=== PATIENT | female | born 1950 | race Caucasian/White ===

== ENCOUNTER 2022-09-25 10:19 | Inpatient (IN) ==
[2022-09-25] MEDS ORDERED: VANCOMYCIN CONSULT ACTIVE PRN (11:09)
[2022-09-25] MEDS ORDERED: MEROPENEM 500 MG in SYRINGE 0 ML IV STA (11:09)
[2022-09-25] MEDS ORDERED: VANCOMYCIN HCL 1,500 MG in SODIUM CHLORIDE 0.9% 500 ML IV ONE (11:09)
--- NOTE | 2022-09-25 11:12 | Emergency Department Note ---
Impression & Plan Cellulitis of right lower extremity, Failure of outpatient treatment ED Provider Note Name: CARLOS SPRINGER Age: 71 Sex: F Arrives Via: Walk-In Informant: Patient, son ED Provider: Steven Franklin MD Chief Complaint: Right leg redness Impression: As per impressions above Medical Decision Making: Dio 71-year-old female with worsening right leg cellulitis over the last several weeks having had been on both doxycycline and Bactrim. Over the last 48 hours significantly worsening redness which initially was just of the low foot and now is spread up to about 50% of her right lower leg from knee down. She was having fevers chills when this started on Saturday. Septic work-up initiated but fortunately her lactate, white count and procalcitonin are normal. She does have an elevated CRP. Patient already had outpatient vascular study showing decreased arterial flow. She does not have findings or symptoms of PE at this time or dissection or DVT. She is a bit tachycardic consistent with infection. She was given empiric IV antibiotics but due to her severe Rocephin allergy we went with meropenem and vancomycin after discussing with pharmacy. Given the failure outpatient treatment the rapid worsening the fact that is about 50% leg I do feel that she requires hospitalization. At this time though she is not septic I do not feel she is in severe sepsis or septic shock. Prior Medical Record and Triage/Nursing Notes reviewed by Me Outpatient records reviewed. Differentials:Cellulitis, sepsis, osteomyelitis, DVT, arterial insufficiency, multiple other pathologies considered Vital Signs: reviewed and remarkable for tachycardia Interventions: Normal saline bolus, meropenem IV, vancomycin IV Labs:Reviewed and remarkable for elevated CRP Consults:Discussed with pharmacist regarding optimal antibiotics and he advised IV meropenem and IV vancomycin. [facility]. Plan: Disposition:Hospitalization. Condition: Good History of Present Illness:Dio 71-year-old female arrives for evaluation of left leg pain. Patient notes she had a toe infection a month and a half ago for which she had been on doxycycline this did not really resolve the infection and the foot started to get a bit redder. She was switched to Bactrim several weeks ago but notes redness continued. About a week or so ago she had a wound developed of the right lower anterior leg. She did have an arterial ultrasound at that time which showed decreased blood flow but no need for emergent int ervention. She notes that over the last 24 hours to 48 hours she has had rapid worsening of redness of her leg now of the entire right lower foot and up to her knee. Notes it is warm mildly painful. Associated with fevers, chills, weakness. Currently on Bactrim without improvement. Walking makes worse. Denies any falls, trauma, injuries. Denies any puncture wounds to the area. Past Medical History:CAD, diabetes, hypertension amongst others Home Medications:See Below Allergies:See Below Vitals:Blood Pressure: 158/75, Pulse 110, RR 20, T 36.7C, O2 99% on RA Physical Exam: GENERAL: Patient is tired appearing and in mild distress. EYES: No scleral icterus, unremarkable pupils. RESPIRATORY: No dyspnea. Clear to auscultation and equal bilaterally. No wheeze, no rhonchi. CARDIOVASCULAR: Tachy.No murmurs, rubs, gallops appreciated. EXTREMITIES: Mild edema right lower leg with red erythema/cellulitis of the right lower leg from knee down to toes. Scab of the right lower anterior buitrago noted. NEUROLOGIC: Alert and oriented, no focal neurologic deficits appreciated SKIN: no jaundice, no diaphoresis. PSYCH: Appropriate GCS: 15 Steven Franklin MD Past Med/Surg History Medical History (Updated 09/25/22 @ 14:41 by Steven Franklin MD) Arthritis Back abscess Bone spur CAD (coronary artery disease) Dyslipidemia Frequent PVCs History of deviated nasal septum Hypertension Myocardial infarct DEEPIKA (obstructive sleep apnea) Type 2 diabetes mellitus Surgical History (Updated 09/05/22 @ 11:59 by Kenny Martinez DO) H/O arthroscopy of right knee H/O breast biopsy H/O cervical polypectomy H/O colonoscopy Last colonoscopy 01/24/2017 H/O dilation and curettage H/O sinus surgery Hx of carpal tunnel repair Hx of cataract extraction Hx of foot surgery left foot surgery and implant replacement Hx of parathyroidectomy Hx of tubal ligation Joint replaced left foot S/P coronary artery stent placement Family History Mother Heart disease Myocardial infarction Hypertension Brother Hypertension Uncle Diabetes Father Emphysema lung Denies family history of Ovarian cancer Prostate cancer Breast cancer Lung cancer Colorectal cancer Stroke Social History (Updated 09/05/22 @ 09:52 by Chris Price RN) Smoking Status: Never smoker Second Hand Exposure: No; Hx Alcohol Use: Yes Alcohol type: wine and hard liquor Alcohol Intake Frequency: Monthly or Less Hx Substance Use: No Preferred Language: Khmer Visual Impairment: Limited Hearing Ability: Normal marital status: / Current Living Situation: Alone current occupational status: retired How many Children do You have: 4 Feels Safe at Home: Yes Childhood Exposure to Second-Hand Smoke: No caffeine: Yes (1 cup a day) during the past year weight has: remained stable Dental Care, Regularly: Yes Physical Activity Frequency: 3-4 Times per Week Seatbelt Use: always Sunscreen Use: Yes Assistive Devices: Glasses Allergies Allergies Allergy/AdvReac Type Severity Reaction Status Date / Time amoxicillin Allergy Severe Rash Verified 09/05/22 09:34 ceftriaxone [From Rocephin] Allergy Severe Fever Verified 09/05/22 09:34 neomycin Allergy Intermediate Rash Verified 09/05/22 09:34 acetaminophen Allergy Mild Verified 09/05/22 09:34 [From Darvocet-N] propoxyphene Allergy Mild Verified 09/05/22 09:34 [From Darvocet-N] Home Meds Home Medications Medication Instructions Recorded Confirmed acetaminophen 500 mg tablet 500 mg PO BID 07/04/22 09/25/22 (Tylenol Extra Strength) aspirin 81 mg tablet,delayed 81 mg PO DAILY 07/04/22 09/25/22 release atorvastatin 80 mg tablet 80 mg PO DAILY 07/04/22 09/25/22 clopidogrel 75 mg tablet 75 mg PO DAILY 07/04/22 09/25/22 glimepiride 4 mg tablet 4 mg PO BID 07/04/22 09/25/22 insulin glargine 100 unit/mL (3 18 unit subcut QPM 07/04/22 09/25/22 mL) subcutaneous pen (Basaglar KwikPen U-100 Insulin) loratadine 10 mg tablet 10 mg PO DAILY 07/04/22 09/25/22 magnesium oxide 400 mg PO BID 07/04/22 09/25/22 metformin 1,000 mg tablet 1,000 mg PO BID 07/04/22 09/25/22 metoprolol tartrate 25 mg tablet 25 mg PO BID 07/04/22 09/25/22 cholecalciferol (vitamin D3) 25 25 mcg PO DAILY 07/06/22 09/25/22 mcg (1,000 unit) capsule biotin 10 mg tablet 10 mg PO DAILY 09/05/22 09/25/22 Previous Rx's Medication Instructions Recorded tramadol 50 mg tablet 50 mg PO DAILY PRN pain 30 days 08/01/22 #30 tabs ferrous gluconate 240 mg (27 mg 240 mg PO DAILY #30 tabs 09/05/22 iron) tablet (Ferate) lisinopril 2.5 mg tablet 2.5 mg PO DAILY #30 tabs 09/05/22 Results & Data (ED) Vital Signs Vital Signs - 24 hr 09/25/22 10:33 09/25/22 13:15 Temperature 36.7 C Temperature Source Temporal Artery Scan Pulse Rate 122 H 126 H Respiratory Rate 20 Respiratory Effort / Characteristics Non-Labored Respiratory Depth Normal Blood Pressure 158/75 H Blood Pressure Mean 102 Pulse Oximetry 99 Oxygen Delivery Method Room Air Sepsis Recent Fever Within 48 Hours No Sepsis New/Unexplained Change in Mental Status N/A Sepsis Action Taken by Nursing No Action Required Laboratory Data 09/25/22 12:21 09/25/22 12:21 Lab Results 09/25/22 09/25/22 09/25/22 Range/Units 11:37 12:21 12:21 WBC 9.80 (4.8-10.8) K/ul RBC 4.17 L (4.20-5.40) M/uL Hgb 11.6 L (12.0-16.0) g/dl Hct 36.2 L (37.0-47.0) % MCV 86.8 (80.0-100.0) fL MCH 27.8 (25.0-34.0) pg MCHC 32.0 (32.0-36.0) g/dL RDW Std Deviation 44.3 (36.4-46.3) fL RDW Coeff of Renetta 13.9 (11.5-14.5) % Plt Count 289 (130-400) K/uL MPV 9.8 (9.4-12.4) fL Immature Gran % (Auto) 0.5 % Neut % (Auto) 77.3 % Lymph % (Auto) 9.3 % Dade % (Auto) 11.4 % Eos % (Auto) 1.0 % Baso % (Auto) 0.5 % Neut # (Auto) 7.57 H (1.40-6.50) K/uL Lymph # (Auto) 0.91 L (1.2-3.4) K/uL Dade # (Auto) 1.12 H (0.11-0.59) K/uL Eos # (Auto) 0.10 (0-0.50) K/uL Baso # (Auto) 0.05 (0-0.2) K/uL Immature Gran # (Auto) 0.05 (0.01-0.20) K/uL Sodium 135 L (136-145) mmol/L Potassium 4.9 (3.5-5.1) mmol/L Chloride 100 (98-107) mmol/L Carbon Dioxide 27 (21-32) mmol/L Anion Gap 8 (3-11) BUN 35 H (6-23) mg/dl Creatinine 1.33 H (0.6-1.2) mg/dl Est Cr Clr Drug Dosing 33.4 ml/min Est GFR ( Amer) 45.8 ml/min Est GFR (Non-Af Amer) 39.6 ml/min BUN/Creatinine Ratio 26.3 H (10-20) Glucose 211 H (70-99(Fasting)) mg/dl Calcium 9.3 (8.5-10.1) mg/dl Magnesium 2.4 (1.7-2.4) mg/dl Troponin I High Sens 6.4 (0-14) pg/ml C-Reactive Protein 16.15 H (0-0.5) mg/dl Procalcitonin (0-0.5) ng/ml SARS-CoV-2 (PCR) NEGATIVE (Negative) Influenza Type A (PCR) Negative (Neg) Influenza Type B (PCR) Negative (Neg) RSV (RT-PCR) Negative (Neg) 09/25/22 Range/Units 12:21 WBC (4.8-10.8) K/ul RBC (4.20-5.40) M/uL Hgb (12.0-16.0) g/dl Hct (37.0-47.0) % MCV (80.0-100.0) fL MCH (25.0-34.0) pg MCHC (32.0-36.0) g/dL RDW Std Deviation (36.4-46.3) fL RDW Coeff of Renetta (11.5-14.5) % Plt Count (130-400) K/uL MPV (9.4-12.4) fL Immature Gran % (Auto) % Neut % (Auto) % Lymph % (Auto) % Dade % (Auto) % Eos % (Auto) % Baso % (Auto) % Neut # (Auto) (1.40-6.50) K/uL Lymph # (Auto) (1.2-3.4) K/uL Dade # (Auto) (0.11-0.59) K/uL Eos # (Auto) (0-0.50) K/uL Baso # (Auto) (0-0.2) K/uL Immature Gran # (Auto) (0.01-0.20) K/uL Sodium (136-145) mmol/L Potassium (3.5-5.1) mmol/L Chloride (98-107) mmol/L Carbon Dioxide (21-32) mmol/L Anion Gap (3-11) BUN (6-23) mg/dl Creatinine (0.6-1.2) mg/dl Est Cr Clr Drug Dosing ml/min Est GFR ( Amer) ml/min Est GFR (Non-Af Amer) ml/min BUN/Creatinine Ratio (10-20) Glucose (70-99(Fasting)) mg/dl Calcium (8.5-10.1) mg/dl Magnesium (1.7-2.4) mg/dl Troponin I High Sens (0-14) pg/ml C-Reactive Protein (0-0.5) mg/dl Procalcitonin 0.12 (0-0.5) ng/ml SARS-CoV-2 (PCR) (Negative) Influenza Type A (PCR) (Neg) Influenza Type B (PCR) (Neg) RSV (RT-PCR) (Neg) Administered Medications Discontinued Medications Vancomycin HCl 1,500 mg/ (Sodium Chloride) 530 mls @ 200 mls/hr IV NOW ONE Stop: 09/25/22 13:47 Last Admin: 09/25/22 12:53 Dose: 200 mls/hr Documented By: Meropenem 500 mg/ Syringe 10 mls @ 2 mls/min IV NOW STA; Protocol Stop: 09/25/22 11:13 Last Admin: 09/25/22 12:53 Dose: 2 mls/min Documented By: AB Discharge Plan Visit Data Chief Complaint: Leg Injury/Pain Stated Complaint: REDNESS ON LEG, WARM ED Provider: Steven Franklin Discharge Problem: Cellulitis of right lower extremity, Failure of outpatient treatment Forms Stand Alone Forms: [facility] Prescriptions Prescriptions: No Action ferrous gluconate [Ferate] 240 mg (27 mg iron) tablet 240 mg PO DAILY Qty: 30 0RF tramadol 50 mg tablet 50 mg PO DAILY PRN (Reason: pain) 30 Days Qty: 30 0RF biotin 10 mg tablet 10 mg PO DAILY lisinopril 2.5 mg tablet 2.5 mg PO DAILY Qty: 30 2RF aspirin 81 mg tablet,delayed release (DR/EC) 81 mg PO DAILY atorvastatin 80 mg tablet 80 mg PO DAILY insulin glargine [Basaglar KwikPen U-100 Insulin] 100 unit/mL (3 mL) insulin pen 18 unit subcut QPM clopidogrel 75 mg tablet 75 mg PO DAILY glimepiride 4 mg tablet 4 mg PO BID loratadine 10 mg tablet 10 mg PO DAILY magnesium oxide 400 mg magnesium tablet 400 mg PO BID metformin 1,000 mg tablet 1,000 mg PO BID metoprolol tartrate 25 mg tablet 25 mg PO BID acetaminophen [Tylenol Extra Strength] 500 mg tablet 500 mg PO BID cholecalciferol (vitamin D3) 25 mcg (1,000 unit) capsule 25 mcg PO DAILY Referrals Referrals: Kenny Martinez DO [Primary Care Provider] -
[2022-09-25 12:30] LABS: Influenza A virus by PCR Negative (Neg); Influenza B virus by PCR Negative (Neg); RSV by PCR Negative (Neg); SARS CoV2 RNA(COVID-19) Ceph NEGATIVE (Negative)
[2022-09-25 12:46] LABS: Basophils # (auto) 0.05 K/uL (0-0.2); Basophils % (auto) 0.5 %; Hematocrit (blood only) 36.2 % (37.0-47.0); Hemoglobin 11.6 g/dl (12.0-16.0); Immature Granulocytes # (auto) 0.05 K/uL (0.01-0.20); Immature Granulocytes % (auto) 0.5 %; Lymphocytes # (auto) 0.91 K/uL (1.2-3.4); Lymphocytes % (auto) 9.3 %; Mean Corpuscular Hemoglobin 27.8 pg (25.0-34.0); Mean Corpuscular Volume 86.8 fL (80.0-100.0); Mean Platelet Volume 9.8 fL (9.4-12.4); Monocytes # (auto) 1.12 K/uL (0.11-0.59); Monocytes % (auto) 11.4 %; Neutrophils # (auto) 7.57 K/uL (1.40-6.50); Neutrophils % (auto) 77.3 %; Platelet Count 289 K/uL (130-400); RDW Coefficient of Variation 13.9 % (11.5-14.5); RDW Standard Deviation 44.3 fL (36.4-46.3); Red Blood Count 4.17 M/uL (4.20-5.40)
[2022-09-25 13:02] LABS: BUN Creatinine Ratio 26.3 (10-20); C Reactive Protein 16.15 mg/dl (0-0.5); Calcium 9.3 mg/dl (8.5-10.1); Creatinine Clr Calc Pharmacy 33.4 ml/min; Est GFR (African American) 45.8 ml/min; Est GFR (Non-African American) 39.6 ml/min; Magnesium 2.4 mg/dl (1.7-2.4); Potassium 4.9 mmol/L (3.5-5.1)
[2022-09-25 13:03] LABS: Troponin I High Sensitivity 6.4 pg/ml (0-14)
[2022-09-25] MEDS ORDERED: SODIUM CHLORIDE 0.9% 500 ML IV ONE (13:30)
--- NOTE | 2022-09-25 14:19 | History & Physical Report ---
Date of Service September 25, 2022 Assessment & Plan (1) Cellulitis: Plan: Of R foot, previously on Doxycycline as outpatient with ongoing redness/pain and recently Bactrim by her PCP Arterial study previously showed moderate arterial insufficiency and her dealership manager recommended she have follow up with cardiology On admit, BP 158/75, tachycardic w/ rates 126bpm, temp 36.7C, 99% on RA. CRP 16. Procal 0.12 No leukocytosis but does have L shift and temp 101F reported at home Admit med/tele Check lactic Check CK, uric acid for alternative causes Venous doppler to r/o DVT given ongoing issues No hypotension/SOB/pleuritc CP to suggest PE, 99% on RA Given Meropenem/Vancomycin IV in ER, can continue Vancomycin and will see why ER chose Meropenem given no prior weird cultures Blood cultures pending IVF NS @ 80cc/hr for dehydration/poor PO intake and elevated BUN/Cr 35/1.33 Pain control/antiemetics prn -- states only has to use occasional tramadol use ?consultation w/ cardiology given her arterial insufficiency/poor wound healing, ?need for intervention Monitor labs in AM (2) CAD (coronary artery disease): Plan: following with Dr Layton Hx CAD s/p RCA STEMI, RCA and Cx PCI, HTN/HLD. NSTEMI in December 2020 w/ R sided chest discomfort/heaviness w/ radiation to jaws On Plavix, atorvastatin 80mg, metoprolol tartrate 25mg BID Recently added lisinopril 2.5mg by PCP Continue home meds -- give metoprolol, plavix, aspirin NOW, then continue usual schedule as she hadn't taken her medications yet this morning and tachycardic EKG w/ CP Monitor on telemetry (3) Diabetes mellitus: Plan: A1c 8.2 earlier this year [employer] On glimeperid 4mg BID, metformin 1gm BID, insulin glargine 18u HS Will hold home regimen and order BSG AC/HS, SSI while inpatient along with glargine BID Monitor BSGs (4) Dyslipidemia: Plan: continue statin checking CK to r/o degree of rhabdo contributing, can hold statin if needed but continued for now given her underlying CAD (5) Hypertension: Plan: BP stable, continue home medications with first dose metoprolol now given BP/tachycardia History of Present Illness Chief Complaint: cellulitis Primary Care Provider: Kenny Martinez DO 71yo female recently moved from [place] last year with PMHx significant for CAD (NSTEMI), DM, HTN, HLD, obesity, parathyroidectomy presented with ongoing cellulitis failing outpatient treatment. Had been seen by podiatry for ingrown toenail that eventually fell off, and recent abx w/ doxy in the summer and june Seen Dr Mitchell and he put he on Bactrim and told her to follow up with cardiology which she has been trying to get in sooner; she finished this 10 days after Aug 01 appointment. Her foot was red at that time and redness went out of the foot and now w/ redness to her leg. Recently, woke up Saturday, fever, chills, cough. COVID testing undertaken and was negative. Temp 101F on saturday, nothing yesterday. Went to walk and her leg was hurting so bad and she wasn't really able to walk on it. She hasn't really been taking anything for pain but has used occasional tramadol which she has had since prior back issues but asked for refill recently. By Saturday afternoon was increased redness. Called family doctor and they sent her in to ER for eval. Never had any blood clots, her son is a doctor and was concerned about a DVT. She is on ASA/Plavix for her CAD history and has been compliant w/ such. Had arterial study that showed moderate bilateral arterial insufficiency and her dealership manager recommended she follow up with cardiology (Dr Layton) to see about vascular intervention to help with blood flow/healing. Has been using topical honey salve. Of note, podiatry intake patient had inquired if she possibly had gout. She states that she has had gout in the past and that the redness initially did start in her R toe. On exam is comfortable at the moment, needing to urinate. No chest pain or shortness of breath. No abdominal pain/nausea or vomiting at present. Tachycardic with rates to 110-120s but denies palpitations/lightheadedness/dizz iness. Has been drinking but not much of PO appetite. She notes she had not taken any pills since her atorvastatin and metoprolol last night. 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 Allergies Allergy/AdvReac Type Severity Reaction Status Date / Time amoxicillin Allergy Severe Rash Verified 09/05/22 09:34 ceftriaxone [From Rocephin] Allergy Severe Fever Verified 09/05/22 09:34 neomycin Allergy Intermediate Rash Verified 09/05/22 09:34 acetaminophen Allergy Mild Verified 09/05/22 09:34 [From Darvocet-N] propoxyphene Allergy Mild Verified 09/05/22 09:34 [From Darvocet-N] Home Medications Medication Instructions Recorded Confirmed Type acetaminophen 500 mg tablet 500 mg PO BID 07/04/22 09/25/22 History (Tylenol Extra Strength) aspirin 81 mg tablet,delayed 81 mg PO DAILY 07/04/22 09/25/22 History release atorvastatin 80 mg tablet 80 mg PO DAILY 07/04/22 09/25/22 History clopidogrel 75 mg tablet 75 mg PO DAILY 07/04/22 09/25/22 History glimepiride 4 mg tablet 4 mg PO BID 07/04/22 09/25/22 History insulin glargine 100 unit/mL (3 18 unit subcut QPM 07/04/22 09/25/22 History mL) subcutaneous pen (Basaglar KwikPen U-100 Insulin) loratadine 10 mg tablet 10 mg PO DAILY 07/04/22 09/25/22 History magnesium oxide 400 mg PO BID 07/04/22 09/25/22 History metformin 1,000 mg tablet 1,000 mg PO BID 07/04/22 09/25/22 History metoprolol tartrate 25 mg tablet 25 mg PO BID 07/04/22 09/25/22 History cholecalciferol (vitamin D3) 25 25 mcg PO DAILY 07/06/22 09/25/22 History mcg (1,000 unit) capsule tramadol 50 mg tablet 50 mg PO DAILY PRN pain 30 days 08/01/22 09/25/22 Rx #30 tabs biotin 10 mg tablet 10 mg PO DAILY 09/05/22 09/25/22 History ferrous gluconate 240 mg (27 mg 240 mg PO DAILY #30 tabs 09/05/22 09/25/22 Rx iron) tablet (Ferate) lisinopril 2.5 mg tablet 2.5 mg PO DAILY #30 tabs 09/05/22 09/25/22 Rx Past Med/Surg History Medical History Arthritis Back abscess Bone spur CAD (coronary artery disease) Dyslipidemia Frequent PVCs History of deviated nasal septum Hypertension Myocardial infarct DEEPIKA (obstructive sleep apnea) Type 2 diabetes mellitus Surgical History H/O arthroscopy of right knee H/O breast biopsy H/O cervical polypectomy H/O colonoscopy Last colonoscopy 01/24/2017 H/O dilation and curettage H/O sinus surgery Hx of carpal tunnel repair Hx of cataract extraction Hx of foot surgery left foot surgery and implant replacement Hx of parathyroidectomy Hx of tubal ligation Joint replaced left foot S/P coronary artery stent placement Family History Mother Heart disease Myocardial infarction Hypertension Brother Hypertension Uncle Diabetes Father Emphysema lung black lung Denies family history of Ovarian cancer Prostate cancer Breast cancer Lung cancer Colorectal cancer Stroke Social History Smoking Status: Never smoker Second Hand Exposure: No; Hx Alcohol Use: Yes Alcohol type: wine Alcohol Intake Frequency: Monthly or Less Hx Substance Use: No Preferred Language: Welsh Communication Ability: Effective Visual Impairment: Limited Hearing Ability: Normal 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 Required: No Beliefs That Will Affect Care: None marital status: / Current Living Situation: Alone current occupational status: retired How many Children do You have: 4 Other Information That Helps Us Care for You: No Feels Safe at Home: Yes Safety Concerns: Feels Safe At This Time Childhood Exposure to Second-Hand Smoke: No caffeine: Yes (1 cup a day) during the past year weight has: remained stable Dental Care, Regularly: Yes Physical Activity Frequency: 3-4 Times per Week Seatbelt Use: always Sunscreen Use: Yes Assistive Devices: Glasses Review of Systems Review of Systems: All systems reviewed & are unremarkable except as noted in HPI & below Physical Exam Physical Exam: General: WD/WN female sitting in bed, NAD and requesting to use the bathroom HEENT: pupils equal in size, mm slightly dry, trachea midline without deviation Resp: CTA, no w/c, 99% on RA CV: slightly tachycardic to 120s, regular, no significant murmur, pulses decreased to LE, significant edema/erythema to RLE to level of the knee, tender to palpation, crusting to R great toenail GI: +BS, soft/NT : no yanez MSK/Neuro/skin: no focal deficit, follows commands, erythema/swelling to RLE c/w cellulitis no obvious open lesions/draining sores Psych: AOx3, pleasant and cooperative Results & Data Results [facility]) Vital Signs (Past 12 Hours) Vital Signs Temp Pulse Resp BP Pulse Ox O2 Del Method 09/25/22 13:15 126 H 09/25/22 10:33 36.7 C 122 H 20 158/75 H 99 Room Air Laboratory Results 09/25/22 09/25/22 09/25/22 Range/Units 12:21 12:21 12:21 WBC 9.80 (4.8-10.8) K/ul RBC 4.17 L (4.20-5.40) M/uL Hgb 11.6 L (12.0-16.0) g/dl Hct 36.2 L (37.0-47.0) % MCV 86.8 (80.0-100.0) fL MCH 27.8 (25.0-34.0) pg MCHC 32.0 (32.0-36.0) g/dL RDW Std Deviation 44.3 (36.4-46.3) fL RDW Coeff of Renetta 13.9 (11.5-14.5) % Plt Count 289 (130-400) K/uL MPV 9.8 (9.4-12.4) fL Immature Gran % (Auto) 0.5 % Neut % (Auto) 77.3 % Lymph % (Auto) 9.3 % Union % (Auto) 11.4 % Eos % (Auto) 1.0 % Baso % (Auto) 0.5 % Neut # (Auto) 7.57 H (1.40-6.50) K/uL Lymph # (Auto) 0.91 L (1.2-3.4) K/uL Union # (Auto) 1.12 H (0.11-0.59) K/uL Eos # (Auto) 0.10 (0-0.50) K/uL Baso # (Auto) 0.05 (0-0.2) K/uL Immature Gran # (Auto) 0.05 (0.01-0.20) K/uL Sodium 135 L (136-145) mmol/L Potassium 4.9 (3.5-5.1) mmol/L Chloride 100 (98-107) mmol/L Carbon Dioxide 27 (21-32) mmol/L Anion Gap 8 (3-11) BUN 35 H (6-23) mg/dl Creatinine 1.33 H (0.6-1.2) mg/dl Est Cr Clr Drug Dosing 33.4 ml/min Est GFR ( Amer) 45.8 ml/min Est GFR (Non-Af Amer) 39.6 ml/min BUN/Creatinine Ratio 26.3 H (10-20) Glucose 211 H (70-99(Fasting)) mg/dl Calcium 9.3 (8.5-10.1) mg/dl Magnesium 2.4 (1.7-2.4) mg/dl Troponin I High Sens 6.4 (0-14) pg/ml C-Reactive Protein 16.15 H (0-0.5) mg/dl Procalcitonin 0.12 (0-0.5) ng/ml SARS-CoV-2 (PCR) (Negative) Influenza Type A (PCR) (Neg) Influenza Type B (PCR) (Neg) RSV (RT-PCR) (Neg) 09/25/22 Range/Units 11:37 WBC (4.8-10.8) K/ul RBC (4.20-5.40) M/uL Hgb (12.0-16.0) g/dl Hct (37.0-47.0) % MCV (80.0-100.0) fL MCH (25.0-34.0) pg MCHC (32.0-36.0) g/dL RDW Std Deviation (36.4-46.3) fL RDW Coeff of Renetta (11.5-14.5) % Plt Count (130-400) K/uL MPV (9.4-12.4) fL Immature Gran % (Auto) % Neut % (Auto) % Lymph % (Auto) % Union % (Auto) % Eos % (Auto) % Baso % (Auto) % Neut # (Auto) (1.40-6.50) K/uL Lymph # (Auto) (1.2-3.4) K/uL Union # (Auto) (0.11-0.59) K/uL Eos # (Auto) (0-0.50) K/uL Baso # (Auto) (0-0.2) K/uL Immature Gran # (Auto) (0.01-0.20) K/uL Sodium (136-145) mmol/L Potassium (3.5-5.1) mmol/L Chloride (98-107) mmol/L Carbon Dioxide (21-32) mmol/L Anion Gap (3-11) BUN (6-23) mg/dl Creatinine (0.6-1.2) mg/dl Est Cr Clr Drug Dosing ml/min Est GFR ( Amer) ml/min Est GFR (Non-Af Amer) ml/min BUN/Creatinine Ratio (10-20) Glucose (70-99(Fasting)) mg/dl Calcium (8.5-10.1) mg/dl Magnesium (1.7-2.4) mg/dl Troponin I High Sens (0-14) pg/ml C-Reactive Protein (0-0.5) mg/dl Procalcitonin (0-0.5) ng/ml SARS-CoV-2 (PCR) NEGATIVE (Negative) Influenza Type A (PCR) Negative (Neg) Influenza Type B (PCR) Negative (Neg) RSV (RT-PCR) Negative (Neg) Supervising Physician Co-Signing Physician Notes I personally saw and examined the patient. I verified all orellana points and agree with Marta Marquez PA-C with the following exceptions and/or additions: 71 year old female presents to the ER with RLE cellulitis with failed outpatient treatment with doxycycline followed by Bactrim. O/E A&Ox3, HS RRR, no murmurs, Chest CTAB, Abdo SNT; erythema, swelling and warmth of right lower extremity from toes to knee circumferential around entire leg A/P Cellulitis - vancomycin + meropenem, elevate limb, follow up blood cultures, US venous doppler negative for DVT PG Care Time/CCT Total # of Minutes Spent Total Time Spent with Patient: Total time spent is greater than 50% in coordination of care (as documented) at patient's floor/unit and/or counseling patient: Coding Level of Care Code 87379 INT INP/OBS CARE MIN Diagnoses Cellulitis L03.90 CAD (coronary artery disease) I25.10 Diabetes mellitus E11.9 Dyslipidemia E78.5 Hypertension I10
[2022-09-25] MEDS ORDERED: METOPROLOL TARTRATE 25 MG TAB PO ONE (14:50)
[2022-09-25] MEDS ORDERED: CLOPIDOGREL BISULFATE 75 MG TAB PO ONE (14:50)
[2022-09-25] MEDS ORDERED: ASPIRIN 81 MG ECTAB PO STA (14:59)
--- NOTE | 2022-09-25 16:08 | Ultrasound Report ---
RIGHT LOWER EXTREMITY VENOUS DOPPLER CLINICAL HISTORY: Right lower extremity edema. Evaluate for deep venous thrombus. COMPARISON STUDY: No previous studies for comparison. TECHNIQUE: Sonography of the deep venous system of the right lower extremity was performed. Compress ion and augmentation were evaluated. FINDINGS: The right common femoral, superficial femoral and popliteal veins were compressible. Augme ntation was normal. Flow was shown within the deep calf vessels although calf vessels were suboptimal ly assessed due to edema. Several benign-appearing right inguinal lymph nodes are noted. There is a s mall right popliteal cyst which measures 2.5 x 0.7 x 2.2 cm. IMPRESSION: No evidence of deep venous thrombus within the right lower extremity although calf vessel s were suboptimally assessed due to edema. ACT 112: Negative or not required by law. Electronically signed by: Zeeshan Dozier M.D. 09/25/2022 4:06 PM
[2022-09-25 16:42] LABS: Uric Acid 5.5 mg/dl (2.6-7.2)
[2022-09-25] MEDS ORDERED: GLUCAGON FOR INJ 1 MG VIAL SQ PRN (16:50)
[2022-09-25] MEDS ORDERED: CARBOHYDRATES FOR HYPOGLYCEMIA PO PRN (16:50)
[2022-09-25] MEDS ORDERED: ONDANSETRON INJ 2 MG/ML 2 ML VIAL IV PRN (16:50)
[2022-09-25] MEDS ORDERED: GLUCOSE 40% GEL 15 GM TUBE PO PRN (16:50)
[2022-09-25] MEDS ORDERED: traMADol HCL 50 MG TABLET PO PRN (16:50)
[2022-09-25] MEDS ORDERED: DEXTROSE 50% 50 ML SYRINGE IV PRN (16:50)
[2022-09-25] MEDS ORDERED: GLUCOSE 10 TAB/TUBE PO PRN (16:50)
[2022-09-25] MEDS: INSULIN ASPART PER UNIT SC SCH ×2 (17:20→21:07)
[2022-09-25] MEDS: MEROPENEM 500 MG in SYRINGE 0 ML IV SCH ×2 (17:22→20:20)
[2022-09-25] MEDS: SODIUM CHLORIDE 0.9% 1000ML 1,000 ML IV SCH (17:27)
[2022-09-25] MEDS: ACETAMINOPHEN 500 MG TAB PO SCH (20:19)
[2022-09-25] MEDS: MAGNESIUM OXIDE 400 MG TAB PO SCH (20:20)
[2022-09-25] MEDS: METOPROLOL TARTRATE 25 MG TAB PO SCH (20:21)
[2022-09-25] MEDS ORDERED: NON-FORMULARY MEDICATION (Insulin Glargine [Basaglar Kwikpen U-100 Insulin] 100 unit/mL (3 SQ SCH (21:00)
[2022-09-25] MEDS: LANTUS PER UNIT CHARGE SQ SCH (21:08)
[2022-09-25] MEDS: ATORVASTATIN 40 MG TAB PO SCH (22:10)
[2022-09-26] MEDS: SODIUM CHLORIDE 0.9% 1000ML 1,000 ML IV SCH (05:52)
[2022-09-26] MEDS: MEROPENEM 500 MG in SYRINGE 0 ML IV SCH ×3 (05:52→21:19)
[2022-09-26 07:24] LABS: Basophils # (auto) 0.04 K/uL (0-0.2); Basophils % (auto) 0.5 %; Eosinophils # (auto) 0.33 K/uL (0-0.50); Eosinophils % (auto) 4.2 %; Hematocrit (blood only) 31.9 % (37.0-47.0); Hemoglobin 10.1 g/dl (12.0-16.0); Immature Granulocytes # (auto) 0.02 K/uL (0.01-0.20); Immature Granulocytes % (auto) 0.3 %; Lymphocytes # (auto) 1.24 K/uL (1.2-3.4); Lymphocytes % (auto) 15.9 %; Mean Corpuscular Hemoglobin 27.7 pg (25.0-34.0); Mean Corpuscular Hgb Conc 31.7 g/dL (32.0-36.0); Mean Corpuscular Volume 87.6 fL (80.0-100.0); Mean Platelet Volume 9.9 fL (9.4-12.4); Monocytes # (auto) 1.18 K/uL (0.11-0.59); Monocytes % (auto) 15.1 %; Neutrophils # (auto) 5.01 K/uL (1.40-6.50); Platelet Count 278 K/uL (130-400); RDW Coefficient of Variation 13.7 % (11.5-14.5); RDW Standard Deviation 44.3 fL (36.4-46.3); Red Blood Count 3.64 M/uL (4.20-5.40); White Blood Count 7.82 K/ul (4.8-10.8)
[2022-09-26 07:28] LABS: Albumin Globulin Ratio 1.1 (0.9-2); Albumin Level 3.7 gm/dl (3.4-5.0); BUN Creatinine Ratio 22.4 (10-20); Bilirubin,Total 0.5 mg/dl (0.2-1.0); C Reactive Protein 10.4 mg/dl (0-0.5); Calcium 8.7 mg/dl (8.5-10.1); Creatinine Clr Calc Pharmacy 35.8 ml/min; Est GFR (African American) 54.1 ml/min; Est GFR (Non-African American) 46.7 ml/min; Globulin 3.3 gm/dl (2.5-4.0); Magnesium 2.1 mg/dl (1.7-2.4); Potassium 4.1 mmol/L (3.5-5.1)
[2022-09-26] MEDS ORDERED: MEROPENEM 1,000 MG in SYRINGE 0 ML IV SCH ×2 (08:17→09:00)
[2022-09-26] MEDS: MAGNESIUM OXIDE 400 MG TAB PO SCH ×2 (08:18→21:14)
[2022-09-26] MEDS: LANTUS PER UNIT CHARGE SQ SCH ×2 (08:18→21:34)
[2022-09-26] MEDS: INSULIN ASPART PER UNIT SC SCH ×4 (08:18→21:34)
[2022-09-26] MEDS: ACETAMINOPHEN 500 MG TAB PO SCH ×2 (08:18→21:13)
[2022-09-26] MEDS: ASPIRIN 81 MG ECTAB PO SCH (08:19)
[2022-09-26] MEDS: CLOPIDOGREL BISULFATE 75 MG TAB PO SCH (08:19)
[2022-09-26] MEDS: METOPROLOL TARTRATE 25 MG TAB PO SCH ×2 (08:19→21:14)
[2022-09-26] MEDS: CHOLECALCIFEROL 1,000 UNITS 25 MCG TAB PO SCH (08:19)
[2022-09-26] MEDS: LORATADINE 10 MG TAB PO SCH (08:19)
[2022-09-26] MEDS ORDERED: FERROUS GLUCONATE PO SCH (09:00)
--- NOTE | 2022-09-26 10:59 | Pharmacy Report ---
Pharmacy PK ABX Note - Date of Service September 26, 2022 - Assessment and Plan Assessment 71 year old F admitted with worsening RLE cellulitis. She failed out patient treatment with doxycycline and TMP-SMX. No known h/o of MDRO found in review of [facility] records, however limited micro data available. She was started on treatment with vancomycin and meropenem. BC pending. Plan Vancomycin * Loading dose: 1500 mg IV x 1 in ED * Maintenance dose: 1250 mg IV every 24 hours * Regimen is predicted to achieve target AUC/CYNDI of 400-600 mg/L.hr * AUC24,ss: 546 mg/L.hr * Probability of AUC24 > 400: 82 % * Ctrough,ss: 16.7 mg/L * Drug level will be obtained if vanco continued beyond 48 hr Pharmacy will continue to follow and will adjust dose/frequency as necessary. Thank you.
[2022-09-26] MEDS: VANCOMYCIN HCL 1,250 MG in SODIUM CHLORIDE 0.9% 250 ML IV SCH (12:18)
[2022-09-26] MEDS ORDERED: VANCOMYCIN HCL 1,000 MG in SODIUM CHLORIDE 0.9% 250 ML IV SCH (13:00)
--- NOTE | 2022-09-26 16:36 | XRay Report ---
XR toe(s) RT min 2V CLINICAL HISTORY: right great toe ulcer, cellulitis COMPARISON: None FINDINGS: Alignment of the right first toe is anatomic. No acute fracture is present. There is no ev idence for acute osteomyelitis by radiography. Severe first MTP joint osteoarthritis is present. Vasc ular calcification is incidentally noted. There is right first toe soft tissue swelling. IMPRESSION: 1. No acute fracture. No evidence for acute osteomyelitis within the right first toe. 2. 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 ACT 112: Negative or not required by law. Electronically signed by: Zeeshan Dozier M.D. 09/26/2022 4:35 PM
--- NOTE | 2022-09-26 18:30 | Hospitalist Progress Note ---
Date of Service September 26, 2022 Assessment & Plan (1) Cellulitis: Plan: Right foot and leg, with associated fevers, warmth, erythema On admit, BP 158/75, tachycardic w/ rates 126bpm, temp 36.7C, 99% on RA. CRP 16. Procal 0.12, lactate normal No leukocytosis but does have L shift and temp 101F reported at home Venous doppler neg for DVT Warmth and edema improving, no fevers here. Erythema not much improved yet With a h/o PAD and DMII -continue Meropenem/Vancomycin for broad coverage including for Pseudomonas -follow Blood cultures -NGTD -continue elevation -check xray right toe -check arterial Doppler -abnormal outpt report of arterial US in 06/2022---> consult Vascular Medicine -APAP prn fever, pain -follow CBC,CMP, CRP (2) PAD (peripheral artery disease): Plan: abnormal outpt arterial Doppler 06/2022-report in Podiatry note scanned into chart -nonpalpable peripheral pulses on right, Dopplerable -with trophic changes and right 1st MTP arterial ulcer -repeat arterial Doppler here -consult Vascular Med as above -continue ASA, Plavix, atorvastatin (3) CAD (coronary artery disease): Plan: following with Dr Layton Hx CAD s/p RCA STEMI, RCA and Cx PCI, HTN/HLD. 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 No pain in ulceration of foot. Denies CP, SOB, nausea, abd pain, diarrhea Tele with NSR, rates 60-80s Review of Systems Review of Systems: All systems reviewed & are unremarkable except as noted in HPI & below Physical Exam Constitutional: WD/WN, vitals as above Respiratory: normal respiratory effort, lungs clear to auscultation Cardiovascular: Rate/Rhythm: regular rate and regular rhythm Heart Sounds: no murmur Vessels: + dorsalis pedis pulses abnormal (nonpalp on right,1+ left) Extremities: + edema (R leg 2+ edema,L leg trace edema) Gastrointestinal (Abdomen): normal bowel sounds, soft, nontender, no hepatosplenomegaly Skin: + ulcer (1 cm right plantar MTP ulcer) and + erythema (entire right leg and foot to prox tibia,slightly inside line of demarcation) Psychiatric: Orientation: alert and oriented x 3 Results & Data Results & Data ([facility]) Vital Signs (Past 12 Hours) Vital Signs Temp Pulse Pulse Resp BP BP Pulse Ox 09/26/22 16:37 36.9 C 97 H 16 151/85 H 97 09/26/22 12:00 36.9 C 68 16 128/80 95 09/26/22 08:24 36.6 C 87 18 131/77 97 09/26/22 07:00 91 H O2 Del Method 09/26/22 16:37 Room Air 09/26/22 12:00 Room Air 09/26/22 08:24 Room Air 09/26/22 07:00 Laboratory Results CBC, CMP, CRP reviewed PG Care Time/CCT Total # of Minutes Spent Total Time Spent with Patient: Total time spent is greater than 50% in coordination of care (as documented) at patient's floor/unit and/or counseling patient: Coding Level of Care Code 62560 SUB INP/OBS CARE 3/50MIN Diagnoses Cellulitis L03.90 PAD (peripheral artery disease) I73.9 CAD (coronary artery disease) I25.10 Foot ulcer L97.509 Diabetes mellitus E11.9 Dyslipidemia E78.5 Hypertension I10 Anemia D64.9
[2022-09-26] MEDS: ATORVASTATIN 40 MG TAB PO SCH (21:13)
--- NOTE | 2022-09-26 22:21 | Ultrasound Report ---
Exam(s): US ARTERIAL RIGHT LOWER EXTREMITY EXAM: US Duplex Right Lower Extremity Arteries CLINICAL HISTORY: Reason for exam: right toe ulcer,known PAD. TECHNIQUE: Real-time duplex ultrasound scan of the right lower extremity arteries integrating B-mode two-dimensional vascular structure, Doppler spectral analysis and color flow Doppler imaging. COMPARISON: None. FINDINGS: Triphasic flow from the right common femoral artery into the mid distal right superficial femoral artery. Monophasic flow from the right anterior tibial artery, peroneal artery with decreased blood flow window suggestive of multiple areas of high- grade stenosis. Dampened flow within the right posterior tibial artery distally suggestive of possible occlusion. Monophasic flow with decreased partial window within the right dorsalis pedis concerning for high-grade stenoses and occlusions. Other arteries: Monophasic flow , more severe distally with dampened flow consistent with high-grade stenosis or areas of occlusion. Multiple collaterals along the popliteal artery noted. Soft tissues: Unremarkable. IMPRESSION: Findings suggestive of occlusion of the right popliteal artery with several collaterals . Severe disease through the trifurcation vessels with likely occlusion of the distal and proximal right posterior tibial artery. Electronically signed by: Loan Isaacs MD 09/26/22 22:20 PM
[2022-09-27] MEDS: MEROPENEM 500 MG in SYRINGE 0 ML IV SCH ×3 (05:26→20:39)
[2022-09-27 06:20] LABS: Basophils # (auto) 0.04 K/uL (0-0.2); Basophils % (auto) 0.6 %; Eosinophils # (auto) 0.42 K/uL (0-0.50); Eosinophils % (auto) 6.2 %; Hematocrit (blood only) 33.8 % (37.0-47.0); Hemoglobin 11.1 g/dl (12.0-16.0); Immature Granulocytes # (auto) 0.03 K/uL (0.01-0.20); Immature Granulocytes % (auto) 0.4 %; Lymphocytes # (auto) 1.05 K/uL (1.2-3.4); Lymphocytes % (auto) 15.5 %; Mean Corpuscular Hemoglobin 27.8 pg (25.0-34.0); Mean Corpuscular Hgb Conc 32.8 g/dL (32.0-36.0); Mean Corpuscular Volume 84.7 fL (80.0-100.0); Mean Platelet Volume 9.8 fL (9.4-12.4); Monocytes % (auto) 13.3 %; Neutrophils # (auto) 4.33 K/uL (1.40-6.50); Platelet Count 333 K/uL (130-400); RDW Coefficient of Variation 13.5 % (11.5-14.5); RDW Standard Deviation 42.2 fL (36.4-46.3); Red Blood Count 3.99 M/uL (4.20-5.40); White Blood Count 6.77 K/ul (4.8-10.8)
[2022-09-27 06:33] LABS: Albumin Globulin Ratio 1.2 (0.9-2); Albumin Level 3.8 gm/dl (3.4-5.0); BUN Creatinine Ratio 20.8 (10-20); Bilirubin,Total 0.4 mg/dl (0.2-1.0); C Reactive Protein 5.65 mg/dl (0-0.5); Calcium 9.2 mg/dl (8.5-10.1); Creatinine Clr Calc Pharmacy 40.7 ml/min; Est GFR (Non-African American) 55.2 ml/min; Globulin 3.3 gm/dl (2.5-4.0); Magnesium 2.1 mg/dl (1.7-2.4); Potassium 4.4 mmol/L (3.5-5.1); Total Protein 7.1 gm/dl (6.0-8.3)
[2022-09-27 07:05] LABS: Ferritin 223.7 ng/ml (8-388)
--- NOTE | 2022-09-27 07:59 | Hospitalist Progress Note ---
Date of Service September 27, 2022 Assessment & Plan (1) Cellulitis: Plan: Right foot and leg, with associated fevers, warmth, erythema On admit, BP 158/75, tachycardic w/ rates 126bpm, temp 36.7C, 99% on RA. CRP 16. Procal 0.12, lactate normal No leukocytosis but does have L shift and temp 101F reported at home Venous doppler neg for DVT Right great toe x-ray negative for osteomyelitis, with severe OA of right first MTP joint Warmth and edema improving, no fevers here. Erythema still remains not much improved With a h/o severe PAD and DMII Arterial Doppler of the right lower extremity with findings suggestive of right popliteal artery occlusion with collaterals, severe disease through trifurcation vessels with likely occlusion of distal and proximal right posterior tibial artery. -continue Meropenem/Vancomycin for broad coverage including for Pseudomonas and MRSA -follow Blood cultures -remain NGTD -continue elevation - consult Vascular Medicine appreciated-plan for angioplasty of the right lower extremity with possible intervention on 09/28-keep n.p.o. after midnight -APAP prn fever, pain -follow CBC,BMP (2) PAD (peripheral artery disease): Plan: abnormal outpt arterial Doppler 06/2022-report in Podiatry note scanned into chart -With arterial Doppler here as above -nonpalpable peripheral pulses on right, Dopplerable -with trophic changes and right 1st MTP arterial ulcer -consult Vascular Med as above with plans for angioplasty tomorrow -continue ASA, Plavix, atorvastatin (3) CAD (coronary artery disease): Plan: following with Dr Layton Hx CAD s/p RCA STEMI, RCA and Cx PCI, HTN/HLD. 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, metformin 1gm BID, insulin glargine 18u HS Will hold home regimen -continue BSG AC/HS, SSI while inpatient along with glargine BID-with hyperglycemia here-increased doses of Lantus and NovoLog today Monitor BSGs (6) Dyslipidemia: Plan: continue statin (7) Hypertension: Plan: BPs remain mildly elevated -continue metoprolol, lisinopril -May increase metoprolol dose tomorrow (8) Anemia: Plan: hgb 10.1, normocytic-secondary to B12 deficiency in part but may also be some anemia of chronic disease due to ongoing inflammation and perhaps some mild iron deficiency B12 low at 165-replace with IM B12 Folate and TSH normal Transferrin saturation borderline low at 16%-she already takes iron tablets at home Outpatient follow-up and potentially needs EGD/colonoscopy once more stable- discussed with patient Plan DVT proph-plan to start Lovenox SQ after procedure tomorrow Dispo-continued stay PCU Admission and Anticipated Discharge Date Admission Date: September 25, 2022 Subjective Patient reports no having much pain in the leg. Swelling is down slightly. I discussed her care with vascular medicine/cardiology as well as podiatry. Telemetry with normal sinus rhythm and sinus tachycardia in the low 100s, PVCs Physical Exam Constitutional: WD/WN, vitals as above Respiratory: normal respiratory effort, lungs clear to auscultation Cardiovascular: Rate/Rhythm: regular rate and regular rhythm Heart Sounds: no murmur Vessels: + dorsalis pedis pulses abnormal (nonpalp on right,1+ left) Extremities: + edema (R leg 2+ edema,L leg trace edema) Gastrointestinal (Abdomen): normal bowel sounds, soft, nontender, no hepatosplenomegaly Skin: + ulcer (1 cm right plantar MTP ulcer) and + erythema (entire right leg and foot to prox tibia,slightly inside line of demarcation) Psychiatric: Orientation: alert and oriented x 3 Results & Data Results & Data ([facility]) Vital Signs (Past 12 Hours) Vital Signs Temp Pulse Pulse Resp BP Pulse Ox O2 Del Method 09/27/22 07:30 36.8 C 70 16 165/82 H 95 Room Air 09/27/22 07:00 86 09/27/22 03:13 36.6 C 77 18 151/78 H 98 Room Air 09/27/22 00:57 75 09/26/22 22:52 37.4 C 73 18 155/77 H 96 Room Air Laboratory Results CBC, CMP, iron studies, B12 and folate, TSH all reviewed, CRP reviewed Blood cultures remain no growth to date PG Care Time/CCT Total # of Minutes Spent Total Time Spent with Patient: Total time spent is greater than 50% in coordination of care (as documented) at patient's floor/unit and/or counseling patient: Coding Level of Care Code 11376 SUB INP/OBS CARE 3/50MIN Diagnoses Cellulitis L03.90 PAD (peripheral artery disease) I73.9 CAD (coronary artery disease) I25.10 Foot ulcer L97.509 Diabetes mellitus E11.9 Dyslipidemia E78.5 Hypertension I10 Anemia D64.9
[2022-09-27] MEDS: MAGNESIUM OXIDE 400 MG TAB PO SCH ×2 (08:30→20:03)
[2022-09-27] MEDS: ASPIRIN 81 MG ECTAB PO SCH (08:30)
[2022-09-27] MEDS: CLOPIDOGREL BISULFATE 75 MG TAB PO SCH (08:30)
[2022-09-27] MEDS: ACETAMINOPHEN 500 MG TAB PO SCH ×2 (08:30→20:05)
[2022-09-27] MEDS: METOPROLOL TARTRATE 25 MG TAB PO SCH ×2 (08:30→20:05)
[2022-09-27] MEDS: LORATADINE 10 MG TAB PO SCH (08:30)
[2022-09-27] MEDS: CHOLECALCIFEROL 1,000 UNITS 25 MCG TAB PO SCH (08:30)
[2022-09-27] MEDS: INSULIN ASPART PER UNIT SC SCH ×4 (08:51→20:38)
[2022-09-27] MEDS: LANTUS PER UNIT CHARGE SQ SCH ×2 (08:51→20:39)
[2022-09-27] MEDS: CYANOCOBALAMIN 1000 MCG/ML VIAL IM SCH (10:55)
[2022-09-27] MEDS: lisinopril 2.5 MG TAB PO SCH (10:55)
[2022-09-27] MEDS: VANCOMYCIN HCL 1,250 MG in SODIUM CHLORIDE 0.9% 250 ML IV SCH (10:56)
--- NOTE | 2022-09-27 12:48 | Podiatry Consultation ---
Date of Consultation September 27, 2022 Assessment & Plan (1) Foot ulcer: patient will be seen by vascular for discussion about intervention, recommend to continue local wound care at bedside and recommend post d/c follow up with me in office (2) PAD (peripheral artery disease): (3) Cellulitis of right lower extremity: (4) Diabetes mellitus: History of Present Illness Reason for Consultation: right foot cellulitis and plantar hallux ulcer Attending Physician: Patricia Lacey MD History of Present Illness Patient is a pleasant 71 year old female seen at bedside this afternoon. Seated comfortably with right leg elevated on pillow. Notes the history to me of worsening leg swelling/erythema, has been seen by outside atm manager and had KELLY performed in [place], had recent arterial Doppler here showing monophasic flow from the right anterior tibial artery, peroneal artery and multiple areas of high grade stenosis. Monophasic flow also of the DP right side, findings suggesting significant occlusions - discussed with patient that the most concerning issue is her arterial status, which will need to be improved. Ther erythema and swelling of the leg is likely secondary to the significant blockage ID on study, WBC normal, although concern for infection due to lack of arterial flow to the foot - arterial ulcer present under the hallux with wound bed with granular dense tissue, some surrounding callus, no significant drainage, overall leg very red and swollen - patient will need to have improved flow from vascular, I will continue to follow patient by likely most of what I can help with will be done outpatient, I will follow with patient post d/c. I explained to patient that her wound may heal with simple wound dressings and vascular intervention, will need to monitor this as patient improves - patient is understanding and had no further questions I spent greater than 25 min explaining diagnosis to patient and discussing treatments Allergies Allergy/AdvReac Type Severity Reaction Status Date / Time amoxicillin Allergy Severe Rash Verified 09/05/22 09:34 ceftriaxone [From Rocephin] Allergy Severe Fever Verified 09/05/22 09:34 neomycin Allergy Intermediate Rash Verified 09/05/22 09:34 acetaminophen Allergy Mild Verified 09/05/22 09:34 [From Darvocet-N] propoxyphene Allergy Mild Verified 09/05/22 09:34 [From Darvocet-N] Home Medications Medication Instructions Recorded Confirmed Type acetaminophen 500 mg tablet 500 mg PO BID 07/04/22 09/25/22 History (Tylenol Extra Strength) aspirin 81 mg tablet,delayed 81 mg PO DAILY 07/04/22 09/25/22 History release atorvastatin 80 mg tablet 80 mg PO DAILY 07/04/22 09/25/22 History clopidogrel 75 mg tablet 75 mg PO DAILY 07/04/22 09/25/22 History glimepiride 4 mg tablet 4 mg PO BID 07/04/22 09/25/22 History insulin glargine 100 unit/mL (3 18 unit subcut QPM 07/04/22 09/25/22 History mL) subcutaneous pen (Basaglar KwikPen U-100 Insulin) loratadine 10 mg tablet 10 mg PO DAILY 07/04/22 09/25/22 History magnesium oxide 400 mg PO BID 07/04/22 09/25/22 History metformin 1,000 mg tablet 1,000 mg PO BID 07/04/22 09/25/22 History metoprolol tartrate 25 mg tablet 25 mg PO BID 07/04/22 09/25/22 History cholecalciferol (vitamin D3) 25 25 mcg PO DAILY 07/06/22 09/25/22 History mcg (1,000 unit) capsule tramadol 50 mg tablet 50 mg PO DAILY PRN pain 30 days 08/01/22 09/25/22 Rx #30 tabs biotin 10 mg tablet 10 mg PO DAILY 09/05/22 09/25/22 History ferrous gluconate 240 mg (27 mg 240 mg PO DAILY #30 tabs 09/05/22 09/25/22 Rx iron) tablet (Ferate) lisinopril 2.5 mg tablet 2.5 mg PO DAILY #30 tabs 09/05/22 09/25/22 Rx Patient History Medical History Arthritis Back abscess Bone spur CAD (coronary artery disease) Dyslipidemia Frequent PVCs History of deviated nasal septum Hypertension Myocardial infarct DEEPIKA (obstructive sleep apnea) PAD (peripheral artery disease) Type 2 diabetes mellitus Surgical History H/O arthroscopy of right knee H/O breast biopsy H/O cervical polypectomy H/O colonoscopy Last colonoscopy 01/24/2017 H/O dilation and curettage H/O sinus surgery Hx of carpal tunnel repair Hx of cataract extraction Hx of foot surgery left foot surgery and implant replacement Hx of parathyroidectomy Hx of tubal ligation Joint replaced left foot S/P coronary artery stent placement Family History Mother Heart disease Myocardial infarction Hypertension Brother Hypertension Uncle Diabetes Father Emphysema lung black lung Denies family history of Ovarian cancer Prostate cancer Breast cancer Lung cancer Colorectal cancer Stroke Social History Smoking Status: Never smoker Second Hand Exposure: No; Hx Alcohol Use: Yes Alcohol type: wine Alcohol Intake Frequency: Monthly or Les s Hx Substance Use: No Preferred Language: Maldivian Communication Ability: Effective Visual Impairment: Limited Hearing Ability: Normal 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 Beliefs That Will Affect Care: None marital status: / Current Living Situation: Alone current occupational status: retired How many Children do You have: 4 Other Information That Helps Us Care for You: No Feels Safe at Home: Yes Safety Concerns: Feels Safe At This Time Childhood Exposure to Second-Hand Smoke: No caffeine: Yes (1 cup a day) during the past year weight has: remained stable Dental Care, Regularly: Yes Physical Activity Frequency: 3-4 Times per Week Seatbelt Use: always Sunscreen Use: Yes Assistive Devices: Glasses Physical Exam Skin: right hallux with swelling and erythema of the entire LE, ulcer is stable with xrays showing no signs of osteomyelitis, measures about 2 cm in diameter, with overall clean wound base, no debridement recommended due to patient worseing arterial status, toes were noted to have normal cap refill, no pedal present and known blockage present Results & Data ([facility]) Vital Signs (Past 12 Hours) Vital Signs Temp Pulse Pulse Resp BP Pulse Ox O2 Del Method 09/27/22 11:22 36.8 C 66 18 143/75 H 94 Room Air 09/27/22 07:30 36.8 C 70 16 165/82 H 95 Room Air 09/27/22 07:00 86 09/27/22 03:13 36.6 C 77 18 151/78 H 98 Room Air 09/27/22 00:57 75
[2022-09-27] MEDS: ATORVASTATIN 40 MG TAB PO SCH (20:05)
--- NOTE | 2022-09-27 22:49 | Vascular Medicine Consultation ---
Date of Consultation September 27, 2022 Assessment & Plan (1) PAD (peripheral artery disease): 2. Right great toe foot ulcer 3. Right leg cellulitis 4. Type 2 diabetes 5. Coronary artery disease post prior inferior DE, multiple PCI Plan Patient seen today in the setting of slow/non-healing LE ulceration with associated cellulitis. Exam and non-invasive vascular testing suggestive of severe arterial insufficiency. Feel at-risk, threatened limb would benefit from revascularization. Review of arterial imaging consistent with right distal popliteal occlusion and severe tibial vessel disease. Disease appears potentially amenable to endovascular intervention. Recommend proceeding with bilateral right lower extremity angiogram and possible intervention via left CHIEF ORTHOPTIST. Discussed risks, benefits, alternatives of procedure with patient and her son Stefano by phone. They are willing to proceed. Plan for procedure tomorrow morning. Please keep n.p.o. past midnight. History of Present Illness Attending Physician: Patricia Lacey MD History of Present Illness Ms. Wilkins is a very pleasant 71-year-old woman seen today due to lower extremity ulceration in the setting of type 2 diabetes and PAD. Prior medical history remarkable for coronary artery disease post inferior DE 12/2020 treated with 2 JESSICA to RCA, additional PCI with JESSICA to mid LCx 01/2022. Other medical issues include hypertension, dyslipidemia and prior history of parathyroidectomy. Lifelong non-smoker. No prior peripheral vascular history. Patient currently admitted with right lower extremity cellulitis for preceding 3 days. Has had issues with her right foot since June when initially had an ingrown toenail treated by podiatry. At that time was started on doxycycline for possible associated cellulitis. Erythema/drainage persisted and eventually switched to Bactrim by PCP. Later developed a ulcer on the plantar aspect of her great toe which she attributes to bandage removal. Wound is not improved with home care, [facility]. At baseline patient active. States can walk up to 2 miles and previously completed cardiac rehab. Denies claudication. Denies rest pain. Has had prior ingrown nails but no prior ulcerations. Recent vascular testing: Arterial duplex 09/2022: Right KELLY 0.43 (DP), left 0.65. Right popliteal occlud ed with collaterals. 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 06/2022: Right CLASSROOM TECHNOLOGY COACH 0.57, DP 0.56, left 0.62. Right TBI 0.48, left 0.51. PVR dampened at the ankle, flat in the foot Allergies Allergy/AdvReac Type Severity Reaction Status Date / Time amoxicillin Allergy Severe Rash Verified 09/05/22 09:34 ceftriaxone [From Rocephin] Allergy Severe Fever Verified 09/05/22 09:34 neomycin Allergy Intermediate Rash Verified 09/05/22 09:34 acetaminophen Allergy Mild Verified 09/05/22 09:34 [From Darvocet-N] propoxyphene Allergy Mild Verified 09/05/22 09:34 [From Darvocet-N] Home Medications Medication Instructions Recorded Confirmed Type acetaminophen 500 mg tablet 500 mg PO BID 07/04/22 09/25/22 History (Tylenol Extra Strength) aspirin 81 mg tablet,delayed 81 mg PO DAILY 07/04/22 09/25/22 History release atorvastatin 80 mg tablet 80 mg PO DAILY 07/04/22 09/25/22 History clopidogrel 75 mg tablet 75 mg PO DAILY 07/04/22 09/25/22 History glimepiride 4 mg tablet 4 mg PO BID 07/04/22 09/25/22 History insulin glargine 100 unit/mL (3 18 unit subcut QPM 07/04/22 09/25/22 History mL) subcutaneous pen (Basaglar KwikPen U-100 Insulin) loratadine 10 mg tablet 10 mg PO DAILY 07/04/22 09/25/22 History magnesium oxide 400 mg PO BID 07/04/22 09/25/22 History metformin 1,000 mg tablet 1,000 mg PO BID 07/04/22 09/25/22 History metoprolol tartrate 25 mg tablet 25 mg PO BID 07/04/22 09/25/22 History cholecalciferol (vitamin D3) 25 25 mcg PO DAILY 07/06/22 09/25/22 History mcg (1,000 unit) capsule tramadol 50 mg tablet 50 mg PO DAILY PRN pain 30 days 08/01/22 09/25/22 Rx #30 tabs biotin 10 mg tablet 10 mg PO DAILY 09/05/22 09/25/22 History ferrous gluconate 240 mg (27 mg 240 mg PO DAILY #30 tabs 09/05/22 09/25/22 Rx iron) tablet (Ferate) lisinopril 2.5 mg tablet 2.5 mg PO DAILY #30 tabs 09/05/22 09/25/22 Rx Patient History Medical History Arthritis Back abscess Bone spur CAD (coronary artery disease) Dyslipidemia Frequent PVCs History of deviated nasal septum Hypertension Myocardial infarct DEEPIKA (obstructive sleep apnea) PAD (peripheral artery disease) Type 2 diabetes mellitus Surgical History H/O arthroscopy of right knee H/O breast biopsy H/O cervical polypectomy H/O colonoscopy Last colonoscopy 01/24/2017 H/O dilation and curettage H/O sinus surgery Hx of carpal tunnel repair Hx of cataract extraction Hx of foot surgery left foot surgery and implant replacement Hx of parathyroidectomy Hx of tubal ligation Joint replaced left foot S/P coronary artery stent placement Family History Mother Heart disease Myocardial infarction Hypertension Brother Hypertension Uncle Diabetes Father Emphysema lung black lung Denies family history of Ovarian cancer Prostate cancer Breast cancer Lung cancer Colorectal cancer Stroke Social History Smoking Status: Never smoker Second Hand Exposure: No; Hx Alcohol Use: Yes Alcohol type: wine Alcohol Intake Frequency: Monthly or Less Hx Substance Use: No Preferred Language: French Communication Ability: Effective Visual Impairment: Limited Hearing Ability: Normal Games Dealer Required: No Beliefs That Will Affect Care: None marital status: / Current Living Situation: Alone current occupational status: retired How many Children do You have: 4 Other Information That Helps Us Care for You: No Feels Safe at Home: Yes Safety Concerns: Feels Safe At This Time Childhood Exposure to Second-Hand Smoke: No caffeine: Yes (1 cup a day) during the past year weight has: remained stable Dental Care, Regularly: Yes Physical Activity Frequency: 3-4 Times per Week Seatbelt Use: always Sunscreen Use: Yes Assistive Devices: Glasses Review of Systems Review of Systems: All systems reviewed & are unremarkable except as noted in HPI & below Physical Exam Physical Exam: General: Comfortable, no acute distress Eyes: Sclerae anicteric, extraocular movements intact Lungs: Clear to auscultation bilaterally Cardiac: Regular rate and rhythm,. Abdomen: Soft, nontender, Neuro: Nonfocal Psych: Alert orient x3, normal affect and mood Extremities/Vascular: -- Diminished right radial pulse. 2+ left radial -- 1+ popliteal on right, 2+ popliteal and left -- Diminished DP/PT pulses bilaterally. Sluggish capillary refill bilaterally. Right toes cool to touch -- Diffuse/dense erythema extending from foot to just below the knee on the right, warm to touch, edematous -- Ulcer: First great toe with 0.7 x 0.7 superficial ulcer over plantar aspect of right great toe with black eschar at base, no drainage, no odor. Small/pinpoint ulcer over lateral/plantar aspect of right forefoot Results & Data ([facility]) Vital Signs (Past 12 Hours) Vital Signs Temp Pulse Resp BP Pulse Ox Pulse Ox O2 Del Method 09/27/22 20:26 98.6 F 100 H 18 158/84 H 98 Room Air 09/27/22 16:00 98.1 F 09/27/22 16:00 95 09/27/22 14:58 98.6 F 72 18 123/69 97 Room Air 09/27/22 11:22 98.2 F 66 18 143/75 H 94 Room Air O2 Del Method 09/27/22 20:26 09/27/22 16:00 09/27/22 16:00 Room Air 09/27/22 14:58 09/27/22 11:22 PG Care Time/CCT Total # of Minutes Spent Total Time Spent with Patient: Total time spent is greater than 50% in coordination of care (as documented) at patient's floor/unit and/or counseling patient: Coding Level of Care Code 52340 INT INP/OBS CARE 3/75MIN Diagnoses PAD (peripheral artery disease) I73.9
[2022-09-28] MEDS: MEROPENEM 500 MG in SYRINGE 0 ML IV SCH ×3 (04:52→19:54)
[2022-09-28 08:30] LABS: Basophils # (auto) 0.05 K/uL (0-0.2); Basophils % (auto) 0.6 %; Eosinophils # (auto) 0.55 K/uL (0-0.50); Eosinophils % (auto) 6.8 %; Hemoglobin 11.4 g/dl (12.0-16.0); Immature Granulocytes # (auto) 0.04 K/uL (0.01-0.20); Immature Granulocytes % (auto) 0.5 %; Lymphocytes # (auto) 1.21 K/uL (1.2-3.4); Mean Corpuscular Hemoglobin 27.5 pg (25.0-34.0); Mean Corpuscular Hgb Conc 32.6 g/dL (32.0-36.0); Mean Corpuscular Volume 84.5 fL (80.0-100.0); Mean Platelet Volume 9.8 fL (9.4-12.4); Monocytes # (auto) 0.75 K/uL (0.11-0.59); Monocytes % (auto) 9.3 %; Neutrophils # (auto) 5.44 K/uL (1.40-6.50); Neutrophils % (auto) 67.8 %; Platelet Count 377 K/uL (130-400); RDW Coefficient of Variation 13.2 % (11.5-14.5); RDW Standard Deviation 41.1 fL (36.4-46.3); Red Blood Count 4.14 M/uL (4.20-5.40); White Blood Count 8.04 K/ul (4.8-10.8)
[2022-09-28] MEDS: INSULIN ASPART PER UNIT SC SCH ×4 (08:41→19:52)
[2022-09-28] MEDS: LANTUS PER UNIT CHARGE SQ SCH ×2 (08:42→19:53)
[2022-09-28 08:51] LABS: BUN Creatinine Ratio 23.9 (10-20); Calcium 9.6 mg/dl (8.5-10.1); Creatinine Clr Calc Pharmacy 37.7 ml/min; Est GFR (African American) 58.3 ml/min; Est GFR (Non-African American) 50.3 ml/min; Potassium 4.3 mmol/L (3.5-5.1)
[2022-09-28] MEDS: ASPIRIN 81 MG ECTAB PO SCH (09:01)
[2022-09-28] MEDS: METOPROLOL TARTRATE 25 MG TAB PO SCH ×2 (09:02→19:33)
[2022-09-28] MEDS: ACETAMINOPHEN 500 MG TAB PO SCH ×2 (09:02→19:31)
[2022-09-28] MEDS: LORATADINE 10 MG TAB PO SCH (09:02)
[2022-09-28] MEDS: CLOPIDOGREL BISULFATE 75 MG TAB PO SCH (09:03)
[2022-09-28] MEDS: MAGNESIUM OXIDE 400 MG TAB PO SCH ×2 (09:03→19:33)
[2022-09-28] MEDS: CHOLECALCIFEROL 1,000 UNITS 25 MCG TAB PO SCH (09:03)
[2022-09-28] MEDS: lisinopril 2.5 MG TAB PO SCH (09:03)
[2022-09-28] MEDS: CYANOCOBALAMIN 1000 MCG/ML VIAL IM SCH (09:04)
--- NOTE | 2022-09-28 09:16 | Pharmacy Report ---
Pharmacy PK ABX Note - Date of Service September 28, 2022 - Assessment and Plan Assessment 71 year old F admitted with worsening RLE cellulitis on vancomycin and meropenem. She failed out patient treatment with doxycycline and TMP-SMX. No known h/o of MDRO found in review of [facility] records, however limited micro data available. Blood cultures (-) at 48h. Renal function stable. Day # 4 antibiotic therapy Plan Vancomycin * Random level this AM (~21hr level)- 9.6mcg/mL which is predicted to achieve a steady state AUC of 425mg/L.hr (Probability of AUC24 > 400- 63%) * Will optimize regimen to 1500mg IV q24h to target steady state AUC of 505mg/L.hr * AUC24,ss: 505 mg/L.hr * Probability of AUC24 > 400: 91 % * Ctrough,ss: 13.8 mg/L Pharmacy will continue to follow and will adjust dose/frequency as necessary. Thank you.
--- NOTE | 2022-09-28 09:25 | Orthopedic Progress Note ---
Date of Service September 28, 2022 Assessment & Plan (1) Foot ulcer: Plan: Patient will f/u with Dr. Garcia in the office in the next few weeks. continue local wound care at bedside (2) Cellulitis of right lower extremity: Admission and Anticipated Discharge Date Admission Date: September 25, 2022 Subjective This 71 yo F is seen this AM for Dr. Ramos. Patient has an ulceration to the plantar surface of her Right great toe. She has had it for a few weeks. She also has edema and erythema to her Right lower leg that she states is much better than yesterday. She is scheduled to undergo a Right LE angioplasty with later this AM. Review of Systems Review of Systems: All systems reviewed & are unremarkable except as noted in Subjective Physical Exam Physical Exam: Right LE: pitting edema extending from toes proximally to just below knee joint. Nontender to palpation. Periph pulses are unable to be palpated. Cap refill >2 seconds. Calf slightly firm to touch. Able to perform SLRT and actively dorsi/plantar flex foot. 1.5 cm x 1.5 cm scabbed over ulceration plantar surface of 1st MTP joint. NV intact. Results & Data ([facility]) Vital Signs (Past 12 Hours) Vital Signs Temp Pulse Resp BP Pulse Ox O2 Del Method 09/28/22 07:32 36.8 C 95 H 18 144/78 H 96 Room Air 09/28/22 03:55 36.6 C 82 18 164/87 H 99 Room Air 09/27/22 23:28 36.6 C 84 18 123/69 96 Room Air Diagnostic Findings Laboratory Results WBC 8.04 K/ul (4.8-10.8) 09/28/22 07:43 RBC 4.14 M/uL (4.20-5.40) L 09/28/22 07:43 Hgb 11.4 g/dl (12.0-16.0) L 09/28/22 07:43 Hct 35.0 % (37.0-47.0) L 09/28/22 07:43 MCV 84.5 fL (80.0-100.0) 09/28/22 07:43 MCH 27.5 pg (25.0-34.0) 09/28/22 07:43 MCHC 32.6 g/dL (32.0-36.0) 09/28/22 07:43 RDW Std Deviation 41.1 fL (36.4-46.3) 09/28/22 07:43 RDW Coeff of Renetta 13.2 % (11.5-14.5) 09/28/22 07:43 Plt Count 377 K/uL (130-400) 09/28/22 07:43 MPV 9.8 fL (9.4-12.4) 09/28/22 07:43 Immature Gran % (Auto) 0.5 % 09/28/22 07:43 Neut % (Auto) 67.8 % 09/28/22 07:43 Lymph % (Auto) 15.0 % 09/28/22 07:43 [place] % (Auto) 9.3 % 09/28/22 07:43 Eos % (Auto) 6.8 % 09/28/22 07:43 Baso % (Auto) 0.6 % 09/28/22 07:43 Neut # (Auto) 5.44 K/uL (1.40-6.50) 09/28/22 07:43 Lymph # (Auto) 1.21 K/uL (1.2-3.4) 09/28/22 07:43 [place] # (Auto) 0.75 K/uL (0.11-0.59) H 09/28/22 07:43 Eos # (Auto) 0.55 K/uL (0-0.50) H 09/28/22 07:43 Baso # (Auto) 0.05 K/uL (0-0.2) 09/28/22 07:43 Immature Gran # (Auto) 0.04 K/uL (0.01-0.20) 09/28/22 07:43 Sodium 136 mmol/L (136-145) 09/28/22 07:43 Potassium 4.3 mmol/L (3.5-5.1) 09/28/22 07:43 Chloride 100 mmol/L (98-107) 09/28/22 07:43 Carbon Dioxide 28 mmol/L (21-32) 09/28/22 07:43 Anion Gap 8 (3-11) 09/28/22 07:43 BUN 26 mg/dl (6-23) H 09/28/22 07:43 Creatinine 1.09 mg/dl (0.6-1.2) 09/28/22 07:43 Est Cr Clr Drug Dosing 37.7 ml/min 09/28/22 07:43 Est GFR ( Amer) 58.3 ml/min 09/28/22 07:43 Est GFR (Non-Af Amer) 50.3 ml/min 09/28/22 07:43 BUN/Creatinine Ratio 23.9 (10-20) H 09/28/22 07:43 Glucose 230 mg/dl (70-99(Fasting)) H 09/28/22 07:43 POC Glucose 219 mg/dl (70-99) H 09/28/22 07:17 Lactate 1.0 mmol/L (0.4-2.0) 09/25/22 15:30 Uric Acid 5.5 mg/dl (2.6-7.2) 09/25/22 15:30 Calcium 9.6 mg/dl (8.5-10.1) 09/28/22 07:43 Magnesium 2.1 mg/dl (1.7-2.4) 09/27/22 05:41 Iron 46 mcg/dl (35-150) 09/27/22 05:41 TIBC 282 mcg/dl (250-450) 09/27/22 05:41 Unsaturated IBC 236 mcg/dl (155-355) 09/27/22 05:41 Transferrin % Sat 16 % (15-50) 09/27/22 05:41 Ferritin 223.7 ng/ml (8-388) 09/27/22 05:41 Total Bilirubin 0.4 mg/dl (0.2-1.0) 09/27/22 05:41 AST 11 U/L (13-39) L 09/27/22 05:41 ALT 12 U/L (7-52) 09/27/22 05:41 Alkaline Phosphatase 64 U/L (34-104) 09/27/22 05:41 Total Creatine Kinase 104 U/L (26-192) 09/25/22 15:30 Troponin I High Sens 6.4 pg/ml (0-14) 09/25/22 12:21 C-Reactive Protein 5.65 mg/dl (0-0.5) H 09/27/22 05:41 Total Protein 7.1 gm/dl (6.0-8.3) 09/27/22 05:41 Albumin 3.8 gm/dl (3.4-5.0) 09/27/22 05:41 Globulin 3.3 gm/dl (2.5-4.0) 09/27/22 05:41 Albumin/Globulin Ratio 1.2 (0.9-2) 09/27/22 05:41 Vitamin B12 165 pg/ml (180-914) L 09/27/22 05:41 Folate 19.77 ng/ml (>5.38) 09/27/22 05:41 Procalcitonin 0.12 ng/ml (0-0.5) 09/25/22 12:21 TSH 2.997 uIu/ml (0.300-4.500) 09/27/22 05:41 Random Vancomycin 9.6 mcg/ml (10-20) L 09/28/22 07:43 SARS-CoV-2 (PCR) NEGATIVE (Negative) 09/25/22 11:37 Influenza Type A (PCR) Negative (Neg) 09/25/22 11:37 Influenza Type B (PCR) Negative (Neg) 09/25/22 11:37 RSV (RT-PCR) Negative (Neg) 09/25/22 11:37 Impressions Venous Doppler Study 09/25/22 14:57 RIGHT LOWER EXTREMITY VENOUS DOPPLER CLINICAL HISTORY: Right lower extremity edema. Evaluate for deep venous thrombus. COMPARISON STUDY: No previous studies for comparison. TECHNIQUE: Sonography of the deep venous system of the right lower extremity was performed. Compression and augmentation were evaluated. FINDINGS: The right common femoral, superficial femoral and popliteal veins were compressible. Augmentation was normal. Flow was shown within the deep calf vessels although calf vessels were suboptimally assessed due to edema. Several benign-appearing right inguinal lymph nodes are noted. There is a small right popliteal cyst which measures 2.5 x 0.7 x 2.2 cm. IMPRESSION: No evidence of deep venous thrombus within the right lower extremity although calf vessels were suboptimally assessed due to edema. ACT 112: Negative or not required by law. Electronically signed by: Zeeshan Dozier M.D. 09/25/2022 4:06 PM Duplex Scan Lower Extremity Artery 09/26/22 15:37 Exam(s): US ARTERIAL RIGHT LOWER EXTREMITY EXAM: US Duplex Right Lower Extremity Arteries CLINICAL HISTORY: Reason for exam: right toe ulcer,known PAD. TECHNIQUE: Real-time duplex ultrasound scan of the right lower extremity arteries integrating B-mode two-dimensional vascular structure, Doppler spectral analysis and color flow Doppler imaging. COMPARISON: None. FINDINGS: Triphasic flow from the right common femoral artery into the mid distal right superficial femoral artery. Monophasic flow from the right anterior tibial artery, peroneal artery with decreased blood flow window suggestive of multiple areas of high- grade stenosis. Dampened flow within the right posterior tibial artery distally suggestive of possible occlusion. Monophasic flow with decreased partial window within the right dorsalis pedis concerning for high-grade stenoses and occlusions. Other arteries: Monophasic flow , more severe distally with dampened flow consistent with high-grade stenosis or areas of occlusion. Multiple collaterals along the popliteal artery noted. Soft tissues: Unremarkable. IMPRESSION: Findings suggestive of occlusion of the right popliteal artery with several collaterals . Severe disease through the trifurcation vessels with likely occlusion of the distal and proximal right posterior tibial artery. Electronically signed by: Loan Isaacs MD 09/26/22 22:20 PM Toe X-Ray 09/26/22 15:39 XR toe(s) RT min 2V CLINICAL HISTORY: right great toe ulcer, cellulitis COMPARISON: None FINDINGS: Alignment of the right first toe is anatomic. No acute fracture is present. There is no evidence for acute osteomyelitis by radiography. Severe first MTP joint osteoarthritis is present. Vascular calcification is incidentally noted. There is right first toe soft tissue swelling. IMPRESSION: 1. No acute fracture. No evidence for acute osteomyelitis within the right first toe. 2. 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 ACT 112: Negative or not required by law. Electronically signed by: Zeeshan Dozier M.D. 09/26/2022 4:35 PM
[2022-09-28] MEDS: VANCOMYCIN HCL 1,500 MG in SODIUM CHLORIDE 0.9% 500 ML IV SCH (10:54)
[2022-09-28] MEDS ORDERED: LIDOCAINE 1% LOCAL 20 ML VIAL ONE (11:42)
--- NOTE | 2022-09-28 12:55 | Pre Anesthesia Assessment ---
Date of Service September 28, 2022 Pre Sedation Assessment Vital Signs Temp Pulse Pulse Resp BP Pulse Ox Pulse Ox 09/28/22 12:02 87 09/28/22 11:19 61 18 122/70 100 09/28/22 07:32 98.2 F 95 H 18 144/78 H 96 09/28/22 03:55 97.9 F 82 18 164/87 H 99 09/27/22 23:28 97.9 F 84 18 123/69 96 09/27/22 20:26 98.6 F 100 H 18 158/84 H 98 09/27/22 16:00 98.1 F 09/27/22 16:00 95 09/27/22 14:58 98.6 F 72 18 123/69 97 O2 Del Method O2 Del Method 09/28/22 12:02 09/28/22 11:19 Room Air 09/28/22 07:32 Room Air 09/28/22 03:55 Room Air 09/27/22 23:28 Room Air 09/27/22 20:26 Room Air 09/27/22 16:00 09/27/22 16:00 Room Air 09/27/22 14:58 Room Air Cardiovascular RRR, no murmur, no edema Respiratory normal respiratory effort, lungs clear to auscultation Pre-Sedation Airway Assessment Smoking Status: Never smoker Hx Sleep Apnea: No Hx Difficult Intubation: No Short, Thick Neck: No Thyromental Distance: > or= 3.5 Finger Breadths Oral Cavity: + WNL ASA: ASA3 Procedure Planning Contraindications for Sedation: none Current Medications Reviewed: Yes Notes The planned sedation has been discussed with the patient. Informed Consent was obtained. I have identified the patient, determined the appropriateness of sedation and have assessed the patient immediately prior to the procedure. All medicine(s) and interventions are by my order.
[2022-09-28] MEDS ORDERED: MIDAZOLAM HCL 1 MG/ML 2ML VIAL ONE (13:13)
[2022-09-28] MEDS ORDERED: fentaNYL citrate 100 MCG/2 ML VIAL ONE (13:13)
[2022-09-28] MEDS ORDERED: HEPARIN (PORCINE) 1000 UNIT/ML 10 ML (CATH LAB USE ONLY) ONE (13:13)
[2022-09-28] MEDS ORDERED: niCARdipine HCL INJ 2.5 MG/ML 10 ML AMP ONE (13:13)
[2022-09-28] MEDS ORDERED: NITROGLYCERIN/D5W 100MCG/ML 20ML SYR ONE (13:16)
--- NOTE | 2022-09-28 16:35 | Post Anesthesia Assessment ---
Date of Service September 28, 2022 Post Sedation Assessment Vital Signs Temp Pulse Pulse Resp BP BP Pulse Ox 09/28/22 16:00 09/28/22 15:52 98.2 F 65 20 125/62 100 09/28/22 13:01 85 16 137/87 98 09/28/22 12:02 87 09/28/22 11:19 61 18 122/70 100 09/28/22 07:32 98.2 F 95 H 18 144/78 H 96 09/28/22 03:55 97.9 F 82 18 164/87 H 99 09/27/22 23:28 97.9 F 84 18 123/69 96 09/27/22 20:26 98.6 F 100 H 18 158/84 H 98 Pulse Ox O2 Del Method O2 Del Method 09/28/22 16:00 100 Room Air 09/28/22 15:52 Room Air 09/28/22 13:01 Room Air 09/28/22 12:02 09/28/22 11:19 Room Air 09/28/22 07:32 Room Air 09/28/22 03:55 Room Air 09/27/22 23:28 Room Air 09/27/22 20:26 Room Air Recovery Score Activity: Moves 4 extremities Respiration: Deep Breath/Cough Circulation: +/-20% PreAnes Value Consciousness: Fully Awake Oxygen Saturation: O2 needed for >90% Discharge Sedation Level of Care: Fast Track Phase II Post Sedation Plan On clinical assessment, the patient appears to have tolerated the sedation without complications. Patient is recovering as anticipated. Patient will continue to be monitored by nursing and may be discharged when sedation discharge criteria are met per below protocol. Upon Completions of procedure up to 15 minutes continue every 5 minute vital signs and the P.A.R. score; then discharge to a Phase I or Fast Track to Phase II per the following guidelines: * Discharge Patient to appropriate Phase II area if PAR is 8 or greater or return to pre- procedure baseline. The post - procedure orders will be as directed. * If PAR score is less than 8 or not return to pre-procedure baseline then patient will follow Phase I monitoring till PAR is reached for Phase II. The Phase I may be done in procedure room or may call to secure a Phase I area. * If naloxone or flumazenil are used for reversal, hold in Phase I for continued monitoring from when last reversal dose was given for a minimum of 60 minutes or longer pending the nurse and/or physician discretion of patient condition before discharge to Phase II. Please call the Sedation Physician to re-evaluate and complete post-note for discharge to Phase II area. Do NOT discharge from procedure sedation or Phase 1 until post- sedation evaluation note is complete by procedure /sedation MD Sedation Discharge Instructions to be given to the patient at discharge to home.
--- NOTE | 2022-09-28 16:45 | Endovascular Procedure Note ---
PG Endovascular Procedure Rpt Pre & Post Diagnosis Peripheral arterial disease I identified the patient and participated in the time-out.: Yes Procedure Operation Date: 09/28/22 13:00 Actual Procedures p Angio Extremity Unilateral - Seymour Jones MD s Ultrasound Vascular Access - Seymour Jones MD p Tibial Peroneal Balloon - MD dilma Long Placement Art Occlusive Device - Seymour Jones MD Surgeon Bartolome Jones MD Tower Air Traffic Control Specialist Deibler Estimated Blood Loss 15 Findings Consistent with Post-Op Diagnosis Abdominal aorta--no significant aneurysmal or stenotic disease Right lower extremity-- -Common iliacwidely patent External iliacwidely patent. Internal iliac30% ostial stenosis -BLACKSMITH HELPER, profunda widely patent -SFA calcified, distal luminal irregularities -Popliteal mild diffuse proximal to mid disease. 100% short distal occlusion with reconstitution just before takeoff of anterior tibial artery. -DAHLIA widely patent, 100% distally at the level of the ankle. Gives off collaterals to DPA. TPT90% ostial -COW637% occluded without reconstitution Lrnixrxx26% proximal stenosis. Widely patent to the ankle, gives off collaterals to plantar arteries -DPA fills via collaterals from DAHLIA. Small vessel with diffuse disease Lateral plantar artery fills via collaterals. Medial plantar artery fills in the midfoot via collaterals. Partially patent deep plantar artery. Left lower extremity-- -Common iliac, external iliac, internal iliac widely patent -BLACKSMITH HELPER, profunda widely patent -SFA calcified, mild diffuse disease -Popliteal 50% proximal stenosis, 40% mid/distal disease -DAHLIA 100% occluded proximally -TELEVISION OPERATOR 100% occluded proximally Peroneal patent to the ankle with mild to moderate diffuse disease Anesthesia Type RN Sedation Radiation Exposure (mGv) Radiation (mGy): 345 Contrast Contrast: 115 Complications none Disposition Disposition: PCU Description of Procedure Left BLACKSMITH HELPER obtained under ultrasound guidance, short 5Fr sheath placed Abdominal aortogram and proximal right lower extremity angiogram performed with RIM catheter. Selective angiography with quick cross catheter placed in mid SFA 6 Fr 65 cm destination sheath placed from left BLACKSMITH HELPER to right SFA Multiple attempts made to cross short popliteal occlusion with 0.14, 0.18 and 0.35 glide advantage wire. Eventually able to cross occlusion with 0.14 command wire and quick cross support catheter into peroneal Distal intraluminal position confirmed via injection through catheter TPT and proximal peroneal dilated with 2.5 balloon Popliteal artery dilated with 4.0 x 60 mm Lutonix drug-eluting balloon Popliteal artery expanded well with no evidence of residual dissection. Residual TPT stenosis persisted. Post procedure good angiographic result with brisk two-vessel runoff to the foot Contrast used: 115 Moderate sedation: [id number] Access closure: Angio-Seal Summary: 1. Right lower extremity --100% short distal popliteal occlusion. Two-vessel runoff to the ankle via DAHLIA, peroneal. 90% TPT, 98% proximal peroneal disease. Diffuse severe pedal vessel disease. 2. Left lower extremity --50% popliteal. Single-vessel runoff to the ankle via peroneal. 3. Successful angioplasty of RT popliteal artery occlusion with drug-eluting balloon (4.0 x 60 mm Lutonix). 4. Angioplasty of RT TPT, peroneal artery disease with 2.5 balloon. Final result: Widely patent RT popliteal artery with brisk two-vessel runoff to the ankle. Recommendations: Continue prior DAPT with aspirin, clopidogrel. Follow-up non-invasive vascular testing in 2 weeks. I attest to the content of the Intraoperative Record and any orders documented therein. Any exceptions are noted below. Vascular Charges Angiography/Venography Procedure 1: Angiography/Venography charges: [id number] Initial 3rd order or selective abd, pelvic, or LE branch Procedure 2: Angiography/Venography charges: [id number] Aortography, abd + b/l iliofem LE, catheter, radiological S&I Lower Extremity Interventions Procedure 1: Lower Extremity Intervention charges: [id number] Angioplasty, femoral, popliteal artery(s), unilateral Procedure 2: Lower Extremity Intervention charges: [id number] Angioplasty, tibial, peroneal artery, unilateral, initial vessel Additional Services Procedure 1: Additional Services Charges: 85460 Ultrasound guidance - vascular access Procedure 2: Additional Services Charges: 67289 Moderate sedation initial 15 min Procedure 3: Additional Services Charges: 69988 Moderate sedation, each additional 15 min
[2022-09-28] MEDS: SODIUM CHLORIDE 0.9% 500 ML IV SCH (17:29)
--- NOTE | 2022-09-28 17:35 | Hospitalist Progress Note ---
Date of Service September 28, 2022 Assessment & Plan (1) Cellulitis: Plan: Right foot and leg, with associated fevers, warmth, erythema On admit, BP 158/75, tachycardic w/ rates 126bpm, temp 36.7C, 99% on RA. CRP 16. 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 Now s/p angioplasty with successful intervention: Summary: 1. Right lower extremity --100% short distal popliteal occlusion. Two-vessel runoff to the ankle via DAHLIA, peroneal. 90% TPT, 98% proximal peroneal disease. Diffuse severe pedal vessel disease. 2. Left lower extremity --50% popliteal. Single-vessel runoff to the ankle via peroneal. 3. Successful angioplasty of RT popliteal artery occlusion with drug-eluting balloon (4.0 x 60 mm Lutonix). 4. Angioplasty of RT TPT, peroneal artery disease with 2.5 balloon. Final result: Widely patent RT popliteal artery with brisk two-vessel runoff to the ankle. Recommendations: Continue prior DAPT with aspirin, clopidogrel. Follow-up non-invasive vascular testing in 2 weeks. Erythema, edema improving. No fevers. Vanco underdosed--> increased dose -continue Meropenem/Vancomycin for broad coverage including for Pseudomonas and MRSA -follow Blood cultures -remain NGTD -continue elevation - consult Vascular Medicine appreciated -APAP prn fever, pain -follow CBC,BMP,CRP in AM (2) PAD (peripheral artery disease): Plan: abnormal outpt arterial Doppler 06/2022-report in Podiatry note scanned into chart -With arterial Doppler here as above -nonpalpable peripheral pulses on right,now palpable s/p angioplasty -with trophic changes and right 1st MTP arterial ulcer -consult Vascular Med as above -continue ASA, Plavix, atorvastatin (3) CAD (coronary artery disease): Plan: following with Dr Layton Hx CAD s/p RCA STEMI, RCA and Cx PCI, HTN/HLD. NSTEMI in December 2020 On Plavix, atorvastatin 80mg, metoprolol tartrate 25mg BID Recently added lisinopril 2.5mg by PCP -Consider increasing metoprolol dose if remains persistently mildly tachycardic after infection resolves (4) Foot ulcer: Plan: as above consult Podiatry appreciated-plan for continued wound care and outpatient follow-up after vascular intervention consider orthotics for shoe to offload pressure (5) Diabetes mellitus: Plan: A1c 8.2 earlier this year [employer]ER On glimepiride 4mg BID, metformin 1gm BID, insulin glargine 18u HS Will hold home regimen -continue BSG AC/HS, SSI while inpatient along with glargine BID-with hyperglycemia here-now improved (6) Dyslipidemia: Plan: continue statin (7) Hypertension: Plan: BPs controlled -continue metoprolol, lisinopril -May increase metoprolol dose as above (8) Anemia: Plan: hgb 10.1, normocytic-secondary to B12 deficiency in part but may also be some anemia of chronic disease due to ongoing inflammation and perhaps some mild iron deficiency B12 low at 165-replace with IM B12 Folate and TSH normal Transferrin saturation borderline low at 16%-she already takes iron tablets at home Outpatient follow-up and potentially needs EGD/colonoscopy once more stable- discussed with patient Plan DVT proph-plan to start Lovenox SQ tomorrow Dispo-continued stay PCU Admission and Anticipated Discharge Date Admission Date: September 25, 2022 Subjective Had angioplasty today which was successful. Less pain and redness in leg, notices less swelling. Denies CP, SOB, nausea, diarrhea. Tele with NSR rates 90s Physical Exam Constitutional: WD/WN, vitals as above Respiratory: normal respiratory effort, lungs clear to auscultation Cardiovascular: Rate/Rhythm: regular rate and regular rhythm Heart Sounds: no murmur Vessels: + dorsalis pedis pulses abnormal (now improved to 2+ on ight, 1+ left) Extremities: + edema (R leg 2+ edema,L leg trace edema) Gastrointestinal (Abdomen): normal bowel sounds, soft, nontender, no hepatosplenomegaly Skin: + ulcer (1 cm right plantar MTP ulcer) and + erythema (right leg and foot to prox tibia,receding from marker line) Psychiatric: Orientation: alert and oriented x 3 Results & Data Results & Data ([facility]) Vital Signs (Past 12 Hours) Vital Signs Temp Pulse Pulse Resp BP BP Pulse Ox 09/28/22 16:00 09/28/22 15:52 36.8 C 65 20 125/62 100 09/28/22 13:01 85 16 137/87 98 09/28/22 12:02 87 09/28/22 11:19 61 18 122/70 100 09/28/22 07:32 36.8 C 95 H 18 144/78 H 96 Pulse Ox O2 Del Method O2 Del Method 09/28/22 16:00 100 Room Air 09/28/22 15:52 Room Air 09/28/22 13:01 Room Air 09/28/22 12:02 09/28/22 11:19 Room Air 09/28/22 07:32 Room Air Laboratory Results CBC,BMP, Vanc level reviewed BCxs NGTD PG Care Time/CCT Total # of Minutes Spent Total Time Spent with Patient: Total time spent is greater than 50% in coordination of care (as documented) at patient's floor/unit and/or counseling patient: Coding Level of Care Code 52022 SUB INP/OBS CARE 3/50MIN Diagnoses Cellulitis L03.90 PAD (peripheral artery disease) I73.9 CAD (coronary artery disease) I25.10 Foot ulcer L97.509 Diabetes mellitus E11.9 Dyslipidemia E78.5 Hypertension I10 Anemia D64.9
[2022-09-28] MEDS: ATORVASTATIN 40 MG TAB PO SCH (19:32)
--- NOTE | 2022-09-28 22:28 | Vascular Medicine ProgressNote ---
Date of Service September 28, 2022 Assessment & Plan (1) PAD (peripheral artery disease): Plan: 2. Right great toe foot ulcer 3. Right leg cellulitis 4. Type 2 diabetes 5. Coronary artery disease post prior inferior [place], multiple PCI Plan Doing well post successful angioplasty of right popliteal, right TPT/peroneal arteries. Already on clopidogrel, aspirin post prior coronary stents. We will arrange for vascular follow-up in 2 weeks with repeat noninvasive testing. Admission and Anticipated Discharge Date Admission Date: September 25, 2022 Subjective Denies significant pain post endovascular intervention earlier today. Denies significant pain at left LADLE OPERATOR access site. No other new concerns Review of Systems Review of Systems: All systems reviewed & are unremarkable except as noted in HPI & below Physical Exam Physical Exam: General: Comfortable, no acute distress Eyes: Sclerae anicteric, extraocular movements intact Lungs: Clear to auscultation bilaterally Cardiac: Regular rate and rhythm Abdomen: Soft, nontender, Neuro: Nonfocal Psych: Alert orient x3, normal affect and mood Extremities/Vascular: -- Diminished right radial pulse. 2+ left radial -- Left LADLE OPERATOR access site without hematoma -- Diffuse/dense erythema extending from foot to just below the knee on the right, warm to touch, edematous Results & Data ([facility]) Vital Signs (Past 12 Hours) Vital Signs Temp Pulse Pulse Resp BP BP Pulse Ox 09/28/22 20:50 99.1 F 96 H 18 142/72 H 97 09/28/22 19:01 98.2 F 20 112/69 95 09/28/22 17:13 98.6 F 102 H 20 124/60 93 09/28/22 16:00 09/28/22 15:52 98.2 F 65 20 125/62 100 09/28/22 13:01 85 16 137/87 98 09/28/22 12:02 87 09/28/22 11:19 61 18 122/70 100 Pulse Ox O2 Del Method O2 Del Method 09/28/22 20:50 Room Air 09/28/22 19:01 Room Air 09/28/22 17:13 Room Air 09/28/22 16:00 100 Room Air 09/28/22 15:52 Room Air 09/28/22 13:01 Room Air 09/28/22 12:02 09/28/22 11:19 Room Air PG Care Time/CCT Total # of Minutes Spent Total Time Spent with Patient: Total time spent is greater than 50% in coordination of care (as documented) at patient's floor/unit and/or counseling patient: Coding Level of Care Code 96173 SUB INP/OBS CARE 235MIN Diagnoses PAD (peripheral artery disease) I73.9
[2022-09-29] MEDS: SODIUM CHLORIDE 0.9% 500 ML IV SCH ×5 (03:50→13:17)
[2022-09-29] MEDS: MEROPENEM 500 MG in SYRINGE 0 ML IV SCH ×3 (04:49→21:33)
[2022-09-29 06:54] LABS: Basophils # (auto) 0.05 K/uL (0-0.2); Basophils % (auto) 0.5 %; Eosinophils # (auto) 0.72 K/uL (0-0.50); Eosinophils % (auto) 6.6 %; Hematocrit (blood only) 33.6 % (37.0-47.0); Hemoglobin 10.9 g/dl (12.0-16.0); Immature Granulocytes # (auto) 0.09 K/uL (0.01-0.20); Immature Granulocytes % (auto) 0.8 %; Lymphocytes # (auto) 0.65 K/uL (1.2-3.4); Mean Corpuscular Hemoglobin 27.8 pg (25.0-34.0); Mean Corpuscular Hgb Conc 32.4 g/dL (32.0-36.0); Mean Corpuscular Volume 85.7 fL (80.0-100.0); Mean Platelet Volume 9.8 fL (9.4-12.4); Monocytes # (auto) 0.84 K/uL (0.11-0.59); Monocytes % (auto) 7.7 %; Neutrophils # (auto) 8.52 K/uL (1.40-6.50); Neutrophils % (auto) 78.4 %; Platelet Count 382 K/uL (130-400); RDW Coefficient of Variation 13.5 % (11.5-14.5); RDW Standard Deviation 42.4 fL (36.4-46.3); Red Blood Count 3.92 M/uL (4.20-5.40); White Blood Count 10.87 K/ul (4.8-10.8)
[2022-09-29] MEDS: MAGNESIUM OXIDE 400 MG TAB PO SCH ×2 (07:51→21:30)
[2022-09-29] MEDS: lisinopril 2.5 MG TAB PO SCH (07:51)
[2022-09-29] MEDS: METOPROLOL TARTRATE 25 MG TAB PO SCH ×2 (07:51→21:30)
[2022-09-29] MEDS: CLOPIDOGREL BISULFATE 75 MG TAB PO SCH (07:52)
[2022-09-29] MEDS: LORATADINE 10 MG TAB PO SCH (07:52)
[2022-09-29] MEDS: ASPIRIN 81 MG ECTAB PO SCH (07:52)
[2022-09-29] MEDS: CHOLECALCIFEROL 1,000 UNITS 25 MCG TAB PO SCH (07:52)
[2022-09-29] MEDS: ACETAMINOPHEN 500 MG TAB PO SCH ×2 (07:52→21:28)
[2022-09-29] MEDS: CYANOCOBALAMIN 1000 MCG/ML VIAL IM SCH (07:53)
[2022-09-29] MEDS: LANTUS PER UNIT CHARGE SQ SCH ×2 (08:00→21:40)
[2022-09-29] MEDS: INSULIN ASPART PER UNIT SC SCH ×4 (08:00→21:39)
[2022-09-29 08:17] LABS: Albumin Level 3.4 gm/dl (3.4-5.0); Bilirubin,Total 0.4 mg/dl (0.2-1.0); Calcium 8.6 mg/dl (8.5-10.1); Potassium 4.6 mmol/L (3.5-5.1)
[2022-09-29 08:23] LABS: Albumin Globulin Ratio 1.1 (0.9-2); BUN Creatinine Ratio 24.8 (10-20); C Reactive Protein 2.66 mg/dl (0-0.5); Creatinine Clr Calc Pharmacy 33.6 ml/min; Est GFR (African American) 51.4 ml/min; Est GFR (Non-African American) 44.4 ml/min; Globulin 3.1 gm/dl (2.5-4.0); Total Protein 6.5 gm/dl (6.0-8.3)
--- NOTE | 2022-09-29 10:36 | Vascular Medicine ProgressNote ---
Date of Service September 29, 2022 Assessment & Plan (1) PAD (peripheral artery disease): Plan: 2. Right great toe foot ulcer 3. Right leg cellulitis 4. Type 2 diabetes 5. Coronary artery disease post prior inferior ID, multiple PCI Plan Doing well post successful angioplasty of right popliteal, right TPT/peroneal arteries. Agree with additional IV fluids post contrast. Already on clopidogrel, aspirin post prior coronary stents. We will arrange for vascular follow-up in 2 weeks with repeat noninvasive testing. Admission and Anticipated Discharge Date Admission Date: September 25, 2022 Subjective No issues overnight. Feeling well this morning. Low grade fever this AM. Sinus tachycardia to 110s this AM. Denies significant pain at left LEGEND MAKER access site. No other new concerns Review of Systems Review of Systems: All systems reviewed & are unremarkable except as noted in HPI & below Physical Exam Physical Exam: General: Comfortable, no acute distress Eyes: Sclerae anicteric, extraocular movements intact Lungs: Clear to auscultation bilaterally Cardiac: Regular rate and rhythm Abdomen: Soft, nontender, Neuro: Nonfocal Psych: Alert orient x3, normal affect and mood Extremities/Vascular: -- Diminished right radial pulse. 2+ left radial -- Left LEGEND MAKER access site without hematoma -- RLE erythema improved from prior -- RLE cap refill improved -- 1+ DP pulse. PT non-palpable. -- 2+ RT popliteal pulse Results & Data ([facility]) Vital Signs (Past 12 Hours) Vital Signs Temp Pulse Pulse Resp BP Pulse Ox O2 Del Method 09/29/22 09:37 97.9 F 88 09/29/22 07:27 100.0 F H 115 H 20 118/87 98 Room Air 09/29/22 04:33 98.4 F 79 16 148/74 H 95 Room Air 09/28/22 23:28 84 09/28/22 23:14 99.3 F 74 18 134/59 L 95 Room Air PG Care Time/CCT Total # of Minutes Spent Total Time Spent with Patient: Total time spent is greater than 50% in coordination of care (as documented) at patient's floor/unit and/or counseling patient: Coding Level of Care Code 44345 SUB INP/OBS CARE 2/35MIN Diagnoses PAD (peripheral artery disease) I73.9
[2022-09-29] MEDS: VANCOMYCIN HCL 1,500 MG in SODIUM CHLORIDE 0.9% 500 ML IV SCH (11:52)
--- NOTE | 2022-09-29 13:03 | Hospitalist Progress Note ---
Date of Service September 29, 2022 Assessment & Plan (1) Cellulitis: Plan: Right foot and leg, with associated fevers, warmth, erythema On admit, BP 158/75, tachycardic w/ rates 126bpm, temp 36.7C, 99% on RA. CRP 16. 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 Now s/p angioplasty with successful intervention: Summary: 1. Right lower extremity --100% short distal popliteal occlusion. Two-vessel runoff to the ankle via DAHLIA, peroneal. 90% TPT, 98% proximal peroneal disease. Diffuse severe pedal vessel disease. 2. Left lower extremity --50% popliteal. Single-vessel runoff to the ankle via peroneal. 3. Successful angioplasty of RT popliteal artery occlusion with drug-eluting balloon (4.0 x 60 mm Lutonix). 4. Angioplasty of RT TPT, peroneal artery disease with 2.5 balloon. Final result: Widely patent RT popliteal artery with brisk two-vessel runoff to the ankle. Recommendations: Continue prior DAPT with aspirin, clopidogrel. Follow-up non-invasive vascular testing in 2 weeks. Erythema, edema improving. Now with low grade fever on 3/4 AM and WBC count up to 10k---> may be due to recent procedure but also with some URI symptoms--> check COVID/Flu/RSV CRP trending downward Vanco underdosed--> increased dose and follow vanc troughs -continue Meropenem/Vancomycin for broad coverage including for Pseudomonas and MRSA -follow Blood cultures -remain NGTD -continue elevation - consult Vascular Medicine appreciated -APAP prn fever, pain -follow CBC,BMP,CRP in AM -hopefully convert to po abx on discharge (2) PAD (peripheral artery disease): Plan: abnormal outpt arterial Doppler 06/2022-report in Podiatry note scanned into chart -With arterial Doppler here as above -nonpalpable peripheral pulses on right,now palpable s/p angioplasty -with trophic changes and right 1st MTP arterial ulcer -consult Vascular Med as above -continue ASA, Plavix, atorvastatin (3) CAD (coronary artery disease): Plan: following with Dr Layton Hx CAD s/p RCA STEMI, RCA and Cx PCI, HTN/HLD. 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, metformin 1gm BID, insulin glargine 18u HS Will hold home regimen -continue BSG AC/HS, SSI while inpatient along with glargine BID-with hyperglycemia here-now improved (6) Dyslipidemia: Plan: continue statin (7) Hypertension: Plan: BPs controlled -continue metoprolol, lisinopril -May increase metoprolol dose as above (8) Anemia: Plan: hgb 10.1, normocytic-secondary to B12 deficiency in part but may also be some anemia of chronic disease due to ongoing inflammation and perhaps some mild iron deficiency B12 low at 165-replace with IM B12 Folate and TSH normal Transferrin saturation borderline low at 16%-she already takes iron tablets at home Outpatient follow-up and potentially needs EGD/colonoscopy once more stable- discussed with patient Plan DVT proph- start Lovenox SQ today Dispo-continued stay PCU, possible discharge to [facility] 1-2 days of cellulitis continues to improve and fevers resolve Admission and Anticipated Discharge Date Admission Date: September 25, 2022 Subjective Leg feeling better. No pain. Had a low grade fever this AM but didn't know it. Does c/o new development of sinus drainage, mild cough. Denies headache. Had sinus tach with low grade temp. Physical Exam Constitutional: WD/WN, vitals as above Eyes: + anicteric sclerae ENMT: external ear and nose normal, oropharynx normal Neck: normal visual inspection; no anterior neck swelling, no submandibular swelling and neck nontender Respiratory: normal respiratory effort, lungs clear to auscultation Cardiovascular: Rate/Rhythm: regular rate and regular rhythm Heart Sounds: no murmur Vessels: + dorsalis pedis pulses abnormal (now improved to 2+ on right, 1+ left) Extremities: + edema (R leg 2+ edema,L leg trace edema) Gastrointestinal (Abdomen): normal bowel sounds, soft, nontender, no hepatosplenomegaly Skin: + ulcer (1 cm right plantar MTP ulcer) and + erythema (right leg and foot to prox tibia,receding from marker line) Psychiatric: Orientation: alert and oriented x 3 Lymphatic: no cervical lymphadenopathy Results & Data Results & Data ([facility]) Vital Signs (Past 12 Hours) Vital Signs Temp Pulse Resp BP Pulse Ox O2 Del Method 09/29/22 11:40 37.2 C 79 17 152/80 H 99 Room Air 09/29/22 09:37 36.6 C 88 09/29/22 07:27 37.8 C H 115 H 20 118/87 98 Room Air 09/29/22 04:33 36.9 C 79 16 148/74 H 95 Room Air Laboratory Results CBC, BMP, CRP reviewed BCxs NGTD PG Care Time/CCT Total # of Minutes Spent Total Time Spent with Patient: Total time spent is greater than 50% in coordination of care (as documented) at patient's floor/unit and/or counseling patient: Coding Level of Care Code 04379 SUB INP/OBS CARE 3/50MIN Diagnoses Cellulitis L03.90 PAD (peripheral artery disease) I73.9 CAD (coronary artery disease) I25.10 Foot ulcer L97.509 Diabetes mellitus E11.9 Dyslipidemia E78.5 Hypertension I10 Anemia D64.9
[2022-09-29] MEDS: ENOXAPARIN INJ 40 MG/0.4 ML SYR SQ SCH (13:34)
[2022-09-29 13:59] LABS: Influenza A virus by PCR Negative (Neg); Influenza B virus by PCR Negative (Neg); RSV by PCR Negative (Neg); SARS CoV2 RNA(COVID-19) Ceph NEGATIVE (Negative)
[2022-09-29] MEDS: ATORVASTATIN 40 MG TAB PO SCH (21:30)
[2022-09-30] MEDS: MEROPENEM 500 MG in SYRINGE 0 ML IV SCH ×2 (04:56→13:46)
[2022-09-30 06:34] LABS: Basophils # (auto) 0.04 K/uL (0-0.2); Basophils % (auto) 0.5 %; Eosinophils # (auto) 0.78 K/uL (0-0.50); Hematocrit (blood only) 31.6 % (37.0-47.0); Hemoglobin 10.3 g/dl (12.0-16.0); Immature Granulocytes # (auto) 0.08 K/uL (0.01-0.20); Lymphocytes # (auto) 1.06 K/uL (1.2-3.4); Lymphocytes % (auto) 13.6 %; Mean Corpuscular Hemoglobin 27.8 pg (25.0-34.0); Mean Corpuscular Hgb Conc 32.6 g/dL (32.0-36.0); Mean Corpuscular Volume 85.2 fL (80.0-100.0); Mean Platelet Volume 9.7 fL (9.4-12.4); Monocytes # (auto) 0.81 K/uL (0.11-0.59); Monocytes % (auto) 10.4 %; Neutrophils % (auto) 64.5 %; Platelet Count 390 K/uL (130-400); RDW Coefficient of Variation 13.7 % (11.5-14.5); RDW Standard Deviation 42.6 fL (36.4-46.3); Red Blood Count 3.71 M/uL (4.20-5.40); White Blood Count 7.77 K/ul (4.8-10.8)
[2022-09-30 06:59] LABS: BUN Creatinine Ratio 23.6 (10-20); C Reactive Protein 2.44 mg/dl (0-0.5); Calcium 8.9 mg/dl (8.5-10.1); Creatinine Clr Calc Pharmacy 37.2 ml/min; Est GFR (African American) 57.7 ml/min; Est GFR (Non-African American) 49.8 ml/min; Potassium 4.4 mmol/L (3.5-5.1)
[2022-09-30] MEDS: INSULIN ASPART PER UNIT SC SCH ×3 (08:23→17:04)
[2022-09-30] MEDS: LANTUS PER UNIT CHARGE SQ SCH (08:24)
[2022-09-30] MEDS: ACETAMINOPHEN 500 MG TAB PO SCH (08:44)
[2022-09-30] MEDS: METOPROLOL TARTRATE 25 MG TAB PO SCH (08:44)
[2022-09-30] MEDS: MAGNESIUM OXIDE 400 MG TAB PO SCH (08:45)
[2022-09-30] MEDS: ASPIRIN 81 MG ECTAB PO SCH (08:45)
[2022-09-30] MEDS: CHOLECALCIFEROL 1,000 UNITS 25 MCG TAB PO SCH (08:45)
[2022-09-30] MEDS: ENOXAPARIN INJ 40 MG/0.4 ML SYR SQ SCH (08:46)
[2022-09-30] MEDS: LORATADINE 10 MG TAB PO SCH (08:46)
[2022-09-30] MEDS: CLOPIDOGREL BISULFATE 75 MG TAB PO SCH (08:46)
[2022-09-30] MEDS: lisinopril 2.5 MG TAB PO SCH (08:46)
--- NOTE | 2022-09-30 09:09 | Pharmacy Report ---
Pharmacy PK ABX Note - Date of Service September 30, 2022 - Assessment and Plan Assessment 71 year old F admitted with worsening RLE cellulitis on vancomycin and meropenem. She failed out patient treatment with doxycycline and TMP-SMX. No known h/o of MDRO found in review of [facility] records, however limited micro data available. Blood cultures (-) at 48h. Renal function stable. Day # 5 antibiotic therapy Plan Vancomycin * Random level this AM (~17.5hr level)- 12.8mcg/mL which is predicted to achieve a steady state AUC of 465mg/L.hr -- therapeutic * Continue vancomycin 1500mg IV q24h * Will repeat a level in ~ 48h or sooner if clinically indicated Pharmacy will continue to follow and will adjust dose/frequency as necessary. Thank you.
[2022-09-30] MEDS: VANCOMYCIN HCL 1,500 MG in SODIUM CHLORIDE 0.9% 500 ML IV SCH (10:40)
[2022-09-30] MEDS ORDERED: levoFLOXacin 750 MG TAB PO ONE (16:35)
--- NOTE | 2022-09-30 17:37 | Discharge Summary ---
Date of Service September 30, 2022 Admission HPI Per Admitting Provider 71yo female recently moved from [place] last year with PMHx significant for CAD (NSTEMI), DM, HTN, HLD, obesity, parathyroidectomy presented with ongoing cellulitis failing outpatient treatment. Had been seen by podiatry for ingrown toenail that eventually fell off, and recent abx w/ doxy in the summer and june Seen Dr Mitchell and he put he on Bactrim and told her to follow up with cardiology which she has been trying to get in sooner; she finished this 10 days after Aug 01 appointment. Her foot was red at that time and redness went out of the foot and now w/ redness to her leg. Recently, woke up Saturday, fever, chills, cough. COVID testing undertaken and was negative. Temp 101F on saturday, nothing yesterday. Went to walk and her leg was hurting so bad and she wasn't really able to walk on it. She hasn't really been taking anything for pain but has used occasional tramadol which she has had since prior back issues but asked for refill recently. By Saturday afternoon was increased redness. Called family doctor and they sent her in to ER for eval. Never had any blood clots, her son is a doctor and was concerned about a DVT. She is on ASA/Plavix for her CAD history and has been compliant w/ such. Had arterial study that showed moderate bilateral arterial insufficiency and her woods superintendent recommended she follow up with cardiology (Dr Layton) to see about vascular intervention to help with blood flow/healing. Has been using topical honey salve. Of note, podiatry intake patient had inquired if she possibly had gout. She states that she has had gout in the past and that the redness initially did start in her R toe. On exam is comfortable at the moment, needing to urinate. No chest pain or shortness of breath. No abdominal pain/nausea or vomiting at present. Tachycardic with rates to 110-120s but denies palpitations/lightheadedness/dizziness. Has been drinking but not much of PO appetite. She notes she had not taken any pills since her atorvastatin and metoprolol last night. Discussed will check uric acid/CK as well as venous doppler but continue IV abx for RLE cellulitis and if needed can reach out to her primary technologist development for intervention if other testing is negative. Principal Diagnosis RLE Cellulitis Severe PAD Discharge Exam Constitutional WD/WN, vitals as above Eyes + anicteric sclerae Neck normal visual inspection Respiratory normal respiratory effort, lungs clear to auscultation Cardiovascular Rate/Rhythm: regular rate and regular rhythm Heart Sounds: no murmur Vessels: + dorsalis pedis pulses abnormal (now improved to 2+ on right, 1+ left) Extremities: + edema (R leg 1+ edema,L leg trace edema) Gastrointestinal (Abdomen) normal bowel sounds, soft, nontender, no hepatosplenomegaly Skin + ulcer (1 cm right plantar MTP ulcer) and + erythema (right leg much improved, receding further from marked line) Psychiatric Orientation: alert and oriented x 3 Discharge Data Allergies Allergy/AdvReac Type Severity Reaction Status Date / Time amoxicillin Allergy Severe Rash Verified 09/05/22 09:34 ceftriaxone [From Rocephin] Allergy Severe Fever Verified 09/05/22 09:34 neomycin Allergy Intermediate Rash Verified 09/05/22 09:34 acetaminophen Allergy Mild Verified 09/05/22 09:34 [From Darvocet-N] propoxyphene Allergy Mild Verified 09/05/22 09:34 [From Darvocet-N] Consultations 09/25/22 14:04 ED Decision to Admit Stat 09/26/22 15:36 Consult Cardiology Routine 09/26/22 18:16 Consult Podiatry Routine Procedures Performed Operation Date: 09/28/22 13:00 Actual Procedures p Angio Extremity Unilateral - Seymour Jones MD s Ultrasound Vascular Access - Seymour Jones MD p Tibial Peroneal Balloon - Seymour Jones MD s Placement Art Occlusive Device - Seymour Jones MD Ordered Studies 09/25/22 14:57 US venous doppler LE RT Stat 09/26/22 15:37 US arterial duplex LE RT Urgent 09/28/22 06:35 CL Cath Imgs for PACS use only Routine Hospital Course (1) Cellulitis: Right foot and leg, with associated fevers, warmth, erythema On admit, BP 158/75, tachycardic w/ rates 126bpm, temp 36.7C, 99% on RA. CRP 16. 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 Now s/p angioplasty with successful intervention: Summary: 1. Right lower extremity --100% short distal popliteal occlusion. Two-vessel runoff to the ankle via DAHLIA, peroneal. 90% TPT, 98% proximal peroneal disease. Diffuse severe pedal vessel disease. 2. Left lower extremity --50% popliteal. Single-vessel runoff to the ankle via peroneal. 3. Successful angioplasty of RT popliteal artery occlusion with drug-eluting balloon (4.0 x 60 mm Lutonix). 4. Angioplasty of RT TPT, peroneal artery disease with 2.5 balloon. Final result: Widely patent RT popliteal artery with brisk two-vessel runoff to the ankle. Recommendations: Continue prior DAPT with aspirin, clopidogrel. Follow-up non-invasive vascular testing in 2 weeks. Erythema, edema continue to improve daily, no further fevers. No pain, feels very well CRP trending downward Had a low grade temp the day after her procedure but resolved and no further fevers occurred. Repeated COVID/Flu/RSV nasal swab and was negative -received Meropenem/Vancomycin for broad coverage including for Pseudomonas and MRSA -follow Blood cultures -remained NGTD---> plan to convert to po Levaquin (coverage for Strep and PsA) and doxycycline (Staph coverage) on discharge for 7 more days -continue elevation - consult Vascular Medicine appreciated-f/u in 2 weeks (2) PAD (peripheral artery disease): abnormal outpt arterial Doppler 06/2022-report in Podiatry note scanned into chart -With arterial Doppler here as above -nonpalpable peripheral pulses on right,now palpable s/p angioplasty -with trophic changes and right 1st MTP arterial ulcer -consult Vascular Med as above now s/p intervention/angioplasty--> much improved -continue ASA, Plavix, atorvastatin (3) CAD (coronary artery disease): following with Dr Layton Hx CAD s/p RCA STEMI, RCA and Cx PCI, HTN/HLD. 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 4mg BID, metformin 1gm BID, insulin glargine 18u HS restart home meds on discharge (6) Dyslipidemia: continue statin (7) Hypertension: BPs controlled -continue metoprolol, lisinopril (8) Anemia: hgb 10.1, normocytic-secondary to B12 deficiency in part but may also be some anemia of chronic disease due to ongoing inflammation and perhaps some mild iron deficiency B12 low at 165-replaced with IM B12 and should take B12 1000 mcg po daily on discharge Folate and TSH normal Transferrin saturation borderline low at 16%-she already takes iron tablets at home-continue these Outpatient follow-up and potentially needs EGD/colonoscopy once more stable- discussed with patient Plan DVT proph- Lovenox SQ Dispo-dc to home, much improved Total Time Total Time Spent Total Time Spent (In Minutes): 40 min Discharge Plan Discharge Items Patient Disposition: Home - Self-Care Reason For Visit: RLE SWELLING, CELLULITIS, R/O DVT Discharge Diagnosis: Right leg cellulitis, Severe PAD B12 deficiency anemia Condition on Discharge: Good Activity: As commented below Bathing Comment: No soaking in a tub Driving/Machine Use: Resume in 1 week Non-emergency contact: Primary Care Provider and Business Specialist Call non-emergency contact if: you have any medication questions Follow-up/Referrals: Seymour Jones MD [Physician] - (Please call to schedule an appointment in 2 weeks.) Rosa Ramos DPM [Physician] - (Please call to schedule an appointment within 1-2 weeks.) Kenny Martinez DO [Primary Care Provider] - (Follow up within 1-2 weeks.) Diet: Heart Healthy Addtl Attending Provider Instructions: You were admitted for an infection of your right leg. This is due in part to the poor blood flow to your leg which was corrected with angioplasty by . Please continue to take both doxycycline and levofloxacin for 7 more days. Keep the leg elevated when you can. If you have worsening of the redness, swelling, pain, or if you develop a fever, please return right away to the hospital. Please follow up with in 2 weeks, and with your PCP within 2 weeks. Follow up with the Stockroom Supervisor as well for the foot ulcer. You are anemic and were found to be B12 deficient. You were given IM B12 and should take an oral B12 supplement after discharge. Pending Studies at Discharge: Yes Studies:: final blood cultures-no growth to date Stand-Alone Forms: [facility], Smoking Cessation Medications and DC Order Prescriptions: New levofloxacin 750 mg tablet 750 mg PO DAILY 7 Days Qty: 7 0RF doxycycline hyclate 100 mg tablet 100 mg PO BID 7 Days Qty: 14 0RF cyanocobalamin (vitamin B-12) 1,000 mcg capsule 1,000 mcg PO DAILY Qty: 30 0RF Rx Instructions: OTC Continued ferrous gluconate [Ferate] 240 mg (27 mg iron) tablet 240 mg PO DAILY Qty: 30 0RF tramadol 50 mg tablet 50 mg PO DAILY PRN (Reason: pain) 30 Days Qty: 30 0RF biotin 10 mg tablet 10 mg PO DAILY lisinopril 2.5 mg tablet 2.5 mg PO DAILY Qty: 30 2RF aspirin 81 mg tablet,delayed release (DR/EC) 81 mg PO DAILY atorvastatin 80 mg tablet 80 mg PO DAILY insulin glargine [Basaglar KwikPen U-100 Insulin] 100 unit/mL (3 mL) insulin pen 18 unit subcut QPM clopidogrel 75 mg tablet 75 mg PO DAILY glimepiride 4 mg tablet 4 mg PO BID loratadine 10 mg tablet 10 mg PO DAILY magnesium oxide 400 mg magnesium tablet 400 mg PO BID metformin 1,000 mg tablet 1,000 mg PO BID metoprolol tartrate 25 mg tablet 25 mg PO BID acetaminophen [Tylenol Extra Strength] 500 mg tablet 500 mg PO BID cholecalciferol (vitamin D3) 25 mcg (1,000 unit) capsule 25 mcg PO DAILY Discharge Orders: Discharge Order (Routine); Ordered 09/30/22 Ordered By: Patricia Lacey Admission Data Admit Date/Time: 09/25/22 15:11 Attending Provider: Patricia Lacey Admit Provider: Alexis Murray Primary Care Provider: Kenny Martinez Other Providers: Alexis Murray ; Seymour Jones ; Rosa Ramos Other Interventions: Discharge Summary Assessment (RN) Last Done: 09/30/22 17:34 Coding Level of Care Code 41745 INP/OBS DISCH >30 MIN Diagnoses Cellulitis L03.90 PAD (peripheral artery disease) I73.9 CAD (coronary artery disease) I25.10 Foot ulcer L97.509 Diabetes mellitus E11.9 Dyslipidemia E78.5 Hypertension I10 Anemia D64.9
== END 2022-09-30 18:05 | disposition home or self-care (01) | DRG 253 ==
LOC: ED 10:19 → SUATTDRO 15:11 → 2E 15:11
PROC: CLB.AEU (2022-09-28 13:00)

== ENCOUNTER 2023-07-14 21:25 | Inpatient (IN) ==
[2023-07-14 22:14] LABS: Basophils # (auto) 0.05 K/uL (0.00-0.20); Basophils % (auto) 0.3 %; Eosinophils # (auto) 0.04 K/uL (0.00-0.50); Eosinophils % (auto) 0.3 %; Hematocrit (blood only) 31.3 % (37.0-47.0); Hemoglobin 9.8 g/dl (12.0-16.0); Immature Granulocytes % (auto) 0.7 %; Lymphocytes # (auto) 1.06 K/uL (1.20-3.40); Mean Corpuscular Hemoglobin 27.3 pg (25.0-34.0); Mean Corpuscular Hgb Conc 31.3 g/dL (32.0-36.0); Mean Corpuscular Volume 87.2 fL (80.0-100.0); Mean Platelet Volume 9.3 fL (9.4-12.4); Monocytes # (auto) 1.26 K/uL (0.11-0.59); Monocytes % (auto) 8.3 %; Neutrophils # (auto) 12.65 K/uL (1.40-6.50); Neutrophils % (auto) 83.4 %; Platelet Count 452 K/uL (130-400); RDW Coefficient of Variation 12.8 % (11.5-14.5); RDW Standard Deviation 40.8 fL (36.4-46.3); Red Blood Count 3.59 M/uL (4.20-5.40); White Blood Count 15.16 K/ul (4.8-10.8)
[2023-07-14 22:33] LABS: Albumin Level 3.7 gm/dl (3.4-5.0); BUN Creatinine Ratio 22.5 (10-20); Bilirubin Direct 0.1 mg/dl (0-0.2); Bilirubin,Total 0.4 mg/dl (0.2-1.0); Calcium 8.9 mg/dl (8.6-10.3); Creatinine Clr Calc Pharmacy 35.3 ml/min; Est GFR (African American) 51.6 ml/min; Est GFR (Non-African American) 44.5 ml/min; Potassium 4.7 mmol/L (3.5-5.1); Total Protein 7.3 gm/dl (6.0-8.3)
[2023-07-14 22:34] LABS: Base Excess VBG 5.4 mEq/L; HCO3 VBG 30 mmol/L; Oxygen Saturation VBG < 60.0 %; PCO2 VBG 42 mmHg (38-50); PO2 VBG 35 mmHg; pH VBG 7.46 (7.36-7.41)
[2023-07-14] MEDS ORDERED: VANCOMYCIN CONSULT ACTIVE PRN (22:34)
[2023-07-14] MEDS ORDERED: VANCOMYCIN HCL 1,250 MG in SODIUM CHLORIDE 0.9% 500 ML IV ONE (22:34)
[2023-07-14 22:39] LABS: Troponin I High Sensitivity 6.4 pg/ml (0-14)
[2023-07-14 22:42] LABS: Partial Thromboplastin Ratio 1.1; Partial Thromboplastin Time 31 Seconds (21-31); Prothrombin Time 10.7 Seconds (9.0-12.0)
[2023-07-14 22:55] LABS: Influenza A virus by PCR Negative (Neg); Influenza B virus by PCR Negative (Neg); RSV by PCR Negative (Neg); SARS CoV2 RNA(COVID-19) Ceph NEGATIVE (Negative)
[2023-07-14 23:01] LABS: Appearance Urine Clear (Clear); Bacteria Urine Automated Negative (Negative); Bilirubin Urine Negative (Negative); Blood Urine Negative (Negative); Cast Urine Automated 0 /lpf (0-5); Color Urine Yellow; Epithelial Cell Urine Auto 0-5 /lpf (0-5); Glucose Urine UA Trace (Negative); Ketones Urine 1+ (Negative); Leukocyte Esterase Urine Negative (Negative); Nitrite Urine Negative (Negative); RBC Urine Automated 0-4 /hpf (0-4); Specific Gravity Urine 1.018 (1.000-1.030); Urobilinogen Urine Negative (Negative)
[2023-07-14 23:13] LABS: Protein Urine 2+ (Negative)
--- NOTE | 2023-07-14 23:27 | XRay Report ---
SINGLE VIEW CHEST CLINICAL HISTORY: Sepsis FINDINGS: An AP, portable, upright chest radiograph is compared to study dated 12/10/2022. The heart i s mildly enlarged. The pulmonary vasculature is noncongested. Chronic interstitial thickening is jaimie lar to previous. There is mild bibasilar scarring/atelectasis. The lungs and pleural spaces are other harrison clear. No pneumothorax is seen. The skeletal structures are osteopenic. The bony thorax is gross ly intact. IMPRESSION: No active disease in the chest. ACT 112: Negative or not required by law. Electronically signed by: Jw Wright M.D. 07/14/2023 11:26 PM
--- NOTE | 2023-07-14 23:31 | Ultrasound Report ---
ULTRASOUND RIGHT LOWER EXTREMITY VENOUS CLINICAL HISTORY: Right leg pain and swelling. COMPARISON STUDY: Right lower extremity venous ultrasound dated 09/25/2022. TECHNIQUE: Real-time, grayscale, and color Doppler sonography of the deep veins of the right lower ex tremity was performed from the inguinal crease to the calf. Compression and augmentation were utilize d. FINDINGS: There is no sonographic evidence of deep venous thrombosis identified in the right lower ex tremity. The common femoral, superficial femoral, and popliteal veins are patent and normally adriana sible. The greater saphenous vein and the profunda femoris vein at the junction with the common femor al vein are clear. The visualized calf veins are patent. A complex cyst in the popliteal fossa measur es 4.7 x 2.2 x 0.7 cm. Soft tissue edema is noted in the calf. IMPRESSION: 1. There is no sonographic evidence of deep venous thrombosis identified in the right lower extremity . 2. Popliteal cyst. ACT 112: Negative or not required by law. Electronically signed by: Jw Wright M.D. 07/14/2023 11:30 PM
[2023-07-15] MEDS ORDERED: ACETAMINOPHEN 500 MG TAB PO STA (00:29)
--- NOTE | 2023-07-15 00:40 | Emergency Department Note ---
History of Present Illness General Chief complaint: Fever Stated complaint: FEVER OF 102, LETHARGIC, LESS APPETITE Time Seen by Provider: 07/14/23 21:42 History of Present Illness Provider complaint: Postoperative fever Onset (ago): day(s) 1 Maximum Pain Intensity: 2 72-year-old female presents emergency department for postoperative fever. Patient states she had a surgery done by her multi operation machine operator on her right toes. She reports she woke up today and had a fever. Tmax 102. She states she called her multi operation machine operator who referred her to the emergency department. Patient Nuys any chest pain cough difficulty breathing nausea vomiting diarrhea dysuria hematuria. Patient reports no diarrhea. Patient reports that she has been on doxycycline and had cellulitis of her foot and that is usually swollen. Home Medications Medication Instructions Recorded Confirmed Type acetaminophen 500 mg tablet 1,000 mg PO BID 07/04/22 07/15/23 History (Tylenol Extra Strength) insulin glargine 100 unit/mL (3 18 unit subcut QPM 07/04/22 07/15/23 History mL) subcutaneous pen (Basaglar KwikPen U-100 Insulin) loratadine 10 mg tablet 10 mg PO HS PRN seasonal allergies 07/04/22 07/15/23 History magnesium oxide 400 mg PO BID 07/04/22 07/15/23 History cholecalciferol (vitamin D3) 25 25 mcg PO QAM 07/06/22 07/15/23 History mcg (1,000 unit) capsule biotin 10 mg tablet 10 mg PO QAM 09/05/22 07/15/23 History Lactobacillus acidophilus 250 1,000 mmu cells PO QAM 12/11/22 07/15/23 History million cell capsule (Probiotic Acidophilus) ferrous sulfate 325 mg (65 mg 325 mg PO HS 12/11/22 07/15/23 History iron) tablet glimepiride 4 mg tablet 4 mg PO BID #180 tabs 12/18/22 07/15/23 Rx metformin 1,000 mg tablet 1,000 mg PO BID #180 tabs 12/18/22 07/15/23 Rx clopidogrel 75 mg tablet 75 mg PO QAM #90 tabs 01/11/23 07/15/23 Rx rivaroxaban 15 mg tablet (Xarelto) 15 mg PO QPM #30 tabs 03/25/23 07/15/23 Rx benzonatate 100 mg capsule 100 mg PO TID PRN cough 10 days 06/25/23 07/15/23 Rx #30 caps cyanocobalamin (vitamin B-12) 1,000 mcg PO 3XWK 06/25/23 07/15/23 History 1,000 mcg capsule tramadol 50 mg tablet 50 mg PO DAILY PRN pain 30 days 06/25/23 07/15/23 Rx #30 tabs atorvastatin 80 mg tablet See Rx Instructions .Route 06/27/23 07/15/23 Rx .COMPLEX #90 tabs lisinopril 2.5 mg tablet 2.5 mg PO QAM 07/08/23 07/15/23 History metoprolol tartrate 25 mg tablet 25 mg PO BID 07/15/23 07/15/23 History Allergies Allergy/AdvReac Type Severity Reaction Status Date / Time amoxicillin Allergy Severe Rash Verified 07/15/23 00:37 ceftriaxone [From Rocephin] Allergy Severe Fever Verified 07/15/23 00:37 neomycin Allergy Intermediate Rash Verified 07/15/23 00:37 propoxyphene Allergy Mild Rash Verified 07/15/23 00:37 [From Darvocet-N] Bactrim AdvReac Intermediate Diarrhea Uncoded 07/15/23 00:37 Past Med/Surg History Medical History Toe infection at present to surgical toe, on treatment History of COVID-19 Mar 2023 > not hospitalized Amputation toe rt hallux Hx of chest pain 2021, and pain in her jaw, had stress test then catheterization with x1 stent On anticoagulant therapy History of anesthesia reaction s/p knee arthroscopy took a "long time to wake up". PAD (peripheral artery disease) Cellulitis of right lower extremity August 2022, treated at [facility] [place] [facility] (obstructive sleep apnea) no device History of deviated nasal septum Back abscess hx- November 2019. no surgery - treated with antibiotics. Arthritis Myocardial infarct 01/17/21 Dyslipidemia Type 2 diabetes mellitus IDDM Hypertension Frequent PVCs pt denies/aware - pt does not have any symptoms CAD (coronary artery disease) Surgical History Hx of foot surgery Right Foot Ulcer Debridement, Bone Biopsy, Incision and Drainage History of cardiac cath 12/2020 at [facility] in [place] 2021, [facility] in [place]; f/[place] dr. morgan and [place] [facility] [place] post [place] of extremity Right leg at [facility] [place] with Dr Loyd. no stents placed>procedure done twice-3 vessels first time, 1 vessel second time. H/O colonoscopy Last colonoscopy 01/24/2017 Joint replaced left foot plus a revision of a toe joint H/O sinus surgery H/O arthroscopy of right knee H/O dilation and curettage H/O cervical polypectomy H/O breast biopsy Hx of cataract extraction Bilateral Hx of parathyroidectomy Hx of tubal ligation Hx of foot surgery left foot surgery and implant replacement Hx of carpal tunnel repair bilateral S/P coronary artery stent placement x2 (01/19/21) + 01/31/22 x1 stent in circumflex artery (per patient) done at [facility] in [place]. Follows with Dr Morgan Family History Mother Heart disease Myocardial infarction Hypertension Brother Hypertension Uncle Diabetes Father Emphysema lung black lung Denies family history of Ovarian cancer Prostate cancer Breast cancer Lung cancer Colorectal cancer Stroke Social History Smoking Status: Never smoker Second Hand Exposure: No; Do You Dip or Chew Tobacco: No; Hx Alcohol Use: Yes Alcohol type: wine and hard liquor Alcohol Intake Frequency: Monthly or Less Hx Substance Use: No Preferred Language: Estonian Communication Ability: Effective Visual Impairment: Limited Hearing Ability: Normal 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 Beliefs That Will Affect Care: None marital status: / Current Living Situation: Alone current occupational status: retired How many Children do You have: 4 Feels Safe at Home: Yes Childhood Exposure to Second-Hand Smoke: No Diet: diabetic and low salt caffeine: Yes (1 cup a day) during the past year weight has: remained stable Dental Care, Regularly: Yes Physical Activity Frequency: 3-4 Times per Week Seatbelt Use: always Sunscreen Use: Yes Assistive Devices: Cane and Glasses Physical Exam Vital Signs Vital Signs - 24 hr 07/14/23 21:33 07/14/23 21:44 07/14/23 21:59 Temperature 37.4 C Temperature Source Temporal Artery Scan Pulse Rate 118 H 110 H 104 H Pulse Rate from SpO2 Sensor Pulse Rhythm Regular Pulse Strength Normal Respiratory Rate 19 24 Respiratory Effort / Characteristics Non-Labored Spontaneous Respiratory Depth Normal Respiratory Pattern Regular Blood Pressure 117/72 148/81 H Blood Pressure Mean 87 103 Blood Pressure Position Sitting Pulse Oximetry 97 94 Oxygen Delivery Method Room Air Room Air Sepsis Recent Fever Within 48 Hours Yes Sepsis New/Unexplained Change in Mental Status N/A Sepsis Action Taken by Nursing No Action Required 07/14/23 22:00 07/14/23 22:08 07/14/23 22:30 Temperature 38.2 C H Temperature Source Oral Pulse Rate 102 H 103 H Pulse Rate from SpO2 Sensor Pulse Rhythm Pulse Strength Respiratory Rate 23 18 Respiratory Effort / Characteristics Respiratory Depth Respiratory Pattern Blood Pressure 141/72 H 149/73 H Blood Pressure Mean 95 98 Blood Pressure Position Pulse Oximetry 95 93 Oxygen Delivery Method Room Air Room Air Sepsis Recent Fever Within 48 Hours Sepsis New/Unexplained Change in Mental Status Sepsis Action Taken by Nursing 07/14/23 23:32 07/15/23 00:00 07/15/23 00:17 Temperature 37.8 C H Temperature Source Oral Pulse Rate 106 H 110 H Pulse Rate from SpO2 Sensor 106 H 110 H Pulse Rhythm Pulse Strength Respiratory Rate 21 19 Respiratory Effort / Characteristics Respiratory Depth Respiratory Pattern Blood Pressure 152/69 H 167/69 H Blood Pressure Mean 96 101 Blood Pressure Position Pulse Oximetry 91 91 Oxygen Delivery Method Room Air Room Air Sepsis Recent Fever Within 48 Hours Sepsis New/Unexplained Change in Mental Status Sepsis Action Taken by Nursing Physical Exam GENERAL: She is oriented to person, place, and time. She appears well-developed and well-nourished. HENT: Exam performed. -Head: Normocephalic and atraumatic. -Right Ear: External ear normal. No mastoid erythema -Left Ear: External ear normal. No mastoid erythema -Mouth/Throat: The oropharynx is clear and moist. No trismus in the jaw. No dental abscesses or uvula swelling. No oropharyngeal exudate or tonsillar abscesses. EYES: Conjunctivae and EOM are normal. Pupils are equal, round, and reactive to light. Right eye exhibits no discharge. Left eye exhibits no discharge. No scleral icterus. NECK: Normal range of motion. Neck supple. No JVD present. No spinous process tenderness present. No carotid bruit present. No rigidity. CV: Normal rate, regular rhythm, normal heart sounds and intact distal pulses. There is no peripheral edema. Palpable radial pulses bue. PULM/CHEST: Effort normal and breath sounds normal. No respiratory distress. No stridor. She has no wheezes. She has no rales. ABD: The abdomen is soft. There is no tenderness. There is no rebound, no guarding MUSC/SKEL: Right lower extremity: Dressing from the right foot was removed. Palpable DP and PT pulse. There is some scant discharge from the surgical incisions over the patient's remaining left toe stub. There is swelling of the right lower extremity with surrounding erythema of the foot ankle and calf. Left lower extremity: Mild swelling. NEURO: She is alert and oriented to person, place, and time. She has normal strength. No cranial nerve deficit or sensory deficit. Coordination and gait normal. GCS eye subscore is 4. GCS verbal subscore is 5. GCS motor subscore is 6. Course Course 2141: The patient was evaluated in room B12. A complete history and physical exam was performed Cardiac monitoring: An order was placed for continuous cardiac monitoring. The monitor shows a rate of 100 with sinus rhythm interpreted by ct 2240: White blood cell count 15.16.Spoke with Dr. Armida Chen who is on-call for the patient's multi operation machine operator Dr. Ramos. He states to admit the patient to medicine and give IV antibiotics and he will have the patient's multi operation machine operator see him in the morning. 2340: VBG within normal limits coagulation studies within normal limits. Urinalysis negative. COVID-negative. Chest x-ray negative. Ultrasound negative for DVT. Vancomycin ordered for the patient's postoperative infection patient will be admitted to the [facility] any hospitalist team Dr. Asher will be notified. Administered Medications Vancomycin HCl 1,250 mg/ (Sodium Chloride) 525 mls @ 200 mls/hr IV NOW ONE Stop: 07/15/23 01:11 Last Admin: 07/14/23 23:27 Dose: 200 mls/hr Documented By: CHASIDY Medical Decision Making Laboratory Data Attestation: I reviewed the patient's lab results. 07/14/23 21:50 07/14/23 21:50 Lab Results 07/14/23 07/14/23 07/14/23 Range/Units 21:50 22:06 22:12 WBC 15.16 H (4.8-10.8) K/ul RBC 3.59 L (4.20-5.40) M/uL Hgb 9.8 L (12.0-16.0) g/dl Hct 31.3 L (37.0-47.0) % MCV 87.2 (80.0-100.0) fL MCH 27.3 (25.0-34.0) pg MCHC 31.3 L (32.0-36.0) g/dL RDW Std Deviation 40.8 (36.4-46.3) fL RDW Coeff of Renetta 12.8 (11.5-14.5) % Plt Count 452 H (130-400) K/uL MPV 9.3 L (9.4-12.4) fL Immature Gran % (Auto) 0.7 % Neut % (Auto) 83.4 % Lymph % (Auto) 7.0 % [place] % (Auto) 8.3 % Eos % (Auto) 0.3 % Baso % (Auto) 0.3 % Neut # (Auto) 12.65 H (1.40-6.50) K/uL Lymph # (Auto) 1.06 L (1.20-3.40) K/uL [place] # (Auto) 1.26 H (0.11-0.59) K/uL Eos # (Auto) 0.04 (0.00-0.50) K/uL Baso # (Auto) 0.05 (0.00-0.20) K/uL Immature Gran # (Auto) 0.10 (0.01-0.20) K/uL PT 10.7 (9.0-12.0) Seconds INR 1.0 (0.9-1.1) APTT 31 (21-31) Seconds PTT Ratio 1.1 VBG pH (7.36-7.41) VBG pCO2 (38-50) mmHg VBG pO2 mmHg VBG HCO3 mmol/L VBG O2 Saturation % VBG Base Excess mEq/L Sodium 134 L (136-145) mmol/L Potassium 4.7 (3.5-5.1) mmol/L Chloride 97 L (98-107) mmol/L Carbon Dioxide 27 (21-32) mmol/L Anion Gap 10 (3-11) BUN 27 H (6-23) mg/dl Creatinine 1.20 (0.6-1.2) mg/dl Est Cr Clr Drug Dosing 35.3 ml/min Est GFR ( Amer) 51.6 ml/min Est GFR (Non-Af Amer) 44.5 ml/min BUN/Creatinine Ratio 22.5 H (10-20) Glucose 209 H (70-99(Fasting)) mg/dl Lactate 1.4 (0.4-2.0) mmol/L Calcium 8.9 (8.6-10.3) mg/dl Magnesium 2.0 (1.7-2.4) mg/dl Total Bilirubin 0.4 (0.2-1.0) mg/dl Direct Bilirubin 0.1 (0-0.2) mg/dl AST 9 L (13-39) U/L ALT 7 (7-52) U/L Alkaline Phosphatase 75 (34-104) U/L Troponin I High Sens 6.4 (0-14) pg/ml Total Protein 7.3 (6.0-8.3) gm/dl Albumin 3.7 (3.4-5.0) gm/dl Procalcitonin 0.11 (0-0.5) ng/ml Urine Color Urine Appearance (Clear) Urine pH (4.5-7.5) Ur Specific Sanford (1.000-1.030) Urine Protein (Negative) Urine Glucose (UA) (Negative) Urine Ketones (Negative) Urine Blood (Negative) Urine Nitrite (Negative) Urine Bilirubin (Negative) Urine Urobilinogen (Negative) Ur Leukocyte Esterase (Negative) Urine WBC (Auto) (0-5) /hpf Urine RBC (Auto) (0-4) /hpf U Hyaline Cast (Auto) (0-5) /lpf U Epithel Cells (Auto) (0-5) /lpf Urine Bacteria (Auto) (Negative) SARS-CoV-2 (PCR) NEGATIVE (Negative) Influenza Type A (PCR) Negative (Neg) Influenza Type B (PCR) Negative (Neg) RSV (RT-PCR) Negative (Neg) 07/14/23 07/14/23 Range/Units 22:27 22:47 WBC (4.8-10.8) K/ul RBC (4.20-5.40) M/uL Hgb (12.0-16.0) g/dl Hct (37.0-47.0) % MCV (80.0-100.0) fL MCH (25.0-34.0) pg MCHC (32.0-36.0) g/dL RDW Std Deviation (36.4-46.3) fL RDW Coeff of Renetta (11.5-14.5) % Plt Count (130-400) K/uL MPV (9.4-12.4) fL Immature Gran % (Auto) % Neut % (Auto) % Lymph % (Auto) % [place] % (Auto) % Eos % (Auto) % Baso % (Auto) % Neut # (Auto) (1.40-6.50) K/uL Lymph # (Auto) (1.20-3.40) K/uL [place] # (Auto) (0.11-0.59) K/uL Eos # (Auto) (0.00-0.50) K/uL Baso # (Auto) (0.00-0.20) K/uL Immature Gran # (Auto) (0.01-0.20) K/uL PT (9.0-12.0) Seconds INR (0.9-1.1) APTT (21-31) Seconds PTT Ratio VBG pH 7.46 H (7.36-7.41) VBG pCO2 42 (38-50) mmHg VBG pO2 35 mmHg VBG HCO3 30 mmol/L VBG O2 Saturation < 60.0 % VBG Base Excess 5.4 mEq/L Sodium (136-145) mmol/L Potassium (3.5-5.1) mmol/L Chloride (98-107) mmol/L Carbon Dioxide (21-32) mmol/L Anion Gap (3-11) BUN (6-23) mg/dl Creatinine (0.6-1.2) mg/dl Est Cr Clr Drug Dosing ml/min Est GFR ( Amer) ml/min Est GFR (Non-Af Amer) ml/min BUN/Creatinine Ratio (10-20) Glucose (70-99(Fasting)) mg/dl Lactate (0.4-2.0) mmol/L Calcium (8.6-10.3) mg/dl Magnesium (1.7-2.4) mg/dl Total Bilirubin (0.2-1.0) mg/dl Direct Bilirubin (0-0.2) mg/dl AST (13-39) U/L ALT (7-52) U/L Alkaline Phosphatase (34-104) U/L Troponin I High Sens (0-14) pg/ml Total Protein (6.0-8.3) gm/dl Albumin (3.4-5.0) gm/dl Procalcitonin (0-0.5) ng/ml Urine Color Yellow Urine Appearance Clear (Clear) Urine pH 8.0 H (4.5-7.5) Ur Specific [place]ford 1.018 (1.000-1.030) Urine Protein 2+ H (Negative) Urine Glucose (UA) Trace H (Negative) Urine Ketones 1+ H (Negative) Urine Blood Negative (Negative) Urine Nitrite Negative (Negative) Urine Bilirubin Negative (Negative) Urine Urobilinogen Negative (Negative) Ur Leukocyte Esterase Negative (Negative) Urine WBC (Auto) 1-5 (0-5) /hpf Urine RBC (Auto) 0-4 (0-4) /hpf U Hyaline Cast (Auto) 0 (0-5) /lpf U Epithel Cells (Auto) 0-5 (0-5) /lpf Urine Bacteria (Auto) Negative (Negative) SARS-CoV-2 (PCR) (Negative) Influenza Type A (PCR) (Neg) Influenza Type B (PCR) (Neg) RSV (RT-PCR) (Neg) Imaging Data Radiologist's Impression: Chest X-Ray 07/14/23 21:57 SINGLE VIEW CHEST CLINICAL HISTORY: Sepsis FINDINGS: An AP, portable, upright chest radiograph is compared to study dated 12/10/2022. The heart is mildly enlarged. The pulmonary vasculature is noncongested. Chronic interstitial thickening is similar to previous. There is mild bibasilar scarring/atelectasis. The lungs and pleural spaces are otherwise clear. No pneumothorax is seen. The skeletal structures are osteopenic. The bony thorax is grossly intact. IMPRESSION: No active disease in the chest. ACT 112: Negative or not required by law. Electronically signed by: Jw Wright M.D. 07/14/2023 11:26 PM Venous Doppler Study 07/14/23 21:58 ULTRASOUND RIGHT LOWER EXTREMITY VENOUS CLINICAL HISTORY: Right leg pain and swelling. COMPARISON STUDY: Right lower extremity venous ultrasound dated 09/25/2022. TECHNIQUE: Real-time, grayscale, and color Doppler sonography of the deep veins of the right lower extremity was performed from the inguinal crease to the calf. Compression and augmentation were utilized. FINDINGS: There is no sonographic evidence of deep venous thrombosis identified in the right lower extremity. The common femoral, superficial femoral, and popliteal veins are patent and normally compressible. The greater saphenous vein and the profunda femoris vein at the junction with the common femoral vein are clear. The visualized calf veins are patent. A complex cyst in the popliteal fossa measures 4.7 x 2.2 x 0.7 cm. Soft tissue edema is noted in the calf. IMPRESSION: 1. There is no sonographic evidence of deep venous thrombosis identified in the right lower extremity. 2. Popliteal cyst. ACT 112: Negative or not required by law. Electronically signed by: Jw Wright M.D. 07/14/2023 11:30 PM ECG Data Attestation: I personally reviewed and interpreted this ECG as follows: Rate (beats per minute): 106 Rhythm: + sinus tachycardia ECG Intervals/blocks: + Normal QRS, + Normal MT and + Normal QT-c ECG ST segments: + Normal ST segments [facility] Narrative 2142: The patient was evaluated in room B12. A complete history and physical exam was performed Cardiac monitoring: An order was placed for continuous cardiac monitoring. The monitor shows a rate of 100 with sinus rhythm interpreted by ct 2240: White blood cell count 15.16.Spoke with Dr. Armida Chen who is on-call for the patient's multi operation machine operator Dr. Ramos. He states to admit the patient to medicine and give IV antibiotics and he will have the patient's multi operation machine operator see him in the morning. 2340: VBG within normal limits coagulation studies within normal limits. Urinalysis negative. COVID-negative. Chest x-ray negative. Ultrasound negative for DVT. Vancomycin ordered for the patient's postoperative infection patient will be admitted to the [facility] any hospitalist team Dr. Asher will be notified. Impression & Plan Post op infection Discharge Plan Visit Data Chief Complaint: Fever Stated Complaint: FEVER OF 102, LETHARGIC, LESS APPETITE ED Provider: Ata Crocker Discharge Problem: Post op infection Patient Disposition: Admitted As Inpatient Forms Stand Alone Forms: [facility] Prescriptions Prescriptions: No Action glimepiride 4 mg tablet 4 mg PO BID Qty: 180 3RF metformin 1,000 mg tablet 1,000 mg PO BID Qty: 180 2RF clopidogrel 75 mg tablet 75 mg PO QAM Qty: 90 1RF Xarelto 15 mg tablet 15 mg PO QPM Qty: 30 3RF Rx Instructions: must administer with evening meal atorvastatin 80 mg tablet See Rx Instructions .ROUTE .COMPLEX Qty: 90 1RF Dose Instruction: TAKE 1 TABLET BY MOUTH EVERYDAY AT BEDTIME Rx Instructions: TAKE 1 TABLET BY MOUTH EVERYDAY AT BEDTIME biotin 10 mg tablet 10 mg PO QAM cyanocobalamin (vitamin B-12) 1,000 mcg capsule 1,000 mcg PO 3XWK Rx Instructions: Takes Saturday, Saturday, Saturday only benzonatate 100 mg capsule 100 mg PO TID PRN (Reason: cough) 10 Days Qty: 30 1RF tramadol 50 mg tablet 50 mg PO DAILY PRN (Reason: pain) 30 Days Qty: 30 0RF insulin glargine [Basaglar KwikPen U-100 Insulin] 100 unit/mL (3 mL) insulin pen 18 unit subcut QPM loratadine 10 mg tablet 10 mg PO HS PRN (Reason: seasonal allergies) magnesium oxide 400 mg magnesium tablet 400 mg PO BID acetaminophen [Tylenol Extra Strength] 500 mg tablet 1,000 mg PO BID cholecalciferol (vitamin D3) 25 mcg (1,000 unit) capsule 25 mcg PO QAM ferrous sulfate 325 mg (65 mg iron) Tablet 325 mg PO HS Probiotic Acidophilus 1.5 mg (250 million cell) Capsule 1,000 mmu cells PO QAM Patient Comments: not currently taking 07/08/23 lisinopril 2.5 mg tablet 2.5 mg PO QAM Rx Instructions: TAKE 1 TABLET BY MOUTH DAILY metoprolol tartrate 25 mg tablet 25 mg PO BID Rx Instructions: TAKE 1 TABLET BY MOUTH TWICE A DAY Referrals Referrals: Kenny Martinez DO [Primary Care Provider] - Discharge Problem: Post op infection Qualifiers: Encounter type: initial encounter Postoperative infection type: superficial incisional surgical site Qualified Code(s): T81.41XA - Infection following a procedure, superficial incisional surgical site, initial encounter
[2023-07-15] MEDS ORDERED: LACTATED RINGER'S 2,000 ML IV STA (01:14)
[2023-07-15] MEDS ORDERED: PIPERACILLIN/TAZOBACTAM 4.5 GM in DEXTROSE 5% MINI-B 100 ML IV SCH (01:45)
[2023-07-15] MEDS ORDERED: PIPERACILLIN/TAZOBACTAM 4.5 GM/100 ML BAG IV STA (01:46)
[2023-07-15] MEDS ORDERED: GLUCAGON FOR INJ 1 MG VIAL SQ PRN (01:47)
[2023-07-15] MEDS ORDERED: GLUCOSE 10 TAB/TUBE PO PRN (01:47)
[2023-07-15] MEDS ORDERED: CARBOHYDRATES FOR HYPOGLYCEMIA PO PRN (01:47)
[2023-07-15] MEDS ORDERED: DEXTROSE 50% 50 ML SYRINGE IV PRN (01:47)
[2023-07-15] MEDS ORDERED: GLUCOSE 40% GEL 15 GM TUBE PO PRN (01:47)
--- NOTE | 2023-07-15 02:12 | History & Physical Report ---
Date of Service July 15, 2023 Assessment & Plan (1) Sepsis: Plan: Patient is a 72-year-old female with past medical history of type 2 diabetes, previous right great toe amputation, arterial insufficiency of the lower extremity, obesity, PAD, hypertension, CAD, previous MN with 3 stents with the latest being in 2021, and hyperlipidemia who presents to the hospital for evaluation of fever. Patient likely having postoperative infection secondary to recent right second toe amputation. Patient to be admitted for antibiotic therapy and podiatric consultation. -Admit to telemetry, telemetry indication being sepsis -Source of infection is likely recent surgery with SIRS criteria being tachycardia and white blood cell count greater than 11 -Lactate within normal limits, no evidence of endorgan damage -Ordered 2 L of lactated Ringer's to which he is 30 cc/kg fluid resuscitation -Continue vancomycin -Add Zosyn for Pseudomonas coverage, patient has known rash reaction to amoxicillin but no history of anaphylaxis. Benefits of Zosyn outweigh risk of possible reaction -Antipyretics as needed for fever (2) Post op infection: Plan: -As above -Consult podiatry, appreciate recommendations -N.p.o. after midnight in case additional intervention is needed (3) Right great toe amputee: Plan: -as above (4) Arterial insufficiency of lower extremity: Plan: -Patient follows with Dr. Loyd for angioplasty of right lower extremity. -Will hold off consultation for now -Consider if patient is having poor wound healing but follow-up outpatient should be adequate (5) Diabetes mellitus: Plan: - Controlled, convert oral meds to basal bolus insulin with sliding scale -N.p.o. for possible procedure, half insulin dosage for now (6) Hypertension: Plan: -continue beta-blockade -Hold lisinopril for possible procedure (7) CAD (coronary artery disease): Plan: -continue atorvastatin -Hold Plavix given possible procedure, restart when able -Hold Xarelto (8) S/P coronary artery stent placement: Plan: -See above (9) Dyslipidemia: Plan: -Cont statin Plan Disposition: Admit to telemetry for antibiotic therapy for sepsis with podiatry consultation DVT prophylaxis: SCDs, chemoprophylaxis on hold for possible procedure Diet: N.p.o. with LR at 125 cc/h CODE STATUS: Full code as discussed with patient Admission and Anticipated Discharge Date Admission Date: July 15, 2023 History of Present Illness Chief Complaint: Fever Primary Care Provider: Kenny Martinez DO Patient is a 72-year-old female with past medical history of type 2 diabetes, previous right great toe amputation, arterial insufficiency of the lower extremity, obesity, PAD, hypertension, CAD, previous MN with 3 stents with the latest being in 2021, and hyperlipidemia who presents to the hospital for evaluation of fever. Patient recently had second digit amputation of the right foot performed on 07/10/2023. This was an outpatient, same-day procedure. She was discharged home without any complication during surgery. It seems she was initially doing fine but over the past 24 to 48 hours she had developed fever with a temperature of 102 F, chills, and decreased appetite. She had called her inclusion specialist, Dr. Ramos, who instructed her to go to the emergency room for evaluation. Denies any shortness of breath, chest pain, headache, nausea, or vomiting. No other complaints at this time. ED course: Patient evaluated by provider. Labs are significant for an elevated white blood cell count of 15.2, hemoglobin of 9.8, VBG pH of 7.46, lactate of 1.4, procalcitonin of 0.11, urinalysis not suggestive of UTI. Patient had a venous Doppler of the right lower extremity with no evidence of DVT. Foot x-ray was also taken. Blood cultures were taken prior to initiation of antibiotics. Patient was given vancomycin. The hospitalist service was consulted for further management and treatment. Allergies Allergy/AdvReac Type Severity Reaction Status Date / Time amoxicillin Allergy Severe Rash Verified 07/15/23 00:37 neomycin Allergy Intermediate Rash Verified 07/15/23 00:37 propoxyphene Allergy Mild Rash Verified 07/15/23 00:37 [From Darvocet-N] ceftriaxone [From Rocephin] AdvReac Severe Fever Verified 07/15/23 01:13 sulfamethoxazole AdvReac Intermediate Diarrhea Verified 07/15/23 01:13 [From Bactrim] trimethoprim [From Bactrim] AdvReac Intermediate Diarrhea Verified 07/15/23 01:13 Home Medications Medication Instructions Recorded Confirmed Type acetaminophen 500 mg tablet 1,000 mg PO BID 07/04/22 07/15/23 History (Tylenol Extra Strength) insulin glargine 100 unit/mL (3 18 unit subcut QPM 07/04/22 07/15/23 History mL) subcutaneous pen (Basaglar KwikPen U-100 Insulin) loratadine 10 mg tablet 10 mg PO HS PRN seasonal allergies 07/04/22 07/15/23 History magnesium oxide 400 mg PO BID 07/04/22 07/15/23 History cholecalciferol (vitamin D3) 25 25 mcg PO QAM 07/06/22 07/15/23 History mcg (1,000 unit) capsule biotin 10 mg tablet 10 mg PO QAM 09/05/22 07/15/23 History Lactobacillus acidophilus 250 1,000 mmu cells PO QAM 12/11/22 07/15/23 History million cell capsule (Probiotic Acidophilus) ferrous sulfate 325 mg (65 mg 325 mg PO HS 12/11/22 07/15/23 History iron) tablet glimepiride 4 mg tablet 4 mg PO BID #180 tabs 12/18/22 07/15/23 Rx metformin 1,000 mg tablet 1,000 mg PO BID #180 tabs 12/18/22 07/15/23 Rx clopidogrel 75 mg tablet 75 mg PO QAM #90 tabs 01/11/23 07/15/23 Rx rivaroxaban 15 mg tablet (Xarelto) 15 mg PO QPM #30 tabs 03/25/23 07/15/23 Rx benzonatate 100 mg capsule 100 mg PO TID PRN cough 10 days 06/25/23 07/15/23 Rx #30 caps cyanocobalamin (vitamin B-12) 1,000 mcg PO 3XWK 06/25/23 07/15/23 History 1,000 mcg capsule tramadol 50 mg tablet 50 mg PO DAILY PRN pain 30 days 06/25/23 07/15/23 Rx #30 tabs atorvastatin 80 mg tablet See Rx Instructions .Route 06/27/23 07/15/23 Rx .COMPLEX #90 tabs lisinopril 2.5 mg tablet 2.5 mg PO QAM 07/08/23 07/15/23 History metoprolol tartrate 25 mg tablet 25 mg PO BID 07/15/23 07/15/23 History Past Med/Surg History Medical History Toe infection at present to surgical toe, on treatment History of COVID-19 Mar 2023 > not hospitalized Amputation toe rt hallux Hx of chest pain 2021, and pain in her jaw, had stress test then catheterization with x1 stent On anticoagulant therapy History of anesthesia reaction s/p knee arthroscopy took a "long time to wake up". PAD (peripheral artery disease) Cellulitis of right lower extremity August 2022, treated at [facility] (obstructive sleep apnea) no device History of deviated nasal septum Back abscess hx- November 2019. no surgery - treated with antibiotics. Arthritis Myocardial infarct 01/17/21 Dyslipidemia Type 2 diabetes mellitus IDDM Hypertension Frequent PVCs pt denies/aware - pt does not have any symptoms CAD (coronary artery disease) Surgical History Hx of foot surgery Right Foot Ulcer Debridement, Bone Biopsy, Incision and Drainage History of cardiac cath 12/2020 at [facility] in [place] 2021, [facility] in [place]; f/u dr. morgan and dr. loyd[place] [facility] [place] post angiography of extremity Right leg at [facility] with Dr Loyd. no stents placed>procedure done twice-3 vessels first time, 1 vessel second time. H/O colonoscopy Last colonoscopy 01/24/2017 Joint replaced left foot plus a revision of a toe joint H/O sinus surgery H/O arthroscopy of right knee H/O dilation and curettage H/O cervical polypectomy H/O breast biopsy Hx of cataract extraction Bilateral Hx of parathyroidectomy Hx of tubal ligation Hx of foot surgery left foot surgery and implant replacement Hx of carpal tunnel repair bilateral S/P coronary artery stent placement x2 (01/19/21) + 01/31/22 x1 stent in circumflex artery (per patient) done at [facility] in [place]. Follows with Dr Morgan Family History Mother Heart disease Myocardial infarction Hypertension Brother Hypertension Uncle Diabetes Father Emphysema lung black lung Denies family history of Ovarian cancer Prostate cancer Breast cancer Lung cancer Colorectal cancer Stroke Social History Smoking Status: Never smoker Second Hand Exposure: No; Do You Dip or Chew Tobacco: No; Hx Alcohol Use: Yes Alcohol type: wine and hard liquor Alcohol Intake Frequency: Monthly or Less Hx Substance Use: No Preferred Language: Bruneian Communication Ability: Effective Visual Impairment: Limited Hearing Ability: Normal Second Shift Supervisor Required: No Beliefs That Will Affect Care: None marital status: / Current Living Situation: Alone current occupational status: retired How many Children do You have: 4 Feels Safe at Home: Yes Childhood Exposure to Second-Hand Smoke: No Diet: diabetic and low salt caffeine: Yes (1 cup a day) during the past year weight has: remained stable Dental Care, Regularly: Yes Physical Activity Frequency: 3-4 Times per Week Seatbelt Use: always Sunscreen Use: Yes Assistive Devices: Cane and Glasses Review of Systems Review of Systems: All systems reviewed & are unremarkable except as noted in HPI & below Physical Exam Constitutional: well developed, well nourished and cooperative Eyes: + anicteric sclerae Respiratory: normal respiratory effort, lungs clear to auscultation Cardiovascular: Rate/Rhythm: regular rate and regular rhythm Extremities: + edema (trace edema b/l) Gastrointestinal (Abdomen): normal bowel sounds, soft, nontender, no hepatosplenomegaly Musculoskeletal: Head/Neck/Chest: normocephalic and head atraumatic Skin: normal turgor Patient's right lower extremity is bandaged but outside of bandage there is erythema that is well-demarcated and hot to the touch. No purulence. R second digit not visualized. Neurologic: moves all extremities Psychiatric: A+Ox3, euthymic affect Results & Data Results & Data Vital Signs (Past 12 Hours) Vital Signs Temp Pulse Resp BP Pulse Ox O2 Del Method 07/15/23 01:50 105 H 07/15/23 00:17 37.8 C H 07/15/23 00:00 110 H 19 167/69 H 91 Room Air 07/14/23 23:32 106 H 21 152/69 H 91 Room Air 07/14/23 22:30 103 H 18 149/73 H 93 Room Air 07/14/23 22:08 38.2 C H 07/14/23 22:00 102 H 23 141/72 H 95 Room Air 07/14/23 21:59 104 H 24 148/81 H 94 Room Air 07/14/23 21:44 110 H 07/14/23 21:33 37.4 C 118 H 19 117/72 97 Room Air Code Status & VTE Plan VTE Prophylaxis Plan VTE Prophylaxis will be ordered: Yes Supervising Physician Co-Signing Physician Notes I have personally seen, evaluated and examined the patient. I have also personally discussed the management of the patient with the resident physician and I agree with the exam findings documented in the history and physical examination and the documented assessment and plan unless otherwise stated below. In general: This is a pleasant 72-year-old female who is alert and oriented x 3 at time of my exam she interacts appropriately and pleasantly HEENT: Normocephalic atraumatic pupils are equal round and reactive to light bilaterally. No scleral icterus no conjunctival injection external auditory canals are patent septum is in the midline nose is without discharge oral mucosa is pink and moist without lesion. NECK: Supple no rigidity no lymphadenopathy no thyromegaly no carotid bruits no JVD no masses. HEART: Regular rate and rhythm I do not appreciate any ectopy or rub. No murmur. LUNGS: Clear to auscultation bilaterally and anteriorly with no evidence of adventitious sounds/wheezes rales or rhonchi. ABDOMEN: Soft nontender, no rebound, no peritoneal signs, positive bowel sounds, no appreciable organomegaly. EXTREMITIES: Extremities are neurovascularly intact. Her right lower extremity is currently dressed including the foot and the distal ankle/distal leg region. Above this there is changes of chronic venous stasis as well as on the left lower extremity chronic venous stasis with some mild chronic bronze erythema bilaterally. Her foot wound was not directly inspected by myself however I did speak with the ER doctor who did undress the the wound it does appear to be erythematous. Blood cultures were obtained. ER physician did speak with orthopedics is recommended podiatry consult in the morning.. NEUROLOGICAL: Cranial nerves II through XII are grossly intact with no focal deficit elicited upon examination. No tremor. Assessment/plan: As described above. Please refer to orders for further planning. Broad-spectrum IV antibiotic therapy n.p.o. after midnight anticipate possible need for debridement versus just antibiotic therapy (2) Post op infection Encounter type: initial encounter Postoperative infection type: superficial incisional surgical site Qualified Code(s): T81.41XA - Infection following a procedure, superficial incisional surgical site, initial encounter
--- NOTE | 2023-07-15 02:45 | Billing Data ---
Date of Service July 15, 2023 Coding Level of Care Code 48547 INT INP/OBS CARE
[2023-07-15 04:47] LABS: Hematocrit (blood only) 28.3 % (37.0-47.0); Hemoglobin 8.8 g/dl (12.0-16.0); Mean Corpuscular Hgb Conc 31.1 g/dL (32.0-36.0); Mean Corpuscular Volume 86.8 fL (80.0-100.0); Mean Platelet Volume 9.8 fL (9.4-12.4); Platelet Count 378 K/uL (130-400); RDW Coefficient of Variation 12.9 % (11.5-14.5); RDW Standard Deviation 40.7 fL (36.4-46.3); Red Blood Count 3.26 M/uL (4.20-5.40); White Blood Count 12.25 K/ul (4.8-10.8)
[2023-07-15] MEDS: LACTATED RINGER'S 1,000 ML IV SCH ×3 (04:56→16:39)
[2023-07-15 04:58] LABS: Albumin Level 3.1 gm/dl (3.4-5.0); BUN Creatinine Ratio 20.8 (10-20); Bilirubin,Total 0.4 mg/dl (0.2-1.0); C Reactive Protein 24.05 mg/dl (0-0.5); Calcium 8.2 mg/dl (8.6-10.3); Est GFR (African American) 59.9 ml/min; Est GFR (Non-African American) 51.7 ml/min; Total Protein 6.1 gm/dl (6.0-8.3)
[2023-07-15] MEDS ORDERED: VANCOMYCIN HCL 500 MG in NSS 100mL IV SCH (06:00)
--- NOTE | 2023-07-15 07:05 | XRay Report ---
XR foot RT min 3V routine CLINICAL HISTORY: post op fever COMPARISON: Right foot radiographs February 25, 2022. MRI of the right foot July 02, 2023. FINDINGS: Interval amputation of the distal phalanx of the right second toe is noted. Small amount o f gas within the operative bed is present. Erosion of the head of the right first metatarsal is noted . This was shown on prior radiographs. No acute fractures within the right foot are present. Tarsomet atarsal joints are intact. Dorsal foot soft tissue swelling is noted on lateral projection. There is extensive vascular calcification. IMPRESSION: 1. Interval amputation of the distal phalanx of the right second toe. Small amount of gas within the operative bed may be postsurgical or related to open wound. An infection cannot be excluded. 2. Erosion of the right first metatarsal head, similar to prior radiographs. This may reflect chronic osteomyelitis. ACT 112: Negative or not required by law. Electronically signed by: Zeeshan Dozier M.D. 07/15/2023 7:03 AM
[2023-07-15] MEDS: CHOLECALCIFEROL 1,000 UNITS 25 MCG TAB PO SCH (08:41)
[2023-07-15] MEDS: PIPERACILLIN/TAZOBACTAM 4.5 GM in DEXTROSE 5% MINI-B 100 ML IV SCH ×2 (08:41→17:50)
[2023-07-15] MEDS: METOPROLOL TARTRATE 25 MG TAB PO SCH ×2 (08:41→20:58)
[2023-07-15] MEDS: INSULIN ASPART PER UNIT CHARGE SC SCH ×4 (09:01→20:57)
[2023-07-15] MEDS: LANTUS PER UNIT CHARGE SQ SCH ×2 (09:02→20:56)
--- NOTE | 2023-07-15 11:58 | Podiatry Consultation ---
Date of Consultation July 15, 2023 Assessment & Plan (1) Cellulitis of right foot: At this point patient will need to continue antibiotics per medicine recommendations will likely require discharge with IV antibiotics based on culture taken intraoperatively this past Saturday. She will also need evaluati on by vascular medicine to identify if any further procedures can be done to help improve the flow to her foot. At this point she is understanding the necessity of having evaluation by vascular medicine and likely having another procedure. I do appreciate her white blood cell count is trending down and as stated previously she was feeling better I do feel that some aspects of the foot do look improved however there is obvious ischemic changes to the remaining narrowing portion of the right second toe. (2) Arterial insufficiency of lower extremity: History of Present Illness Reason for Consultation: Patient seen at bedside today in the ED while she is still awaiting a bed. Patient is status post right foot distal Symes amputation of second digit. Performed July 10. Patient did have evaluation by vascular medicine, Dr. Loyd, prior to the procedure the new studies showed decreased circulation to the toe but overall were relatively unchanged from prior procedure patient did refuse any further vascular intervention at that time. And the decision was made to proceed with distal Symes amputation. However since the time of the surgery and she is having pain likely consistent with rest pain or ischemic pain. I remove the dressings from her surgery and inspected the second toe which I do feel has ischemic changes secondary to her history of arterial disease. I spoke with the medicine doctor will be taking care of patient via [facility] text and also asked if a consult can be placed for Dr. Loyd as this is a vascular issue and will require proper vascular intervention for patient. Discussed this with patient today. She indicated to me she was actually feeling better I do think she is on the correct antibiotics at this time her cultures from surgery were reviewed and she is having group B strep growth which is being treated with pip-tazo per medicine recommendations. Attending Physician: Aishwarya Mullen MD Allergies Allergy/AdvReac Type Severity Reaction Status Date / Time amoxicillin Allergy Severe Rash Verified 07/15/23 00:37 neomycin Allergy Intermediate Rash Verified 07/15/23 00:37 propoxyphene Allergy Mild Rash Verified 07/15/23 00:37 [From Darvocet-N] ceftriaxone [From Rocephin] AdvReac Severe Fever Verified 07/15/23 01:13 sulfamethoxazole AdvReac Intermediate Diarrhea Verified 07/15/23 01:13 [From Bactrim] trimethoprim [From Bactrim] AdvReac Intermediate Diarrhea Verified 07/15/23 01:13 Home Medications Medication Instructions Recorded Confirmed Type acetaminophen 500 mg tablet 1,000 mg PO BID 07/04/22 07/15/23 History (Tylenol Extra Strength) insulin glargine 100 unit/mL (3 18 unit subcut QPM 07/04/22 07/15/23 History mL) subcutaneous pen (Basaglar KwikPen U-100 Insulin) loratadine 10 mg tablet 10 mg PO HS PRN seasonal allergies 07/04/22 07/15/23 History magnesium oxide 400 mg PO BID 07/04/22 07/15/23 History cholecalciferol (vitamin D3) 25 25 mcg PO QAM 07/06/22 07/15/23 History mcg (1,000 unit) capsule biotin 10 mg tablet 10 mg PO QAM 09/05/22 07/15/23 History Lactobacillus acidophilus 250 1,000 mmu cells PO QAM 12/11/22 07/15/23 History million cell capsule (Probiotic Acidophilus) ferrous sulfate 325 mg (65 mg 325 mg PO HS 12/11/22 07/15/23 History iron) tablet glimepiride 4 mg tablet 4 mg PO BID #180 tabs 12/18/22 07/15/23 Rx metformin 1,000 mg tablet 1,000 mg PO BID #180 tabs 12/18/22 07/15/23 Rx clopidogrel 75 mg tablet 75 mg PO QAM #90 tabs 01/11/23 07/15/23 Rx rivaroxaban 15 mg tablet (Xarelto) 15 mg PO QPM #30 tabs 03/25/23 07/15/23 Rx benzonatate 100 mg capsule 100 mg PO TID PRN cough 10 days 06/25/23 07/15/23 Rx #30 caps cyanocobalamin (vitamin B-12) 1,000 mcg PO 3XWK 06/25/23 07/15/23 History 1,000 mcg capsule tramadol 50 mg tablet 50 mg PO DAILY PRN pain 30 days 06/25/23 07/15/23 Rx #30 tabs atorvastatin 80 mg tablet See Rx Instructions .Route 06/27/23 07/15/23 Rx .COMPLEX #90 tabs lisinopril 2.5 mg tablet 2.5 mg PO QAM 07/08/23 07/15/23 History metoprolol tartrate 25 mg tablet 25 mg PO BID 07/15/23 07/15/23 History Patient History Medical History Toe infection at present to surgical toe, on treatment History of COVID-19 Mar 2023 > not hospitalized Amputation toe rt hallux Hx of chest pain 2021, and pain in her jaw, had stress test then catheterization with x1 stent On anticoagulant therapy History of anesthesia reaction s/p knee arthroscopy took a "long time to wake up". PAD (peripheral artery disease) Cellulitis of right lower extremity August 2022, treated at [facility] (obstructive sleep apnea) no device History of deviated nasal septum Back abscess hx- November 2019. no surgery - treated with antibiotics. Arthritis Myocardial infarct 01/17/21 Dyslipidemia Type 2 diabetes mellitus IDDM Hypertension Frequent PVCs pt denies/aware - pt does not have any symptoms CAD (coronary artery disease) Surgical History Hx of foot surgery Right Foot Ulcer Debridement, Bone Biopsy, Incision and Drainage History of cardiac cath 12/2020 at [facility] in [place] 2021, [facility] in [place]; f/u dr. morgan and dr. loyd, [facility] [place] Status post angiography of extremity Right leg at [facility] with Dr Loyd. no stents placed>procedure done twice-3 vessels first time, 1 vessel second time. H/O colonoscopy Last colonoscopy 01/24/2017 Joint replaced left foot plus a revision of a toe joint H/O sinus surgery H/O arthroscopy of right knee H/O dilation and curettage H/O cervical polypectomy H/O breast biopsy Hx of cataract extraction Bilateral Hx of parathyroidectomy Hx of tubal ligation Hx of foot surgery left foot surgery and implant replacement Hx of carpal tunnel repair bilateral S/P coronary artery stent placement x2 (01/19/21) + 01/31/22 x1 stent in circumflex artery (per patient) done at [facility] in [place]. Follows with Dr Morgan Family History Mother Heart disease Myocardial infarction Hypertension Brother Hypertension Uncle Diabetes Father Emphysema lung black lung Denies family history of Ovarian cancer Prostate cancer Breast cancer Lung cancer Colorectal cancer Stroke Social History Smoking Status: Never smoker Second Hand Exposure: No; Do You Dip or Chew Tobacco: No; Hx Alcohol Use: No Hx Substance Use: No Preferred Language: Vietnamese Communication Ability: Effective Visual Impairment: Limited Hearing Ability: Normal Electrotype Servicer Required: No Beliefs That Will Affect Care: None marital status: / Current Living Situation: Alone current occupational status: retired How many Children do You have: 4 Other Information That Helps Us Care for You: No Feels Safe at Home: Yes Safety Concerns: Feels Safe At This Time Childhood Exposure to Second-Hand Smoke: No Diet: diabetic and low salt caffeine: Yes (1 cup a day) during the past year weight has: remained stable Dental Care, Regularly: Yes Physical Activity Frequency: 3-4 Times per Week Seatbelt Use: always Sunscreen Use: Yes Assistive Devices: Cane Physical Exam Skin: Dressings removed from right foot these were the postsurgical dressings until inspected. I think there were some positive findings the erythema and swelling present on the dorsal aspect of the right foot was significantly better following surgery however I still appreciate ischemic changes to the second toe likely correlating to her history of arterial disease. Will require evaluation by vascular medicine. The pathology from surgery was also consistent with acute osteomyelitis. New dressings applied consisting of Adaptic gauze and roll gauze. They were replaced at bedside after evaluation. Results & Data Vital Signs (Past 12 Hours) Vital Signs Temp Pulse Pulse Resp BP BP Pulse Ox 07/15/23 08:00 07/15/23 08:00 36.8 C 80 16 140/75 99 07/15/23 08:00 07/15/23 06:58 106 H 07/15/23 04:58 37.1 C 92 H 18 144/74 H 97 07/15/23 04:58 07/15/23 02:44 37.5 C 07/15/23 02:00 106 H 19 138/59 L 95 07/15/23 01:50 105 H 07/15/23 00:17 37.8 C H 07/15/23 00:00 110 H 19 167/69 H 91 Pulse Ox O2 Del Method O2 Del Method 07/15/23 08:00 Room Air 07/15/23 08:00 Room Air 07/15/23 08:00 99 Room Air 07/15/23 06:58 07/15/23 04:58 Room Air 07/15/23 04:58 97 Room Air 07/15/23 02:44 07/15/23 02:00 Room Air 07/15/23 01:50 07/15/23 00:17 07/15/23 00:00 Room Air
--- NOTE | 2023-07-15 13:21 | Pharmacy Report ---
Pharmacy PK ABX Note - Date of Service July 15, 2023 - Assessment and Plan Assessment 72 year old F receiving Vancomycin and Zosyn for treatment of postoperative wound infection. * Day #1 of antimicrobial therapy. * PMHx significant for T2DM. * HPI: Patient underwent amputation of the second toe on her right foot on 07/10/23. Cultures from the toe at that time grew Group B Beta Strep that was resistant only to macrolides and clindamycin. Was given a prescription for Doxycycline postoperatively. * Labs/Vitals: Leukocytosis of 15k on admit which improved to 12.3k today. Febrile at 38.2oC upon admit but fever curve trending down. SCr improved to 1.06 today. Lactate was normal. Procal was 0.11. ESR/CRP both elevated. * Micro: Blood cultures pending. See above for R toe cx from 07/10/23. * Imaging: Per radiology, R foot XR shows "small amount of gas within the operative bed may be postsurgical or related to open wound. An infection cannot be excluded. Erosion of the right first metatarsal head, similar to prior radiographs. This may reflect chronic osteomyelitis." * Recommendations: Believe Group B Beta Strep is most likely the cause of infection which doxycycline doesn't have great coverage of. Recommended discontinuation of vancomycin and continuing Zosyn for now. Likely can de- escalate to Cefazolin. Plan Vancomycin * Loading dose: 1250 mg IV x 1 * Maintenance dose: 500 mg IV every 12 hours * Regimen is predicted to achieve target AUC/CYNDI of 400-600 mg/L.hr * Will order a vanc level in 48 hours should vanc continue for that long Zosyn * 4.5 g IV every 8 hours - appropriate Pharmacy will continue to follow and will adjust dose/frequency as necessary. Thank you. Pharmacy has transitioned to AUC monitoring for vancomycin. AUC/CYNDI is the preferred PK/PD target and is associated with decreased risk of nephrotoxicity compared to traditional trough targets.
--- NOTE | 2023-07-15 13:55 | Vascular Medicine Consultation ---
Date of Consultation July 15, 2023 Assessment & Plan (1) Arterial insufficiency of lower extremity: 2. Right leg cellulitis 3. Type 2 diabetes 4. Coronary artery disease post prior inferior MA, multiple PCI 5. Chronic venous sufficiencyright GSV mild reflux, left GSV moderate reflux. 6. Anemia Patient returns with apparent infection of RLE 2nd toe amputation site with associated cellulitis complicated by critical limb ischemia. Most recent ultrasound showed significant restenosis of popliteal/TPT arteries with flat toe pressure. Plan on repeat RLE angiogram later this afternoon. Pending findings decision on best option for revascularization, repeat angioplasty/stenting versus bypass. History of Present Illness Attending Physician: Aishwarya Mullen MD History of Present Illness Ms. Wilkins is a very pleasant 72-year-old woman with CAD post prior PCI, type 2 diabetes, prior DVT, PAD post prior RT popliteal angioplasty x2 seen in the ED for recurrent cellulitis and nonhealing ulcer involving second toe on right foot. She follows with Dr. Morgan for her cardiac issues. Patient has had endovascular intervention twice to her right popliteal into TPT, initially 09/2022, later to reocclusion 11/2022 in the setting of CLI/DFU with osteomyelitis. With extended wound and podiatry care eventually healed right great toe amputation site. Unfortunately recently developed new ulcer over second toe. Underwent partial amputation last week for osteomyelitis with Dr. Samir Crump. Over the weekend developed new fevers/chills. Right second toe amputation site appears necrotic with surrounding cellulitis. Now admitted on IV antibiotics. Surgical culture grew out group B strep. Most recent vascular testing 06/19/2023: RT KELLY 0.77; LT KELLY 0.83. RT TBI 0.1. 50-74% distal popliteal; 75- 99% RT distal TPT/peroneal. 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 Prior medical history remarkable for coronary artery disease post inferior MA 12/2020 treated with 2 JESSICA to RCA, additional PCI with JESSICA to mid LCx 01/2022. Other medical issues include hypertension, dyslipidemia and prior history of parathyroidectomy. Lifelong non-smoker. Admitted to [facility] 09/25 to 09/30/2022 due to extensive right lower extremity cellulitis. Preceded by right great toe infection for months slow healing despite multiple course of antibiotics. Wound cultures negative, x-ray unremarkable. Responded to IV antibiotics. Underwent successful endovascular intervention with angioplasty to popliteal and TPT/peroneal arteries. DAHLIA occluded at the ankle. Pedal vessel is filled by collaterals and with diffuse disease 11/2022 had recurrent rest pain, ulceration involving great toe. Repeat vascular testing suggested reocclusion of distal popliteal/TPT. Underwent repeat angiogram confirming short distal popliteal occlusion treated with angioplasty of right popliteal with 4.0 balloon and angioplasty of TPT/peroneal and proximal DAHLIA. Completion of procedure popliteal widely patent with brisk two-vessel runoff to the ankle. Postprocedural ultrasound 12/10/2022 showed improved KELLY, 0.59 up to 0.8 with residual stenosis in right TPT and DAHLIA. Right great toe n ecrotic and underwent amputation with Dr. Samir Crump 12/12/2022. Wound slow to heal requiring wound VAC, additional debridement and TheraSkin application. Allergies Allergy/AdvReac Type Severity Reaction Status Date / Time amoxicillin Allergy Severe Rash Verified 07/15/23 00:37 neomycin Allergy Intermediate Rash Verified 07/15/23 00:37 propoxyphene Allergy Mild Rash Verified 07/15/23 00:37 [From Darvocet-N] ceftriaxone [From Rocephin] AdvReac Severe Fever Verified 07/15/23 01:13 sulfamethoxazole AdvReac Intermediate Diarrhea Verified 07/15/23 01:13 [From Bactrim] trimethoprim [From Bactrim] AdvReac Intermediate Diarrhea Verified 07/15/23 01:13 Home Medications Medication Instructions Recorded Confirmed Type acetaminophen 500 mg tablet 1,000 mg PO BID 07/04/22 07/15/23 History (Tylenol Extra Strength) insulin glargine 100 unit/mL (3 18 unit subcut QPM 07/04/22 07/15/23 History mL) subcutaneous pen (Basaglar KwikPen U-100 Insulin) loratadine 10 mg tablet 10 mg PO HS PRN seasonal allergies 07/04/22 07/15/23 History magnesium oxide 400 mg PO BID 07/04/22 07/15/23 History cholecalciferol (vitamin D3) 25 25 mcg PO QAM 07/06/22 07/15/23 History mcg (1,000 unit) capsule biotin 10 mg tablet 10 mg PO QAM 09/05/22 07/15/23 History Lactobacillus acidophilus 250 1,000 mmu cells PO QAM 12/11/22 07/15/23 History million cell capsule (Probiotic Acidophilus) ferrous sulfate 325 mg (65 mg 325 mg PO HS 12/11/22 07/15/23 History iron) tablet glimepiride 4 mg tablet 4 mg PO BID #180 tabs 12/18/22 07/15/23 Rx metformin 1,000 mg tablet 1,000 mg PO BID #180 tabs 12/18/22 07/15/23 Rx clopidogrel 75 mg tablet 75 mg PO QAM #90 tabs 01/11/23 07/15/23 Rx rivaroxaban 15 mg tablet (Xarelto) 15 mg PO QPM #30 tabs 03/25/23 07/15/23 Rx benzonatate 100 mg capsule 100 mg PO TID PRN cough 10 days 06/25/23 07/15/23 Rx #30 caps cyanocobalamin (vitamin B-12) 1,000 mcg PO 3XWK 06/25/23 07/15/23 History 1,000 mcg capsule tramadol 50 mg tablet 50 mg PO DAILY PRN pain 30 days 06/25/23 07/15/23 Rx #30 tabs atorvastatin 80 mg tablet See Rx Instructions .Route 06/27/23 07/15/23 Rx .COMPLEX #90 tabs lisinopril 2.5 mg tablet 2.5 mg PO QAM 07/08/23 07/15/23 History metoprolol tartrate 25 mg tablet 25 mg PO BID 07/15/23 07/15/23 History Patient History Medical History Toe infection at present to surgical toe, on treatment History of COVID-19 Mar 2023 > not hospitalized Amputation toe rt hallux Hx of chest pain 2021, and pain in her jaw, had stress test then catheterization with x1 stent On anticoagulant therapy History of anesthesia reaction s/p knee arthroscopy took a "long time to wake up". PAD (peripheral artery disease) Cellulitis of right lower extremity August 2022, treated at [facility] [place] (obstructive sleep apnea) no device History of deviated nasal septum Back abscess hx- November 2019. no surgery - treated with antibiotics. Arthritis Myocardial infarct 01/17/21 Dyslipidemia Type 2 diabetes mellitus IDDM Hypertension Frequent PVCs pt denies/aware - pt does not have any symptoms CAD (coronary artery disease) Surgical History Hx of foot surgery Right Foot Ulcer Debridement, Bone Biopsy, Incision and Drainage History of cardiac cath 12/2020 at [facility] in [place] 2021, [facility] in [place]; f/[place] dr. morgan and dr[place] [facility] [place] post angiography of extremity Right leg at [facility] with Dr Loyd. no stents placed>procedure done twice-3 vessels first time, 1 vessel second time. H/O colonoscopy Last colonoscopy 01/24/2017 Joint replaced left foot plus a revision of a toe joint H/O sinus surgery H/O arthroscopy of right knee H/O dilation and curettage H/O cervical polypectomy H/O breast biopsy Hx of cataract extraction Bilateral Hx of parathyroidectomy Hx of tubal ligation Hx of foot surgery left foot surgery and implant replacement Hx of carpal tunnel repair bilateral S/P coronary artery stent placement x2 (01/19/21) + 01/31/22 x1 stent in circumflex artery (per patient) done at [facility] in [place]. 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 Beliefs That Will Affect Care: None marital status: / Current Living Situation: Alone current occupational status: retired How many Children do You have: 4 Feels Safe at Home: Yes Childhood Exposure to Second-Hand Smoke: No Diet: diabetic and low salt caffeine: Yes (1 cup a day) during the past year weight has: remained stable Dental Care, Regularly: Yes Physical Activity Frequency: 3-4 Times per Week Seatbelt Use: always Sunscreen Use: Yes Assistive Devices: Cane Review of Systems Review of Systems: All systems reviewed & are unremarkable except as noted in HPI & below Physical Exam Physical Exam: General: Comfortable, no acute distress Eyes: Sclerae anicteric, extraocular movements intact Lungs: Clear to auscultation bilaterally Cardiac: Regular rate and rhythm Abdomen: Soft, nontender, Neuro: Nonfocal Psych: Alert orient x3, normal affect and mood Extremities/Vascular: -- Diminished right radial pulse. 2+ left radial -- Nonpalpable DP/PT pulse -- Diminished RT popliteal pulse -- Diffuse erythema warmth extending fro m 2nd toe back to mid foot. Surgical incision black. No drainage. Results & Data Vital Signs (Past 12 Hours) Vital Signs Temp Pulse Pulse Resp BP Pulse Ox Pulse Ox 07/15/23 08:00 07/15/23 08:00 98.2 F 80 16 140/75 99 07/15/23 08:00 99 07/15/23 06:58 106 H 07/15/23 04:58 98.8 F 92 H 18 144/74 H 97 07/15/23 04:58 97 07/15/23 02:44 99.5 F 07/15/23 02:00 106 H 19 138/59 L 95 07/15/23 01:50 105 H O2 Del Method O2 Del Method 07/15/23 08:00 Room Air 07/15/23 08:00 Room Air 07/15/23 08:00 Room Air 07/15/23 06:58 07/15/23 04:58 Room Air 07/15/23 04:58 Room Air 07/15/23 02:44 07/15/23 02:00 Room Air 07/15/23 01:50 PG Care Time/CCT Total # of Minutes Spent Total Time Spent with Patient: Total time spent is greater than 50% in coordination of care (as documented) at patient's floor/unit and/or counseling patient: Coding Level of Care Code 89717 INT INP/OBS CARE 2/55MIN Diagnoses Arterial insufficiency of lower extremity I73.9
--- NOTE | 2023-07-15 15:04 | Post Anesthesia Assessment ---
Date of Service July 15, 2023 Post Sedation Assessment Vital Signs Temp Pulse Pulse Resp BP BP Pulse Ox 07/15/23 14:40 65 18 140/70 95 07/15/23 08:00 07/15/23 08:00 98.2 F 80 16 140/75 99 07/15/23 08:00 07/15/23 06:58 106 H 07/15/23 04:58 98.8 F 92 H 18 144/74 H 97 07/15/23 04:58 07/15/23 02:44 99.5 F 07/15/23 02:00 106 H 19 138/59 L 95 07/15/23 01:50 105 H 07/15/23 00:17 100.0 F H 07/15/23 00:00 110 H 19 167/69 H 91 07/14/23 23:32 106 H 21 152/69 H 91 07/14/23 22:30 103 H 18 149/73 H 93 07/14/23 22:08 100.8 F H 07/14/23 22:00 102 H 23 141/72 H 95 07/14/23 21:59 104 H 24 148/81 H 94 07/14/23 21:44 110 H 07/14/23 21:33 99.3 F 118 H 19 117/72 97 Pulse Ox O2 Del Method O2 Del Method 07/15/23 14:40 Room Air 07/15/23 08:00 Room Air 07/15/23 08:00 Room Air 07/15/23 08:00 99 Room Air 07/15/23 06:58 07/15/23 04:58 Room Air 07/15/23 04:58 97 Room Air 07/15/23 02:44 07/15/23 02:00 Room Air 07/15/23 01:50 07/15/23 00:17 07/15/23 00:00 Room Air 07/14/23 23:32 Room Air 07/14/23 22:30 Room Air 07/14/23 22:08 07/14/23 22:00 Room Air 07/14/23 21:59 Room Air 07/14/23 21:44 07/14/23 21:33 Room Air Recovery Score Activity: Moves 4 extremities Respiration: Deep Breath/Cough Circulation: +/-20% PreAnes Value Consciousness: Fully Awake Oxygen Saturation: O2 needed for >90% Discharge Sedation Level of Care: Fast Track Phase II Post Sedation Plan On clinical assessment, the patient appears to have tolerated the sedation without complications. Patient is recovering as anticipated. Patient will continue to be monitored by nursing and may be discharged when sedation discharge criteria are met per below protocol. Upon Completions of procedure up to 15 minutes continue every 5 minute vital signs and the P.A.R. score; then discharge to a Phase I or Fast Track to Phase II per the following guidelines: * Discharge Patient to appropriate Phase II area if PAR is 8 or greater or return to pre- procedure baseline. The post - procedure orders will be as directed. * If PAR score is less than 8 or not return to pre-procedure baseline then patient will follow Phase I monitoring till PAR is reached for Phase II. The Phase I may be done in procedure room or may call to secure a Phase I area. * If naloxone or flumazenil are used for reversal, hold in Phase I for continued monitoring from when last reversal dose was given for a minimum of 60 minutes or longer pending the nurse and/or physician discretion of patient condition before discharge to Phase II. Please call the Sedation Physician to re-evaluate and complete post-note for discharge to Phase II area. Do NOT discharge from procedure sedation or Phase 1 until post- sedation evaluation note is complete by procedure /sedation MD Sedation Discharge Instructions to be given to the patient at discharge to home.
[2023-07-15] MEDS ORDERED: HEPARIN (PORCINE) 1000 UNIT/ML 10 ML (CATH LAB USE ONLY) ONE (15:24)
[2023-07-15] MEDS ORDERED: MIDAZOLAM HCL 1 MG/ML 2ML VIAL ONE (15:24)
[2023-07-15] MEDS ORDERED: fentaNYL citrate PF 100 MCG/2 ML VIAL ONE (15:25)
--- NOTE | 2023-07-15 17:24 | Communication Note ---
Date of Service: July 15, 2023 Please refer to the H&P dictated earlier this morning for details of presentation on admission. In brief, this is a patient with significant vascular disease who had her second digit amputation of the right foot on 07/10. Postsurgically she was doing well but she developed a fever yesterday. When she called her legal nurse consultant, she instructed her to come to the emergency room. She was found to be septic and the source of her sepsis seems to be the right foot cellulitis. She was started on IV antibiotics. Surgical culture from 07/10 grew group B strep. According to the sensitivities, I have discontinued vancomycin as she is on Zosyn that we will cover it. Vascular surgery was consulted and the patient had a vascular procedure done, official report pending. Podiatry is involved.
--- NOTE | 2023-07-15 17:44 | Pre Anesthesia Assessment ---
Date of Service July 15, 2023 Pre Sedation Assessment Vital Signs Temp Pulse Pulse Resp BP BP Pulse Ox 07/15/23 14:40 65 18 140/70 95 07/15/23 08:00 07/15/23 08:00 98.2 F 80 16 140/75 99 07/15/23 08:00 07/15/23 06:58 106 H 07/15/23 04:58 98.8 F 92 H 18 144/74 H 97 07/15/23 04:58 07/15/23 02:44 99.5 F 07/15/23 02:00 106 H 19 138/59 L 95 07/15/23 01:50 105 H 07/15/23 00:17 100.0 F H 07/15/23 00:00 110 H 19 167/69 H 91 07/14/23 23:32 106 H 21 152/69 H 91 07/14/23 22:30 103 H 18 149/73 H 93 07/14/23 22:08 100.8 F H 07/14/23 22:00 102 H 23 141/72 H 95 07/14/23 21:59 104 H 24 148/81 H 94 07/14/23 21:44 110 H 07/14/23 21:33 99.3 F 118 H 19 117/72 97 Pulse Ox O2 Del Method O2 Del Method 07/15/23 14:40 Room Air 07/15/23 08:00 Room Air 07/15/23 08:00 Room Air 07/15/23 08:00 99 Room Air 07/15/23 06:58 07/15/23 04:58 Room Air 07/15/23 04:58 97 Room Air 07/15/23 02:44 07/15/23 02:00 Room Air 07/15/23 01:50 07/15/23 00:17 07/15/23 00:00 Room Air 07/14/23 23:32 Room Air 07/14/23 22:30 Room Air 07/14/23 22:08 07/14/23 22:00 Room Air 07/14/23 21:59 Room Air 07/14/23 21:44 07/14/23 21:33 Room Air Cardiovascular + regular rate Respiratory + respiratory effort normal Pre-Sedation Airway Assessment Smoking Status: Never smoker Hx Sleep Apnea: No Hx Difficult Intubation: No Short, Thick Neck: No Thyromental Distance: > or= 3.5 Finger Breadths Oral Cavity: + WNL Mallampati Class: III ASA: ASA3 NPO Status Date of Last Intake of Fluids: 07/15/23 Time of Last Intake of Fluids: 08:00 Date of Last Intake of Solid Food: 07/14/23 Time of Last Intake of Solid Foods: 20:00 Procedure Planning Contraindications for Sedation: none Current Medications Reviewed: Yes Notes The planned sedation has been discussed with the patient. Informed Consent was obtained. I have identified the patient, determined the appropriateness of sedation and have assessed the patient immediately prior to the procedure. All medicine(s) and interventions are by my order.
--- NOTE | 2023-07-15 18:06 | Endovascular Procedure Note ---
[facility] Endovascular Procedure Rpt Pre & Post Diagnosis Critical limb ischemia I identified the patient and participated in the time-out.: No Procedure Operation Date: 07/15/23 15:00 Actual Procedures p Angio Extremity Unilateral - MD dilma Jones Ultrasound Vascular Access - MD dilma Jones Placement Art Occlusive Device - MD dilma Jones ID Select Cath ALEP 3rd Order - Bartolome Jones MD Surgeon Bartolome Jones MD Telephone Answerer [place] Estimated Blood Loss 10 Findings See Below Right lower extremity-- -Common iliacwidely patent External iliacwidely patent. Internal iliac30% ostial stenosis -DEBONE SUPERVISOR, profunda widely patent -SFA calcified, distal luminal irregularities -Popliteal mild diffuse proximal, 50% diffuse mid to distal disease -DAHLIA - 95% focal ostial stenosis. Widely patent to ankle. 100% distal at ankle. Gives off collaterals to DPA. TPT95% ostial -VME117% occluded without reconstitution Peroneal Widely patent to the ankle, gives off collaterals to plantar arteries -DPA fills via collaterals from DAHLIA. Small vessel with diffuse disease DIRECTOR TELECOMMUNICATIONS in the foot fills via collateral and gives off lateral/medial plantar arteries with extend to forefoot. Partially patent deep plantar artery. 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 Quick cross catheter placed to RT mid SFA for angiography of distal lower extremity Left DEBONE SUPERVISOR closure with Mynx Contrast used: 40 ml Moderate sedation: [id number] Access closure: Mynx Summary: 1. Right lower extremity -- diffuse moderate popliteal disease, focal 95% ostial DAHLIA and 95% ostial TPT. Two-vessel runoff to the ankle via DAHLIA, peroneal. Pedal vessels fill via collaterals and extend to forefoot 2. Left lower extremity -- Patent iliacs, DEBONE SUPERVISOR. Recommendations: Further discussion regarding revascularization options. Bifurcation DAHLIA/TPT disease appears amenable to stenting but some concern regarding detention patency. Will ask vascular surgery to weigh in on below the knee bypass options. I attest to the content of the Intraoperative Record and any orders documented therein. Any exceptions are noted below. Vascular Charges Angiography/Venography Procedure 1: Angiography/Venography charges: [id number] Add'l 2nd order, 3rd and beyond, abd, pelvic, or LE branch Additional Services Procedure 1: Additional Services Charges: [id number] Ultrasound guidance - vascular access Procedure 2: Additional Services Charges: 17546 Moderate sedation initial 15 min Procedure 3: Additional Services Charges: 46210 Moderate sedation, each additional 15 min
[2023-07-15] MEDS ORDERED: SODIUM CHLORIDE 0.9% 1,000 ML IV SCH (18:15)
[2023-07-15] MEDS: ATORVASTATIN 40 MG TAB PO SCH (20:56)
[2023-07-15] MEDS: ACETAMINOPHEN 325 MG TAB PO PRN (21:01)
[2023-07-15] MEDS ORDERED: traMADol HCL 50 MG TABLET PO STA (23:08)
[2023-07-16] MEDS: PIPERACILLIN/TAZOBACTAM 4.5 GM in DEXTROSE 5% MINI-B 100 ML IV SCH ×2 (00:05→08:45)
[2023-07-16 06:09] LABS: Creatinine Clr Calc Pharmacy 41.4 ml/min; Est GFR (African American) 59.2 ml/min; Est GFR (Non-African American) 51.1 ml/min
[2023-07-16] MEDS: CHOLECALCIFEROL 1,000 UNITS 25 MCG TAB PO SCH (08:46)
[2023-07-16] MEDS: METOPROLOL TARTRATE 25 MG TAB PO SCH ×2 (08:46→20:46)
[2023-07-16] MEDS: INSULIN ASPART PER UNIT CHARGE SC SCH ×4 (09:00→21:22)
[2023-07-16] MEDS: LANTUS PER UNIT CHARGE SQ SCH (09:01)
--- NOTE | 2023-07-16 11:15 | Consultation ---
Date of Consultation July 16, 2023 Assessment & Plan (1) PAD (peripheral artery disease): Pt with known PAD, has undergone multiple endovascular attempts to maintain patentcy of her focal distal pop/tp trunk lesion. She is currently on plavix and xarelto for her PAD. Pt's imaging reviewed by Dr Hawthorne. Pt also seen by Dr Hawthorne. Recommends pt consider RLE distal pop/tp trunk endarterectomy with bovine patch angioplasty vs fem-distal bypass, after her current infection clears. Discussed with pt and her son, Stefano, by telephone. Planning to see pt in office just after the new year to discuss again and schedule procedure, provided her cellulitis resolves by then. Pt and her son are agreeable to this plan. Abx per medicine. Patient was seen, examined, and chart reviewed. Agree with exam and treatment plan of the Vascular PA. History of Present Illness Reason for Consultation: PAD, R foot infection Attending Physician: Aishwarya Mullen MD History of Present Illness 72 yo f with hx of CAD, CO, HTN, DMII, hypercholesterolemia, anemia, PAD, admitted with RLE foot infection, seen in consultation today for PAD. Pt has been seen by Dr Loyd in past and undergone RLE angio with TREATING ENGINEER of her distal pop/TP trunk/prox tibial vessels x 2 in the past year, d/t nonhealing wounds/ulcers of R foot. Pt states she had great toe amputated by Dr Monisha Crump. This eventually healed after angioplasty procedure. She has now developed a newer ulceration to her R 2nd toe and underwent amputation of this toe as well, which became cellulitic a few days ago. She did have a fever at home, this has resolved. She underwent RLE angio yesterday by Dr Loyd, who noted reocclusion of the previously intervened areas. He has now referred pt to Dr Hawthorne to discuss open surgical options for revascularization. Pt states she is feeling ok today, just anxious. Admits occasional shooting pain in R 2nd toe surgical area. Denies PRAKASH, fever, chest pain, SOB, abd pain, N/V, rest pain, claudication, other complaints. Arterial US demonstrates focal lesion of distal pop/TP trunk, and proximal tibial vessels. Review of her recent angio demonstrates patent peroneal and ant tib with collateralization to foot. Allergies Allergy/AdvReac Type Severity Reaction Status Date / Time amoxicillin Allergy Severe Rash Verified 12/18/23 00:37 neomycin Allergy Intermediate Rash Verified 07/15/23 00:37 propoxyphene Allergy Mild Rash Verified 07/15/23 00:37 [From Darvocet-N] ceftriaxone [From Rocephin] AdvReac Severe Fever Verified 07/15/23 01:13 sulfamethoxazole AdvReac Intermediate Diarrhea Verified 07/15/23 01:13 [From Bactrim] trimethoprim [From Bactrim] AdvReac Intermediate Diarrhea Verified 07/15/23 01:13 Home Medications Medication Instructions Recorded Confirmed Type acetaminophen 500 mg tablet 1,000 mg PO BID 07/04/22 07/15/23 History (Tylenol Extra Strength) insulin glargine 100 unit/mL (3 18 unit subcut QPM 07/04/22 07/15/23 History mL) subcutaneous pen (Basaglar KwikPen U-100 Insulin) loratadine 10 mg tablet 10 mg PO HS PRN seasonal allergies 07/04/22 07/15/23 History magnesium oxide 400 mg PO BID 07/04/22 07/15/23 History cholecalciferol (vitamin D3) 25 25 mcg PO QAM 07/06/22 07/15/23 History mcg (1,000 unit) capsule biotin 10 mg tablet 10 mg PO QAM 09/05/22 07/15/23 History Lactobacillus acidophilus 250 1,000 mmu cells PO QAM 12/11/22 07/15/23 History million cell capsule (Probiotic Acidophilus) ferrous sulfate 325 mg (65 mg 325 mg PO HS 12/11/22 07/15/23 History iron) tablet glimepiride 4 mg tablet 4 mg PO BID #180 tabs 12/18/22 07/15/23 Rx metformin 1,000 mg tablet 1,000 mg PO BID #180 tabs 12/18/22 07/15/23 Rx clopidogrel 75 mg tablet 75 mg PO QAM #90 tabs 01/11/23 07/15/23 Rx rivaroxaban 15 mg tablet (Xarelto) 15 mg PO QPM #30 tabs 03/25/23 07/15/23 Rx benzonatate 100 mg capsule 100 mg PO TID PRN cough 10 days 06/25/23 07/15/23 Rx #30 caps cyanocobalamin (vitamin B-12) 1,000 mcg PO 3XWK 06/25/23 07/15/23 History 1,000 mcg capsule tramadol 50 mg tablet 50 mg PO DAILY PRN pain 30 days 06/25/23 07/15/23 Rx #30 tabs atorvastatin 80 mg tablet See Rx Instructions .Route 06/27/23 07/15/23 Rx .COMPLEX #90 tabs lisinopril 2.5 mg tablet 2.5 mg PO QAM 07/08/23 07/15/23 History metoprolol tartrate 25 mg tablet 25 mg PO BID 07/15/23 07/15/23 History Patient History Medical History Toe infection at present to surgical toe, on treatment History of COVID-16 Apr 2023 > not hospitalized Amputation toe rt hallux Hx of chest pain 2021, and pain in her jaw, had stress test then catheterization with x1 stent On anticoagulant therapy History of anesthesia reaction s/p knee arthroscopy took a "long time to wake up". PAD (peripheral artery disease) Cellulitis of right lower extremity August 2022, treated at [facility] [place] (obstructive sleep apnea) no device History of deviated nasal septum Back abscess hx- November 2019. no surgery - treated with antibiotics. Arthritis Myocardial infarct 01/17/21 Dyslipidemia Type 2 diabetes mellitus IDDM Hypertension Frequent PVCs pt denies/aware - pt does not have any symptoms CAD (coronary artery disease) Surgical History Hx of foot surgery Right Foot Ulcer Debridement, Bone Biopsy, Incision and Drainage History of cardiac cath 12/2020 at [facility] in [place] 2021, [facility] in [place]; f/u dr. morgan and dr. loyd, [facility] [place] Status post angiography of extremity Right leg at [facility] with Dr Loyd. no stents placed>procedure done twice-3 vessels first time, 1 vessel second time. H/O colonoscopy Last colonoscopy 01/24/2017 Joint replaced left foot plus a revision of a toe joint H/O sinus surgery H/O arthroscopy of right knee H/O dilation and curettage H/O cervical polypectomy H/O breast biopsy Hx of cataract extraction Bilateral Hx of parathyroidectomy Hx of tubal ligation Hx of foot surgery left foot surgery and implant replacement Hx of carpal tunnel repair bilateral S/P coronary artery stent placement x2 (01/19/21) + 01/31/22 x1 stent in circumflex artery (per patient) done at [facility] in . 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 Beliefs That Will Affect Care: None marital status: / Current Living Situation: Alone current occupational status: retired How many Children do You have: 4 Feels Safe at Home: Yes Childhood Exposure to Second-Hand Smoke: No Diet: diabetic and low salt caffeine: Yes (1 cup a day) during the past year weight has: remained stable Dental Care, Regularly: Yes Physical Activity Frequency: 3-4 Times per Week Seatbelt Use: always Sunscreen Use: Yes Assistive Devices: Cane Review of Systems Review of Systems: All systems reviewed & are unremarkable except as noted in HPI & below Physical Exam Constitutional: WD/WN, vitals as above + obese and cooperative; not in distress ENMT: Ears: no hearing impairment Neck: trachea midline Respiratory: normal respiratory effort, lungs clear to auscultation Auscultation: + diminished lung sounds Cardiovascular: Rate/Rhythm: regular rate and regular rhythm Vessels: femoral pulses present, posterior tibial pulses present (dopplerable LLE), dorsalis pedis pulses present (dopplerable LLE, RLE dressing in place) and radial pulses present; + abnormal peripheral pulses Extremities: normal capillary refill (to LLE, RLE dressing in place) Gastrointestinal (Abdomen): Inspection/Auscultation: abdomen normal to inspection and normal bowel sounds Percussion/Palpation: abdomen soft; abdomen nontender Musculoskeletal: no cyanosis or clubbing, extremities motor strength 5/5 Skin: + wound (R foot dressing in place) Pt with skin changes to BLE consistent with venous insufficiency vs lymphedema. Neurologic: moves all extremities and awake; no focal motor deficits and not confused Psychiatric: A+Ox3, euthymic affect Results & Data Vital Signs (Past 12 Hours) Vital Signs Temp Pulse Resp BP Pulse Ox O2 Del Method 07/16/23 08:01 36.9 C 97 H 19 149/72 H Room Air 07/16/23 02:01 36.6 C 83 20 150/73 H 94 Room Air 07/15/23 23:16 36.5 C 80 20 130/65 94 Room Air
[2023-07-16] MEDS: ACETAMINOPHEN 325 MG TAB PO PRN ×3 (12:05→23:33)
[2023-07-16] MEDS ORDERED: INSULIN, Rapid-Acting PUMP SC SCH (13:00)
--- NOTE | 2023-07-16 13:03 | Podiatry Consultation ---
Date of Consultation July 16, 2023 Assessment & Plan (1) Cellulitis of right foot: Patient is agreeable with vascular plan, she notes that the office will be in touch to set her up for appointment. Here in our office if she does remain in [place] we will see her for dressing change if she does spend the holidays with her family we will see her when she returns for dressing change. In the interim time if she does go away with her family she may perform her dressing changes twice per week. Additionally she should continue all antibiotics per recommendation of medicine. She will need to follow-up with vascular medicine as well for her procedure. She had no further questions or concerns. Will continue to monitor patient. (2) Diabetes mellitus: (3) PAD (peripheral artery disease): History of Present Illness Reason for Consultation: Right foot infection in the setting of peripheral arterial disease Attending Physician: Aishwarya Mullen MD History of Present Illness Patient is a very pleasant 72-year-old female who underwent angiography angiogram yesterday. Discussed with patient at bedside today that she is likely considering the vascular procedure after . This is an attempt to avoid a bypass. Patient noted to me that her hospitalist took her off IV antibiotics and will place her on oral antibiotics in anticipation of seeing how her infection responds to see if she can be discharged tomorrow. She indicated to me that she would not have any vascular procedure until after her infection is improved and this will likely be done after the she is agreeable to this. I feel as long as her infection improves from the oral antibiotics there is no recurrence of the red redness or swelling or fevers or chills I do agree from a medicine standpoint that as long as her infection is well-controlled oral antibiotics that will be appropriate. -Patient feels well today her toe again has the ischemic changes distally which are to be anticipated but there is no significant drainage the erythema present on the dorsal foot and the swelling again significantly improved. Patient ovmason davisl feeling well at today's follow-up visit. All dressings were removed postoperative site was evaluated and dressings replaced. Allergies Allergy/AdvReac Type Severity Reaction Status Date / Time amoxicillin Allergy Severe Rash Verified 07/15/23 00:37 neomycin Allergy Intermediate Rash Verified 07/15/23 00:37 propoxyphene Allergy Mild Rash Verified 07/15/23 00:37 [From Darvocet-N] ceftriaxone [From Rocephin] AdvReac Severe Fever Verified 07/15/23 01:13 sulfamethoxazole AdvReac Intermediate Diarrhea Verified 07/15/23 01:13 [From Bactrim] trimethoprim [From Bactrim] AdvReac Intermediate Diarrhea Verified 07/15/23 01:13 Home Medications Medication Instructions Recorded Confirmed Type acetaminophen 500 mg tablet 1,000 mg PO BID 07/04/22 07/15/23 History (Tylenol Extra Strength) insulin glargine 100 unit/mL (3 18 unit subcut QPM 07/04/22 07/15/23 History mL) subcutaneous pen (Basaglar KwikPen U-100 Insulin) loratadine 10 mg tablet 10 mg PO HS PRN seasonal allergies 07/04/22 07/15/23 History magnesium oxide 400 mg PO BID 07/04/22 07/15/23 History cholecalciferol (vitamin D3) 25 25 mcg PO QAM 07/06/22 07/15/23 History mcg (1,000 unit) capsule biotin 10 mg tablet 10 mg PO QAM 09/05/22 07/15/23 History Lactobacillus acidophilus 250 1,000 mmu cells PO QAM 12/11/22 07/15/23 History million cell capsule (Probiotic Acidophilus) ferrous sulfate 325 mg (65 mg 325 mg PO HS 12/11/22 07/15/23 History iron) tablet glimepiride 4 mg tablet 4 mg PO BID #180 tabs 12/18/22 07/15/23 Rx metformin 1,000 mg tablet 1,000 mg PO BID #180 tabs 12/18/22 07/15/23 Rx clopidogrel 75 mg tablet 75 mg PO QAM #90 tabs 01/11/23 07/15/23 Rx rivaroxaban 15 mg tablet (Xarelto) 15 mg PO QPM #30 tabs 03/25/23 07/15/23 Rx benzonatate 100 mg capsule 100 mg PO TID PRN cough 10 days 06/25/23 07/15/23 Rx #30 caps cyanocobalamin (vitamin B-12) 1,000 mcg PO 3XWK 06/25/23 07/15/23 History 1,000 mcg capsule tramadol 50 mg tablet 50 mg PO DAILY PRN pain 30 days 11/28/23 12/18/23 Rx #30 tabs atorvastatin 80 mg tablet See Rx Instructions .Route 06/27/23 07/15/23 Rx .COMPLEX #90 tabs lisinopril 2.5 mg tablet 2.5 mg PO QAM 07/08/23 07/15/23 History metoprolol tartrate 25 mg tablet 25 mg PO BID 07/15/23 07/15/23 History Patient History Medical History Toe infection at present to surgical toe, on treatment History of COVID-16 Apr 2023 > not hospitalized Amputation toe rt hallux Hx of chest pain 2021, and pain in her jaw, had stress test then catheterization with x1 stent On anticoagulant therapy History of anesthesia reaction s/p knee arthroscopy took a "long time to wake up". PAD (peripheral artery disease) Cellulitis of right lower extremity August 2022, treated at [facility] [place] (obstructive sleep apnea) no device History of deviated nasal septum Back abscess hx- November 2019. no surgery - treated with antibiotics. Arthritis Myocardial infarct 01/17/21 Dyslipidemia Type 2 diabetes mellitus IDDM Hypertension Frequent PVCs pt denies/aware - pt does not have any symptoms CAD (coronary artery disease) Surgical History Hx of foot surgery Right Foot Ulcer Debridement, Bone Biopsy, Incision and Drainage History of cardiac cath 12/2020 at [facility] in [place] 2021, [facility] in [place]; f/u dr. morgan and dr. loyd, [facility] [place] Status post angiography of extremity Right leg at [facility] with Dr Loyd. no stents placed>procedure done twice-3 vessels first time, 1 vessel second time. H/O colonoscopy Last colonoscopy 01/24/2017 Joint replaced left foot plus a revision of a toe joint H/O sinus surgery H/O arthroscopy of right knee H/O dilation and curettage H/O cervical polypectomy H/O breast biopsy Hx of cataract extraction Bilateral Hx of parathyroidectomy Hx of tubal ligation Hx of foot surgery left foot surgery and implant replacement Hx of carpal tunnel repair bilateral S/P coronary artery stent placement x2 (01/19/21) + 01/31/22 x1 stent in circumflex artery (per patient) done at [facility] in . 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 Beliefs That Will Affect Care: None marital status: / Current Living Situation: Alone current occupational status: retired How many Children do You have: 4 Feels Safe at Home: Yes Childhood Exposure to Second-Hand Smoke: No Diet: diabetic and low salt caffeine: Yes (1 cup a day) during the past year weight has: remained stable Dental Care, Regularly: Yes Physical Activity Frequency: 3-4 Times per Week Seatbelt Use: always Sunscreen Use: Yes Assistive Devices: Cane Physical Exam Skin: All dressings removed incision site evaluated of the toe at the site of the distal Symes amputation of the right second digit. Sutures are intact I do appreciate some ischemic changes of the second toe which are stable. Erythema and swelling on the dorsal foot improving, overall stable appearance of the right foot. Dressings reapplied consisting of Adaptic gauze roll gauze and an Bucky bandage with care to allow the dorsal aspect of the foot visible for ultrasound. Results & Data Vital Signs (Past 12 Hours) Vital Signs Temp Pulse Resp BP Pulse Ox O2 Del Method 07/16/23 11:27 37.0 C 83 17 146/74 H 94 Room Air 07/16/23 08:01 36.9 C 97 H 19 149/72 H Room Air 07/16/23 02:01 36.6 C 83 20 150/73 H 94 Room Air
[2023-07-16] MEDS ORDERED: INSULIN ASPART PER UNIT CHARGE SC STA (13:06)
[2023-07-16] MEDS: AMOXICILLIN/CLAVULANATE 875 MG TAB PO SCH (17:36)
--- NOTE | 2023-07-16 17:56 | Hospitalist Progress Note ---
Date of Service July 16, 2023 Assessment & Plan (1) Sepsis: Plan: Patient is a 72-year-old female with past medical history of type 2 diabetes, previous right great toe amputation, arterial insufficiency of the lower extremity, obesity, PAD, hypertension, CAD, previous [place] with 3 stents with the latest being in 2021, and hyperlipidemia who presents to the hospital for evaluation of fever. Patient likely having postoperative infection secondary to recent right second toe amputation. Patient to be admitted for antibiotic therapy and podiatric consultation. -Source of infection is likely recent surgery with SIRS criteria being tachycardia and white blood cell count greater than 11 -Lactate within normal limits, no evidence of endorgan damage Improved She was being treated with Zosyn. Wound culture from 07/10 reviewed. Decided to switch her to Augmentin p.o. (2) Post op infection: Plan: Switch to p.o. Augmentin today If continues to improve from a cellulitis standpoint, will discharge on p.o. Augmentin tomorrow (3) Right great toe amputee: Plan: -as above (4) Arterial insufficiency of lower extremity: Plan: Patient was evaluated by vascular surgery who will follow her up outpatient after the holidays and after her infection resolves to decide on further vascular procedures versus bypass. (5) Diabetes mellitus: Plan: Continue sliding scale (6) Hypertension: Plan: -continue beta-blockade Resume lisinopril as no plans for procedure (7) CAD (coronary artery disease): Plan: -continue atorvastatin Resume Plavix and Xarelto since no procedure being planned immediate (8) S/P coronary artery stent placement: Plan: -See above (9) Dyslipidemia: Plan: -Cont statin Plan Disposition: Likely discharge tomorrow DVT prophylaxis: SCDs, resume Xarelto CODE STATUS: Full code Admission and Anticipated Discharge Date Admission Date: July 15, 2023 Subjective Patient feels well. She spoke to vascular surgery and was given the option of reevaluation after the infection has resolved for considering bypass versus further vascular procedures. In the meantime, her cellulitis is improving. She is feeling better overall. Review of Systems Review of Systems: All systems reviewed & are unremarkable except as noted in Subjective Physical Exam Physical Exam: General: Awake, conversant Heart: S1, S2/regular rate and rhythm, no murmur rubs or gallops Lungs: Clear to auscultation bilaterally. Normal effort Abdomen: Soft/nontender/nondistended. No hepatosplenomegaly Extremities: No clubbing/cyanosis. Right foot dressing on. Cellulitis noted. Behavior: Appropriate, cooperative Results & Data Results & Data Vital Signs (Past 12 Hours) Vital Signs Temp Pulse Resp BP Pulse Ox O2 Del Method 07/16/23 14:56 37.0 C 85 17 153/69 H 96 Room Air 07/16/23 11:27 37.0 C 83 17 146/74 H 94 Room Air 07/16/23 08:01 36.9 C 97 H 19 149/72 H Room Air Laboratory Results Abnormal lab results 07/15/23 07/16/23 07/16/23 Range/Units 20:07 07:50 11:59 POC Glucose 250 H 167 H 341 H* (70-99) mg/dl 07/16/23 Range/Units 12:01 POC Glucose 341 H* (70-99) mg/dl PG Care Time/CCT Total # of Minutes Spent Total Time Spent with Patient: Total time spent is greater than 50% in coordination of care (as documented) at patient's floor/unit and/or counseling patient: Coding Level of Care Code 97187 SUB INP/OBS CARE 2/35MIN Diagnoses Sepsis A41.9 Post op infection T81.41XA Encounter type: initial encounter Postoperative infection type: superficial incisional surgical site Right great toe amputee Z89.411 Arterial insufficiency of lower extremity I73.9 Diabetes mellitus E11.9 Hypertension I10 CAD (coronary artery disease) I25.10 S/P coronary artery stent placement Z95.5 Dyslipidemia E78.5 (2) Post op infection Encounter type: initial encounter Postoperative infection type: superficial incisional surgical site Qualified Code(s): T81.41XA - Infection following a procedure, superficial incisional surgical site, initial encounter
[2023-07-16] MEDS ORDERED: traMADol HCL 50 MG TABLET PO STA ×2 (18:40→22:59)
[2023-07-16] MEDS: ATORVASTATIN 40 MG TAB PO SCH (20:46)
[2023-07-16] MEDS: lisinopril 2.5 MG TAB PO SCH (20:46)
[2023-07-16] MEDS ORDERED: RIVAROXABAN 15 MG TAB PO SCH (21:00)
[2023-07-16] MEDS: LANTUS PER UNIT CHARGE SC SCH (21:22)
[2023-07-16] MEDS ORDERED: MoRPHine SULFATE 2 MG/ML CARP IV STA (22:12)
--- NOTE | 2023-07-16 22:56 | Electrocardiogram Report ---
Test Reason : Blood Pressure : / mmHG Vent. Rate : 106 BPM Atrial Rate : 106 BPM P-R Int : 158 ms QRS Dur : 092 ms QT Int : 336 ms P-R-T Axes : 059 050 065 degrees QTc Int : 446 ms Sinus tachycardia Low voltage QRS Borderline ECG No previous ECGs available Confirmed by Jacoby Layton ([id number]) on 07/16/2023 10:55:35 PM Referred By: REFERRED SELF Confirmed By:Jacoby Layton
[2023-07-17] MEDS: ACETAMINOPHEN 325 MG TAB PO PRN ×2 (04:05→19:10)
[2023-07-17] MEDS: traMADol HCL 50 MG TABLET PO PRN ×2 (05:42→20:32)
[2023-07-17 06:29] LABS: Basophils # (auto) 0.03 K/uL (0.00-0.20); Basophils % (auto) 0.3 %; Eosinophils # (auto) 0.32 K/uL (0.00-0.50); Eosinophils % (auto) 2.7 %; Hematocrit (blood only) 28.5 % (37.0-47.0); Hemoglobin 9.3 g/dl (12.0-16.0); Immature Granulocytes # (auto) 0.08 K/uL (0.01-0.20); Immature Granulocytes % (auto) 0.7 %; Lymphocytes # (auto) 0.44 K/uL (1.20-3.40); Lymphocytes % (auto) 3.7 %; Mean Corpuscular Hemoglobin 27.8 pg (25.0-34.0); Mean Corpuscular Hgb Conc 32.6 g/dL (32.0-36.0); Mean Corpuscular Volume 85.1 fL (80.0-100.0); Mean Platelet Volume 9.3 fL (9.4-12.4); Monocytes % (auto) 6.8 %; Neutrophils # (auto) 10.14 K/uL (1.40-6.50); Neutrophils % (auto) 85.8 %; Platelet Count 421 K/uL (130-400); RDW Coefficient of Variation 12.7 % (11.5-14.5); RDW Standard Deviation 38.8 fL (36.4-46.3); Red Blood Count 3.35 M/uL (4.20-5.40); White Blood Count 11.81 K/ul (4.8-10.8)
[2023-07-17] MEDS: CHOLECALCIFEROL 1,000 UNITS 25 MCG TAB PO SCH (09:33)
[2023-07-17] MEDS: AMOXICILLIN/CLAVULANATE 875 MG TAB PO SCH (09:33)
[2023-07-17] MEDS: lisinopril 2.5 MG TAB PO SCH (09:33)
[2023-07-17] MEDS: METOPROLOL TARTRATE 25 MG TAB PO SCH ×2 (09:34→20:33)
[2023-07-17] MEDS: CLOPIDOGREL BISULFATE 75 MG TAB PO SCH (09:34)
[2023-07-17] MEDS: INSULIN ASPART PER UNIT CHARGE SC SCH ×4 (09:41→20:38)
[2023-07-17] MEDS: LANTUS PER UNIT CHARGE SC SCH ×2 (09:42→20:39)
--- NOTE | 2023-07-17 11:42 | Vascular Medicine ProgressNote ---
Date of Service July 17, 2023 Assessment & Plan (1) Arterial insufficiency of lower extremity: Plan: 2. Right leg cellulitis 3. Type 2 diabetes 4. Coronary artery disease post prior inferior NM, multiple PCI 5. Chronic venous sufficiencyright GSV mild reflux, left GSV moderate reflux. 6. Anemia Patient seen by Dr. Hawthorne yesterday regarding vascular surgery options. As of now plan for popliteal/TPT endarterectomy as an outpatient. Recommend continuing on clopidogrel alone. Can discontinue Xarelto. Continue current statin, antihypertensives. From a cardiac standpoint okay to proceed with planned surgery without additional cardiac testing. Outpatient follow-up with Dr. Hawthorne has been arranged. Admission and Anticipated Discharge Date Admission Date: July 15, 2023 Subjective Of IV antibiotics. On Augmentin. This morning with nausea, no vomiting. Also with low-grade fever. Denies significant right foot pain. Review of Systems Review of Systems: All systems reviewed & are unremarkable except as noted in HPI & below Physical Exam Physical Exam: General: Comfortable, no acute distress Eyes: Sclerae anicteric, extraocular movements intact Lungs: Clear to auscultation bilaterally Cardiac: Regular rate and rhythm Abdomen: Soft, nontender, Neuro: Nonfocal Psych: Alert orient x3, normal affect and mood Extremities/Vascular: -- Diminished right radial pulse. 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
[2023-07-17] MEDS ORDERED: PIPER/TAZO 4.5g in D5W MINI-B 100 ML IV ONE (16:00)
--- NOTE | 2023-07-17 16:09 | Hospitalist Progress Note ---
Date of Service July 17, 2023 Assessment & Plan (1) Sepsis: Plan: Patient is a 72-year-old female with past medical history of type 2 diabetes, previous right great toe amputation, arterial insufficiency of the lower extremity, obesity, PAD, hypertension, CAD, previous [place] with 3 stents with the latest being in 2021, and hyperlipidemia who presents to the hospital for evaluation of fever. Patient likely having postoperative infection secondary to recent right second toe amputation. Patient to be admitted for antibiotic therapy and podiatric consultation. -Source of infection is likely recent surgery with SIRS criteria being tachycardia and white blood cell count greater than 11 -Lactate within normal limits, no evidence of endorgan damage Improving, however she spiked a fever yesterday and today after she was switched over from IV Zosyn to p.o. Augmentin. Switched her back to IV Zosyn. Will observe further Blood culture from 07/14 has been negative for 48 hours. (2) Post op infection: Plan: From a cellulitis standpoint, she is improving locally with reduced redness and swelling. Leukocytosis improving However she spiked a fever yesterday and today Will keep her on IV Zosyn (3) Right great toe amputee: Plan: -as above (4) Arterial insufficiency of lower extremity: Plan: Patient was evaluated by vascular surgery who will follow her up outpatient after the holidays and after her infection resolves to decide on further vascular procedures versus bypass. (5) Diabetes mellitus: Plan: Continue sliding scale (6) Hypertension: Plan: -continue beta-blockade Resume lisinopril as no plans for procedure (7) CAD (coronary artery disease): Plan: -continue atorvastatin Resume Plavix since no procedure being planned immediate Discontinue Xarelto per vascular recommendation until reevaluated by vascular surgery outpatient (8) S/P coronary artery stent placement: Plan: -See above (9) Dyslipidemia: Plan: -Cont statin Plan Disposition: Discharge plans canceled due to fever spikes DVT prophylaxis: SCDs, resume Xarelto CODE STATUS: Full code Met with son at the bedside. Updated him. Admission and Anticipated Discharge Date Admission Date: July 15, 2023 Subjective Patient was nauseous with breakfast this morning. She did not want to go home today. This afternoon, she spiked a fever of 39.4. Discharge plan canceled. Switched her from p.o. Augmentin to IV Zosyn Review of Systems Review of Systems: All systems reviewed & are unremarkable except as noted in Subjective Physical Exam Physical Exam: General: Awake, conversant Heart: S1, S2/regular rate and rhythm, no murmur rubs or gallops Lungs: Clear to auscultation bilaterally. Normal effort Abdomen: Soft/nontender/nondistended. No hepatosplenomegaly Extremities: No clubbing/cyanosis. Right foot dressing on. Cellulitis improving Behavior: Appropriate, cooperative Results & Data Results & Data Vital Signs (Past 12 Hours) Vital Signs Temp Pulse Resp BP Pulse Ox O2 Del Method 07/17/23 15:14 39.4 C H 106 H 18 135/74 96 Room Air 07/17/23 10:34 37.9 C H 90 18 157/75 H 96 Room Air 07/17/23 07:32 36.7 C 58 L 19 129/68 97 Room Air Laboratory Results Abnormal lab results 07/16/23 07/17/23 07/17/23 Range/Units 20:15 05:59 07:40 WBC 11.81 H (4.8-10.8) K/ul RBC 3.35 L (4.20-5.40) M/uL Hgb 9.3 L (12.0-16.0) g/dl Hct 28.5 L (37.0-47.0) % Plt Count 421 H (130-400) K/uL MPV 9.3 L (9.4-12.4) fL Neut # (Auto) 10.14 H (1.40-6.50) K/uL Lymph # (Auto) 0.44 L (1.20-3.40) K/uL [place] # (Auto) 0.80 H (0.11-0.59) K/uL POC Glucose 169 H 163 H (70-99) mg/dl 07/17/23 07/17/23 Range/Units 11:14 15:17 WBC (4.8-10.8) K/ul RBC (4.20-5.40) M/uL Hgb (12.0-16.0) g/dl Hct (37.0-47.0) % Plt Count (130-400) K/uL MPV (9.4-12.4) fL Neut # (Auto) (1.40-6.50) K/uL Lymph # (Auto) (1.20-3.40) K/uL [place] # (Auto) (0.11-0.59) K/uL POC Glucose 182 H 217 H (70-99) mg/dl PG Care Time/CCT Total # of Minutes Spent Total Time Spent with Patient: Total time spent is greater than 50% in coordination of care (as documented) at patient's floor/unit and/or counseling patient: Coding Level of Care Code 87674 SUB INP/OBS CARE 2/35MIN Diagnoses Sepsis A41.9 Post op infection T81.41XA Encounter type: initial encounter Postoperative infection type: superficial incisional surgical site Right great toe amputee Z89.411 Arterial insufficiency of lower extremity I73.9 Diabetes mellitus E11.9 Hypertension I10 CAD (coronary artery disease) I25.10 S/P coronary artery stent placement Z95.5 Dyslipidemia E78.5 (2) Post op infection Encounter type: initial encounter Postoperative infection type: superficial incisional surgical site Qualified Code(s): T81.41XA - Infection following a procedure, superficial incisional surgical site, initial encounter
[2023-07-17] MEDS: ATORVASTATIN 40 MG TAB PO SCH (20:32)
[2023-07-17] MEDS: PIPERACILLIN/TAZOBACTAM 4.5 GM in DEXTROSE 5% MINI-B 100 ML IV SCH (20:33)
[2023-07-18] MEDS: ACETAMINOPHEN 325 MG TAB PO PRN ×3 (03:59→20:36)
[2023-07-18] MEDS: traMADol HCL 50 MG TABLET PO PRN ×2 (03:59→21:36)
[2023-07-18] MEDS: PIPERACILLIN/TAZOBACTAM 4.5 GM in DEXTROSE 5% MINI-B 100 ML IV SCH ×3 (06:59→20:03)
--- NOTE | 2023-07-18 09:03 | Hospitalist Progress Note ---
Date of Service July 18, 2023 Assessment & Plan (1) Sepsis: Plan: Patient is a 72-year-old female with past medical history of type 2 diabetes, previous right great toe amputation, arterial insufficiency of the lower extremity, obesity, PAD, hypertension, CAD, previous [place] with 3 stents with the latest being in 2021, and hyperlipidemia who presents to the hospital for evaluation of fever. Patient likely having postoperative infection secondary to recent right second toe amputation. Patient to be admitted for antibiotic therapy and podiatric consultation. Sepsis suspect R DFI/cellulitis with ?osteo -Source of infection is likely recent surgery . Met SIRS criteria on admit.Lactate within normal limits, no evidence of endorgan damage - Pt was clinically progressing, was switched to Augmentin but had uptrending fever curve with 36 hours and Zosyn was resumed 07/17. Continued to have multiple fevers with chills/sweats overnight 07/17-07/18. BC ordered. CRP added. Repeat cx ordered -CRP slightly up trended from prior. Confirm patient did receive 2 days of Augmentin but subsequently worsened and was transition back to Zosyn Discussed with podiatry. MRI repeat not recommended at this time as likely to redemonstrate no findings; regardless patient will need to be continued on IV antibiotics and is not appropriate for conversion to p.o. If she truly fails p.o. and has ongoing infection then would require surgical revision however recommend performing this as a last result only if antibiotics fail. CRP is trended. Zosyn continued. Patient will require a PICC for ongoing antibiotics; given recent fever/chills will make sure blood cultures remain negative prior to placement and continue infusion through peripheral IV at this time (2) Post op infection: Plan: From a cellulitis standpoint, she is improving locally with reduced redness and swelling. Continued on Zosyn as noted (3) Right great toe amputee: Plan: -as above (4) Arterial insufficiency of lower extremity: Plan: Patient was evaluated by vascular surgery who will follow her up outpatient after the holidays and after her infection resolves to decide on further vascular procedures versus bypass. (5) Diabetes mellitus: Plan: Continue sliding scale (6) Hypertension: Plan: -continue beta-blockade Resume lisinopril as no plans for procedure (7) CAD (coronary artery disease): Plan: -continue atorvastatin Resume Plavix since no procedure being planned immediate Discontinue Xarelto per vascular recommendation until reevaluated by vascular surgery outpatient (8) S/P coronary artery stent placement: Plan: -See above (9) Dyslipidemia: Plan: -Cont statin Plan Disposition: Discharge plans canceled due to fever spikes. Pending defervescence and PICC placement / negative blood culture DVT prophylaxis: SCDs, resume Xarelto CODE STATUS: Full code Admission and Anticipated Discharge Date Admission Date: July 15, 2023 Dave Lozano seen at the bedside. She reports she did have fever and chills 3 times overnight. She does not have pain in her foot and feels the erythema is actually improving, but is frustrated by her recurrent fevers and unwellness overnight. She was hopeful to go home for the holidays and is aware that recurrent fevers will delay her discharge.She denies nausea/vomiting. Endorses good p.o. intake. She is not lightheaded or dizzy Physical Exam Physical Exam: General: A&Ox3. NAD. Cooperative. HEENT: Atraumatic, normocephalic. Vision/hearing grossly intact Pulm: CTAB A&P. -wheezes, -rales, -rhonchi. Symmetrical chest rise. No increased work of breathing. No respiratory distress. Cardiac: RRR, -mrg. Radial pulses intact and symmetrical. Abdominal: Nontender, nondistended, soft. BS present. Extremities:Right foot with dressing in place, unwrapped and with distal erythema, ischemic third digit, and no purulent discharge. Per patient erythema receding compared to prior. Wound redressed. Results & Data Results & Data Vital Signs (Past 12 Hours) Vital Signs Temp Pulse Pulse Resp BP Pulse Ox O2 Del Method 07/18/23 03:35 37.8 C H 90 20 112/64 92 Room Air 07/17/23 23:53 37.4 C 92 H 18 110/59 L 93 Room Air 07/17/23 22:50 Room Air 07/17/23 22:05 81 PG Care Time/CCT Total # of Minutes Spent Total Time Spent with Patient: Total time spent is greater than 50% in coordination of care (as documented) at patient's floor/unit and/or counseling patient: Coding Level of Care Code 29890 SUB INP/OBS CARE 3/50MIN Diagnoses Sepsis A41.9 Post op infection T81.41XA Encounter type: initial encounter Postoperative infection type: superficial incisional surgical site Right great toe amputee Z89.411 Arterial insufficiency of lower extremity I73.9 Diabetes mellitus E11.9 Hypertension I10 CAD (coronary artery disease) I25.10 S/P coronary artery stent placement Z95.5 Dyslipidemia E78.5 (2) Post op infection Encounter type: initial encounter Postoperative infection type: superficial incisional surgical site Qualified Code(s): T81.41XA - Infection following a procedure, superficial incisional surgical site, initial encounter
[2023-07-18 09:53] LABS: Basophils # (auto) 0.03 K/uL (0.00-0.20); Basophils % (auto) 0.2 %; Hematocrit (blood only) 30.4 % (37.0-47.0); Hemoglobin 9.6 g/dl (12.0-16.0); Immature Granulocytes # (auto) 0.09 K/uL (0.01-0.20); Immature Granulocytes % (auto) 0.7 %; Lymphocytes # (auto) 0.41 K/uL (1.20-3.40); Lymphocytes % (auto) 3.4 %; Mean Corpuscular Hemoglobin 27.2 pg (25.0-34.0); Mean Corpuscular Hgb Conc 31.6 g/dL (32.0-36.0); Mean Corpuscular Volume 86.1 fL (80.0-100.0); Mean Platelet Volume 9.4 fL (9.4-12.4); Monocytes # (auto) 0.75 K/uL (0.11-0.59); Monocytes % (auto) 6.2 %; Neutrophils # (auto) 10.15 K/uL (1.40-6.50); Neutrophils % (auto) 84.5 %; Platelet Count 440 K/uL (130-400); RDW Coefficient of Variation 13.2 % (11.5-14.5); RDW Standard Deviation 41.1 fL (36.4-46.3); Red Blood Count 3.53 M/uL (4.20-5.40); White Blood Count 12.03 K/ul (4.8-10.8)
[2023-07-18] MEDS: METOPROLOL TARTRATE 25 MG TAB PO SCH ×2 (09:54→20:33)
[2023-07-18] MEDS: lisinopril 2.5 MG TAB PO SCH (09:54)
[2023-07-18] MEDS: CLOPIDOGREL BISULFATE 75 MG TAB PO SCH (09:55)
[2023-07-18] MEDS: CHOLECALCIFEROL 1,000 UNITS 25 MCG TAB PO SCH (09:56)
[2023-07-18] MEDS: LANTUS PER UNIT CHARGE SC SCH ×2 (10:00→20:42)
[2023-07-18] MEDS: INSULIN ASPART PER UNIT CHARGE SC SCH ×4 (10:00→20:42)
[2023-07-18 10:12] LABS: BUN Creatinine Ratio 12.2 (10-20); C Reactive Protein 24.22 mg/dl (0-0.5); Calcium 8.5 mg/dl (8.6-10.3); Creatinine Clr Calc Pharmacy 19.7 ml/min; Est GFR (African American) 24.6 ml/min; Est GFR (Non-African American) 21.3 ml/min; Potassium 3.8 mmol/L (3.5-5.1)
[2023-07-18] MEDS: PLASMA-LYTE A 500 ML IV SCH ×3 (12:59→19:24)
[2023-07-18 14:05] LABS: Influenza A virus by PCR Negative (Neg); Influenza B virus by PCR Negative (Neg); RSV by PCR Negative (Neg); SARS CoV2 RNA(COVID-19) Ceph NEGATIVE (Negative)
--- NOTE | 2023-07-18 14:25 | Podiatry Consultation ---
Date of Consultation July 18, 2023 Assessment & Plan (1) Cellulitis of right foot: Will continue to monitor patient I do believe that IV antibiotics will be more appropriate especially after her spiking a fever once the IV antibiotics are discontinued and she was placed on oral medicine. I did discuss this case with her medicine doctor who is taking over. Will continue dressing changes. Just for planning purposes I will be in to round on patient tomorrow, however after tomorrow will be going out of town and I will be out of the office and also out of town returning on July 30. I would asked that if anything occurs to please consult [facility] orthopedics. I will be in again tomorrow to round with patient. My hope is is that she stabilizes and she can be discharged home with a PICC line and IV antibiotics as she will also be getting in touch with Dr. Hawthorne's office to schedule her endarterectomy. (2) Arterial insufficiency of lower extremity: History of Present Illness Reason for Consultation: Hospital follow-up Attending Physician: Ward Abraham MD History of Present Illness Patient is a very pleasant 72-year-old female seen today at bedside. All dressings removed and area evaluated I do appreciate that the foot overall is stable she had some swelling which I think is secondary to the fact that she has been sitting with her feet in the dependent position due to her rest pain. But otherwise I think for the most part stable appearance of the foot. I still appreciate some dark eschar at the distal aspect of the right second toe which was present on previous evaluations although on noticed notably on physical exam today I appreciate more pink and tissue of the digit and less of the white discoloration that was seen previously. I discussed with patient that I do feel that IV antibiotics as I said previously are probably what she needs to properly cover her infection I think this is for myriad of reasons 1 being her group B strep that she grew from cultures from surgery but additionally because of her vascular insufficiency and the fact that I think it is very difficult for blood to get to the distal part of the toe where the infection is located secondary to her arterial disease. Otherwise she was stable and felt well she was restarted on her Zosyn she is still receiving her Tylenol as well but overall was stable at visit today. Allergies Allergy/AdvReac Type Severity Reaction Status Date / Time amoxicillin Allergy Severe Rash Verified 07/15/23 00:37 neomycin Allergy Intermediate Rash Verified 07/15/23 00:37 propoxyphene Allergy Mild Rash Verified 07/15/23 00:37 [From Darvocet-N] ceftriaxone [From Rocephin] AdvReac Severe Fever Verified 07/15/23 01:13 sulfamethoxazole AdvReac Intermediate Diarrhea Verified 07/15/23 01:13 [From Bactrim] trimethoprim [From Bactrim] AdvReac Intermediate Diarrhea Verified 07/15/23 01:13 Home Medications Medication Instructions Recorded Confirmed Type acetaminophen 500 mg tablet 1,000 mg PO BID 07/04/22 07/15/23 History (Tylenol Extra Strength) insulin glargine 100 unit/mL (3 18 unit subcut QPM 07/04/22 07/15/23 History mL) subcutaneous pen (Basaglar KwikPen U-100 Insulin) loratadine 10 mg tablet 10 mg PO HS PRN seasonal allergies 07/04/22 07/15/23 History magnesium oxide 400 mg PO BID 07/04/22 07/15/23 History cholecalciferol (vitamin D3) 25 25 mcg PO QAM 07/06/22 07/15/23 History mcg (1,000 unit) capsule biotin 10 mg tablet 10 mg PO QAM 09/05/22 07/15/23 History Lactobacillus acidophilus 250 1,000 mmu cells PO QAM 12/11/22 07/15/23 History million cell capsule (Probiotic Acidophilus) ferrous sulfate 325 mg (65 mg 325 mg PO HS 12/11/22 07/15/23 History iron) tablet glimepiride 4 mg tablet 4 mg PO BID #180 tabs 12/18/22 07/15/23 Rx metformin 1,000 mg tablet 1,000 mg PO BID #180 tabs 12/18/22 07/15/23 Rx clopidogrel 75 mg tablet 75 mg PO QAM #90 tabs 01/11/23 07/15/23 Rx rivaroxaban 15 mg tablet (Xarelto) 15 mg PO QPM #30 tabs 03/25/23 07/15/23 Rx benzonatate 100 mg capsule 100 mg PO TID PRN cough 10 days 06/25/23 07/15/23 Rx #30 caps cyanocobalamin (vitamin B-12) 1,000 mcg PO 3XWK 06/25/23 07/15/23 History 1,000 mcg capsule tramadol 50 mg tablet 50 mg PO DAILY PRN pain 30 days 06/25/23 07/15/23 Rx #30 tabs atorvastatin 80 mg tablet See Rx Instructions .Route 06/27/23 07/15/23 Rx .COMPLEX #90 tabs lisinopril 2.5 mg tablet 2.5 mg PO QAM 07/08/23 07/15/23 History metoprolol tartrate 25 mg tablet 25 mg PO BID 07/15/23 07/15/23 History Patient History Medical History Toe infection at present to surgical toe, on treatment History of COVID-16 Apr 2023 > not hospitalized Amputation toe rt hallux Hx of chest pain 2021, and pain in her jaw, had stress test then catheterization with x1 stent On anticoagulant therapy History of anesthesia reaction s/p knee arthroscopy took a "long time to wake up". PAD (peripheral artery disease) Cellulitis of right lower extremity August 2022, treated at [facility] (obstructive sleep apnea) no device History of deviated nasal septum Back abscess hx- November 2019. no surgery - treated with antibiotics. Arthritis Myocardial infarct 01/17/21 Dyslipidemia Type 2 diabetes mellitus IDDM Hypertension Frequent PVCs pt denies/aware - pt does not have any symptoms CAD (coronary artery disease) Surgical History Hx of foot surgery Right Foot Ulcer Debridement, Bone Biopsy, Incision and Drainage History of cardiac cath 12/2020 at [facility] in [place] 2021, [facility] in [place]; f/u dr. morgan and dr. loyd, [facility] Status post angiography of extremity Right leg at [facility] with Dr Loyd. no stents placed>procedure done twice-3 vessels first time, 1 vessel second time. H/O colonoscopy Last colonoscopy 01/24/2017 Joint replaced left foot plus a revision of a toe joint H/O sinus surgery H/O arthroscopy of right knee H/O dilation and curettage H/O cervical polypectomy H/O breast biopsy Hx of cataract extraction Bilateral Hx of parathyroidectomy Hx of tubal ligation Hx of foot surgery left foot surgery and implant replacement Hx of carpal tunnel repair bilateral S/P coronary artery stent placement x2 (01/19/21) + 01/31/22 x1 stent in circumflex artery (per patient) done at [facility] in . Follows with Dr Morgan Family History Mother Heart disease Myocardial infarction Hypertension Brother Hypertension Uncle Diabetes Father Emphysema lung black lung Denies family history of Ovarian cancer Prostate cancer Breast cancer Lung cancer Colorectal cancer Stroke Social History Smoking Status: Never smoker Second Hand Exposure: No; Do You Dip or Chew Tobacco: No; Hx Alcohol Use: No Hx Substance Use: No Preferred Language: Polish Communication Ability: Effective Visual Impairment: Limited Hearing Ability: Normal Inseam Trimmer Required: No Beliefs That Will Affect Care: None marital status: / Current Living Situation: Alone current occupational status: retired How many Children do You have: 4 Feels Safe at Home: Yes Childhood Exposure to Second-Hand Smoke: No Diet: diabetic and low salt caffeine: Yes (1 cup a day) during the past year weight has: remained stable Dental Care, Regularly: Yes Physical Activity Frequency: 3-4 Times per Week Seatbelt Use: always Sunscreen Use: Yes Assistive Devices: Cane Physical Exam Skin: Dressings removed and area examined I appreciate some swelling today again there was the eschar at the distal end of the toe from the incisional area from surgery I did put a clinical note with the clinical photo in her chart this is available in the [facility]. Otherwise stable appearance of the foot dressings reapplied consisting of Adaptic gauze roll gauze and an Bucky bandage. Results & Data Vital Signs (Past 12 Hours) Vital Signs Temp Pulse Resp BP Pulse Ox O2 Del Method 07/18/23 11:04 36.6 C 61 18 89/54 L 96 Room Air 07/18/23 07:53 36.7 C 85 18 101/63 96 Room Air 07/18/23 03:35 37.8 C H 90 20 112/64 92 Room Air
[2023-07-18] MEDS: ATORVASTATIN 40 MG TAB PO SCH (20:06)
[2023-07-19] MEDS: PIPERACILLIN/TAZOBACTAM 4.5 GM in DEXTROSE 5% MINI-B 100 ML IV SCH (05:47)
[2023-07-19 06:17] LABS: Basophils # (auto) 0.02 K/uL (0.00-0.20); Basophils % (auto) 0.2 %; Eosinophils % (auto) 7.8 %; Hematocrit (blood only) 27.6 % (37.0-47.0); Hemoglobin 8.8 g/dl (12.0-16.0); Immature Granulocytes # (auto) 0.05 K/uL (0.01-0.20); Immature Granulocytes % (auto) 0.6 %; Lymphocytes # (auto) 0.59 K/uL (1.20-3.40); Lymphocytes % (auto) 6.6 %; Mean Corpuscular Hemoglobin 26.7 pg (25.0-34.0); Mean Corpuscular Hgb Conc 31.9 g/dL (32.0-36.0); Mean Corpuscular Volume 83.9 fL (80.0-100.0); Mean Platelet Volume 9.3 fL (9.4-12.4); Monocytes # (auto) 0.97 K/uL (0.11-0.59); Monocytes % (auto) 10.8 %; Neutrophils # (auto) 6.66 K/uL (1.40-6.50); Platelet Count 432 K/uL (130-400); RDW Coefficient of Variation 13.1 % (11.5-14.5); RDW Standard Deviation 40.3 fL (36.4-46.3); Red Blood Count 3.29 M/uL (4.20-5.40); White Blood Count 8.99 K/ul (4.8-10.8)
[2023-07-19 06:35] LABS: BUN Creatinine Ratio 15.8 (10-20); C Reactive Protein 14.89 mg/dl (0-0.5); Creatinine Clr Calc Pharmacy 22.2 ml/min; Est GFR (African American) 28.5 ml/min; Est GFR (Non-African American) 24.6 ml/min; Potassium 3.8 mmol/L (3.5-5.1)
[2023-07-19] MEDS ORDERED: SODIUM CHLORIDE 0.9% 1,000 ML IV ONE (08:02)
[2023-07-19] MEDS ORDERED: PHARMACY GLYCEMIC MGMT CONSULT PRN (08:03)
[2023-07-19] MEDS: METOPROLOL TARTRATE 25 MG TAB PO SCH ×2 (08:48→20:23)
[2023-07-19] MEDS: CHOLECALCIFEROL 1,000 UNITS 25 MCG TAB PO SCH (08:49)
[2023-07-19] MEDS: CLOPIDOGREL BISULFATE 75 MG TAB PO SCH (08:49)
[2023-07-19] MEDS: INSULIN ASPART PER UNIT CHARGE SC SCH ×4 (08:54→21:03)
[2023-07-19] MEDS: LANTUS PER UNIT CHARGE SC SCH ×2 (08:55→21:03)
--- NOTE | 2023-07-19 12:29 | Hospitalist Progress Note ---
Date of Service July 19, 2023 Assessment & Plan (1) Sepsis: Plan: Patient is a 72-year-old female with past medical history of type 2 diabetes, previous right great toe amputation, arterial insufficiency of the lower extremity, obesity, PAD, hypertension, CAD, previous [place] with 3 stents with the latest being in 2021, and hyperlipidemia who presents to the hospital for evaluation of fever. Patient likely having postoperative infection secondary to recent right second toe amputation. Patient to be admitted for antibiotic therapy and podiatric consultation. Sepsis suspect R DFI/cellulitis with ?osteo -Source of infection is likely recent surgery . Met SIRS criteria on admit.Lactate within normal limits, no evidence of endorgan damage Patient is no longer septic, treatment of osteomyelitis/cellulitis as noted below (2) Post op infection: Plan: Right foot, second toe cellulitis with suspected osteomyelitis S/p distal toe revision 07/10. Subsequently with worsening cellulitis and presumed osteo-. Podiatry following 07/15 was admitted on Vanco/Zosyn, Vanco subsequently discontinued and continued on Zosyn. Patient was improving clinically progressing, she was switched to Augmentin on 07/16 and developed 3 fevers of 3839.4*C within approximately 12 hours. Zosyn was resumed for concern of failure, given her history of drug fever reaction and amoxicillin allergy suspect that this was likely a drug reaction rather than progression of infection. Given fever with chills at the time cultures were repeated these remain negative at 24 hours For long-term management patient will need group B strep coverage which was cultured from her operative site. She was on doxycycline for several weeks leading up to this which may have suppressed other results; she is at risk for polymicrobial infection and gram-negative's as she is a diabetic and has severe limited vascular flow. She has monophasic flow to the right foot which is pending vascular intervention with popliteal bypass required; however this cannot be performed until her infection is managed. Due to this feels she is not likely to be a good candidate for daptomycin/targeted group B strep therapy and should be expanded. Reviewed with ID, Ertapenem 500 mg IV every 24 hours, renally adjusted Weekly CBC with differential, CMP, ESR, CRP. If creatinine clearance increases greater than 30 patient would need to be transition to ertapenem 1 g IV daily Outpatient allergy referral to formally test beta-lactam allergy/tolerance Follow-up with podiatry, follow-up with local ID as able Appreciate recommendations (3) Right great toe amputee: Plan: -as above (4) Arterial insufficiency of lower extremity: Plan: Patient was evaluated by vascular surgery who will follow her up outpatient after the holidays and after her infection resolves to decide on further va scular procedures versus bypass. (5) Diabetes mellitus: Plan: Continue sliding scale (6) Hypertension: Plan: -continue beta-blockade Resume lisinopril as no plans for procedure (7) CAD (coronary artery disease): Plan: -continue atorvastatin Resume Plavix since no procedure being planned immediate Discontinue Xarelto per vascular recommendation until reevaluated by vascular surgery outpatient (8) S/P coronary artery stent placement: Plan: -See above (9) Dyslipidemia: Plan: -Cont statin Plan Disposition: PICC palcement today, abx tolerance monitoring overnight, hopefully d/c 07/20 with daily infusions at [facility] DVT prophylaxis: SCDs, resume Xarelto CODE STATUS: Full code Admission and Anticipated Discharge Date Admission Date: July 15, 2023 Subjective Fluorescein at the bedside. Doing well, no recurrent fevers or chills overnight. No nausea/vomiting/diarrhea. No pain in her foot, no worsening symptoms. Is hopeful for set up of daily infusions and discharged home this weekend no other questions or concerns at bedside. Physical Exam Physical Exam: General: A&Ox3. NAD. Cooperative. HEENT: Atraumatic, normocephalic. Vision/hearing grossly intact Pulm: CTAB A&P. -wheezes, -rales, -rhonchi. Symmetrical chest rise. No increased work of breathing. No respiratory distress. Cardiac: RRR, -mrg. Radial pulses intact and symmetrical. Abdominal: Nontender, nondistended, soft. BS present. Extremities:Right foot with dressing in place, ischemic third digit, and no purulent discharge. Similar to prior, minimal tenderness on exam. Erythema improving not yet resolved. Results & Data Results & Data Vital Signs (Past 12 Hours) Vital Signs Temp Pulse Pulse Resp BP Pulse Ox O2 Del Method 07/19/23 07:43 36.9 C 92 H 18 120/68 93 Room Air 07/19/23 04:20 36.8 C 86 17 130/77 96 Room Air 07/19/23 02:45 91 H 07/18/23 23:15 36.7 C 80 18 115/67 95 Room Air PG Care Time/CCT Total # of Minutes Spent Total Time Spent with Patient: Total time spent is greater than 50% in coordination of care (as documented) at patient's floor/unit and/or counseling patient: Coding Level of Care Code 22201 SUB INP/OBS CARE 3/50MIN Diagnoses Sepsis A41.9 Post op infection T81.41XA Encounter type: initial encounter Postoperative infection type: superficial incisional surgical site Right great toe amputee Z89.411 Arterial insufficiency of lower extremity I73.9 Diabetes mellitus E11.9 Hypertension I10 CAD (coronary artery disease) I25.10 S/P coronary artery stent placement Z95.5 Dyslipidemia E78.5 (2) Post op infection Encounter type: initial encounter Postoperative infection type: superficial incisional surgical site Qualified Code(s): T81.41XA - Infection following a procedure, superficial incisional surgical site, initial encounter
--- NOTE | 2023-07-19 12:57 | Podiatry Consultation ---
Date of Consultation July 19, 2023 Assessment & Plan (1) Cellulitis of right foot: Discussed with patient and medicine team about her daily dressing changes I also discussed with her nurse to change her dressing tomorrow prior to discharge. She is understanding and has changed her dressings in the past. We will set up follow-up with her tentatively Saturday as long as she is discharged on Saturday. She will be receiving antibiotics per medicine team recommendations with I agree with and overall was feeling better at today's follow-up visit. Will continue to follow with patient on the outpatient setting. (2) Diabetes mellitus: (3) PAD (peripheral artery disease): History of Present Illness Attending Physician: Ward Abraham MD History of Present Illness Patient is a very pleasant 72-year-old female seen at bedside today for evaluation. Feeling very well she notes to me after discussion with her hospitalist I do concur and agree he noted in her past she had a lot of difficulty with Rocephin which has caused her fevers in the past the thinking is as the fever she spiked with previous antibiotic may have been secondary to a drug reaction as she cannot tolerate that medication. Her medicine team/hospitalist will be covering her with recommendations for antibiotics and I concur with their decision. From a perspective of the foot it is stable all of her dressings were removed and foot was inspected I still appreciate some dark discoloration distally at the second toe at the site of the previous amputation otherwise there were no new areas of concern. The goal is to get her discharged tomorrow she has a son who is a physician who will perform daily dressing changes at home and she will see my nurse in the office postdischarge for dressing change as I will be out of town which was discussed with the patient and her medicine team. As long as she is stable per medicine recommendations I am agreeable for her discharge I will continue to follow her outpatient. Allergies Allergy/AdvReac Type Severity Reaction Status Date / Time amoxicillin Allergy Severe Rash Verified 07/15/23 00:37 neomycin Allergy Intermediate Rash Verified 07/15/23 00:37 propoxyphene Allergy Mild Rash Verified 07/15/23 00:37 [From Darvocet-N] ceftriaxone [From Rocephin] AdvReac Severe Fever Verified 07/15/23 01:13 sulfamethoxazole AdvReac Intermediate Diarrhea Verified 07/15/23 01:13 [From Bactrim] trimethoprim [From Bactrim] AdvReac Intermediate Diarrhea Verified 07/15/23 01: 13 Home Medications Medication Instructions Recorded Confirmed Type acetaminophen 500 mg tablet 1,000 mg PO BID 07/04/22 07/15/23 History (Tylenol Extra Strength) insulin glargine 100 unit/mL (3 18 unit subcut QPM 07/04/22 07/15/23 History mL) subcutaneous pen (Basaglar KwikPen U-100 Insulin) loratadine 10 mg tablet 10 mg PO HS PRN seasonal allergies 07/04/22 07/15/23 History magnesium oxide 400 mg PO BID 07/04/22 07/15/23 History cholecalciferol (vitamin D3) 25 25 mcg PO QAM 07/06/22 07/15/23 History mcg (1,000 unit) capsule biotin 10 mg tablet 10 mg PO QAM 09/05/22 07/15/23 History Lactobacillus acidophilus 250 1,000 mmu cells PO QAM 12/11/22 07/15/23 History million cell capsule (Probiotic Acidophilus) ferrous sulfate 325 mg (65 mg 325 mg PO HS 12/11/22 07/15/23 History iron) tablet glimepiride 4 mg tablet 4 mg PO BID #180 tabs 12/18/22 07/15/23 Rx metformin 1,000 mg tablet 1,000 mg PO BID #180 tabs 12/18/22 07/15/23 Rx clopidogrel 75 mg tablet 75 mg PO QAM #90 tabs 01/11/23 07/15/23 Rx rivaroxaban 15 mg tablet (Xarelto) 15 mg PO QPM #30 tabs 03/25/23 07/15/23 Rx benzonatate 100 mg capsule 100 mg PO TID PRN cough 10 days 06/25/23 07/15/23 Rx #30 caps cyanocobalamin (vitamin B-12) 1,000 mcg PO 3XWK 06/25/23 07/15/23 History 1,000 mcg capsule tramadol 50 mg tablet 50 mg PO DAILY PRN pain 30 days 06/25/23 07/15/23 Rx #30 tabs atorvastatin 80 mg tablet See Rx Instructions .Route 06/27/23 07/15/23 Rx .COMPLEX #90 tabs lisinopril 2.5 mg tablet 2.5 mg PO QAM 07/08/23 07/15/23 History metoprolol tartrate 25 mg tablet 25 mg PO BID 07/15/23 07/15/23 History Patient History Medical History Toe infection at present to surgical toe, on treatment History of COVID-16 Apr 2023 > not hospitalized Amputation toe rt hallux Hx of chest pain 2021, and pain in her jaw, had stress test then catheterization with x1 stent On anticoagulant therapy History of anesthesia reaction s/p knee arthroscopy took a "long time to wake up". PAD (peripheral artery disease) Cellulitis of right lower extremity August 2022, treated at [facility] [place] (obstructive sleep apnea) no device History of deviated nasal septum Back abscess hx- November 2019. no surgery - treated with antibiotics. Arthritis Myocardial infarct 01/17/21 Dyslipidemia Type 2 diabetes mellitus IDDM Hypertension Frequent PVCs pt denies/aware - pt does not have any symptoms CAD (coronary artery disease) Surgical History Hx of foot surgery Right Foot Ulcer Debridement, Bone Biopsy, Incision and Drainage History of cardiac cath 12/2020 at [facility] in [place] 2021, [facility] in [place]; f/u dr. morgan and dr. loyd, [facility] Status post angiography of extremity Right leg at [facility] with Dr Loyd. no stents placed>procedure done twice-3 vessels first time, 1 vessel second time. H/O colonoscopy Last colonoscopy 01/24/2017 Joint replaced left foot plus a revision of a toe joint H/O sinus surgery H/O arthroscopy of right knee H/O dilation and curettage H/O cervical polypectomy H/O breast biopsy Hx of cataract extraction Bilateral Hx of parathyroidectomy Hx of tubal ligation Hx of foot surgery left foot surgery and implant replacement Hx of carpal tunnel repair bilateral S/P coronary artery stent placement x2 (01/19/21) + 01/31/22 x1 stent in circumflex artery (per patient) done at [facility] in [place]. Follows with Dr Morgan Family History Mother Heart disease Myocardial infarction Hypertension Brother Hypertension Uncle Diabetes Father Emphysema lung black lung Denies family history of Ovarian cancer Prostate cancer Breast cancer Lung cancer Colorectal cancer Stroke Social History Smoking Status: Never smoker Second Hand Exposure: No; Do You Dip or Chew Tobacco: No; Hx Alcohol Use: No Hx Substance Use: No Preferred Language: Micronesian Communication Ability: Effective Visual Impairment: Limited Hearing Ability: Normal Rag Baler Required: No Beliefs That Will Affect Care: None marital status: / Current Living Situation: Alone current occupational status: retired How many Children do You have: 4 Feels Safe at Home: Yes Childhood Exposure to Second-Hand Smoke: No Diet: diabetic and low salt caffeine: Yes (1 cup a day) during the past year weight has: remained stable Dental Care, Regularly: Yes Physical Activity Frequency: 3-4 Times per Week Seatbelt Use: always Sunscreen Use: Yes Assistive Devices: Cane Physical Exam Skin: Dressings removed right foot incision site inspected sutures in place. Postop day number 9. Status post distal Symes amputation right second toe. Foot otherwise warm dry without any other areas of concern there is still some dark discolorations distally at the second toe secondary to her known history of arterial disease. New dressings reapplied foot was cleaned with Betadine Adaptic gauze roll gauze and Bucky bandage placed over foot. Results & Data Vital Signs (Past 12 Hours) Vital Signs Temp Pulse Pulse Resp BP Pulse Ox O2 Del Method 07/19/23 07:43 36.9 C 92 H 18 120/68 93 Room Air 07/19/23 04:20 36.8 C 86 17 130/77 96 Room Air 07/19/23 02:45 91 H
[2023-07-19] MEDS: lisinopril 2.5 MG TAB PO SCH (15:22)
--- NOTE | 2023-07-19 15:27 | Pharmacy Report ---
Pharmacy Glycemic Short Note 2 - Date of Service July 19, 2023 - Glycemic Short BSG Results (Last 24 hours): 07/18/23 07/18/23 07/18/23 17:01 20:17 20:19 Glucose POC Glucose 237 H 340 H* 294 H 07/18/23 07/19/23 07/19/23 20:20 05:54 08:00 Glucose 181 H POC Glucose 302 H* 188 H 07/19/23 12:00 Glucose POC Glucose 336 H* OUTPATIENT ANTIDIABETIC REGIMEN: * Lantus 18 units SQ QPM * metformin 1000mg BID * glimeperide 4mg PO BID ASSESSMENT: * Wendi is a 72 YOF admitted with sepsis/cellulitis and a history of T2DM. Pharmacy has been consulted for glycemic management. * Fasting BSG this AM elevated, basal insulin increased by 30% per provider. Agree will continue for now and monitor. * She is on ertapenem for her foot infection/sepsis. * Elevated prandial BSGs likely a combination of inadequate carbohydrate coverage/infection/reaction to antibiotics. Carbohydrate ratio tightened. PLAN FOR INPATIENT GLYCEMIC CONTROL: * Hold outpatient oral diabetes medications * Basal insulin * Lantus 10 units SQ BID * Bolus insulin * NovoLog per scale ACHS or Q6hrs while NPO * Goal Range: Low 110 mg/dL - High 140 mg/dL * Correction Factor: 25 mg/dL/unit * Nutritional / Prandial insulin per carb ratio of 1 unit per 4 grams CHO consumed
--- NOTE | 2023-07-19 15:31 | Infectious Disease Consult ---
Date of Consultation July 19, 2023 Assessment & Plan (1) Osteomyelitis of second toe of right foot: (2) PAD (peripheral artery disease): (3) Fever: (4) Allergy to amoxicillin: (5) Allergy to cephalosporin: (6) Infection due to Streptococcus group B: (7) Right great toe amputee: (8) Post op infection: (9) Diabetes mellitus: Plan Wendi Wilkins 72-year-old woman with history of T2DM, history of R great toe osteomyelitis s/p amputation 12/12/22 (with subsequent bone bx on 02/13/23 that was negative for osteomyelitis), PVD, obesity, PAD, hypertension, CAD, previous SC s/p 3 stents with the latest being in 2021, history of drug reactions to amoxicillin (rash ~20 years ago) and ceftriaxone (2019 drug fever), most recently with R 2nd toe osteomyelitis s/p distal phalanx partial amputation on 07/10/23 (OR cx + GBS and Peptoniphilus asaccharolyticus), who presents to [facility] on 07/14 with fever (had been on PO doxycycline, 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 Her fevers initially improved on vancomycin and pip-tazo, recurred on 07/16 and 07/17 (after receiving PO Augmentin both days), and resolved after changing back to just pip-tazo. Suspect that she presented with fevers on 07/14 due to R 2nd toe osteomyelitis; recurrence of fevers on 07/16 and 07/17 either d ue to transition to PO/narrow spectrum vs. drug reaction to Augmentin. 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 Her 07/10 cultures grew GBS and Peptoniphilus. She was on PO doxycycline leading up to her 07/10 procedure, which was the only antibiotic that she had received. She has had no growth of Pseudomonas isolated previously. She has no history of MRSA; although doxycycline does have MRSA activity she has had no growth of this on numerous prior wound cx from her nearby R great toe wound in the last several months. Her fevers resolved on vancomycin and pip-tazo, and then recurred on 07/16. She subsequently developed fevers after the transition to PO Augmentin which she received on 07/16 and 07/17, which then resolved again after re-broadening to pip-tazo on 07/17. It is uncertain whether this clinical worsening was due to a change to PO antibiotics/narrowing of abx spectrum, or if the transition may have actually been drug fever given a history of reactions to amoxicillin and ceftriaxone. Furthermore given her osteomyelitis on R 2nd toe path, would favor IV antibiotics regardless. Her X-ray showed changes c/f chronic osteomyelitis of the R first metatarsal head which also had minimal bony edema on 07/02 MRI; it is possible there is minimal ongoing osteomyelitis at this site as well. 07/14 BCx and 07/18 BCx NGTD. Her antibiotic allergies include a rash to amoxicillin that was ~20 years ago if not longer. She believes she has actually tolerated PO Augmentin within the last 5 years. However, she had drug fevers to ceftriaxone in 2019, which she reports were high fevers to 105F while undergoing IV ceftriaxone for a spine infection. Although she has been tolerating pip-tazo, her history of drug reaction to amoxicillin and ceftriaxone are concerning for the possibility that she may develop other penicillin/piperacillin reactions. Furthermore, it is uncertain whether her fevers on 07/16 and 07/17 were due to narrowing/changing to PO or could be a component of drug reaction as well. Would consider outpatient allergy referral to clarify her beta-lactam allergy/reactions. Will recommend changing to ertapenem (renally dosed) to reduce the potential cross-reactivity with penicillins and cephalosporinsthough it is still a beta- lactam. (Patient has not had a history of anaphylaxis to antibiotics). Would do a tentative 6-week course of IV antibiotics for R 2nd toe osteomyelitis and possible R first metatarsal osteo. If doing well on follow-up, could consider a transition PO for the tail end of therapy (options which may depend on allergy evaluation) though do note that most PO beta-lactams have reduced bioavailability compared with IV. ID Problem List: 1.Right 2nd toe osteomyelitis, 07/10 cx + Group B Strep and Peptoniphilus asaccharolyticus 2.Possible R first metatarsal osteomyelitis 3.History of allergy to amoxicillin and ceftriaxone 4.Fevers 5.Type 2 diabetes 6.Peripheral arterial disease Recommendations: - Change pip-tazo to ertapenem 500 mg IV Q24H (renally dosed) for a tentative 6- week course (07/15/23 08/25/23) - Weekly lab monitoring while on IV antibiotics: CBC w/ diff, CMP, ESR, CRP. Please ensure renal function is followed as patient would receive a higher dose of ertapenem if CrCl remains >30) - Consider outpatient allergy referral to clarify beta-lactam allergy - Recommend referral to local outpatient ID follow-up if able - Close follow-up with podiatry and vascular Plan discussed with hospitalist. Thank you for letting ID participate in the care of this patient. ID will sign off at this time. If questions, please contact the [facility] call center at [phone]. Savannah Meadows MD, S Infectious Diseases [facility] direct line: [phone] Consultation Information Consultation was provided via telemedicine using two-way real-time interactive telecommunication between the patient and the telemedicine provider. For the duration of the visit, the provider was performing the assessment from a different facility than the patient. This includesuse of bluetooth stethoscope forauscultationperformed by the telepresenter that the telemedicine provider can hear if described in the physical exam. Coffee Roaster Helper contact information: Please call [facility] Call Center . (Phone Number For Physician Use Only) After establishing a telemedicine visit, patient was: Patient was verified with two unique identifiers, Patient/authorized rep acknowledged consent and understanding and Gave permission to continue telehealth session Time Spent with Patient: Initial => 75 min History of Present Illness Reason for Consultation: R 2nd toe osteomyelitis, fevers, amoxicillin allergy Attending Physician: Ward Abraham MD History of Present Illness Wendi Wilkins 72-year-old woman with history of T2DM, history of R great toe osteomyelitis s/p amputation 12/12/22 (with subsequent bone bx on 02/13/23 that was negative for osteomyelitis), PVD, obesity, PAD, hypertension, CAD, previous SC s/p 3 stents with the latest being in 2021, history of drug reactions to amoxicillin (rash ~20 years ago) and ceftriaxone (2020 drug fever), most recently with R 2nd toe osteomyelitis s/p distal phalanx partial amputation on 07/10/23 (OR cx + GBS and Peptoniphilus asaccharolyticus), who presents to [facility] on 07/14 with fever (had been on PO doxycycline, 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 ID is consulted for R 2nd toe osteomyelitis and fevers in the context of possible amoxicillin/Augmentin allergy. She has a history diabetic foot infection s/p R great toe amputation 12/12/22. OR specimen g/s with GNRs but cx with only skin tavia. This was initially treated with Bactrim, however she could not tolerate this and was changed to clindamycin. She had a continued wound with possible small SSTI/abscess for which she underwent R great toe bone biopsy 02/13/23 (negative for osteomyelitis). Podiatry notes report that she completed a course of doxycycline for wound (completed sometime between 03/04/23 and 03/11/23) and that the wound healed fully. The patient reports that when she was having her diabetic shoes re-fitted (after healing of her R great toe wound), that she had shoes that were too loose and caused an ulcer of her 2nd toe. This was noted in her outpatient notes on 06/11/23 with concern for possible surrounding cellulitis. The wound was treated with doxycycline, which was started on 06/11/23. The ulcer persisted and MRI on 07/02/23 showed R 2nd digit distal phalanx osteomyelitis with surrounding cellulitis. She therefore underwent partial amputation on 07/10/23. 07/10 OR cx + GBS and Peptoniphilus asaccharolyticus. OR pathology confirmed osteomyelitis. She said that she was at home and initially doing well after her 07/10 surgery. She did not note any significant redness or swelling of the R foot. 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 She was sitting at home and began to develop fevers to T102F accompanied by chills. No other symptoms including no shortness of breath, chest pain, headache, nausea, or vomiting. She presented to [facility] ED. In the ED, Tmax 38.2. WBC 11. Foot X-ray showed small amount of gas in the postoperative bed as well as changes of previously seen chronic osteomyelitis in the R first metatarsal head. She was started on vancomycin and pip-tazo with improvement in fever. She was then transitioned to PO Augmentin on 07/16. She had received pip-tazo on 07/16 @ 0845 before it was changed. She received Augmentin 07/16 @ 1736 and 07/17 @ 0933. She subsequently developed fevers (T38.7 on 07/16 on 1846; T37.9 on 07/17 @1034, T39.4 @ 1513) after the transition to PO Augmentin, with uncertainty whether this clinical worsening was due to a change to PO antibiotics, or if it could have represented drug fever given a history of reactions to amoxicillin and ceftriaxone in the past. She was re-broadened to pip-tazo with resolution in her fevers. BCx from 07/14 and 07/18 NGTD. The patient has a history of antibiotic allergies: amoxicillin (rash, reports this was ~20 years ago if not longer) ceftriaxone (reports this was while undergoing IV abx for spine infection in 2019, had high fevers to 105F and was hospitalized, diagnosed with drug fevers attributed to ceftriaxone) she is documented as having diarrhea to Bactrim but the patient does not recall this reaction patient reports that she has never had anaphylaxis (never had a drug reaction that involved her airway or swelling) At the time of evaluation, the patient feels well and wishes to go home. Allergies Allergy/AdvReac Type Severity Reaction Status Date / Time amoxicillin Allergy Severe Rash Verified 07/15/23 00:37 neomycin Allergy Intermediate Rash Verified 07/15/23 00:37 propoxyphene Allergy Mild Rash Verified 07/15/23 00:37 [From Darvocet-N] ceftriaxone [From Rocephin] AdvReac Severe Fever Verified 07/15/23 01:13 sulfamethoxazole AdvReac Intermediate Diarrhea Verified 07/15/23 01:13 [From Bactrim] trimethoprim [From Bactrim] AdvReac Intermediate Diarrhea Verified 07/15/23 01:13 Home Medications Medication Instructions Recorded Confirmed Type acetaminophen 500 mg tablet 1,000 mg PO BID 07/04/22 07/15/23 History (Tylenol Extra Strength) insulin glargine 100 unit/mL (3 18 unit subcut QPM 07/04/22 07/15/23 History mL) subcutaneous pen (Basaglar KwikPen U-100 Insulin) loratadine 10 mg tablet 10 mg PO HS PRN seasonal allergies 07/04/22 07/15/23 History magnesium oxide 400 mg PO BID 07/04/22 07/15/23 History cholecalciferol (vitamin D3) 25 25 mcg PO QAM 07/06/22 07/15/23 History mcg (1,000 unit) capsule biotin 10 mg tablet 10 mg PO QAM 09/05/22 07/15/23 History Lactobacillus acidophilus 250 1,000 mmu cells PO QAM 12/11/22 07/15/23 History million cell capsule (Probiotic Acidophilus) ferrous sulfate 325 mg (65 mg 325 mg PO HS 12/11/22 07/15/23 History iron) tablet glimepiride 4 mg tablet 4 mg PO BID #180 tabs 12/18/22 07/15/23 Rx metformin 1,000 mg tablet 1,000 mg PO BID #180 tabs 12/18/22 07/15/23 Rx clopidogrel 75 mg tablet 75 mg PO QAM #90 tabs 01/11/23 07/15/23 Rx rivaroxaban 15 mg tablet (Xarelto) 15 mg PO QPM #30 tabs 03/25/23 07/15/23 Rx benzonatate 100 mg capsule 100 mg PO TID PRN cough 10 days 06/25/23 07/15/23 Rx #30 caps cyanocobalamin (vitamin B-12) 1,000 mcg PO 3XWK 06/25/23 07/15/23 History 1,000 mcg capsule tramadol 50 mg tablet 50 mg PO DAILY PRN pain 30 days 06/25/23 07/15/23 Rx #30 tabs atorvastatin 80 mg tablet See Rx Instructions .Route 06/27/23 07/15/23 Rx .COMPLEX #90 tabs lisinopril 2.5 mg tablet 2.5 mg PO QAM 07/08/23 07/15/23 History metoprolol tartrate 25 mg tablet 25 mg PO BID 07/15/23 07/15/23 History Patient History Medical History Toe infection at present to surgical toe, on treatment History of COVID-19 Mar 2023 > not hospitalized Amputation toe rt hallux Hx of chest pain 2021, and pain in her jaw, had stress test then catheterization with x1 stent On anticoagulant therapy History of anesthesia reaction s/p knee arthroscopy took a "long time to wake up". PAD (peripheral artery disease) Cellulitis of right lower extremity August 2022, treated at [facility] (obstructive sleep apnea) no device History of deviated nasal septum Back abscess hx- November 2019. no surgery - treated with antibiotics. Arthritis Myocardial infarct 01/17/21 Dyslipidemia Type 2 diabetes mellitus IDDM Hypertension Frequent PVCs pt denies/aware - pt does not have any symptoms CAD (coronary artery disease) Surgical History Hx of foot surgery Right Foot Ulcer Debridement, Bone Biopsy, Incision and Drainage History of cardiac cath 12/2020 at [facility] in [place] 2021, [facility] in [place]; f/u dr. morgan and dr. loyd, [facility] Status post angiography of extremity Right leg at [facility] with Dr Loyd. no stents placed>procedure done twice-3 v essels first time, 1 vessel second time. H/O colonoscopy Last colonoscopy 01/24/2017 Joint replaced left foot plus a revision of a toe joint H/O sinus surgery H/O arthroscopy of right knee H/O dilation and curettage H/O cervical polypectomy H/O breast biopsy Hx of cataract extraction Bilateral Hx of parathyroidectomy Hx of tubal ligation Hx of foot surgery left foot surgery and implant replacement Hx of carpal tunnel repair bilateral S/P coronary artery stent placement x2 (01/19/21) + 01/31/22 x1 stent in circumflex artery (per patient) done at [facility] in [place]. Follows with Dr Morgan Family History Mother Heart disease Myocardial infarction Hypertension Brother Hypertension Uncle Diabetes Father Emphysema lung black lung Denies family history of Ovarian cancer Prostate cancer Breast cancer Lung cancer Colorectal cancer Stroke Social History Smoking Status: Never smoker Second Hand Exposure: No; Do You Dip or Chew Tobacco: No; Hx Alcohol Use: No Hx Substance Use: No Preferred Language: Czech Communication Ability: Effective Visual Impairment: Limited Hearing Ability: Normal Sonogram Technician Required: No Beliefs That Will Affect Care: None marital status: / Current Living Situation: Alone current occupational status: retired How many Children do You have: 4 Feels Safe at Home: Yes Childhood Exposure to Second-Hand Smoke: No Diet: diabetic and low salt caffeine: Yes (1 cup a day) during the past year weight has: remained stable Dental Care, Regularly: Yes Physical Activity Frequency: 3-4 Times per Week Seatbelt Use: always Sunscreen Use: Yes Assistive Devices: Cane Results & Data Vital Signs (Past 12 Hours) Vital Signs Temp Pulse Resp BP Pulse Ox O2 Del Method 07/19/23 11:17 36.8 C 71 20 117/68 96 Room Air 07/19/23 07:43 36.9 C 92 H 18 120/68 93 Room Air 07/19/23 04:20 36.8 C 86 17 130/77 96 Room Air Diagnostic Findings Diagnostics: 07/14 Foot X-ray 1. Interval amputation of the distal phalanx of the right second toe. Small amount of gas within the operative bed may be postsurgical or related to open wound. An infection cannot be excluded. 2. Erosion of the right first metatarsal head, similar to prior radiographs. This may reflect chronic osteomyelitis. OR path (labeled as collected 07/09 and received 07/11): FINAL DIAGNOSIS Toe, right second, amputation: - Acute osteomyelitis with tissue mummification - Negative for malignancy at 1252. Clinical History Right second toe osteomyelitis and ulcer. Procedure performed: Right second toe distal Symes amputation. Gross Description BONE RIGHT FOOT SECOND TOE The specimen is received in a container labeled bone right foot second toe with the patient name. The specimen consists of a portion of toe and additional fragments of bone and soft tissue. The portion of toe measures 2.1 x 1.5 x 0.8 cm. A 1.3 x 1.3 cm ulcer occupies much of the skin surface. The base of the ulcer is dull lainez and markedly softened. Much of the surrounding skin is lainez to black and mummified. Sectioning reveals the underlying tissues, including a portion of bone, to have a dull lainez to black discoloration. The soft tissue is largely mummified while the bone is softened. The separate fragments, in the aggregate, measure 2 x 1.7 x 0.3 cm. The fragments have a dull ruiz to pale lainez coloration. Land Acquisition Manager sections are submitted in two cassettes with A1 representing sections of the portion of toe and A2, all of the separate fragments, both for decalcification. SH Micro Summary: 07/18 BCx x2 NGTD 07/14 BCx x2 NGTD 07/10/23 R 2nd toe g/s: rare GPCs; cx GBS, Peptoniphilus asaccharolyticus Prior 02/13/23 R foot wound: no orgs on g/s; cx mixed skin microbiota 01/30/23 R foot wound: mod GPCs, rare GPRs; cx mixed tavia 01/28/23 R foot wound: few GNRs, mod GPCs; cx mixed tavia 01/25/23 R foot wound: few GPCs; cx Haemophilus parainfluenzae 01/16/23 R leg wound: no orgs on g/s; cx mixed skin microbiota 01/08/23 R foot surface wound g/s: many GPCs, rare GPRs, rare GNRs; cx mixed tavia 12/12/22 R great toe OR g/s: rare GPCs; cx mixed tavia Antibiotic Summary: ertapenem (07/19-present) Prior pip-tazo (07/15-07/16, 07/17-07/19) vancomycin Augmentin (07/16, 07/17) Previous PO doxycycline 06/11/23-07/13/23 For her R great toe: Bactrim and clindamycin 11/2022. Doxycycline 01/2023-02/2023 Abx Allergies: amoxicillin (rash, reports this was ~20 years ago if not longer) ceftriaxone (reports this was while undergoing IV abx for spine infection in 2019, had high fevers to 105F and was hospitalized, diagnosed with drug fevers attributed to ceftriaxone) she is documented as having diarrhea to Bactrim but the patient does not recall this reaction patient reports that she has never had anaphylaxis (never had a drug reaction that involved her airway or swelling) (8) Post op infection Encounter type: initial encounter Postoperative infection type: superficial incisional surgical site Qualified Code(s): T81.41XA - Infection following a procedure, superficial incisional surgical site, initial encounter
[2023-07-19] MEDS ORDERED: ERTAPENEM SODIUM 500 MG in SYRINGE 0 ML IV SCH ×2 (16:00→18:00)
[2023-07-19] MEDS: ATORVASTATIN 40 MG TAB PO SCH (20:22)
[2023-07-19] MEDS: traMADol HCL 50 MG TABLET PO PRN (23:47)
[2023-07-20 06:25] LABS: Basophils # (auto) 0.03 K/uL (0.00-0.20); Basophils % (auto) 0.4 %; Eosinophils # (auto) 0.54 K/uL (0.00-0.50); Eosinophils % (auto) 6.7 %; Hematocrit (blood only) 27.5 % (37.0-47.0); Hemoglobin 8.9 g/dl (12.0-16.0); Immature Granulocytes # (auto) 0.08 K/uL (0.01-0.20); Lymphocytes % (auto) 16.2 %; Mean Corpuscular Hemoglobin 27.2 pg (25.0-34.0); Mean Corpuscular Hgb Conc 32.4 g/dL (32.0-36.0); Mean Corpuscular Volume 84.1 fL (80.0-100.0); Mean Platelet Volume 9.5 fL (9.4-12.4); Monocytes # (auto) 0.76 K/uL (0.11-0.59); Monocytes % (auto) 9.5 %; Neutrophils % (auto) 66.2 %; Platelet Count 458 K/uL (130-400); RDW Coefficient of Variation 12.7 % (11.5-14.5); RDW Standard Deviation 38.7 fL (36.4-46.3); Red Blood Count 3.27 M/uL (4.20-5.40); White Blood Count 8.01 K/ul (4.8-10.8)
[2023-07-20 06:37] LABS: BUN Creatinine Ratio 19.5 (10-20); C Reactive Protein 8.64 mg/dl (0-0.5); Calcium 8.1 mg/dl (8.6-10.3); Creatinine Clr Calc Pharmacy 36.9 ml/min; Est GFR (African American) 52.6 ml/min; Est GFR (Non-African American) 45.4 ml/min; Potassium 3.8 mmol/L (3.5-5.1)
[2023-07-20] MEDS: CHOLECALCIFEROL 1,000 UNITS 25 MCG TAB PO SCH (08:36)
[2023-07-20] MEDS: lisinopril 2.5 MG TAB PO SCH (08:36)
[2023-07-20] MEDS: CLOPIDOGREL BISULFATE 75 MG TAB PO SCH (08:36)
[2023-07-20] MEDS: METOPROLOL TARTRATE 25 MG TAB PO SCH (08:36)
[2023-07-20] MEDS: INSULIN ASPART PER UNIT CHARGE SC SCH ×2 (08:44→13:01)
[2023-07-20] MEDS: LANTUS PER UNIT CHARGE SC SCH (08:44)
[2023-07-20] MEDS ORDERED: ERTAPENEM SODIUM 500 MG in SYRINGE 0 ML IV ONE (12:00)
--- NOTE | 2023-07-20 13:48 | Discharge Summary ---
Date of Service July 20, 2023 Admission HPI Per Admitting Provider Patient is a 72-year-old female with past medical history of type 2 diabetes, previous right great toe amputation, arterial insufficiency of the lower extremity, obesity, PAD, hypertension, CAD, previous AR with 3 stents with the latest being in 2021, and hyperlipidemia who presents to the hospital for evaluation of fever. Patient recently had second digit amputation of the right foot performed on 07/10/2023. This was an outpatient, same-day procedure. She was discharged home without any complication during surgery. It seems she was initially doing fine but over the past 24 to 48 hours she had developed fever with a temperature of 102 F, chills, and decreased appetite. She had called her field test engineer, Dr. Ramos, who instructed her to go to the emergency room for evaluation. Denies any shortness of breath, chest pain, headache, nausea, or vomiting. No other complaints at this time. ED course: Patient evaluated by provider. Labs are significant for an elevated white blood cell count of 15.2, hemoglobin of 9.8, VBG pH of 7.46, lactate of 1.4, procalcitonin of 0.11, urinalysis not suggestive of UTI. Patient had a venous Doppler of the right lower extremity with no evidence of DVT. Foot x-ray was also taken. Blood cultures were taken prior to initiation of antibiotics. Patient was given vancomycin. The hospitalist service was consulted for further management and treatment. Admission Exam Per Admitting Provider Physical Exam Constitutional: well developed, well nourished and cooperative Eyes: + anicteric sclerae Respiratory: normal respiratory effort, lungs clear to auscultation Cardiovascular: Rate/Rhythm: regular rate and regular rhythm Extremities: + edema (trace edema b/l) Gastrointestinal (Abdomen): normal bowel sounds, soft, nontender, no hepatosplenomegaly Musculoskeletal: Head/Neck/Chest: normocephalic and head atraumatic Skin: normal turgor Patient's right lower extremity is bandaged but outside of bandage there is erythema that is well-demarcated and hot to the touch. No purulence. R second digit not visualized. Neurologic: moves all extremities Psychiatric: A+Ox3, euthymic affect Principal Diagnosis Cellulitis of the right foot in the setting of peripheral vascular disease Discharge Exam GENERAL : No acute distress EYES: No icterus, gaze conjugate NOSE: No evidence of epistaxis MOUTH: No lesions or candidiasis NECK: Supple LUNGS: CTA B/L, no wheezes, rales or rhonchi HEART: Regular, rate controlled ABDOMEN: Soft, NT, ND, BS Present EXTREMITIES: No LE edema, pedal pulses intact and equal bilaterally. Right foot bandaged with dressing in place and secure with orthopedic boot in place NEURO: A&OX3 Discharge Data Allergies Allergy/AdvReac Type Severity Reaction Status Date / Time amoxicillin Allergy Severe Rash Verified 07/22/23 08:24 neomycin Allergy Intermediate Rash Verified 07/22/23 08:24 propoxyphene Allergy Mild Rash Verified 07/22/23 08:24 [From Darvocet-N] ceftriaxone [From Rocephin] AdvReac Severe Fever Verified 07/22/23 08:24 sulfamethoxazole AdvReac Intermediate Diarrhea Verified 07/22/23 08:24 [From Bactrim] trimethoprim [From Bactrim] AdvReac Intermediate Diarrhea Verified 07/22/23 08:24 Consultations 07/14/23 23:40 ED Decision to Admit Stat 07/15/23 00:17 Consult Orthopedic Surgery Stat 07/15/23 01:18 Consult Podiatry Routine 07/15/23 08:19 Consult Vascular Surgery Routine 07/15/23 18:08 Consult Vascular Surgery Routine 07/19/23 09:29 Consult Infectious Diseases Routine Procedures Performed Operation Date: 07/15/23 15:00 Actual Procedures p Angio Extremity Unilateral - Bartolome Jones MD s Ultrasound Vascular Access - Bartolome Jones MD s Placement Art Occlusive Device - Bartolome Jones MD s SC Select Cath ALEP 3rd Order - Bartolome Jones MD Ordered Studies 07/14/23 21:58 US venous doppler LE RT Stat 07/15/23 14:20 CL Cath Imgs for PACS use only Routine Hospital Course (1) Sepsis: Patient is a 72-year-old female with past medical history of type 2 diabetes, previous right great toe amputation, arterial insufficiency of the lower extremity, obesity, PAD, hypertension, CAD, previous AR with 3 stents with the latest being in 2021, and hyperlipidemia who presents to the hospital for evaluation of fever. Patient likely having postoperative infection secondary to recent right second toe amputation. Patient admitted for antibiotic therapy and podiatry consultation. Sepsis suspect R DFI/cellulitis with ?osteo -Source of infection is likely recent surgery . Met SIRS criteria on admit.Lactate within normal limits, no evidence of endorgan damage Patient is no longer septic, treatment of osteomyelitis/cellulitis as noted below (2) Post op infection: Right foot, second toe cellulitis with suspected osteomyelitis S/p distal toe revision 07/10. Subsequently with worsening cellulitis and presumed osteo-. Podiatry following 07/15 was admitted on Vanco/Zosyn, Vanco subsequently discontinued and continued on Zosyn. Patient was improving clinically progressing, she was switched to Augmentin on 07/16 and developed 3 fevers of 3839.4*C within approximately 12 hours. Zosyn was resumed for concern of failure, given her history of drug fever reaction and amoxicillin allergy suspect that this was likely a drug reaction rather than progression of infection. Given fever with chills at the time cultures were repeated these remain negative at 24 hours For long-term management patient will need group B strep coverage which was cultured from her operative site. She was on doxycycline for several weeks leading up to this which may have suppressed other results; she is at risk for polymicrobial infection and gram-negative's as she is a diabetic and has severe limited vascular flow. She has monophasic flow to the right foot which is pending vascular intervention with popliteal bypass required; however this cannot be performed until her infection is managed. Due to this feels she is not likely to be a good candidate for daptomycin/targeted group B strep therapy and should be expanded. Reviewed with ID, Ertapenem 500 mg IV every 24 hours, renally adjusted Weekly CBC with differential, CMP, ESR, CRP. If creatinine clearance increases greater than 30 patient would need to be transition to ertapenem 1 g IV daily Outpatient allergy referral to formally test beta-lactam allergy/tolerance Patient to be discharged home today. IV antibiotics to be administered with her medical treatment unit on 07/21/2023 and 07/22/2023. Home health nursing will then present to the patient's house on 07/23/2023 for daily IV antibiotics for at least [address] Ramos. -Dressing change every other day with Aquacel and at further direction from podiatry -Follow-up with podiatry as an outpatient scheduled - Continue outpatient regimen of tramadol for pain (3) Right great toe amputee: -as above (4) Arterial insufficiency of lower extremity: Patient was evaluated by vascular surgery who will follow her up outpatient after the holidays (5) Diabetes mellitus: Continue sliding scale (6) Hypertension: -continue beta-blockade Resume lisinopril (7) CAD (coronary artery disease): -continue atorvastatin Resume Plavix Continue Xarelto (8) S/P coronary artery stent placement: -See above (9) Dyslipidemia: -Cont statin Plan Disposition: Discharge home with PICC with daily abx infusions as above DVT prophylaxis: SCDs, resume Xarelto CODE STATUS: Full code Total Time Total Time Spent Total Time Spent (In Minutes): 45 Discharge Plan Discharge Items Patient Disposition: Home - Self-Care Reason For Visit: FEVER Discharge Diagnosis: Sepsis secondary to postoperative infection and cellulitis Peripheral vascular disease with focal 95% right lower extremity occlusion. Vascular surgery follow-up Activity: Resume your previous activity Lifting: Gradually increase as tolerated Bathing: Keep incision dry Exercise/Sports: Gradually increase as tolerated Driving/Machine Use: After seen by surgeon Weightbearing: Full weightbearing Non-emergency contact: Primary Care Provider Call non-emergency contact if: you have any medication questions and your symptoms worsen Follow-up/Referrals: Medical Treatment Unit ([facility]) [Outside] - 07/21/23 9:00 am (They will administer your antibiotic at this appointment. ) Kenny Martinez, [Primary Care Provider] - Diet: Carb Consistent or DM2 and Heart Healthy Addtl Attending Provider Instructions: Advised to follow-up with PCP in 1 week Advised to follow-up with vascular surgery, Dr. Quintanilla, early July - Change dressing as directed by your surgeon. Suggest having MTU nurse change dressing tomorrow and Saturday. - Elevate lower extremities as tolerated - Compression sock on left leg only - Ambulate as tolerated by Dr. Ramos Pending Studies at Discharge: No Stand-Alone Forms: My [employer], Pain - Opioid Pain Management Medications and DC Order Prescriptions: New ertapenem 1 gram recon soln 500 mg IV DAILY Qty: 10 0RF tramadol 50 mg tablet 50 mg PO Q6H PRN (Reason: pain) Qty: 30 0RF Continued glimepiride 4 mg tablet 4 mg PO BID Qty: 180 3RF metformin 1,000 mg tablet 1,000 mg PO BID Qty: 180 2RF clopidogrel 75 mg tablet 75 mg PO QAM Qty: 90 1RF Xarelto 15 mg tablet 15 mg PO QPM Qty: 30 3RF Rx Instructions: must administer with evening meal atorvastatin 80 mg tablet See Rx Instructions .ROUTE .COMPLEX Qty: 90 1RF Dose Instruction: TAKE 1 TABLET BY MOUTH EVERYDAY AT BEDTIME Rx Instructions: TAKE 1 TABLET BY MOUTH EVERYDAY AT BEDTIME biotin 10 mg tablet 10 mg PO QAM cyanocobalamin (vitamin B-12) 1,000 mcg capsule 1,000 mcg PO 3XWK Rx Instructions: Takes Saturday, Saturday, Saturday only benzonatate 100 mg capsule 100 mg PO TID PRN (Reason: cough) 10 Days Qty: 30 1RF insulin glargine [Basaglar KwikPen U-100 Insulin] 100 unit/mL (3 mL) insulin pen 18 unit subcut QPM loratadine 10 mg tablet 10 mg PO HS PRN (Reason: seasonal allergies) magnesium oxide 400 mg magnesium tablet 400 mg PO BID acetaminophen [Tylenol Extra Strength] 500 mg tablet 1,000 mg PO BID cholecalciferol (vitamin D3) 25 mcg (1,000 unit) capsule 25 mcg PO QAM ferrous sulfate 325 mg (65 mg iron) Tablet 325 mg PO HS Probiotic Acidophilus 1.5 mg (250 million cell) Capsule 1,000 mmu cells PO QAM Patient Comments: not currently taking 07/08/23 lisinopril 2.5 mg tablet 2.5 mg PO QAM Rx Instructions: TAKE 1 TABLET BY MOUTH DAILY metoprolol tartrate 25 mg tablet 25 mg PO BID Rx Instructions: TAKE 1 TABLET BY MOUTH TWICE A DAY tramadol 50 mg tablet 50 mg PO DAILY PRN (Reason: pain) 30 Days Qty: 30 0RF No Action furosemide 20 mg tablet 20 mg PO DAILY PRN (Reason: edema) Qty: 30 1RF Discharge Orders: Discharge Order (Routine); Ordered 07/20/23 Ordered By: Jw Garay Admission Data Admit Date/Time: 07/15/23 01:17 Attending Provider: Kenny Mccartney Admit Provider: Micheal Soares Primary Care Provider: Kenny Martinez Other Providers: Rosa Ramos; Brian Asher; Ward Harmon; Bartolome Jones; Tristan Hawthorne; Mayi Callahan; China Mtz; Gayle Fernandes; Trish Zamora; Milka Matos; Jean Claude Pearce; Evita Bolden; Savannah Meadows Other Interventions: Discharge Summary Assessment (RN) Last Done: 07/20/23 13:15 Coding Level of Care Code 58276 INP/OBS DISCH >30 MIN Diagnoses Sepsis A41.9 Post op infection T81.41XA Encounter type: initial encounter Postoperative infection type: superficial incisional surgical site Right great toe amputee Z89.411 Arterial insufficiency of lower extremity I73.9 Diabetes mellitus E11.9 Hypertension I10 CAD (coronary artery disease) I25.10 S/P coronary artery stent placement Z95.5 Dyslipidemia E78.5
== END 2023-07-20 14:47 | disposition home health service (06) | DRG 862 ==
LOC: ED 21:25 → EDINP 07-15 01:17 → SUATTDRO 07-15 01:17 → EDINP 07-15 15:04 → 4W 07-15 16:35
PROC: CLB.AEU (2023-07-15 15:00)

== ENCOUNTER 2023-08-05 06:38 | Inpatient (IN) ==
--- NOTE | 2023-08-02 09:03 | Anesthesiology Consultation ---
Date of Service August 02, 2023 Assessment & Plan (1) Encounter for pre-operative examination: - check BSG am DOS. - discharge summary 07/20/23 [facility]: "... type 2 diabetes, previous right great toe amputation, arterial insufficiency of the lower extremity, obesity, PAD, hypertension, CAD, previous RI with 3 stents with the latest being in 2021, and hyperlipidemia who presents to the hospital for evaluation of fever....second digit amputation of the right foot performed on 07/10/2023. This was an outpatient, same-day procedure...discharged home without any complication during surgery...over the past 24 to 48 hours she had developed fever with a temperature of 102 F, chills, and decreased appetite...Sepsis...Lactate within normal limits, no evidence of endorgan damage...admitted on Vanco/Zosyn, Vanco subsequently discontinued and continued on Zosyn...was improving clinically progressing...switched to Augmentin on 07/16 and developed 3 fevers of 3839.4*C within approximately 12 hours. Zosyn was resumed for concern of failure, given her history of drug fever reaction and amoxicillin allergy suspect that this was likely a drug reaction rather than progression of infection. Given fever with chills at the time cultures were repeated these remain negative at 24 hours. ..will need group B strep coverage which was cultured from her operative site...on doxycycline for several weeks leading up to this which may have suppressed other results; she is at risk for polymicrobial infection and gram- negative's as she is a diabetic and has severe limited vascular flow...monophasic flow to the right foot which is pending vascular intervention with popliteal bypass required; however this cannot be performed until her infection is managed...she is not likely to be a good candidate for daptomycin/targeted group B strep therapy and should be expanded...Ertapenem 500 mg IV every 24 hours, renally adjusted...daily IV antibiotics for at least [address] Ramos..." - cardiology office visit 05/31/23: "...CAD s/p RCA STEMI s/p RCA and Cx PCI: No angina. She appears euvolemic on examination. Recommend antiplatelet therapy indefinitely. Aspirin has been discontinued by vascular while on anticoagulation therapy. If anticoagulation therapy is discontinued, would recommend dual antiplatelet therapy given multiple stents, including overlapping stents. Continue beta-jerman. Continue high-intensity statin therapy. 911 for angina that does not resolve within 5 minutes of nitroglycerin. Monitor CBC periodically while on anti-platelet therapy...Frequent PVCs: Does not appear to be significantly symptomatic. No specific therapy necessary but on beta-jerman given CAD...Follow up 6 months..." - Per city alderman on 08/01/2023: No known infectious disease contacts, current infectious disease symptoms in past 10 days or COVID positive test result in the past 30 days. Chart Review Chart Review: Acceptable Risk for Surgery and Patient NOT seen in Pre Admission Testing History Surgery Operation Date: 08/05/23 08:15 Proposed Procedures p Right Tibioperoneal Endarterectomy with Patch - Tristan Hawthorne MD Height/Weight Height: 5 ft Weight: 69.853 kg Allergies Allergy/AdvReac Type Severity Reaction Status Date / Time amoxicillin Allergy Severe Rash Verified 08/01/23 14:25 neomycin Allergy Intermediate Rash Verified 08/01/23 14:25 propoxyphene Allergy Mild Rash Verified 08/01/23 14:25 [From Darvocet-N] ceftriaxone [From Rocephin] AdvReac Severe Fever Verified 08/01/23 14:25 sulfamethoxazole AdvReac Intermediate Diarrhea Verified 08/01/23 14:25 [From Bactrim] trimethoprim [From Bactrim] AdvReac Intermediate Diarrhea Verified 08/01/23 14:25 Medications Home Medications Medication Instructions Recorded Confirmed Last Taken acetaminophen 500 mg tablet 1,000 mg PO BID 07/04/22 08/01/23 07/09/23 (Tylenol Extra Strength) insulin glargine 100 unit/mL (3 18 unit subcut QPM 07/04/22 08/01/23 07/13/23 mL) subcutaneous pen (Basaglar KwikPen U-100 Insulin) loratadine 10 mg tablet 10 mg PO HS PRN seasonal allergies 07/04/22 08/01/23 09/24/22 magnesium oxide 400 mg PO BID 07/04/22 08/01/23 07/09/23 cholecalciferol (vitamin D3) 25 25 mcg PO QAM 07/06/22 08/01/23 07/09/23 mcg (1,000 unit) capsule biotin 10 mg tablet 10 mg PO QAM 09/05/22 08/01/23 07/09/23 Lactobacillus acidophilus 250 1,000 mmu cells PO QAM 12/11/22 08/01/23 07/09/23 million cell capsule (Probiotic Acidophilus) ferrous sulfate 325 mg (65 mg 325 mg PO HS 12/11/22 08/01/23 07/09/23 iron) tablet glimepiride 4 mg tablet 4 mg PO BID #180 tabs 12/18/22 08/01/23 07/09/23 metformin 1,000 mg tablet 1,000 mg PO BID #180 tabs 12/18/22 08/01/23 07/09/23 clopidogrel 75 mg tablet 75 mg PO QAM #90 tabs 01/11/23 08/01/23 Unknown benzonatate 100 mg capsule 100 mg PO TID PRN cough 10 days 06/25/23 08/01/23 07/09/23 #30 caps cyanocobalamin (vitamin B-12) 1,000 mcg PO 3XWK 06/25/23 08/01/23 07/09/23 1,000 mcg capsule lisinopril 2.5 mg tablet 2.5 mg PO QAM 07/08/23 08/01/23 07/09/23 metoprolol tartrate 25 mg tablet 25 mg PO BID 07/15/23 08/01/23 Unknown ertapenem 1 gram solution for 500 mg IV DAILY #10 ea 07/20/23 08/01/23 Unknown injection tramadol 50 mg tablet 50 mg PO Q6H PRN pain #30 tabs 07/21/23 08/01/23 Unknown furosemide 20 mg tablet 20 mg PO DAILY PRN edema #30 tabs 07/26/23 08/01/23 Unknown aspirin 81 mg capsule 81 mg PO QAM 08/01/23 08/01/23 Unknown atorvastatin 80 mg tablet 80 mg PO HS 08/01/23 08/01/23 Unknown Past Medical History Medical History (Updated 08/02/23 @ 08:50 by Tamie Crump PA-C) Sepsis 06/2023, hospitalized @[facility], post-op infection; sent home on daily IV ertapenem Post op infection 06/2023, hospitalized @[facility], sent home on IV ertapenem daily History of COVID-19 Mar 2023 > not hospitalized Amputation toe rt hallux Hx of chest pain 2021, and pain in her jaw, had stress test then catheter[facility] with [facility] On anticoagulant therapy History of anesthesia reaction s/p knee arthroscopy took a "long time to wake up". PAD (peripheral artery disease) Cellulitis of right lower extremity August 2022, treated at [facility] [place] (obstructive sleep apnea) no device History of deviated nasal septum Back abscess hx- November 2019. no surgery - treated with antibiotics. Arthritis Myocardial infarct 01/17/21 Dyslipidemia Type 2 diabetes mellitus IDDM Hypertension Frequent PVCs pt denies/aware - pt does not have any symptoms CAD (coronary artery disease) 1 stent 2021 and 2 in 2020 Past Family History Family History Mother Heart disease Myocardial infarction Hypertension Brother Hypertension Uncle Diabetes Father Emphysema lung black lung Denies family history of Ovarian cancer Prostate cancer Breast cancer Lung cancer Colorectal cancer Stroke Past Surgical History Surgical History Hx of toe surgery partial distal symes amputation 06/2023 Hx of foot surgery Right Foot Ulcer Debridement, Bone Biopsy, Incision and Drainage History of cardiac cath 12/2020 at [facility] in [place] 2021, [facility] in [place]; f/u dr. morgan and dr. loyd, [facility] Status post angiography of extremity Right leg at [facility] with Dr Loyd. no stents placed>procedure done twice-3 vessels first time, 1 vessel second time. H/O colonoscopy Last colonoscopy 01/24/2017 Joint replaced left foot plus a revision of a toe joint H/O sinus surgery H/O arthroscopy of right knee H/O dilation and curettage H/O cervical polypectomy H/O breast biopsy Hx of cataract extraction Bilateral Hx of parathyroidectomy Hx of tubal ligation Hx of carpal tunnel repair bilateral S/P coronary artery stent placement x2 (01/19/21) + 01/31/22 x1 stent in circumflex artery (per patient) done at [facility] in . Follows with Dr Morgan Social History Smoking Status: Never smoker Do You Dip or Chew Tobacco: No Hx Alcohol Use: Yes Alcohol type: wine and hard liquor alcohol intake frequency: holidays/special occasions only Hx Substance Use: No substance use type: does not use Lab Results Anesthesia Preop Results Results Anesthesia Widget: WBC 9.56 K/ul (4.8-10.8) 08/01/23 Hgb 10.7 g/dl (12.0-16.0) L 08/01/23 Hct 34.3 % (37.0-47.0) L 08/01/23 Plt 435 K/uL (130-400) H 08/01/23 Na 141 mmol/L (136-145) 08/01/23 K 5.0 mmol/L (3.5-5.1) 08/01/23 Cl 106 mmol/L (98-107) 08/01/23 CO2 27 mmol/L (21-32) 08/01/23 BUN 26 mg/dl (6-23) H 08/01/23 Creat 1.21 mg/dl (0.6-1.2) H 08/01/23 Glucose Level 77 mg/dl (70-99(Fasting)) 08/01/23 POC Glucose 197 mg/dl (70-99) H 07/20/23 PT 11.5 Seconds (9.0-12.0) 08/01/23 PTT 33 Seconds (21-31) H 08/01/23 INR 1.1 (0.9-1.1) 08/01/23 HA1c 7.6 % (4.5-5.6) H 06/17/23 Urine Color Yellow 07/14/23 Urine Appearance Clear (Clear) 07/14/23 Urine pH 8.0 (4.5-7.5) H 07/14/23 Urine Specific [place] 1.018 (1.000-1.030) 07/14/23 Urine Protein 2+ (Negative) H 07/14/23 Urine Glucose (UA) Trace (Negative) H 07/14/23 Urine Ketones 1+ (Negative) H 07/14/23 Urine Blood Negative (Negative) 07/14/23 Urine Nitrite Negative (Negative) 07/14/23 Urine Bilirubin Negative (Negative) 07/14/23 Urine Urobilinogen Negative (Negative) 07/14/23 Urine Leukocyte Esterase Negative (Negative) 07/14/23 Urine WBC (Auto) 1-5 /hpf (0-5) 07/14/23 Urine RBC (Auto) 0-4 /hpf (0-4) 07/14/23 Urine Hyaline Casts (Auto) 0 /lpf (0-5) 07/14/23 Urine Epithelial Cells (Auto) 0-5 /lpf (0-5) 07/14/23 Urine Bacteria (Auto) Negative (Negative) 07/14/23 COVID-19 PCR NEGATIVE (Negative) 07/18/23 Blood Type O Negative 08/01/23 Antibody Screen NEGATIVE 08/01/23 Testing Electrocardiogram Date: 07/14/23 sinus tachycardia, rate 106 bpm Low voltage QRS Chest X-Ray Date: 07/14/23 *1view* The heart is mildly enlarged. The pulmonary vasculature is noncongested. Chronic interstitial thickening is similar to previous. There is mild bibasilar scarring/atelectasis. The lungs and pleural spaces are otherwise clear. No pneumothorax is seen. The skeletal structures are osteopenic. The bony thorax is grossly intact. IMPRESSION: No active disease in the chest. Echocardiogram Date: 08/09/22 EF 55-60% No LV regional wall motion abnormalities Mild cLVH No significant valvular abnormalities Stress Test Date: 01/19/22 Abnormal study-inferior defect consistent with prior inferior infarct and lateral/anterolateral defect consistent with ischemia Cardiac Catheterization Date: 01/31/22 Single vessel obstructive CAD s/p successful PCI to mid LCx with JESSICA Left main: angiographically normal LAD: 30% irregularities LCx: 90% stenosis RCA: patent distal RCA Estefani with in-stent irregularities
[~2023-08-05 06:38] MED LIST: CLINDAMYCIN/D5W 900 MG/50 ML BAG IV SCH; LACTATED RINGER'S 1,000 ML IV SCH
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
--- OUTSIDE RECORDS SUMMARY | 2023-08-05 06:44 | External Medical Summary | Continuity of Care Document ---
Author Name Unknown Organization [place] [address] [address] Address [address] [place], [place] [id number] Care Team Providers Care Hat Measurer Name Role Phone Kenny Martinez Primary Care Physician [phone] [id number] Date(s): 08/01/23 - 08/01/23 [place] [address] [place] [phone] Encounter Diagnosis Peripheral vascular disease(Discharge Diagnosis) - 08/01/23 Discharge Disposition: Home or Self Care Attending Physician: MD Marine, Tristan Garcia Referring Physician: DO Martinez Thomas Allergies, Adverse Reactions, Alerts Substance Reaction Severity Status amoxicillin rash Active neomycin rash Active cefTRIAXone Fever Severe Active Bactrim DS Upset stomach Active acetaminophen-oxycodone Eruption Mild Acti ve Medications albuterol CFC free 90 mcg/inh MDI [...] mg/day, PRN: as needed for pain, Pharmacy: [facility]/pharmacy #[id number] Start Date: 02/11/23 Stop Date: 02/18/23 Status: Ordered traMADol 50 mg oral tablet Start: 07/09/23 10:57:00 EST, 1 tab, PO, q4h, Disp# 20 tab, Refills: 0, not to exceed 400 mg/day, PRN: as needed for pain, Pharmacy: [facility]/pharmacy #[id number] Start Date: 07/09/23 Stop Date: 07/16/23 Status: Ordered Tylenol 500 mg oral tablet Start: 11/03/19 13:38:00 EDT, 1 tab, PO, Daily, PRN: as needed for pain Start Date: 11/03/19 Status: Ordered Ultram 50 mg oral tablet Start: 12/14/22 12:03:00 EDT, 1 tab, PO, q6h, Disp# 20 tab, Refills: 0, 400 mg max, PRN: as needed for pain, Pharmacy: [facility]/pharmacy #[id number] Start Date: 12/14/22 Stop Date: 12/19/22 Status: Ordered Vitamin B12 Start: 10/09/22 13:21:00 EDT, See Instructions, 1,000 mcg po q fri, sat, and sun Start Date: 10/09/22 Status: Ordered Vitamin D3 Start: 10/09/22 13:28:00 EDT Start Date: 10/09/22 Status: Ordered Mental Status 08/01/23 Barriers to Learning one year None evide nt Mandatory Health Literacy Documentation Yes Health Literacy Communication Barriers N ever Primary Language Honduran Problem List Condition Confirmation Course Effective Dates [...] Effective Dates Health Status Clinical Service Informant Peripheral vascular disease Discharge Diagnosis 08/01/23 Procedures Procedure Date Related Diagnosis Body Site [...] Status Never smoked cigaret marianna Sex Female Patient Care team information Care Team Personnel Name: EMILI Noe Lynn Position: Physician Rectangular Tank Cooper Exempt - Vasc Surg Member Role: Lifetime Relationship Address: Address: [address] [place] [address] 1 [place] [address] Name: DO Martinez Thomas Position: Referring Member Role: Primary Care Provider Address: Address: [facility] [address] [place] [address] [place] Care Team Related Persons Name: UTE SPRINGER Name: UTE SPRINGER Address: [facility] Address: home [address] [place] [phone] Name: CARLOS SPRINGER
--- NOTE | 2023-08-05 07:40 | History & Physical Report ---
Date of Service August 05, 2023 Assessment & Plan (1) Gangrene due to arterial insufficiency: Plan: At this point recommend an endarterectomy of the tibioperoneal trunk being that the lesion is so focal with patch angioplasty. If this cannot be done then a bypass will be done at the same time to to attempt limb salvage. She understands the risks options and benefits of this procedure which were stated in consent. She is agreeable to go ahead with this procedure. History of Present Illness Chief Complaint: Gangrene of toes Primary Care Provider: Kenny Martinez, DO I had the pleasure of seeing Wendi today for follow-up. 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 She does claim to have pain in her foot at night in bed which requires him to sit in a chair to relieve the discomfort. She has no pain during the day and has not taken anything for pain since . Allergies Allergy/AdvReac Type Severity Reaction Status Date / Time amoxicillin Allergy Severe Rash Verified 08/05/23 07:02 neomycin Allergy Intermediate Rash Verified 08/05/23 07:02 propoxyphene Allergy Mild Rash Verified 08/05/23 07:02 [From Darvocet-N] ceftriaxone [From Rocephin] AdvReac Severe Fever Verified 08/05/23 07:02 sulfamethoxazole AdvReac Intermediate Diarrhea Verified 08/05/23 07:02 [From Bactrim] trimethoprim [From Bactrim] AdvReac Intermediate Diarrhea Verified 08/05/23 07:02 Home Medications Medication Instructions Recorded Confirmed Type acetaminophen 500 mg tablet 1,000 mg PO BID 07/04/22 08/05/23 History (Tylenol Extra Strength) insulin glargine 100 unit/mL (3 18 unit subcut QPM 07/04/22 08/05/23 History mL) subcutaneous pen (Basaglar KwikPen U-100 Insulin) loratadine 10 mg tablet 10 mg PO HS PRN seasonal allergies 07/04/22 08/05/23 History magnesium oxide 400 mg PO BID 07/04/22 08/05/23 History cholecalciferol (vitamin D3) 25 25 mcg PO QAM 07/06/22 08/05/23 History mcg (1,000 unit) capsule biotin 10 mg tablet 10 mg PO QAM 09/05/22 08/05/23 History Lactobacillus acidophilus 250 1,000 mmu cells PO QAM 12/11/22 08/05/23 History million cell capsule (Probiotic Acidophilus) ferrous sulfate 325 mg (65 mg 325 mg PO HS 12/11/22 08/05/23 History iron) tablet glimepiride 4 mg tablet 4 mg PO BID #180 tabs 12/18/22 08/05/23 Rx metformin 1,000 mg tablet 1,000 mg PO BID #180 tabs 12/18/22 08/05/23 Rx clopidogrel 75 mg tablet 75 mg PO QAM #90 tabs 01/11/23 08/05/23 Rx benzonatate 100 mg capsule 100 mg PO TID PRN cough 10 days 06/25/23 08/05/23 Rx #30 caps cyanocobalamin (vitamin B-12) 1,000 mcg PO 3XWK 06/25/23 08/05/23 History 1,000 mcg capsule lisinopril 2.5 mg tablet 2.5 mg PO QAM 07/08/23 08/05/23 History metoprolol tartrate 25 mg tablet 25 mg PO BID 07/15/23 08/05/23 History ertapenem 1 gram solution for 500 mg IV DAILY #10 ea 07/20/23 08/05/23 Rx injection tramadol 50 mg tablet 50 mg PO Q6H PRN pain #30 tabs 07/21/23 08/05/23 Rx furosemide 20 mg tablet 20 mg PO DAILY PRN edema #30 tabs 07/26/23 08/05/23 Rx aspirin 81 mg capsule 81 mg PO QAM 08/01/23 08/05/23 History atorvastatin 80 mg tablet 80 mg PO HS 08/01/23 08/05/23 History Past Med/Surg History Medical History Sepsis 06/2023, hospitalized @[facility] [place], post-op infection; sent home on daily IV ertapenem Post op infection 06/2023, hospitalized @[facility], [place], sent home on IV ertapenem daily History of COVID-19 Mar 2023 > not hospitalized Amputation toe rt hallux Hx of chest pain 2021, and pain in her jaw, had stress test then [facility] History of anesthesia reaction s/p knee arthroscopy took a "long time to wake up". PAD (peripheral artery disease) Cellulitis of right lower extremity August 2022, treated at [facility] (obstructive sleep apnea) no device History of deviated nasal septum Back abscess hx- November 2019. no surgery - treated with antibiotics. Arthritis Myocardial infarct 01/17/21 Dyslipidemia Type 2 diabetes mellitus IDDM Hypertension Frequent PVCs pt denies/aware - pt does not have any symptoms CAD (coronary artery disease) 1 stent 2021 and 2 in 2020 Surgical History Hx of toe surgery partial distal symes amputation 06/2023 Hx of foot surgery Right Foot Ulcer Debridement, Bone Biopsy, Incision and Drainage History of cardiac cath 12/2020 at [facility] in [place] 2021, [facility] in [place]; f/u dr. morgan and dr. loyd, [facility] Status post angiography of extremity Right leg at [facility] with Dr Loyd. no stents placed>procedure done twice-3 vessels first time, 1 vessel second time. H/O colonoscopy Last colonoscopy 01/24/2017 Joint replaced left foot plus a revision of a toe joint H/O sinus surgery H/O arthroscopy of right knee H/O dilation and curettage H/O cervical polypectomy H/O breast biopsy Hx of cataract extraction Bilateral Hx of parathyroidectomy Hx of tubal ligation Hx of carpal tunnel repair bilateral S/P coronary artery stent placement x2 (01/19/21) + 01/31/22 x1 stent in circumflex artery (per patient) done at [facility] in [place]. Follows with Dr Morgan Family History Mother Heart disease Myocardial infarction Hypertension Brother Hypertension Uncle Diabetes Father Emphysema lung black lung Denies family history of Ovarian cancer Prostate cancer Breast cancer Lung cancer Colorectal cancer Stroke Social History Smoking Status: Never smoker Second Hand Exposure: No; Do You Dip or Chew Tobacco: No; Tobacco Cessation Education Requested by Patient: No Hx Alcohol Use: Yes Alcohol type: wine and hard liquor Alcohol Intake Frequency: Monthly or Less Hx Substance Use: No Preferred Language: Uzbek Communication Ability: Effective Visual Impairment: Limited Hearing Ability: Normal Placement Manager Required: No Beliefs That Will Affect Care: None marital status: / Current Living Situation: Alone current occupational status: retired How many Children do You have: 4 Other Information That Helps Us Care for You: No Feels Safe at Home: Yes Safety Concerns: Feels Safe At This Time Childhood Exposure to Second-Hand Smoke: No Diet: diabetic and low salt caffeine: Yes (1 cup a day) during the past year weight has: remained stable Dental Care, Regularly: Yes Physical Activity Frequency: 3-4 Times per Week Seatbelt Use: always Sunscreen Use: Yes Assistive Devices: Cane and Glasses Review of Systems All systems reviewed & are unremarkable except as noted in HPI & below Physical Exam Physical Exam: Constitutional: WD/WN, vitals as a alex + obese and cooperative; not i n distress ENMT: Ears: no hearing i mpairment Neck: trachea midline Respiratory: normal respiratory effort, lungs karla ar to auscultation Auscultation: + diminished lung so unds Cardiovascular: Rate/Rhythm: regul ar rate and regula r rhythm Vessels: femoral pulses pr esent, posterior t ibial pulses prese nt (dopplerable LL E), dorsalis pedis pulses present (d opplerable LLE, RL E dressing in plac e) and radial puls es present; + abno rmal peripheral pu lses Extremities: normal capillary refill (to LLE, RL E dressing in plac e) Gastrointestinal ( Abdomen): Inspection/Auscult ation: abdomen nor mal to inspection and normal bowel s ounds Percussion/ Palpation: abdomen soft; abdomen non tender Musculoskeletal: no cyanosis or clu bbing, extremities motor strength 5/ 5 Skin: + wound (R foot d ressing in place) Pt with skin mehta ges to BLE consist ent with venous in sufficiency vs lym phedema. Neurologic: moves all extremit ies and awake; no focal motor defici ts and not confuse d Psychiatric: A+Ox3, euthymic af fect Results & Data Vital Signs (Past 12 Hours) Vital Signs Temp Pulse Resp BP BP Pulse Ox O2 Del Method 08/05/23 07:10 36.7 C 79 20 148/73 H 159/100 H 98 Room Air
[2023-08-05] MEDS ORDERED: HEPARIN (PORCINE) 1000 UNIT/ML 10 ML (CATH LAB USE ONLY) ONE (07:47)
[2023-08-05] MEDS ORDERED: ceFAZolin 330 MG/ML 1 GM VIAL ONE (07:47)
[2023-08-05] MEDS ORDERED: GELATIN SPONGE SZ 100 ONE (07:47)
[2023-08-05] MEDS ORDERED: LIDOCAINE 2% 2 ML VIAL/AMP(20MG/ML) INFIL ONE (07:48)
[2023-08-05] MEDS ORDERED: PROPOFOL IV EMULSION 10 MG/ML 20 ML VIAL IV ONE (07:48)
[2023-08-05] MEDS ORDERED: THROMBIN FOR SOLN 20000 UNIT KIT ONE (07:48)
[2023-08-05] MEDS ORDERED: MIDAZOLAM HCL 1 MG/ML 2ML VIAL ONE (07:48)
[2023-08-05] MEDS ORDERED: fentaNYL citrate PF 100 MCG/2 ML VIAL ONE ×2 (07:48→08:51)
[2023-08-05] MEDS ORDERED: ROCURONIUM BROMIDE 10 MG/ML 5 ML VIAL IV ONE ×2 (07:48→09:41)
[2023-08-05] MEDS ORDERED: KETOROLAC 30 MG/ML VIAL IV PRN (08:05)
[2023-08-05] MEDS ORDERED: HYDROmorphone INJ 1 MG/ML SYRINGE IV PRN (08:05)
[2023-08-05] MEDS ORDERED: ATROPINE SULFATE 0.1 MG/ML 10ML SYR IV PRN (08:05)
[2023-08-05] MEDS ORDERED: LABETALOL HCL IV 5 MG/ML 20ML IV PRN (08:05)
[2023-08-05] MEDS ORDERED: PROMETHAZINE HCL 6.25 MG in SODIUM CHLORIDE 0.9% 50 ML IV PRN (08:05)
[2023-08-05] MEDS ORDERED: DEXAMETHASONE SOD INJ 4 MG/ML VIAL ONE (08:52)
[2023-08-05] MEDS ORDERED: PHENYLEPHRINE HCL 10 MG/ML VIAL ONE (09:40)
[2023-08-05] MEDS ORDERED: HEPARIN SOD (PORCINE) 1000 UNIT/ML ONE ×2 (09:41→10:33)
[2023-08-05] MEDS ORDERED: PROTAMINE SULFATE 10 MG/ML 5 ML VIAL IV ONE (11:00)
[2023-08-05] MEDS ORDERED: ONDANSETRON INJ 2 MG/ML 2 ML VIAL ONE (11:25)
[2023-08-05] MEDS ORDERED: SUGAMMADEX SODIUM 200 MG/2 ML VIAL IV ONE (11:25)
--- NOTE | 2023-08-05 11:30 | Post Operative Brief Note ---
Immediate Post Op Note v1 Date of Surgery August 05, 2023 Pre & Post Diagnosis Operation Date: 08/05/23 08:15 Pre-Op Diagnosis: Right Tibioperoneal Artery Occlusion with Gangrene Post-Op Diagnosis: Right Tibioperoneal Artery Occlusion with Gangrene I identified the patient and participated in the time-out.: Yes Procedure Operation Date: 08/05/23 08:15 Actual Procedures p Right Popliteal artery and Tibioperoneal trunk Endarterectomy with Patch(Right) - Tristan Hawthorne MD Surgeon Tristan Hawthorne MD Technical Services Librarian Ming,PAC Estimated Blood Loss 250 Findings Consistent with Post-Op Diagnosis Drains Moreno Catheter Anesthesia Type General Complications none Disposition Accompanied Patient To Recovery: No Disposition: Recovery Room
[2023-08-05 12:18] LABS: Basophils # (auto) 0.08 K/uL (0.00-0.20); Basophils % (auto) 1.2 %; Eosinophils # (auto) 0.18 K/uL (0.00-0.50); Eosinophils % (auto) 2.6 %; Hematocrit (blood only) 29.4 % (37.0-47.0); Hemoglobin 9.2 g/dl (12.0-16.0); Immature Granulocytes # (auto) 0.04 K/uL (0.01-0.20); Immature Granulocytes % (auto) 0.6 %; Lymphocytes # (auto) 0.66 K/uL (1.20-3.40); Lymphocytes % (auto) 9.7 %; Mean Corpuscular Hemoglobin 27.2 pg (25.0-34.0); Mean Corpuscular Hgb Conc 31.3 g/dL (32.0-36.0); Mean Platelet Volume 9.7 fL (9.4-12.4); Monocytes # (auto) 0.12 K/uL (0.11-0.59); Monocytes % (auto) 1.8 %; Neutrophils # (auto) 5.74 K/uL (1.40-6.50); Neutrophils % (auto) 84.1 %; Platelet Count 311 K/uL (130-400); Red Blood Count 3.38 M/uL (4.20-5.40); White Blood Count 6.82 K/ul (4.8-10.8)
[2023-08-05] MEDS ORDERED: LORATADINE 10 MG TAB PO PRN (12:43)
[2023-08-05] MEDS ORDERED: BENZONATATE 100 MG CAPSULE PO PRN (12:43)
[2023-08-05] MEDS ORDERED: ONDANSETRON INJ 2 MG/ML 2 ML VIAL IV PRN (12:43)
[2023-08-05] MEDS ORDERED: LACTATED RINGER'S 1,000 ML IV SCH (12:43)
[2023-08-05] MEDS ORDERED: FUROSEMIDE 20 MG TAB PO PRN (12:43)
[2023-08-05] MEDS ORDERED: oxyCODONE/ACETAMINOPHEN 5mg/325mg TAB PO ONE (13:04)
--- NOTE | 2023-08-05 13:15 | Anesthesiology Progress Note ---
Date of Service August 05, 2023 Anesthesia Post Procedure Vital Signs Vital Signs: Temp Pulse Pulse Resp BP BP Pulse Ox 08/05/23 12:20 36.6 C 88 14 134/79 92 08/05/23 12:10 90 13 125/83 99 08/05/23 12:00 90 14 128/74 99 08/05/23 11:50 90 15 151/79 H 100 08/05/23 11:43 36.6 C 94 H 13 138/78 99 08/05/23 07:10 36.7 C 79 20 148/73 H 159/100 H 98 O2 Del Method O2 Flow Rate 08/05/23 12:20 Room Air 08/05/23 12:10 Oxymask 5 08/05/23 12:00 Oxymask 5 08/05/23 11:50 Oxymask 9 08/05/23 11:43 Oxymask 9 08/05/23 07:10 Room Air Pain Intensity Right Leg: Pain Intensity: 4 Transfer of Care Handoff Completed per policy Notes Mental Status: alert / awake / arousable Patient Amnestic to Procedure: Yes Nausea / Vomiting: adequately controlled Pain: adequately controlled Airway Patency, RR, SpO2: stable & adequate BP & HR: stable & adequate Hydration State: stable & adequate Anesthetic Complications: no major complications apparent
[2023-08-05] MEDS ORDERED: DEXTROSE 50% 50 ML SYRINGE IV PRN (13:37)
[2023-08-05] MEDS ORDERED: GLUCAGON FOR INJ 1 MG VIAL SQ PRN (13:37)
[2023-08-05] MEDS ORDERED: CARBOHYDRATES FOR HYPOGLYCEMIA PO PRN (13:37)
[2023-08-05] MEDS ORDERED: GLUCOSE 10 TAB/TUBE PO PRN (13:37)
[2023-08-05] MEDS ORDERED: GLUCOSE 40% GEL 15 GM TUBE PO PRN (13:37)
--- NOTE | 2023-08-05 14:05 | Critical Care Consultation ---
Date of Consultation August 05, 2023 Assessment & Plan (1) Gangrene due to arterial insufficiency: (2) Osteomyelitis of second toe of right foot: (3) Obesity: (4) Diabetes mellitus: (5) PAD (peripheral artery disease): (6) Hypertension: Plan Impression: 72-year-old female with diabetes, peripheral arterial disease, obesity, hypertension, coronary disease and hyperlipidemia with ongoing gangrene and arterial insufficiency of the right lower extremity status post endarter ectomy at the right popliteal artery with patch placement. Recommendations: 1. Peripheral vascular disease: Continue observation in the ICU with serial exams to ensure patency of the right popliteal artery. Management per vascular surgery. 2. Diabetes: Continue glycemic control with home medications. 3. Hypertension: Continue home and hypertensives. 4. Osteomyelitis: Continue Invanz. Additional antibiotics per ID. 5. Activity per vascular surgery. Patient's critical care issues have been largely addressed by the vascular surgery team. Will continue to follow for additional critical care issues. Feel free to contact us with questions or concerns. History of Present Illness Attending Physician: Tristan Hawthorne MD History of Present Illness Asked by vascular surgery service to assist in postoperative management of this patient status post right popliteal endarterectomy. History is obtained from discussion with the patient as well as review of the electronic medical record. Patient is a 72-year-old female with a history of osteomyelitis and gangrene of the right foot. She has known occlusion of her tibioperoneal trunk in the right lower extremity. She has significant rest pain. She was dismissed from the hospital 07/20/2023 after being treated with osteomyelitis. She was seen by podiatry during that hospitalization it was recommended that she be on antibiotics. She continued with antibiotics per infectious disease and followed up with vascular surgery who deemed her to be an appropriate candidate for endarterectomy/angioplasty which was conducted today. The patient returns to the ICU hemodynamically stable with a good surgical response. She is not complaining of any significant pain at her operative sites. She does not report any chest pain, palpitations, or significant syncope or presyncope. She is tolerated a diet. Her hemodynamics have been stable. Allergies Allergy/AdvReac Type Severity Reaction Status Date / Time amoxicillin Allergy Severe Rash Verified 08/05/23 07:02 neomycin Allergy Intermediate Rash Verified 08/05/23 07:02 propoxyphene Allergy Mild Rash Verified 08/05/23 07:02 [From Darvocet-N] ceftriaxone [From Rocephin] AdvReac Severe Fever Verified 08/05/23 07:02 sulfamethoxazole AdvReac Intermediate Diarrhea Verified 08/05/23 07:02 [From Bactrim] trimethoprim [From Bactrim] AdvReac Intermediate Diarrhea Verified 08/05/23 07:02 Home Medications Medication Instructions Recorded Confirmed Type acetaminophen 500 mg tablet 1,000 mg PO BID 07/04/22 08/05/23 History (Tylenol Extra Strength) insulin glargine 100 unit/mL (3 18 unit subcut QPM 07/04/22 08/05/23 History mL) subcutaneous pen (Basaglar KwikPen U-100 Insulin) loratadine 10 mg tablet 10 mg PO HS PRN seasonal allergies 07/04/22 08/05/23 History magnesium oxide 400 mg PO BID 07/04/22 08/05/23 History cholecalciferol (vitamin D3) 25 25 mcg PO QAM 07/06/22 08/05/23 History mcg (1,000 unit) capsule biotin 10 mg tablet 10 mg PO QAM 09/05/22 08/05/23 History Lactobacillus acidophilus 250 1,000 mmu cells PO QAM 12/11/22 08/05/23 History million cell capsule (Probiotic Acidophilus) ferrous sulfate 325 mg (65 mg 325 mg PO HS 12/11/22 08/05/23 History iron) tablet glimepiride 4 mg tablet 4 mg PO BID #180 tabs 12/18/22 08/05/23 Rx metformin 1,000 mg tablet 1,000 mg PO BID #180 tabs 12/18/22 08/05/23 Rx clopidogrel 75 mg tablet 75 mg PO QAM #90 tabs 01/11/23 08/05/23 Rx benzonatate 100 mg capsule 100 mg PO TID PRN cough 10 days 06/25/23 08/05/23 Rx #30 caps cyanocobalamin (vitamin B-12) 1,000 mcg PO 3XWK 06/25/23 08/05/23 History 1,000 mcg capsule lisinopril 2.5 mg tablet 2.5 mg PO QAM 07/08/23 08/05/23 History metoprolol tartrate 25 mg tablet 25 mg PO BID 07/15/23 08/05/23 History ertapenem 1 gram solution for 500 mg IV DAILY #10 ea 07/20/23 08/05/23 Rx injection tramadol 50 mg tablet 50 mg PO Q6H PRN pain #30 tabs 07/21/23 08/05/23 Rx furosemide 20 mg tablet 20 mg PO DAILY PRN edema #30 tabs 07/26/23 08/05/23 Rx aspirin 81 mg capsule 81 mg PO QAM 08/01/23 08/05/23 History atorvastatin 80 mg tablet 80 mg PO HS 08/01/23 08/05/23 History Patient History Medical History Sepsis 06/2023, hospitalized @[facility], post-op infection; sent home on daily IV ertapenem Post op infection 06/2023, hospitalized @[facility], sent home on IV ertapenem daily History of COVID-16 Apr 2023 > not hospitalized Amputation toe rt hallux Hx of chest pain 2021, and pain in her jaw, had stress test then catheterization [facility] x[facility] anticoagulant therapy History of anesthesia reaction s/p knee arthroscopy took a "long time to wake up". PAD (peripheral artery disease) Cellulitis of right lower extremity August 2022, treated at [facility] (obstructive sleep apnea) no device History of deviated nasal septum Back abscess hx- November 2019. no surgery - treated with antibiotics. Arthritis Myocardial infarct 01/17/21 Dyslipidemia Type 2 diabetes mellitus IDDM Hypertension Frequent PVCs pt denies/aware - pt does not have any symptoms CAD (coronary artery disease) 1 stent 2021 and 2 in 2020 Surgical History Hx of toe surgery partial distal symes amputation 06/2023 Hx of foot surgery Right Foot Ulcer Debridement, Bone Biopsy, Incision and Drainage History of cardiac cath 12/2020 at [facility] in [place] 2021, [facility] in [place]; f/u dr. morgan and dr. loyd, [facility] Status post angiography of extremity Right leg at [facility] with Dr Loyd. no stents placed>procedure done twice-3 vessels first time, 1 vessel second time. H/O colonoscopy Last colonoscopy 01/24/2017 Joint replaced left foot plus a revision of a toe joint H/O sinus surgery H/O arthroscopy of right knee H/O dilation and curettage H/O cervical polypectomy H/O breast biopsy Hx of cataract extraction Bilateral Hx of parathyroidectomy Hx of tubal ligation Hx of carpal tunnel repair bilateral S/P coronary artery stent placement x2 (01/19/21) + 01/31/22 x1 stent in circumflex artery (per patient) done at [facility] in [place]. Follows with Dr Morgan Family History Mother Heart disease Myocardial infarction Hypertension Brother Hypertension Uncle Diabetes Father Emphysema lung black lung Denies family history of Ovarian cancer Prostate cancer Breast cancer Lung cancer Colorectal cancer Stroke Social History Smoking Status: Never smoker Second Hand Exposure: No; Do You Dip or Chew Tobacco: No; Tobacco Cessation Education Requested by Patient: No Hx Alcohol Use: Yes Alcohol type: wine and hard liquor Alcohol Intake Frequency: Monthly or Less Hx Substance Use: No Preferred Language: Uzbek Communication Ability: Effective Visual Impairment: Limited Hearing Ability: Normal Thread Weaver Required: No Beliefs That Will Affect Care: None marital status: / Current Living Situation: Alone current occupational status: retired How many Children do You have: 4 Other Information That Helps Us Care for You: No Feels Safe at Home: Yes Safety Concerns: Feels Safe At This Time Childhood Exposure to Second-Hand Smoke: No Diet: diabetic and low salt caffeine: Yes (1 cup a day) during the past year weight has: remained stable Dental Care, Regularly: Yes Physical Activity Frequency: 3-4 Times per Week Seatbelt Use: always Sunscreen Use: Yes Assistive Devices: Cane and Glasses Review of Systems Review of Systems: Please refer to admission H&P. No additions or deletions Physical Exam Physical Exam: Constitutional: WD/WN, vitals as a alex + obese and cooperative; not i n distress ENMT: Ears: no hearing i mpairment Neck: trachea midline Respiratory: normal respiratory effort, lungs karla ar to auscultation Auscultation: + diminished lung so unds Cardiovascular: Rate/Rhythm: regul ar rate and regula r rhythm Vessels: femoral pulses pr esent, posterior t ibial pulses prese nt (dopplerable LL E), dorsalis pedis pulses present (d opplerable LLE, RL E dressing in plac e) and radial puls es present; + abno rmal peripheral pu lses Extremities: normal capillary refill (to LLE, RL E dressing in plac e) Gastrointestinal ( Abdomen): Inspection/Auscult ation: abdomen nor mal to inspection and normal bowel s ounds Percussion/ Palpation: abdomen soft; abdomen non tender Musculoskeletal: no cyanosis or clu bbing, extremities motor strength 5/ 5 Skin: + wound (R foot d ressing in place) Pt with skin mehta ges to BLE consist ent with venous in sufficiency vs lym phedema. Neurologic: moves all extremit ies and awake; no focal motor defici ts and not confuse d Psychiatric: A+Ox3, euthymic af fect Results & Data Results & Data Vital Signs (Past 12 Hours) Vital Signs Temp Pulse Pulse Pulse Resp BP BP 08/05/23 13:00 86 17 08/05/23 13:00 123/71 08/05/23 13:00 36.8 C 08/05/23 12:36 87 16 121/74 08/05/23 12:20 36.6 C 88 14 134/79 08/05/23 12:10 90 13 125/83 08/05/23 12:00 90 14 128/74 08/05/23 11:50 90 15 151/79 H 08/05/23 11:43 36.6 C 94 H 13 138/78 08/05/23 07:10 36.7 C 79 20 148/73 H BP Pulse Ox O2 Del Method O2 Flow Rate 08/05/23 13:00 93 08/05/23 13:00 08/05/23 13:00 08/05/23 12:36 91 Room Air 08/05/23 12:20 92 Room Air 08/05/23 12:10 99 Oxymask 5 08/05/23 12:00 99 Oxymask 5 08/05/23 11:50 100 Oxymask 9 08/05/23 11:43 99 Oxymask 9 08/05/23 07:10 159/100 H 98 Room Air Critical Care Results & Data Vital Signs (Past 12 Hours) Vital Signs Temp Pulse Pulse Pulse Resp BP BP 08/05/23 13:00 86 17 08/05/23 13:00 123/71 08/05/23 13:00 36.8 C 08/05/23 12:36 87 16 121/74 08/05/23 12:20 36.6 C 88 14 134/79 08/05/23 12:10 90 13 125/83 08/05/23 12:00 90 14 128/74 08/05/23 11:50 90 15 151/79 H 08/05/23 11:43 36.6 C 94 H 13 138/78 08/05/23 07:10 36.7 C 79 20 148/73 H BP Pulse Ox O2 Del Method O2 Flow Rate 08/05/23 13:00 93 08/05/23 13:00 08/05/23 13:00 08/05/23 12:36 91 Room Air 08/05/23 12:20 92 Room Air 08/05/23 12:10 99 Oxymask 5 08/05/23 12:00 99 Oxymask 5 08/05/23 11:50 100 Oxymask 9 08/05/23 11:43 99 Oxymask 9 08/05/23 07:10 159/100 H 98 Room Air Lab & Micro Results (Past 24 Hours) RBC 3.38 M/uL (4.20-5.40) L 08/05/23 WBC 6.82 K/ul (4.8-10.8) 08/05/23 Hgb 9.2 g/dl (12.0-16.0) L 08/05/23 Hct 29.4 % (37.0-47.0) L 08/05/23 MCV 87.0 fL (80.0-100.0) 08/05/23 MCH 27.2 pg (25.0-34.0) 08/05/23 MCHC 31.3 g/dL (32.0-36.0) L 08/05/23 RDW Standard Deviation 44.0 fL (36.4-46.3) 08/05/23 RDW Coefficient of Variation 14.0 % (11.5-14.5) 08/05/23 Plt Count 311 K/uL (130-400) 08/05/23 MPV 9.7 fL (9.4-12.4) 08/05/23 Neutrophils (%) (Auto) 84.1 % 08/05/23 Lymphocytes (%) (Auto) 9.7 % 08/05/23 Monocytes # (Auto) 0.12 K/uL (0.11-0.59) 08/05/23 Eosinophils # (Auto) 0.18 K/uL (0.00-0.50) 08/05/23 Immature Granulocyte % (Auto) 0.6 % 08/05/23 Neutrophils # (Auto) 5.74 K/uL (1.40-6.50) 08/05/23 Lymphocytes # (Auto) 0.66 K/uL (1.20-3.40) L 08/05/23 Monocytes # (Auto) 0.12 K/uL (0.11-0.59) 08/05/23 Eosinophils # (Auto) 0.18 K/uL (0.00-0.50) 08/05/23 Basophils # (Auto) 0.08 K/uL (0.00-0.20) 08/05/23 Immature Granulocyte # (Auto) 0.04 K/uL (0.01-0.20) 4 No Data to Display No Data to Display I & O Totals 24 Hours 08/04/23 08/05/23 08/06/23 06:59 06:59 06:59 Intake Total 1408.667 / 1408.667 Output Total 250 / 250 Balance 1158.667 / 1158.667 Cumulative 08/01/23 11:41 thru 08/05/23 13:10 Intake Total 1408.667 Output Total 250 Balance 1158.667 RT Ventilator Mngmt (Last Documented) Ventilator Ordered Settings Respiratory Rate 17 08/05/23 13:00 Ventilator - PT Measurements Respiratory Rate 17 Coding Level of Care Code 39522 IN/OBS CONSULT LVL 4,60M Diagnoses Gangrene due to arterial insufficiency I77.1; I96 Osteomyelitis of second toe of right foot M86.9 Obesity E66.9 Diabetes mellitus E11.9 PAD (peripheral artery disease) I73.9 Hypertension I10
[2023-08-05] MEDS: INSULIN ASPART PER UNIT CHARGE SC SCH ×3 (14:55→20:16)
[2023-08-05] MEDS: ERTAPENEM SODIUM 500 MG in SYRINGE 0 ML IV SCH (14:56)
[2023-08-05] MEDS: CLINDAMYCIN/D5W 600 MG/50 ML BAG IV SCH ×2 (15:36→20:22)
[2023-08-05] MEDS ORDERED: INSULIN ASPART PER UNIT CHARGE SC SCH (16:30)
[2023-08-05] MEDS: MoRPHine SULFATE 4 MG/ML 1 ML CARP\\VIAL IV PRN (18:36)
[2023-08-05] MEDS: ATORVASTATIN 40 MG TAB PO SCH (19:50)
[2023-08-05] MEDS: FERROUS SULFATE 325 MG TAB PO SCH (19:51)
[2023-08-05] MEDS: GLIMEPIRIDE 2 MG TAB PO SCH (19:52)
[2023-08-05] MEDS: MAGNESIUM OXIDE 400 MG TAB PO SCH (19:53)
[2023-08-05] MEDS: METOPROLOL TARTRATE 25 MG TAB PO SCH (19:54)
[2023-08-05] MEDS: LANTUS PER UNIT CHARGE SQ SCH (20:17)
[2023-08-06] MEDS: MoRPHine SULFATE 4 MG/ML 1 ML CARP\\VIAL IV PRN ×2 (01:06→07:16)
[2023-08-06 05:18] LABS: Basophils # (auto) 0.07 K/uL (0.00-0.20); Basophils % (auto) 0.7 %; Eosinophils # (auto) 0.04 K/uL (0.00-0.50); Eosinophils % (auto) 0.4 %; Hematocrit (blood only) 27.2 % (37.0-47.0); Hemoglobin 8.3 g/dl (12.0-16.0); Immature Granulocytes # (auto) 0.05 K/uL (0.01-0.20); Immature Granulocytes % (auto) 0.5 %; Lymphocytes # (auto) 1.22 K/uL (1.20-3.40); Lymphocytes % (auto) 11.4 %; Mean Corpuscular Hemoglobin 26.8 pg (25.0-34.0); Mean Corpuscular Hgb Conc 30.5 g/dL (32.0-36.0); Mean Corpuscular Volume 87.7 fL (80.0-100.0); Monocytes # (auto) 1.08 K/uL (0.11-0.59); Monocytes % (auto) 10.1 %; Neutrophils # (auto) 8.25 K/uL (1.40-6.50); Neutrophils % (auto) 76.9 %; Platelet Count 333 K/uL (130-400); RDW Standard Deviation 44.6 fL (36.4-46.3); White Blood Count 10.71 K/ul (4.8-10.8)
[2023-08-06 05:32] LABS: Calcium 8.6 mg/dl (8.6-10.3); Creatinine Clr Calc Pharmacy 35.2 ml/min; Est GFR (African American) 49.6 ml/min; Est GFR (Non-African American) 42.8 ml/min; Potassium 4.6 mmol/L (3.5-5.1)
--- NOTE | 2023-08-06 07:16 | Critical Care Progress Note ---
Date of Service August 06, 2023 Assessment & Plan Admission and Anticipated Discharge Date Admission Date: August 05, 2023 Results & Data Results & Data Vital Signs (Past 12 Hours) Vital Signs Temp Pulse Resp BP Pulse Ox 08/06/23 02:26 37.0 C 08/06/23 02:20 78 16 94 08/06/23 02:10 82 16 92 08/06/23 02:00 114/60 08/06/23 02:00 84 14 94 08/06/23 01:50 86 25 H 94 08/06/23 01:40 88 23 94 08/06/23 01:30 87 16 95 08/06/23 01:20 85 20 95 08/06/23 01:10 87 21 95 08/06/23 01:00 130/71 08/06/23 01:00 86 19 97 08/06/23 00:50 78 16 92 08/06/23 00:40 83 22 94 08/06/23 00:30 81 15 96 08/06/23 00:20 82 14 97 08/06/23 00:10 81 16 95 08/06/23 00:00 125/61 08/06/23 00:00 86 15 96 08/05/23 23:50 82 19 94 08/05/23 23:40 83 15 95 08/05/23 23:30 87 14 96 08/05/23 23:20 88 16 95 08/05/23 23:10 90 19 91 08/05/23 23:00 111/57 L 08/05/23 23:00 84 16 94 08/05/23 22:50 87 20 95 08/05/23 22:40 85 16 93 08/05/23 22:30 86 15 95 08/05/23 22:20 85 17 95 08/05/23 22:10 87 16 94 08/05/23 22:00 112/58 L 08/05/23 22:00 86 14 93 08/05/23 21:50 86 15 94 08/05/23 21:40 86 15 96 08/05/23 21:30 89 14 95 08/05/23 21:20 89 15 96 08/05/23 21:10 92 H 16 94 08/05/23 21:00 103 H 28 H 95 08/05/23 21:00 122/74 08/05/23 21:00 37.0 C 08/05/23 20:50 103 H 21 96 08/05/23 20:40 107 H 20 95 08/05/23 20:30 95 H 15 93 08/05/23 20:20 100 H 21 96 08/05/23 20:10 99 H 18 96 08/05/23 20:00 100 H 17 94 08/05/23 20:00 117/52 L 08/05/23 19:53 99 H 16 94 08/05/23 19:53 127/63 08/05/23 19:53 127/63 08/05/23 19:50 100 H 19 94 08/05/23 19:40 105 H 20 96 08/05/23 19:30 103 H 15 95 08/05/23 19:20 100 H 24 96
[2023-08-06] MEDS: oxyCODONE/ACETAMINOPHEN 5mg/325mg TAB PO PRN ×2 (07:17→22:13)
--- NOTE | 2023-08-06 07:40 | Critical Care Progress Note ---
Date of Service August 06, 2023 Assessment & Plan (1) Gangrene due to arterial insufficiency: (2) Osteomyelitis of second toe of right foot: (3) Obesity: (4) Diabetes mellitus: (5) PAD (peripheral artery disease): (6) Hypertension: Plan Impression: 72-year-old female with diabetes, peripheral arterial disease, obesity, hypertension, coronary disease and hyperlipidemia with ongoing gangrene and arterial insufficiency of the right lower extremity postop day 1 endarterectomy at the right popliteal artery with patch placement. Recommendations: 1. Peripheral vascular disease: Pulses remain dopplerable. Management per vascular surgery. 2. Diabetes: Continue glycemic control with home medications. 3. Hypertension: Continue home and hypertensives. 4. Osteomyelitis: Continue Invanz. Additional antibiotics per ID. 5. Activity per vascular surgery. Patient's critical care issues appear resolved. Critical care services will sign off. Disposition per vascular surgery. Feel free to contact us if we can be of additional assistance Admission and Anticipated Discharge Date Admission Date: August 05, 2023 Subjective Patient seen and examined. EMR reviewed. Discussed with critical care nurse at bedside. Patient did well overnight. She had some intermittent discomfort at the surgical sites but this is resolved this morning. The graft appears functional with dopplerable peripheral pulses on the right lower extremity. Incisions are clean dry and intact. She is tolerating a diet. Review of Systems Review of Systems: All systems reviewed & are unremarkable except as noted in Subjective Physical Exam Physical Exam: Constitutional: WD/WN, vitals as a alex + obese and cooperative; not i n distress ENMT: Ears: no hearing i mpairment Neck: trachea midline Respiratory: normal respiratory effort, lungs karla ar to auscultation Auscultation: + diminished lung so unds Cardiovascular: Rate/Rhythm: regul ar rate and regula r rhythm Vessels: femoral pulses pr esent, posterior t ibial pulses prese nt (dopplerable LL E), dorsalis pedis pulses present (d opplerable LLE, RL E dressing in plac e) and radial puls es present; + abno rmal peripheral pu lses Extremities: normal capillary refill (to LLE, RL E dressing in plac e) Gastrointestinal ( Abdomen): Inspection/Auscult ation: abdomen nor mal to inspection and normal bowel s ounds Percussion/ Palpation: abdomen soft; abdomen non tender Musculoskeletal: no cyanosis or clu bbing, extremities motor strength 5/ 5 Skin: + wound (R foot d ressing in place) Pt with skin mehta ges to BLE consist ent with venous in sufficiency vs lym phedema. Neurologic: moves all extremit ies and awake; no focal motor defici ts and not confuse d Psychiatric: A+Ox3, euthymic af fect Results & Data Results & Data Vital Signs (Past 12 Hours) Vital Signs Temp Pulse Resp BP Pulse Ox 08/06/23 02:26 37.0 C 08/06/23 02:20 78 16 94 08/06/23 02:10 82 16 92 08/06/23 02:00 114/60 08/06/23 02:00 84 14 94 08/06/23 01:50 86 25 H 94 08/06/23 01:40 88 23 94 08/06/23 01:30 87 16 95 08/06/23 01:20 85 20 95 08/06/23 01:10 87 21 95 08/06/23 01:00 130/71 08/06/23 01:00 86 19 97 08/06/23 00:50 78 16 92 08/06/23 00:40 83 22 94 08/06/23 00:30 81 15 96 08/06/23 00:20 82 14 97 08/06/23 00:10 81 16 95 08/06/23 00:00 125/61 08/06/23 00:00 86 15 96 08/05/23 23:50 82 19 94 08/05/23 23:40 83 15 95 08/05/23 23:30 87 14 96 08/05/23 23:20 88 16 95 08/05/23 23:10 90 19 91 08/05/23 23:00 111/57 L 08/05/23 23:00 84 16 94 08/05/23 22:50 87 20 95 08/05/23 22:40 85 16 93 08/05/23 22:30 86 15 95 08/05/23 22:20 85 17 95 08/05/23 22:10 87 16 94 08/05/23 22:00 112/58 L 08/05/23 22:00 86 14 93 08/05/23 21:50 86 15 94 08/05/23 21:40 86 15 96 08/05/23 21:30 89 14 95 08/05/23 21:20 89 15 96 08/05/23 21:10 92 H 16 94 08/05/23 21:00 103 H 28 H 95 08/05/23 21:00 122/74 08/05/23 21:00 37.0 C 08/05/23 20:50 103 H 21 96 08/05/23 20:40 107 H 20 95 08/05/23 20:30 95 H 15 93 08/05/23 20:20 100 H 21 96 08/05/23 20:10 99 H 18 96 08/05/23 20:00 100 H 17 94 08/05/23 20:00 117/52 L 08/05/23 19:53 99 H 16 94 08/05/23 19:53 127/63 08/05/23 19:53 127/63 08/05/23 19:50 100 H 19 94 08/05/23 19:40 105 H 20 96 Critical Care Results & Data Vital Signs (Past 12 Hours) Vital Signs Temp Pulse Resp BP Pulse Ox 08/06/23 02:26 37.0 C 08/06/23 02:20 78 16 94 08/06/23 02:10 82 16 92 08/06/23 02:00 114/60 08/06/23 02:00 84 14 94 08/06/23 01:50 86 25 H 94 08/06/23 01:40 88 23 94 08/06/23 01:30 87 16 95 08/06/23 01:20 85 20 95 08/06/23 01:10 87 21 95 08/06/23 01:00 130/71 08/06/23 01:00 86 19 97 08/06/23 00:50 78 16 92 08/06/23 00:40 83 22 94 08/06/23 00:30 81 15 96 08/06/23 00:20 82 14 97 08/06/23 00:10 81 16 95 08/06/23 00:00 125/61 08/06/23 00:00 86 15 96 08/05/23 23:50 82 19 94 08/05/23 23:40 83 15 95 08/05/23 23:30 87 14 96 08/05/23 23:20 88 16 95 08/05/23 23:10 90 19 91 08/05/23 23:00 111/57 L 08/05/23 23:00 84 16 94 08/05/23 22:50 87 20 95 08/05/23 22:40 85 16 93 08/05/23 22:30 86 15 95 08/05/23 22:20 85 17 95 08/05/23 22:10 87 16 94 08/05/23 22:00 112/58 L 08/05/23 22:00 86 14 93 08/05/23 21:50 86 15 94 08/05/23 21:40 86 15 96 08/05/23 21:30 89 14 95 08/05/23 21:20 89 15 96 08/05/23 21:10 92 H 16 94 08/05/23 21:00 103 H 28 H 95 08/05/23 21:00 122/74 08/05/23 21:00 37.0 C 08/05/23 20:50 103 H 21 96 08/05/23 20:40 107 H 20 95 08/05/23 20:30 95 H 15 93 08/05/23 20:20 100 H 21 96 08/05/23 20:10 99 H 18 96 08/05/23 20:00 100 H 17 94 08/05/23 20:00 117/52 L 08/05/23 19:53 99 H 16 94 08/05/23 19:53 127/63 08/05/23 19:53 127/63 08/05/23 19:50 100 H 19 94 08/05/23 19:40 105 H 20 96 Lab & Micro Results (Past 24 Hours) RBC 3.10 M/uL (4.20-5.40) L 08/06/23 WBC 10.71 K/ul (4.8-10.8) 08/06/23 Hgb 8.3 g/dl (12.0-16.0) L 08/06/23 Hct 27.2 % (37.0-47.0) L 08/06/23 MCV 87.7 fL (80.0-100.0) 08/06/23 MCH 26.8 pg (25.0-34.0) 08/06/23 MCHC 30.5 g/dL (32.0-36.0) L 08/06/23 RDW Standard Deviation 44.6 fL (36.4-46.3) 08/06/23 RDW Coefficient of Variation 14.0 % (11.5-14.5) 08/06/23 Plt Count 333 K/uL (130-400) 08/06/23 MPV 10.0 fL (9.4-12.4) 08/06/23 Neutrophils (%) (Auto) 76.9 % 08/06/23 Lymphocytes (%) (Auto) 11.4 % 08/06/23 Monocytes # (Auto) 1.08 K/uL (0.11-0.59) H 08/06/23 Eosinophils # (Auto) 0.04 K/uL (0.00-0.50) 08/06/23 Immature Granulocyte % (Auto) 0.5 % 08/06/23 Neutrophils # (Auto) 8.25 K/uL (1.40-6.50) H 08/06/23 Lymphocytes # (Auto) 1.22 K/uL (1.20-3.40) 08/06/23 Monocytes # (Auto) 1.08 K/uL (0.11-0.59) H 08/06/23 Eosinophils # (Auto) 0.04 K/uL (0.00-0.50) 08/06/23 Basophils # (Auto) 0.07 K/uL (0.00-0.20) 08/06/23 Immature Granulocyte # (Auto) 0.05 K/uL (0.01-0.20) 4 Na 136 mmol/L (136-145) 08/06/23 K 4.6 mmol/L (3.5-5.1) 08/06/23 Cl 104 mmol/L (98-107) 08/06/23 CO2 25 mmol/L (21-32) 08/06/23 Anion Gap 7 (3-11) 08/06/23 BUN 26 mg/dl (6-23) H 08/06/23 Creatinine 1.24 mg/dl (0.6-1.2) H 08/06/23 Estimated GFR ( Amer) 49.6 ml/min 08/06/23 Estimated GFR (Non-Af Amer) 42.8 ml/min 08/06/23 BUN/Creatinine Ratio 21.0 (10-20) H 08/06/23 Glu 125 mg/dl (70-99(Fasting)) H 08/06/23 Ca 8.6 mg/dl (8.6-10.3) 08/06/23 Calcium Level 8.6 mg/dl (8.6-10.3) 08/06/23 04:40 I & O Totals 24 Hours 08/05/23 08/06/23 08/07/23 06:59 06:59 06:59 Intake Total 2154.500 / 2154.500 Output Total 2375 / 2375 Balance -220.500 / -220.500 Cumulative 08/01/23 11:41 thru 08/06/23 06:04 Intake Total 2154.500 Output Total 2375 Balance -220.500 RT Ventilator Mngmt (Last Documented) Ventilator Ordered Settings Respiratory Rate 16 08/06/23 02:20 Ventilator - PT Measurements Respiratory Rate 16 Coding Level of Care Code 51115 SUB INP/OBS CARE 2/35MIN Diagnoses Gangrene due to arterial insufficiency I77.1; I96 Osteomyelitis of second toe of right foot M86.9 Obesity E66.9 Diabetes mellitus E11.9 PAD (peripheral artery disease) I73.9 Hypertension I10
--- NOTE | 2023-08-06 08:18 | Podiatry Consultation ---
Date of Consultation August 06, 2023 Assessment & Plan (1) Gangrene due to arterial insufficiency: Discussed with patient that she may continue elevation and rest per recommendations of vascular medicine. All dressings were removed right foot evaluated and new dressings reapplied. Will continue to follow patient while she is admitted. Overall stable changes noted on the right foot. (2) Arterial insufficiency of lower extremity: (3) Diabetes mellitus: (4) PAD (peripheral artery disease): History of Present Illness Reason for Consultation: History of gangrenous changes to right second toe following distal Symes amputation right second toe. Status post endarterectomy procedure. Attending Physician: Tristan Hawthorne MD History of Present Illness Patient is a very pleasant 72-year-old female seen at bedside this morning. She was resting without discomfort and feeling quite well. -All dressings were removed from the right foot and right second toe evaluated. There is a significant reduction in the swelling there was no significant erythema some to be expected on the lower extremity secondary to recent procedure. Right second toe still with dry ischemic changes to the distal portion of the toe remaining areas stable. -New dressings reapplied consisting of Adaptic gauze roll gauze and an Bucky bandage patient may continue all of her ambulation per vascular medicine's recommendations from my standpoint she can continue to ambulate on the foot but again this is up to the recommendations of vascular medicine regarding her physical activity level. -Will continue to monitor stable dressings stable changes noted right foot. Allergies Allergy/AdvReac Type Severity Reaction Status Date / Time amoxicillin Allergy Severe Rash Verified 08/05/23 07:02 neomycin Allergy Intermediate Rash Verified 08/05/23 07:02 propoxyphene Allergy Mild Rash Verified 08/05/23 07:02 [From Darvocet-N] ceftriaxone [From Rocephin] AdvReac Severe Fever Verified 08/05/23 07:02 sulfamethoxazole AdvReac Intermediate Diarrhea Verified 08/05/23 07:02 [From Bactrim] trimethoprim [From Bactrim] AdvReac Intermediate Diarrhea Verified 08/05/23 07:02 Home Medications Medication Instructions Recorded Confirmed Type acetaminophen 500 mg tablet 1,000 mg PO BID 07/04/22 08/05/23 History (Tylenol Extra Strength) insulin glargine 100 unit/mL (3 18 unit subcut QPM 07/04/22 08/05/23 History mL) subcutaneous pen (Basaglar KwikPen U-100 Insulin) loratadine 10 mg tablet 10 mg PO HS PRN seasonal allergies 07/04/22 08/05/23 History magnesium oxide 400 mg PO BID 07/04/22 08/05/23 History cholecalciferol (vitamin D3) 25 25 mcg PO QAM 07/06/22 08/05/23 History mcg (1,000 unit) capsule biotin 10 mg tablet 10 mg PO QAM 09/05/22 08/05/23 History Lactobacillus acidophilus 250 1,000 mmu cells PO QAM 12/11/22 08/05/23 History million cell capsule (Probiotic Acidophilus) ferrous sulfate 325 mg (65 mg 325 mg PO HS 12/11/22 08/05/23 History iron) tablet glimepiride 4 mg tablet 4 mg PO BID #180 tabs 12/18/22 08/05/23 Rx metformin 1,000 mg tablet 1,000 mg PO BID #180 tabs 12/18/22 08/05/23 Rx clopidogrel 75 mg tablet 75 mg PO QAM #90 tabs 01/11/23 08/05/23 Rx benzonatate 100 mg capsule 100 mg PO TID PRN cough 10 days 06/25/23 08/05/23 Rx #30 caps cyanocobalamin (vitamin B-12) 1,000 mcg PO 3XWK 06/25/23 08/05/23 History 1,000 mcg capsule lisinopril 2.5 mg tablet 2.5 mg PO QAM 07/08/23 08/05/23 History metoprolol tartrate 25 mg tablet 25 mg PO BID 07/15/23 08/05/23 History ertapenem 1 gram solution for 500 mg IV DAILY #10 ea 07/20/23 08/05/23 Rx injection tramadol 50 mg tablet 50 mg PO Q6H PRN pain #30 tabs 07/21/23 08/05/23 Rx furosemide 20 mg tablet 20 mg PO DAILY PRN edema #30 tabs 07/26/23 08/05/23 Rx aspirin 81 mg capsule 81 mg PO QAM 08/01/23 08/05/23 History atorvastatin 80 mg tablet 80 mg PO HS 08/01/23 08/05/23 History Patient History Medical History Sepsis 06/2023, hospitalized @[facility], post-op infection; sent home on daily IV ertapenem Post op infection 06/2023, hospitalized @[facility], sent home on IV ertapenem daily History of COVID-19 Mar 2023 > not hospitalized Amputation toe rt hallux Hx of chest pain 2021, and pain in her jaw, had stress test then [facility] On anticoagulant therapy History of anesthesia reaction s/p knee arthroscopy took a "long time to wake up". PAD (peripheral artery disease) Cellulitis of right lower extremity August 2022, treated at [facility] (obstructive sleep apnea) no device History of deviated nasal septum Back abscess hx- November 2019. no surgery - treated with antibiotics. Arthritis Myocardial infarct 01/17/21 Dyslipidemia Type 2 diabetes mellitus IDDM Hypertension Frequent PVCs pt denies/aware - pt does not have any symptoms CAD (coronary artery disease) 1 stent 2021 and 2 in 2020 Surgical History Hx of toe surgery partial distal symes amputation 06/2023 Hx of foot surgery Right Foot Ulcer Debridement, Bone Biopsy, Incision and Drainage History of cardiac cath 12/2020 at [facility] in [place] 2021, [facility] in [place]; f/u dr. morgan and dr. loyd, [facility] [place] Status post angiography of extremity Right leg at [facility] with Dr Loyd. no stents placed>procedure done twice-3 vessels first time, 1 vessel second time. H/O colonoscopy Last colonoscopy 01/24/2017 Joint replaced left foot plus a revision of a toe joint H/O sinus surgery H/O arthroscopy of right knee H/O dilation and curettage H/O cervical polypectomy H/O breast biopsy Hx of cataract extraction Bilateral Hx of parathyroidectomy Hx of tubal ligation Hx of carpal tunnel repair bilateral S/P coronary artery stent placement x2 (01/19/21) + 01/31/22 x1 stent in circumflex artery (per patient) done at [facility] in [place]. Follows with Dr Morgan Family History Mother Heart disease Myocardial infarction Hypertension Brother Hypertension Uncle Diabetes Father Emphysema lung black lung Denies family history of Ovarian cancer Prostate cancer Breast cancer Lung cancer Colorectal cancer Stroke Social History Smoking Status: Never smoker Second Hand Exposure: No; Do You Dip or Chew Tobacco: No; Tobacco Cessation Education Requested by Patient: No Hx Alcohol Use: Yes Alcohol type: wine and hard liquor Alcohol Intake Frequency: Monthly or Less Hx Substance Use: No Preferred Language: Djiboutian Communication Ability: Effective Visual Impairment: Limited Hearing Ability: Normal Supervisor Molding Required: No Beliefs That Will Affect Care: None marital status: / Current Living Situation: Alone current occupational status: retired How many Children do You have: 4 Other Information That Helps Us Care for You: No Feels Safe at Home: Yes Safety Concerns: Feels Safe At This Time Childhood Exposure to Second-Hand Smoke: No Diet: diabetic and low salt caffeine: Yes (1 cup a day) during the past year weight has: remained stable Dental Care, Regularly: Yes Physical Activity Frequency: 3-4 Times per Week Seatbelt Use: always Sunscreen Use: Yes Assistive Devices: Cane and Glasses Physical Exam Skin: Right foot warm and dry with perfusion noted to be improved. Dry ischemic changes noted to the second digit there appears to be less maceration the swelling has been significantly reduced and no pain noted. Results & Data Vital Signs (Past 12 Hours) Vital Signs Temp Pulse Resp BP Pulse Ox 08/06/23 02:26 37.0 C 08/06/23 02:20 78 16 94 08/06/23 02:10 82 16 92 08/06/23 02:00 114/60 08/06/23 02:00 84 14 94 08/06/23 01:50 86 25 H 94 08/06/23 01:40 88 23 94 08/06/23 01:30 87 16 95 08/06/23 01:20 85 20 95 08/06/23 01:10 87 21 95 08/06/23 01:00 130/71 08/06/23 01:00 86 19 97 08/06/23 00:50 78 16 92 08/06/23 00:40 83 22 94 08/06/23 00:30 81 15 96 08/06/23 00:20 82 14 97 08/06/23 00:10 81 16 95 08/06/23 00:00 125/61 08/06/23 00:00 86 15 96 08/05/23 23:50 82 19 94 08/05/23 23:40 83 15 95 08/05/23 23:30 87 14 96 08/05/23 23:20 88 16 95 08/05/23 23:10 90 19 91 08/05/23 23:00 111/57 L 08/05/23 23:00 84 16 94 08/05/23 22:50 87 20 95 08/05/23 22:40 85 16 93 08/05/23 22:30 86 15 95 08/05/23 22:20 85 17 95 08/05/23 22:10 87 16 94 08/05/23 22:00 112/58 L 08/05/23 22:00 86 14 93 08/05/23 21:50 86 15 94 08/05/23 21:40 86 15 96 08/05/23 21:30 89 14 95 08/05/23 21:20 89 15 96 08/05/23 21:10 92 H 16 94 08/05/23 21:00 103 H 28 H 95 08/05/23 21:00 122/74 08/05/23 21:00 37.0 C 08/05/23 20:50 103 H 21 96 08/05/23 20:40 107 H 20 95 08/05/23 20:30 95 H 15 93 08/05/23 20:20 100 H 21 96
[2023-08-06] MEDS: METOPROLOL TARTRATE 25 MG TAB PO SCH ×2 (09:22→20:39)
[2023-08-06] MEDS: CHOLECALCIFEROL 25 MCG (1000 UNITS) TAB PO SCH (09:23)
[2023-08-06] MEDS: CLOPIDOGREL BISULFATE 75 MG TAB PO SCH (09:23)
[2023-08-06] MEDS: GLIMEPIRIDE 2 MG TAB PO SCH ×2 (09:23→20:39)
[2023-08-06] MEDS: MAGNESIUM OXIDE 400 MG TAB PO SCH ×2 (09:23→20:39)
[2023-08-06] MEDS: ASPIRIN 81 MG ECTAB PO SCH (09:23)
[2023-08-06] MEDS: ADVANCED PROBIOTIC 1250 MG CAPSULE PO SCH (09:23)
[2023-08-06] MEDS: lisinopril 2.5 MG TAB PO SCH (09:23)
[2023-08-06] MEDS: INSULIN ASPART PER UNIT CHARGE SC SCH (09:29)
--- NOTE | 2023-08-06 10:04 | Surgery Progress Note ---
Date of Service August 06, 2023 Assessment & Plan (1) Gangrene due to arterial insufficiency: Plan: Pt now POD #1 after RLE TP trunk endarterectomy with bovine patch. Doing well post op. Also seen by Dr Hawthorne. Transfer to med/surg. PT/OT eval Admission and Anticipated Discharge Date Admission Date: August 05, 2023 Subjective 72 yo f POD #1 after RLE TP trunk endarterectomy with bovine patch, seen in f/u today. Pt states pain in RLE incision, tightness. Denies any pain in foot, N/V, chest pain, SOB, other complaints. Review of Systems Review of Systems: All systems reviewed & are unremarkable except as noted in HPI & below Physical Exam Constitutional: WD/WN, vitals as above cooperative and comfortable; not in distress Respiratory: normal respiratory effort Auscultation: lungs clear to auscultation bilaterally and + diminished lung sounds Cardiovascular: Rate/Rhythm: regular rate and regular rhythm Vessels: posterior tibial pulses present (+ doppler signals) and dorsalis pedis pulses present (+ doppler signals); + abnormal peripheral pulses Extremities: normal capillary refill (except R great toe) Gastrointestinal (Abdomen): Inspection/Auscultation: abdomen normal to inspection and normal bowel sounds Percussion/Palpation: abdomen soft; abdomen nontender Musculoskeletal: no cyanosis or clubbing, extremities motor strength 5/5 Skin: + wound (R toe necrotic.) and + incision (RLE lower leg incision with dressing in place.) Neurologic: moves all extremities and awake; no focal motor deficits and not confused Psychiatric: A+Ox3, euthymic affect Results & Data Vital Signs (Past 12 Hours) Vital Signs Temp Pulse Resp BP Pulse Ox 08/06/23 02:26 37.0 C 08/06/23 02:20 78 16 94 08/06/23 02:10 82 16 92 08/06/23 02:00 114/60 08/06/23 02:00 84 14 94 08/06/23 01:50 86 25 H 94 08/06/23 01:40 88 23 94 08/06/23 01:30 87 16 95 08/06/23 01:20 85 20 95 08/06/23 01:10 87 21 95 08/06/23 01:00 130/71 08/06/23 01:00 86 19 97 08/06/23 00:50 78 16 92 08/06/23 00:40 83 22 94 08/06/23 00:30 81 15 96 08/06/23 00:20 82 14 97 08/06/23 00:10 81 16 95 08/06/23 00:00 125/61 08/06/23 00:00 86 15 96 08/05/23 23:50 82 19 94 08/05/23 23:40 83 15 95 08/05/23 23:30 87 14 96 08/05/23 23:20 88 16 95 08/05/23 23:10 90 19 91 08/05/23 23:00 111/57 L 08/05/23 23:00 84 16 94 08/05/23 22:50 87 20 95 08/05/23 22:40 85 16 93 08/05/23 22:30 86 15 95 08/05/23 22:20 85 17 95 08/05/23 22:10 87 16 94 08/05/23 22:00 112/58 L 08/05/23 22:00 86 14 93
[2023-08-06] MEDS: ERTAPENEM SODIUM 500 MG in SYRINGE 0 ML IV SCH (13:58)
[2023-08-06] MEDS: metFORMIN HCL 500 MG TAB PO SCH (16:38)
[2023-08-06] MEDS: FERROUS SULFATE 325 MG TAB PO SCH (20:39)
[2023-08-06] MEDS: ATORVASTATIN 40 MG TAB PO SCH (20:39)
[2023-08-06] MEDS: LANTUS PER UNIT CHARGE SQ SCH (20:39)
[2023-08-07] MEDS: ADVANCED PROBIOTIC 1250 MG CAPSULE PO SCH (07:55)
[2023-08-07] MEDS: CHOLECALCIFEROL 25 MCG (1000 UNITS) TAB PO SCH (07:56)
[2023-08-07] MEDS: GLIMEPIRIDE 2 MG TAB PO SCH (07:56)
[2023-08-07] MEDS: ASPIRIN 81 MG ECTAB PO SCH (07:56)
[2023-08-07] MEDS: lisinopril 2.5 MG TAB PO SCH (07:56)
[2023-08-07] MEDS: CLOPIDOGREL BISULFATE 75 MG TAB PO SCH (07:56)
[2023-08-07] MEDS: metFORMIN HCL 500 MG TAB PO SCH (07:56)
[2023-08-07] MEDS: METOPROLOL TARTRATE 25 MG TAB PO SCH (07:56)
[2023-08-07] MEDS: MAGNESIUM OXIDE 400 MG TAB PO SCH (07:57)
[2023-08-07] MEDS ORDERED: ERTAPENEM SODIUM 1,000 MG in SYRINGE 0 ML IV SCH ×2 (09:00→13:00)
--- NOTE | 2023-08-07 13:05 | Podiatry Consultation ---
Date of Consultation August 07, 2023 Assessment & Plan (1) Gangrene due to arterial insufficiency: Patient will continue all recommendations from vascular medicine she will continue antibiotics per the recommendation from her medicine service team. She did indicate to me should be getting discharged today we will plan for an outpatient follow-up in my office. (2) Diabetes mellitus: (3) PAD (peripheral artery disease): History of Present Illness Attending Physician: Tristan Hawthorne MD History of Present Illness Patient is a very pleasant 72-year-old female seen today at bedside. She has been hospitalized following her procedure with vascular medicine she notes that she is doing pretty well she was not in any acute pain when I saw her. I did have a couple of discussions with patient at bedside today had gotten several messages from the pharmacy as well as from case management workers inquiring about her antibiotics, when she was hospitalized for to [place] she was admitted under medicine service medicine was in charge of her antibiotics they also did a brief consult with infectious disease for the correct doses of her current antibiotic. She was to follow-up with her primary care doctor who was to continue these doses however that was never made. Otherwise she is having no acute concerns today. Dressings were removed the incision area from the toe was cleaned there is still ischemic changes present which is to be expected otherwise stable. I do realize that after my visit with her she had just gotten done with PT and was walking a bit more on her foot. But otherwise in no acute concerns the ischemic areas were dry but I did appreciate slightly worsened ischemic changes today. All dressings were removed and new dressings applied consisting of Adaptic gauze roll gauze and an Bucky bandage. Allergies Allergy/AdvReac Type Severity Reaction Status Date / Time amoxicillin Allergy Severe Rash Verified 08/05/23 07:02 neomycin Allergy Intermediate Rash Verified 08/05/23 07:02 propoxyphene Allergy Mild Rash Verified 08/05/23 07:02 [From Darvocet-N] ceftriaxone [From Rocephin] AdvReac Severe Fever Verified 08/05/23 07:02 sulfamethoxazole AdvReac Intermediate Diarrhea Verified 08/05/23 07:02 [From Bactrim] trimethoprim [From Bactrim] AdvReac Intermediate Diarrhea Verified 08/05/23 07:02 Home Medications Medication Instructions Recorded Confirmed Type acetaminophen 500 mg tablet 1,000 mg PO BID 07/04/22 08/05/23 History (Tylenol Extra Strength) insulin glargine 100 unit/mL (3 18 unit subcut QPM 07/04/22 08/05/23 History mL) subcutaneous pen (Basaglar KwikPen U-100 Insulin) loratadine 10 mg tablet 10 mg PO HS PRN seasonal allergies 07/04/22 08/05/23 History magnesium oxide 400 mg PO BID 07/04/22 08/05/23 History cholecalciferol (vitamin D3) 25 25 mcg PO QAM 07/06/22 08/05/23 History mcg (1,000 unit) capsule biotin 10 mg tablet 10 mg PO QAM 09/05/22 08/05/23 History Lactobacillus acidophilus 250 1,000 mmu cells PO QAM 12/11/22 08/05/23 History million cell capsule (Probiotic Acidophilus) ferrous sulfate 325 mg (65 mg 325 mg PO HS 12/11/22 08/05/23 History iron) tablet glimepiride 4 mg tablet 4 mg PO BID #180 tabs 12/18/22 08/05/23 Rx metformin 1,000 mg tablet 1,000 mg PO BID #180 tabs 12/18/22 08/05/23 Rx clopidogrel 75 mg tablet 75 mg PO QAM #90 tabs 01/11/23 08/05/23 Rx benzonatate 100 mg capsule 100 mg PO TID PRN cough 10 days 06/25/23 08/05/23 Rx #30 caps cyanocobalamin (vitamin B-12) 1,000 mcg PO 3XWK 06/25/23 08/05/23 History 1,000 mcg capsule lisinopril 2.5 mg tablet 2.5 mg PO QAM 07/08/23 08/05/23 History metoprolol tartrate 25 mg tablet 25 mg PO BID 07/15/23 08/05/23 History ertapenem 1 gram solution for 500 mg IV DAILY #10 ea 07/20/23 08/05/23 Rx injection tramadol 50 mg tablet 50 mg PO Q6H PRN pain #30 tabs 07/21/23 08/05/23 Rx furosemide 20 mg tablet 20 mg PO DAILY PRN edema #30 tabs 07/26/23 08/05/23 Rx aspirin 81 mg capsule 81 mg PO QAM 08/01/23 08/05/23 History atorvastatin 80 mg tablet 80 mg PO HS 08/01/23 08/05/23 History Patient History Medical History Sepsis 06/2023, hospitalized @[facility], post-op infection; sent home on daily IV ertapenem Post op infection 06/2023, hospitalized @[facility], sent home on IV ertapenem daily History of COVID-19 Mar 2023 > not hospitalized Amputation toe rt hallux Hx of chest pain 2021, and pain in her jaw, had stress test [facility] therapy History of anesthesia reaction s/p knee arthroscopy took a "long time to wake up". PAD (peripheral artery disease) Cellulitis of right lower extremity August 2022, treated at [facility] (obstructive sleep apnea) no device History of deviated nasal septum Back abscess hx- November 2019. no surgery - treated with antibiotics. Arthritis Myocardial infarct 01/17/21 Dyslipidemia Type 2 diabetes mellitus IDDM Hypertension Frequent PVCs pt denies/aware - pt does not have any symptoms CAD (coronary artery disease) 1 stent 2021 and 2 in 2020 Surgical History Hx of toe surgery partial distal symes amputation 06/2023 Hx of foot surgery Right Foot Ulcer Debridement, Bone Biopsy, Incision and Drainage History of cardiac cath 12/2020 at [facility] in [place] 2021, [facility] in [place]; f/u dr. morgan and dr. loyd, [facility] [place] Status post angiography of extremity Right leg at [facility] with Dr Loyd. no stents placed>procedure done twice-3 vessels first time, 1 vessel second time. H/O colonoscopy Last colonoscopy 01/24/2017 Joint replaced left foot plus a revision of a toe joint H/O sinus surgery H/O arthroscopy of right knee H/O dilation and curettage H/O cervical polypectomy H/O breast biopsy Hx of cataract extraction Bilateral Hx of parathyroidectomy Hx of tubal ligation Hx of carpal tunnel repair bilateral S/P coronary artery stent placement x2 (01/19/21) + 01/31/22 x1 stent in circumflex artery (per patient) done at [facility] in . Follows with Dr Morgan Family History Mother Heart disease Myocardial infarction Hypertension Brother Hypertension Uncle Diabetes Father Emphysema lung black lung Denies family history of Ovarian cancer Prostate cancer Breast cancer Lung cancer Colorectal cancer Stroke Social History Smoking Status: Never smoker Second Hand Exposure: No; Do You Dip or Chew Tobacco: No; Tobacco Cessation Education Requested by Patient: No Hx Alcohol Use: Yes Alcohol type: wine and hard liquor Alcohol Intake Frequency: Monthly or Less Hx Substance Use: No Preferred Language: Greek Communication Ability: Effective Visual Impairment: Limited Hearing Ability: Normal Pc Support Specialist Required: No Beliefs That Will Affect Care: None marital status: / Current Living Situation: Alone current occupational status: retired How many Children do You have: 4 Other Information That Helps Us Care for You: No Feels Safe at Home: Yes Safety Concerns: Feels Safe At This Time Childhood Exposure to Second-Hand Smoke: No Diet: diabetic and low salt caffeine: Yes (1 cup a day) during the past year weight has: remained stable Dental Care, Regularly: Yes Physical Activity Frequency: 3-4 Times per Week Seatbelt Use: always Sunscreen Use: Yes Assistive Devices: Cane and Walker Physical Exam Skin: All dressings removed foot was warm and dry slightly more extensive ischemic changes noted at the right second toe after undergoing distal Symes amputation but otherwise stable. New dressings applied. Results & Data Vital Signs (Past 12 Hours) Vital Signs Temp Pulse Resp BP Pulse Ox O2 Del Method 08/07/23 12:00 37.3 C 84 18 110/86 98 Room Air 08/07/23 08:01 36.7 C 82 15 110/70 96 Room Air 08/07/23 08:00 Room Air
--- NOTE | 2023-08-07 14:23 | Surgery Progress Note ---
Date of Service August 07, 2023 Assessment & Plan (1) Gangrene due to arterial insufficiency: Plan: Pt now POD #2 after RLE TP trunk endarterectomy with bovine patch. Doing well post op. OK for d/c once HH arranged. She will be continuing her IV abx, ertapenem, via PICC line. Pt to follow up in office in 2 weeks for staple removal and with Dr Samir Crump next week as scheduled. Admission and Anticipated Discharge Date Admission Date: August 05, 2023 Subjective 72 yo f POD #2 after RLE TP trunk endarterectomy with bovine patch, seen in f/u today. Pt states pain in RLE incision, tightness. Denies any pain in foot, N/V, chest pain, SOB, other complaints. States would like to go home is possible. Review of Systems Review of Systems: All systems reviewed & are unremarkable except as noted in HPI & below Physical Exam Constitutional: WD/WN, vitals as above cooperative and comfortable; not in distress Respiratory: normal respiratory effort Auscultation: lungs clear to auscultation bilaterally and + diminished lung sounds Cardiovascular: Rate/Rhythm: regular rate and regular rhythm Vessels: posterior tibial pulses present (+ doppler signals) and dorsalis pedis pulses present (+ doppler signals); + abnormal peripheral pulses Extremities: normal capillary refill (except R great toe) Gastrointestinal (Abdomen): Inspection/Auscultation: abdomen normal to inspection and normal bowel sounds Percussion/Palpation: abdomen soft; abdomen nontender Musculoskeletal: no cyanosis or clubbing, extremities motor strength 5/5 Skin: + wound (R toe necrotic.) and + incision (RLE lower leg incision C/D/I werner, mild local swelling, no erythema) Neurologic: moves all extremities and awake; no focal motor deficits and not confused Psychiatric: A+Ox3, euthymic affect Results & Data Vital Signs (Past 12 Hours) Vital Signs Temp Pulse Resp BP Pulse Ox O2 Del Method 08/07/23 12:00 37.3 C 84 18 110/86 98 Room Air 08/07/23 08:01 36.7 C 82 15 110/70 96 Room Air 08/07/23 08:00 Room Air
--- NOTE | 2023-08-07 14:35 | Discharge Summary ---
Date of Service August 07, 2023 Admission HPI Per Admitting Provider I had the pleasure of seeing Wendi today for follow-up. 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 She does claim to have pain in her foot at night in bed which requires him to sit in a chair to relieve the discomfort. She has no pain during the day and has not taken anything for pain since . Admission Exam Per Admitting Provider Constitutional: WD/WN, vitals as a alex + obese and cooperative; not i n distress ENMT: Ears: no hearing i mpairment Neck: trachea midline Respiratory: normal respiratory effort, lungs karla ar to auscultation Auscultation: + diminished lung so unds Cardiovascular: Rate/Rhythm: regul ar rate and regula r rhythm Vessels: femoral pulses pr esent, posterior t ibial pulses prese nt (dopplerable LL E), dorsalis pedis pulses present (d opplerable LLE, RL E dressing in plac e) and radial puls es present; + abno rmal peripheral pu lses Extremities: normal capillary refill (to LLE, RL E dressing in plac e) Gastrointestinal ( Abdomen): Inspection/Auscult ation: abdomen nor mal to inspection and normal bowel s ounds Percussion/ Palpation: abdomen soft; abdomen non tender Musculoskeletal: no cyanosis or clu bbing, extremities motor strength 5/ 5 Skin: + wound (R foot d ressing in place) Pt with skin mehta ges to BLE consist ent with venous in sufficiency vs lym phedema. Neurologic: moves all extremit ies and awake; no focal motor defici ts and not confuse d Psychiatric: A+Ox3, euthymic af fect Principal Diagnosis 1. s/p RLE tibioperoneal trunk endarterectomy with bovine patch 2. Severe PAD with gangrene Discharge Exam Constitutional WD/WN, vitals as above cooperative and comfortable; not in distress Respiratory normal respiratory effort Auscultation: lungs clear to auscultation bilaterally and + diminished lung sounds Cardiovascular Rate/Rhythm: regular rate and regular rhythm Vessels: posterior tibial pulses present (+ doppler signals) and dorsalis pedis pulses present (+ doppler signals); + abnormal peripheral pulses Extremities: normal capillary refill (except R toe) Gastrointestinal (Abdomen) Inspection/Auscultation: abdomen normal to inspection and normal bowel sounds Percussion/Palpation: abdomen soft; abdomen nontender Musculoskeletal no cyanosis or clubbing, extremities motor strength 5/5 Skin + wound (R toe necrotic.) and + incision (RLE lower leg incision C/D/I werner, mild local swelling, no erythema) Neurologic moves all extremities and awake; no focal motor deficits and not confused Psychiatric A+Ox3, euthymic affect Discharge Data Allergies Allergy/AdvReac Type Severity Reaction Status Date / Time amoxicillin Allergy Severe Rash Verified 08/05/23 07:02 neomycin Allergy Intermediate Rash Verified 08/05/23 07:02 propoxyphene Allergy Mild Rash Verified 08/05/23 07:02 [From Darvocet-N] ceftriaxone [From Rocephin] AdvReac Severe Fever Verified 08/05/23 07:02 sulfamethoxazole AdvReac Intermediate Diarrhea Verified 08/05/23 07:02 [From Bactrim] trimethoprim [From Bactrim] AdvReac Intermediate Diarrhea Verified 08/05/23 07:02 Consultations 08/05/23 12:43 Consult Farmworker Rice Routine Consult Podiatry Routine Procedures Performed Operation Date: 08/05/23 08:15 Actual Procedures p Right Tibioperoneal Endarterectomy with Patch(Right) - Tristan Hawthorne MD Hospital Course (1) Gangrene due to arterial insufficiency: Pt now POD #2 after RLE TP trunk endarterectomy with bovine patch. Doing well post op. OK for d/c once HH arranged. She will be continuing her IV abx, ertapenem, via PICC line. Pt to follow up in office in 2 weeks for staple removal and with Dr Samir Crump next week as scheduled. Total Time Total Time Spent Total Time Spent (In Minutes): 0 Discharge Plan Discharge Items Patient Disposition: Home - Home Health Services Reason For Visit: Tibioperoneal Artery Occlusion with Gangrene Discharge Diagnosis: 1. s/p RLE tibioperoneal trunk endarterectomy with bovine patch 2. Severe PAD with gangrene Activity: Per Instructions section Non-emergency contact: Primary Care Provider and Surgeon Call non-emergency contact if: you have any medication questions, your pain is not controlled, your pain is concerning for you, you have a fever, your wound has increased redness and your wound has increased drainage Follow-up/Referrals: Rosa Ramos DPM [Physician] - (Follow up with Dr Samir Crump next week as scheduled. ) Tristan Hawthorne MD [Physician] - (Follow up with Dr Hawthorne or Flaquita Noe PA-C, in 2 weeks for staple removal. ) Kenny Martinez DO [Primary Care Provider] - (Follow up with your PCP within 1 week after discharge. ) Diet: Carb Consistent or DM2 and Heart Healthy Addtl Attending Provider Instructions: ACTIVITY RECOMMENDATIONS: May cleanse R leg wound with water or saline. No dressing required unless drainage is noted, then a small dry dressing is indicated. Ambulate as tolerated with walker Elevate R leg when possible to help alleviate edema. R foot wound dressing per podiatry. SPECIAL CARE INSTRUCTIONS: Call your doctor if: * Temperature above 101 degrees * Pain not relieved by pain medicine ordered * There is increased drainage or redness from any incision * You have any unanswered questions or concerns. Pending Studies at Discharge: No Stand-Alone Forms: My [facility] OffersBy.Me, Smoking Cessation Medications and DC Order Prescriptions: Continued glimepiride 4 mg tablet 4 mg PO BID Qty: 180 3RF metformin 1,000 mg tablet 1,000 mg PO BID Qty: 180 2RF clopidogrel 75 mg tablet 75 mg PO QAM Qty: 90 1RF furosemide 20 mg tablet 20 mg PO DAILY PRN (Reason: edema) Qty: 30 1RF biotin 10 mg tablet 10 mg PO QAM cyanocobalamin (vitamin B-12) 1,000 mcg capsule 1,000 mcg PO [id number] Rx Instructions: Takes Saturday, Saturday, Saturday only benzonatate 100 mg capsule 100 mg PO TID PRN (Reason: cough) 10 Days Qty: 30 1RF insulin glargine [Basaglar KwikPen U-100 Insulin] 100 unit/mL (3 mL) insulin pen 18 unit subcut QPM loratadine 10 mg tablet 10 mg PO HS PRN (Reason: seasonal allergies) magnesium oxide 400 mg magnesium tablet 400 mg PO BID acetaminophen [Tylenol Extra Strength] 500 mg tablet 1,000 mg PO BID cholecalciferol (vitamin D3) 25 mcg (1,000 unit) capsule 25 mcg PO QAM ferrous sulfate 325 mg (65 mg iron) Tablet 325 mg PO HS Probiotic Acidophilus 1.5 mg (250 million cell) Capsule 1,000 mmu cells PO QAM Patient Comments: not currently taking 07/08/23 lisinopril 2.5 mg tablet 2.5 mg PO QAM Rx Instructions: TAKE 1 TABLET BY MOUTH DAILY aspirin 81 mg Capsule 81 mg PO QAM atorvastatin 80 mg tablet 80 mg PO HS Rx Instructions: TAKE 1 TABLET BY MOUTH EVERYDAY AT BEDTIME metoprolol tartrate 25 mg tablet 25 mg PO BID Rx Instructions: TAKE 1 TABLET BY MOUTH TWICE A DAY tramadol 50 mg tablet 50 mg PO Q6H PRN (Reason: pain) Qty: 30 0RF Discontinued ertapenem 1 gram recon soln 500 mg IV DAILY Qty: 10 0RF Discharge Orders: Discharge Order (Routine); Ordered 08/07/23 Ordered By: Flaquita Noe Admission Data Admit Date/Time: 08/05/23 07:42 Attending Provider: Tristan Hawthorne Admit Provider: Tristan Hawthorne Primary Care Provider: Kenny Martinez Other Providers: Wesley Pryor; Marcel East; Dhiraj Schmid; Kurtis Bedoya; Dane Harrell; Silvia Lisa; Curtis Claire; Karolina Agarwal; Malathi Powers; Stefano Wang; Vasquez Ohara; Kristal Richard; Rosa Ramos; [facility]; Khanh,Moy
[2023-08-09] MEDS ORDERED: CYANOCOBALAMIN (B-12) 500 MCG TABLET PO SCH (09:00)
--- NOTE | 2023-08-21 09:19 | Operative Report ---
Post Operative Report Pre & Post Diagnosis Operation Date: 08/05/23 08:15 Pre-Op Diagnosis: Right Tibioperoneal Artery Occlusion with Gangrene Post-Op Diagnosis: Right Tibioperoneal Artery Occlusion with Gangrene I identified the patient and participated in the time-out.: Yes Procedure Operation Date: 08/05/23 08:15 Actual Procedures p Right Tibioperoneal Endarterectomy with Patch(Right) - Tristan Hawthorne MD Surgeon Tristan Hawthorne MD Automatic [employer] Winder [employer] Estimated Blood Loss 250 Findings Consistent with Post-Op Diagnosis Specimens none Anesthesia Type General Complications none Disposition Accompanied Patient To Recovery: No Disposition: Recovery Room Indications This is a 72-year-old female with severe claudication right lower extremity and multiple interventions on her tibioperoneal trunk and infrapopliteal vessels. She has now developed a severe stenosis of the tibioperoneal trunk at the takeoff of the anterior tibial artery. Endarterectomy was recommended with possible bypass if needed. I have discussed the risks options and benefits of the procedure with the patient. The patient understands the risks options and benefits and agrees to the procedure. Description of Procedure The patient was taken the operating placed supine position. After the right leg was prepped draped in sterile manner the patient was identified and a timeout was performed. A longitudinal incision was made from the level of the knee down to the mid calf. This was carried down to where the popliteal artery was identified. This was dissected free down through the tibioperoneal trunk just beyond the takeoff of the posterior tibial artery. It was heavily calcified at the level of the anterior tibial artery. Patient was heparinized at that time. After adequate position was accomplished the popliteal anterior tibial and posterior tibial peroneal were clamped. Longitudinal arteriotomy was started on the distal popliteal carried downward to the distal tibioperoneal trunk where good lumen was noted. The arteriotomy was then carried upward into the popliteal artery again to the level where there was minimal plaque in good inflow. Endarterectomy was then started. The distal popliteal tibioperoneal trunk are endarterectomized without difficulty. There is a plug of plaque which was removed to the anterior tibial artery resulting in good backflow. After all the plaque was removed and there is no loose plaque or debris a bovine patch was then trimmed the appropriate fashion and sewn in place with 6-0 Prolene suture. Prior to closure backbleeding and forward bleeding was allowed to occur. The final few sutures then placed and securely tied. Clamps were then removed. Excellent flow was seen through these arteries. There is good Doppler signals in the infrapopliteal arteries at the incision site and excellent Dopplers in the dorsalis pedis in the foot. Added hemostasis was then obtained of the wound. After adequate hemostasis was noted the wound was closed in usual fashion using running 3-0 Vicryl suture for the subcutaneous layer and werner for the skin. Sterile dressing applied.The patient left the operation room in satisfactory condition and tolerated the procedure well. All needle and sponge counts were correct at the end of the procedure. Flaquita Noe Pac assisted due to lack of resident availability and was necessary for positioning, draping, retraction, wound closure deep layers, subcutaneous tissue, and skin closure and was necessary for assisting with the case. I attest to the content of the Intraoperative Record and any orders documented therein. Any exceptions are noted below.
== END 2023-08-07 16:09 | disposition home health service (06) | DRG 253 ==
LOC: ASU 06:38 → 1E 07:42 → 3N 08-06 13:06

== ENCOUNTER 2024-05-26 19:21 | Inpatient (IN) ==
--- NOTE | 2024-05-26 19:51 | Emergency Department Note ---
Impression & Plan Leukocytosis, Rhabdomyolysis, CKD (chronic kidney disease), Elevated troponin, Sinusitis ED Provider Note NAME: CARLOS SPRINGER AGE: 73 SEX: F : 1950 ARRIVES VIA: Walk-In INFORMANT: Patient ED PROVIDER(S): Fadi Gonzales DO CHIEF COMPLAINT: Fall HPI: Patient is a 73-year-old female who presents to the ER following a fall. She notes that she bent over yesterday to grab something and just fell. She was not dizzy or lightheaded. She had no chest pain or shortness of breath preceding or following this incident. She does not believe she hit her head. She is complaining of right shoulder pain. No tingling or numbness. No other complaints. She notes she saw her PCP who obtained blood work and referred her in for several abnormalities. Patient has no other complaints at this time. ADDITIONAL HISTORY OBTAINED: Per HPI Chronic Medical/Social Conditions Affecting Care: Per HPI PAST MEDICAL HISTORY:See Below PAST SURGICAL HISTORY:See Below FAMILY HISTORY:See Below SOCIAL HISTORY:See Below HOME MEDICATIONS:See Below ALLERGIES:See Below VITALS:See Below PHYSICAL EXAMINATION: GENERAL: alert, well appearing, well nourished, no distress, non-toxic HEAD: normal cephalic, atraumatic EYE EXAM: normal conjunctiva, PERRL and EOM's grossly intact OROPHARYNX: mucous membranes are moist NECK: supple, no nuchal rigidity, no adenopathy, non-tender CHEST: stable to compression anteriorly and posteriorly LUNGS: clear to auscultation. Normal chest wall mechanics HEART: no murmurs, S1 normal and S2 normal ABDOMEN: abdomen soft, non-tender, normo-active bowel sounds, no masses, no rebound or guarding. PELVIS: stable to compression anteriorly and posteriorly BACK: Back is symmetrical on inspection and there is no deformity, no midline tenderness, no CVA tenderness. UPPER EXTREMITIES: No tenderness on palpation of the entire left upper extremity. No tenderness on the right hand forearm distal or mid humerus. Tenderness over the right proximal humerus. Radial pulses 2 out of 4. Gross sensation intact. LOWER EXTREMITIES: full active and passive range of motion of all joints without tenderness to palpation. Erythema of the right lower extremity which is cool. No induration in the skin is not warm. NEURO EXAM: Normal sensorium, cranial nerves II-XII grossly intact, normal speech, no gross weakness of arms, no gross weakness of legs. GCS: 15. MEDICAL DECISION MAKING: Patient is a 73-year-old female who presents to the ER for the above-stated complaint. IV was established and blood work was obtained. Labs show mild leukocytosis of 13,000. External records were reviewed and was 15 earlier today. No significant anemia. BMP with a creatinine of 1.6 up from a baseline of 1.4. LFTs bilirubin is unremarkable. Troponin was positive at 20. Lipase at 150. External records were reviewed in regards to x-rays of the right shoulder which showed no obvious fracture. Patient was updated at bedside with the elevated troponin, mild TAVO and slightly elevated CK with a heart rate in the low 100s after IV fluids and I discussed case with the hospitalist for further evaluation management treatment. No obvious source of infection at this time with the exception of the CT which suggest a sinusitis. She was given oral doxycycline for this. Patient notes that the right lower extremity is always red and swollen. Consults/Care Managements Discussions: Per [facility] Triage Nursing notes reviewed. Limited review of prior medical records performed Vital Signs: reviewed and remarkable for tachy Differential diagnosis: .Infection, dehydration, metabolic abnormality, hypo/hyperglycemia, electrolyte disturbance, anemia, hypoxia, cardiac sources, intracerebral event, toxicologic, neurologic, as well as other pathologies. ER treatment provided: See below Diagnostics interpreted by me include EKG and cardiac monitoring as listed below: -Cardiac Monitoring: An order was placed for continuous cardiac monitoring. The monitor shows a rate of 110 with sinus rhythm. -ECG: none -Laboratory studies:Interpreted by me as stated above in MDM and shown below. Imaging studies: Xrays: As interpreted by me:none CTs show: CT head per my preliminary interpretation showed no obvious large bleed CT head per radiology showed sinusitis Procedures:none Critical Care: None Past Med/Surg History Problem List (Updated 05/26/24 @ 22:13 by Fadi Gonzales DO) Sinusitis (Acute) Elevated troponin (Acute) CKD (chronic kidney disease) (Acute) Rhabdomyolysis (Acute) Leukocytosis (Acute) Fall (Acute) Venous ulcer of left leg (Acute) Critical limb ischemia of right lower extremity Elevated serum creatinine Diabetic ulcer of toe of right foot (Acute) Venous ulcer of right leg (Acute) Non-healing amputation site (Acute) Edema Vitamin D deficiency Gangrene due to arterial insufficiency Infection due to Streptococcus group B Allergy to cephalosporin Allergy to amoxicillin Osteomyelitis of second toe of right foot (Acute) B12 deficiency Cellulitis of right foot Lymphedema of both lower extremities (Chronic) Venous ulcer of right lower extremity without varicose veins (Acute) Surgical wound, non healing (Acute) Right great toe amputee Surgical amputation on 12/12/22 Dr. Ramos Osteopenia repeat DEXA 09/2024 Foot ulcer Anemia Failure of outpatient treatment (Acute) Arterial insufficiency of lower extremity Obesity Diabetes mellitus PAD (peripheral artery disease) (Chronic) Cellulitis of right lower extremity (Acute) August 2022, treated at [facility] Hx of cataract extraction Bilateral Hx of parathyroidectomy History of deviated nasal septum Hypertension Frequent PVCs pt denies/aware - pt does not have any symptoms CAD (coronary artery disease) 1 stent 2021 and 2 in 2020 Myocardial infarct 01/17/21 S/P coronary artery stent placement x2 (01/19/21) + 01/31/22 x1 stent in circumflex artery (per patient) done at [facility] in [place]. Follows with Dr Morgan Dyslipidemia Medical History Sepsis 06/2023, hospitalized @[facility], post-op infection; sent home on daily IV ertapenem Post op infection 06/2023, hospitalized @[facility], sent home on IV ertapenem daily History of COVID-19 Mar 2023 > not hospitalized Amputation toe rt hallux Hx of chest pain 2021, and pain in her jaw, had stress test then catheter[facility] therapy History of anesthesia reaction s/p knee arthroscopy took a "long time to wake up". DEEPIKA (obstructive sleep apnea) no device Back abscess hx- November 2019. no surgery - treated with antibiotics. Arthritis Type 2 diabetes mellitus IDDM Surgical History Hx of toe surgery partial distal symes amputation 06/2023 Hx of foot surgery Right Foot Ulcer Debridement, Bone Biopsy, Incision and Drainage History of cardiac cath 12/2020 at [facility] in [place] 2021, [facility] in [place]; f/u dr. morgan and dr. loyd, [facility] Status post angiography of extremity Right leg at [facility] with Dr Loyd. no stents placed>procedure done twice-3 vessels first time, 1 vessel second time. H/O colonoscopy Last colonoscopy 01/24/2017 Joint replaced left foot plus a revision of a toe joint H/O sinus surgery H/O arthroscopy of right knee H/O dilation and curettage H/O cervical polypectomy H/O breast biopsy Hx of tubal ligation Hx of carpal tunnel repair bilateral Family History Mother Heart disease Myocardial infarction Hypertension Brother Hypertension Uncle Diabetes Father Emphysema lung Denies family history of Ovarian cancer Prostate cancer Breast cancer Lung cancer Colorectal cancer Stroke Social History (Updated 05/15/24 @ 08:52 by Tawny Corea RN) Smoking Status: Never smoker Second Hand Exposure: No; Do You Dip or Chew Tobacco: No; Hx Alcohol Use: Yes Alcohol type: wine and hard liquor Alcohol Intake Frequency: Monthly or Less Hx Substance Use: No Preferred Language: Chadian Communication Ability: Effective Visual Impairment: Limited Hearing Ability: Normal 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 current occupational status: retired How many Children do You have: 4 Feels Safe at Home: Yes Childhood Exposure to Second-Hand Smoke: No Diet: diabetic and low salt Diet Comment: Educated to increase protein, vitamin c, d and zinc caffeine: Yes (1 cup a day) during the past year weight has: remained stable Dental Care, Regularly: Yes Physical Activity Frequency: 1-2 Times per Week Seatbelt Use: always Sunscreen Use: Yes Assistive Devices: Cane, Glasses and Special Shoe Allergies Allergies Allergy/AdvReac Type Severity Reaction Status Date / Time amoxicillin Allergy Severe Rash Verified 05/26/24 20:34 neomycin Allergy Intermediate Rash Verified 05/26/24 20:34 propoxyphene Allergy Mild Rash Verified 05/26/24 20:34 [From Darvocet-N] ceftriaxone [From Rocephin] AdvReac Severe Fever Verified 05/26/24 20:34 sulfamethoxazole AdvReac Intermediate Diarrhea Verified 05/26/24 20:34 [From Bactrim] trimethoprim [From Bactrim] AdvReac Intermediate Diarrhea Verified 05/26/24 20:34 lisinopril AdvReac Mild Cough Verified 05/26/24 20:34 Home Meds Home Medications Medication Instructions Recorded Confirmed acetaminophen 500 mg tablet 1,000 mg PO BID 07/04/22 05/26/24 (Tylenol Extra Strength) loratadine 10 mg tablet 10 mg PO HS PRN seasonal allergies 07/04/22 05/26/24 magnesium oxide 400 mg PO BID 07/04/22 05/26/24 cholecalciferol (vitamin D3) 25 25 mcg PO QAM 07/06/22 05/26/24 mcg (1,000 unit) capsule biotin 10 mg tablet 10 mg PO QAM 09/05/22 05/26/24 cyanocobalamin (vitamin B-12) 1,000 mcg PO 3XWK 06/25/23 05/26/24 1,000 mcg capsule aspirin 81 mg capsule 81 mg PO QAM 08/01/23 05/26/24 cilostazol 50 mg tablet 50 mg PO BID 05/14/24 05/26/24 furosemide 20 mg tablet 20 mg PO DAILY PRN edema 05/15/24 05/26/24 atorvastatin 80 mg tablet 80 mg PO HS 05/26/24 05/26/24 clopidogrel 75 mg tablet 75 mg PO DAILY 05/26/24 05/26/24 glimepiride 4 mg tablet 4 mg PO BID 05/26/24 05/26/24 metoprolol tartrate 25 mg tablet 25 mg PO BID 05/26/24 05/26/24 Previous Rx's Medication Instructions Recorded metformin 1,000 mg tablet 1,000 mg PO BID #180 tabs 09/02/23 ezetimibe 10 mg tablet (Zetia) 10 mg PO DAILY #90 tabs 12/31/23 pen needle, diabetic 31 gauge x #100 ea 01/13/2410/11" (BD Ultra-Fine Mini Pen Needle) blood sugar diagnostic (True #100 strips 04/03/24 Metrix Glucose Test Strip) insulin glargine 100 unit/mL (3 18 unit (0.18 mL) subcut QPM #15 mL 04/14/24 mL) subcutaneous pen (Giovanaaglar KwgiselaPen U-100 Insulin) lisinopril 2.5 mg tablet 2.5 mg PO QAM #90 tabs 04/27/24 ferrous gluconate 324 mg (38 mg 324 mg PO .COMPLEX #45 tabs 05/07/24 iron) tablet tramadol 50 mg tablet 50 mg PO Q6H PRN pain #30 tabs 05/18/24 gentamicin 0.1 % topical ointment 1 applic topical DAILY 2 weeks #30 05/19/24 grams Results & Data (ED) Vital Signs Vital Signs - 24 hr 05/26/24 19:30 05/26/24 20:21 05/26/24 20:21 Temperature 36.7 C Temperature Source Temporal Artery Scan Pulse Rate 128 H Pulse Rate [Apical] 107 H Respiratory Rate 16 18 Blood Pressure 123/72 Blood Pressure [Right Arm] 112/72 Blood Pressure Mean 89 Blood Pressure Mean [Right Arm] 85 Pulse Oximetry 93 97 Oxygen Delivery Method Room Air Room Air Room Air Sepsis Recent Fever Within 48 Hours No Sepsis New/Unexplained Change in Mental Status No Sepsis Action Taken by Nursing No Action Required 05/26/24 20:23 Temperature Temperature Source Pulse Rate 111 H Pulse Rate [Apical] Respiratory Rate Blood Pressure Blood Pressure [Right Arm] Blood Pressure Mean Blood Pressure Mean [Right Arm] Pulse Oximetry Oxygen Delivery Method Sepsis Recent Fever Within 48 Hours Sepsis New/Unexplained Change in Mental Status Sepsis Action Taken by Nursing Laboratory Data 05/26/24 19:58 05/26/24 19:58 Lab Results 05/26/24 Range/Units 19:58 WBC 13.24 H (4.8-10.8) K/ul RBC 3.18 L (4.20-5.40) M/uL Hgb 8.1 L (12.0-16.0) g/dl Hct 25.8 L (37.0-47.0) % MCV 81.1 (80.0-100.0) fL MCH 25.5 (25.0-34.0) pg MCHC 31.4 L (32.0-36.0) g/dL RDW Std Deviation 40.9 (36.4-46.3) fL RDW Coeff of Renetta 13.7 (11.5-14.5) % Plt Count 497 H (130-400) K/uL MPV 9.0 L (9.4-12.4) fL Immature Gran % (Auto) 0.4 % Neut % (Auto) 81.7 % Lymph % (Auto) 6.9 % Hall % (Auto) 10.1 % Eos % (Auto) 0.6 % Baso % (Auto) 0.3 % Neut # (Auto) 10.81 H (1.40-6.50) K/uL Lymph # (Auto) 0.92 L (1.20-3.40) K/uL Hall # (Auto) 1.34 H (0.11-0.59) K/uL Eos # (Auto) 0.08 (0.00-0.50) K/uL Baso # (Auto) 0.04 (0.00-0.20) K/uL Immature Gran # (Auto) 0.05 (0.01-0.20) K/uL Sodium 134 L (136-145) mmol/L Potassium 4.8 (3.5-5.1) mmol/L Chloride 97 L (98-107) mmol/L Carbon Dioxide 24 (21-32) mmol/L Anion Gap 13 H (3-11) BUN 34 H (6-23) mg/dl Creatinine 1.68 H (0.6-1.2) mg/dl Est Cr Clr Drug Dosing 25.7 ml/min eGFR 31.52 BUN/Creatinine Ratio 20.2 H (10-20) Glucose 197 H (70-99(Fasting)) mg/dl Calcium 8.8 (8.6-10.3) mg/dl Total Bilirubin 0.3 (0.2-1.0) mg/dl AST 37 (13-39) U/L ALT 19 (7-52) U/L Alkaline Phosphatase 75 (34-104) U/L Total Creatine Kinase 1171 H (26-192) U/L Troponin I High Sens 19.6 H (0-14) pg/ml Total Protein 6.9 (6.0-8.3) gm/dl Albumin 3.6 (3.4-5.0) gm/dl Globulin 3.3 (2.5-4.0) gm/dl Albumin/Globulin Ratio 1.1 (0.9-2) Lipase 148 H (11-82) U/L Administered Medications Discontinued Medications Sodium Chloride (Nss) 1,000 mls @ 999 mls/hr IV .Q1H1M ONE Stop: 05/26/24 20:50 Last Infusion: 05/26/24 21:38 Dose: Infused Documented By: Admin: 05/26/24 20:18 Dose: 999 mls/hr Documented By: BMK Imaging Data Radiologist's Impression: Head CT 05/26/24 19:48 Exam(s): CT HEAD Without Contrast EXAM: CT Head Without Intravenous Contrast CLINICAL HISTORY: Reason for exam: fall. TECHNIQUE: Axial computed tomography images of the head/brain without intravenous contrast. CTDI is 35.65 mGy and DLP is 547.75 mGy-cm. Automated exposure control was utilized for the study. A dose lowering technique was utilized adhering to the principles of ALARA. COMPARISON: None. FINDINGS: Brain: No intracranial hemorrhage, mass-effect or midline shift. No abnormal extra-axial fluid collections. Moderate cerebral atrophy with widening of the extra-axial spaces and ventricular dilatation. Periventricular/subcortical areas of decreased attenuation within the white matter tracts, which are nonspecific but can be seen with chronic small vessel ischemic disease/age related white matter degeneration. Bones/joints: Unremarkable. No acute fracture. Soft tissues: Unremarkable. Sinuses: There is an air-fluid level in the left maxillary sinus Mastoid air cells: Unremarkable as visualized. No mastoid effusion.. IMPRESSION: No obvious acute intracranial abnormality. Chronic involutional and ischemic changes of the brain. Left maxillary sinus air-fluid level, from most likely an acute sinusitis. Recommend clinical correlation . Electronically signed by: Shin Matos MD, DABR 05/26/24 20:35 PM Discharge Plan Visit Data Chief Complaint: Abnormal Labs/Diagnostic Testing Stated Complaint: ABNORMAL LABS ED Provider: Fadi Gonzales Discharge Problem: Leukocytosis, Rhabdomyolysis, CKD (chronic kidney disease), Elevated troponin, Sinusitis Forms Stand Alone Forms: My [facility] Prescriptions Prescriptions: No Action furosemide 20 mg tablet 20 mg PO DAILY PRN (Reason: edema) gentamicin 0.1 % ointment 1 applic topical DAILY 14 Days Qty: 30 2RF metformin 1,000 mg tablet 1,000 mg PO BID Qty: 180 3RF ezetimibe [Zetia] 10 mg tablet 10 mg PO DAILY Qty: 90 3RF (DME) pen needle, diabetic [BD Ultra-Fine Mini Pen Needle] 31 gauge x 3/16" needle See Rx Instructions .ROUTE .COMPLEX Qty: 100 3RF Dose Instruction: DIRECTED Rx Instructions: DIRECTED (DME) True Metrix Glucose Test Strip Strip See Rx Instructions .ROUTE .COMPLEX Qty: 100 3RF Dose Instruction: DIRECTED Rx Instructions: test blood sugar twice daily E11.9 insulin glargine [Basaglar EliseikPen U-100 Insulin] 100 unit/mL (3 mL) insulin pen 18 unit subcut QPM Qty: 15 1RF lisinopril 2.5 mg tablet 2.5 mg PO QAM Qty: 90 3RF Rx Instructions: TAKE 1 TABLET BY MOUTH DAILY ferrous gluconate 324 mg (38 mg iron) tablet 324 mg PO .COMPLEX Qty: 45 1RF Rx Instructions: 324 mg orally every other day; tramadol 50 mg tablet 50 mg PO Q6H PRN (Reason: pain) Qty: 30 0RF biotin 10 mg tablet 10 mg PO QAM cyanocobalamin (vitamin B-12) 1,000 mcg capsule 1,000 mcg PO 3XWK Rx Instructions: Takes Saturday, Saturday, Saturday only loratadine 10 mg tablet 10 mg PO HS PRN (Reason: seasonal allergies) magnesium oxide 400 mg magnesium tablet 400 mg PO BID acetaminophen [Tylenol Extra Strength] 500 mg tablet 1,000 mg PO BID cholecalciferol (vitamin D3) 25 mcg (1,000 unit) capsule 25 mcg PO QAM cilostazol 50 mg tablet 50 mg PO BID aspirin 81 mg Capsule 81 mg PO QAM atorvastatin 80 mg tablet 80 mg PO HS clopidogrel 75 mg tablet 75 mg PO DAILY glimepiride 4 mg tablet 4 mg PO BID metoprolol tartrate 25 mg tablet 25 mg PO BID Referrals Referrals: Kenny Martinez DO [Primary Care Provider] - Discharge Problem: Leukocytosis Qualifiers: Leukocytosis type: unspecified Qualified Code(s): D72.829 - Elevated white blood cell count, unspecified Rhabdomyolysis Qualifiers: Rhabdomyolysis type: traumatic Encounter type: initial encounter Qualified Code(s): T79.6XXA - Traumatic ischemia of muscle, initial encounter CKD (chronic kidney disease) Qualifiers: Chronic kidney disease stage: unspecified stage Qualified Code(s): N18.9 - Chronic kidney disease, unspecified
[2024-05-26 20:12] LABS: Basophils # (auto) 0.04 K/uL (0.00-0.20); Basophils % (auto) 0.3 %; Eosinophils # (auto) 0.08 K/uL (0.00-0.50); Eosinophils % (auto) 0.6 %; Hematocrit (blood only) 25.8 % (37.0-47.0); Hemoglobin 8.1 g/dl (12.0-16.0); Immature Granulocytes # (auto) 0.05 K/uL (0.01-0.20); Immature Granulocytes % (auto) 0.4 %; Lymphocytes # (auto) 0.92 K/uL (1.20-3.40); Lymphocytes % (auto) 6.9 %; Mean Corpuscular Hemoglobin 25.5 pg (25.0-34.0); Mean Corpuscular Hgb Conc 31.4 g/dL (32.0-36.0); Mean Corpuscular Volume 81.1 fL (80.0-100.0); Monocytes # (auto) 1.34 K/uL (0.11-0.59); Monocytes % (auto) 10.1 %; Neutrophils # (auto) 10.81 K/uL (1.40-6.50); Neutrophils % (auto) 81.7 %; Platelet Count 497 K/uL (130-400); RDW Coefficient of Variation 13.7 % (11.5-14.5); RDW Standard Deviation 40.9 fL (36.4-46.3); Red Blood Count 3.18 M/uL (4.20-5.40); White Blood Count 13.24 K/ul (4.8-10.8)
[2024-05-26] MEDS: SODIUM CHLORIDE 0.9% 1,000 ML IV ONE (20:18)
[2024-05-26 20:27] LABS: Albumin Globulin Ratio 1.1 (0.9-2); Albumin Level 3.6 gm/dl (3.4-5.0); BUN Creatinine Ratio 20.2 (10-20); Bilirubin,Total 0.3 mg/dl (0.2-1.0); Calcium 8.8 mg/dl (8.6-10.3); Creatinine Clr Calc Pharmacy 25.7 ml/min; Globulin 3.3 gm/dl (2.5-4.0); Potassium 4.8 mmol/L (3.5-5.1); Total Protein 6.9 gm/dl (6.0-8.3)
[2024-05-26 20:34] LABS: Troponin I High Sensitivity 19.6 pg/ml (0-14)
--- NOTE | 2024-05-26 20:36 | CT Scan Report ---
Exam(s): CT HEAD Without Contrast EXAM: CT Head Without Intravenous Contrast CLINICAL HISTORY: Reason for exam: fall. TECHNIQUE: Axial computed tomography images of the head/brain without intravenous contrast. CTDI is 35.65 mGy and DLP is 547.75 mGy-cm. Automated exposure control was utilized for the study. A dose lowering technique was utilized adhering to the principles of ALARA. COMPARISON: None. FINDINGS: Brain: No intracranial hemorrhage, mass-effect or midline shift. No abnormal extra-axial fluid collections. Moderate cerebral atrophy with widening of the extra-axial spaces and ventricular dilatation. Periventricular/subcortical areas of decreased attenuation within the white matter tracts, which are nonspecific but can be seen with chronic small vessel ischemic disease/age related white matter degeneration. Bones/joints: Unremarkable. No acute fracture. Soft tissues: Unremarkable. Sinuses: There is an air-fluid level in the left maxillary sinus Mastoid air cells: Unremarkable as visualized. No mastoid effusion.. IMPRESSION: No obvious acute intracranial abnormality. Chronic involutional and ischemic changes of the brain. Left maxillary sinus air-fluid level, from most likely an acute sinusitis. Recommend clinical correlation . Electronically signed by: Shin Matos MD, DABR 05/26/24 20:35 PM
--- NOTE | 2024-05-26 22:37 | History & Physical Report ---
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 #Fall: Mechanical fall 05/25 CT head without acute intracranial abnormalities XR right shoulder negative PT/OT evaluation and treatment PRN Tylenol/Tramadol for pain control #Elevated CK/ TAVO on CKD Creatinine 1.7 on admission (baseline ~1.4) Elevated CK secondary to fall, CK 1284->1171 S/p 1L bolus of IV fluids - due to shortage of IV fluids, encourage PO fluids AM labs - CMP, consider additional IV fluids if Cr failing to improve #+SIRS, unclear source: WBC 13, HR 128 on arrival - initially suspected dehydration/hemoconcentration as cause for leukocytosis - however, given that hemoglobin essentially at baseline, suspicion remains for underlying infectious process. History without obvious s/s of infection apart from acute sinusitis UA ordered, pending CXR ordered, pending Empiric broad spectrum abx deferred at this time AM labs: CBC, CMP #Acute Sinusitis: Sx present for 2 weeks Started on doxycycline in ED, continue Doxycycline 100mg PO BID x7 days #Elevated Troponin: Troponin of 19.6 on admission, low suspicion for significant cardiac etiology - EKG without ischemic changes, pt without chest pain/SOB/palpitations, repeat troponin with AM labs #T2DM: Lantus 7U BID SSI Oral meds held #Venous ulcer of RLE/PAD with h/o right toe amputation: Wound care consulted for management of RLE and LLE wounds/dressing changes. 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 Patient fell 05/25 afternoon- was leaning over and lost her balance, fell on her right shoulder, denies associated syncope/pre-syncope, CP/SOB/palpitations before or after fall. She was unable to get up from the ground and was on the floor for about 1.5 hours before her son was able to help her get up. Endorses poor PO food and fluid intake last 2 days. At present, endorses subjective chills but no overt f ever, denies CP/SOB/Abdominal pain/N/V/D. Denies urinary sx. +sinus pressure, nasal congestion x2 weeks. She was seen at wound care center and PCP office earlier today, had outpatient labwork and was subsequently recommended to go to the ED for evaluation. Outpatient labs 05/26 significant for: WBC 15.7, Cr 1.7 (baseline ~1.4), CK 1284, negative procal. ED Course: Pt received 1L bolus of IV fluids. Labs in ED similar to above with addition of Troponin of 19.6, lipase 148. Allergies Allergy/AdvReac Type Severity Reaction Status Date / Time amoxicillin Allergy Severe Rash Verified 05/26/24 20:34 neomycin Allergy Intermediate Rash Verified 05/26/24 20:34 propoxyphene Allergy Mild Rash Verified 05/26/24 20:34 [From Darvocet-N] ceftriaxone [From Rocephin] AdvReac Severe Fever Verified 05/26/24 20:34 sulfamethoxazole AdvReac Intermediate Diarrhea Verified 05/26/24 20:34 [From Bactrim] trimethoprim [From Bactrim] AdvReac Intermediate Diarrhea Verified 05/26/24 20:34 lisinopril AdvReac Mild Cough Verified 05/26/24 20:34 Home Medications Medication Instructions Recorded Confirmed Type acetaminophen 500 mg tablet 1,000 mg PO BID 07/04/22 05/26/24 History (Tylenol Extra Strength) loratadine 10 mg tablet 10 mg PO HS PRN seasonal allergies 07/04/22 05/26/24 History magnesium oxide 400 mg PO BID 07/04/22 05/26/24 History cholecalciferol (vitamin D3) 25 25 mcg PO QAM 07/06/22 05/26/24 History mcg (1,000 unit) capsule biotin 10 mg tablet 10 mg PO QAM 09/05/22 05/26/24 History cyanocobalamin (vitamin B-12) 1,000 mcg PO 3XWK 06/25/23 05/26/24 History 1,000 mcg capsule aspirin 81 mg capsule 81 mg PO QAM 08/01/23 05/26/24 History metformin 1,000 mg tablet 1,000 mg PO BID #180 tabs 09/02/23 05/26/24 Rx ezetimibe 10 mg tablet (Zetia) 10 mg PO DAILY #90 tabs 12/31/23 05/26/24 Rx pen needle, diabetic 31 gauge x #100 ea 01/13/24 05/26/24 Rx 3/16" (BD Ultra-Fine Mini Pen Needle) blood sugar diagnostic (True #100 strips 04/03/24 05/26/24 Rx Metrix Glucose Test Strip) insulin glargine 100 unit/mL (3 18 unit (0.18 mL) subcut QPM #15 mL 04/14/24 05/26/24 Rx mL) subcutaneous pen (Albert Post U-100 Insulin) lisinopril 2.5 mg tablet 2.5 mg PO QAM #90 tabs 04/27/24 05/26/24 Rx ferrous gluconate 324 mg (38 mg 324 mg PO .COMPLEX #45 tabs 05/07/24 05/26/24 Rx iron) tablet cilostazol 50 mg tablet 50 mg PO BID 05/14/24 05/26/24 History furosemide 20 mg tablet 20 mg PO DAILY PRN edema 05/15/24 05/26/24 History tramadol 50 mg tablet 50 mg PO Q6H PRN pain #30 tabs 05/18/24 05/26/24 Rx gentamicin 0.1 % topical ointment 1 applic topical DAILY 2 weeks #30 05/19/24 05/26/24 Rx grams atorvastatin 80 mg tablet 80 mg PO HS 05/26/24 05/26/24 History clopidogrel 75 mg tablet 75 mg PO DAILY 05/26/24 05/26/24 History glimepiride 4 mg tablet 4 mg PO BID 05/26/24 05/26/24 History metoprolol tartrate 25 mg tablet 25 mg PO BID 05/26/24 05/26/24 History Past Med/Surg History Problem List Sinusitis (Acute) Elevated troponin (Acute) CKD (chronic kidney disease) (Acute) Rhabdomyolysis (Acute) Leukocytosis (Acute) Fall (Acute) Venous ulcer of left leg (Acute) Critical limb ischemia of right lower extremity Elevated serum creatinine Diabetic ulcer of toe of right foot (Acute) Venous ulcer of right leg (Acute) Non-healing amputation site (Acute) Edema Vitamin D deficiency Gangrene due to arterial insufficiency Infection due to Streptococcus group B Allergy to cephalosporin Allergy to amoxicillin Osteomyelitis of second toe of right foot (Acute) B12 deficiency Cellulitis of right foot Lymphedema of both lower extremities (Chronic) Venous ulcer of right lower extremity without varicose veins (Acute) Surgical wound, non healing (Acute) Right great toe amputee Surgical amputation on 12/12/22 Dr. Ramos Osteopenia repeat DEXA 09/2024 Foot ulcer Anemia Failure of outpatient treatment (Acute) Arterial insufficiency of lower extremity Obesity Diabetes mellitus PAD (peripheral artery disease) (Chronic) Cellulitis of right lower extremity (Acute) August 2022, treated at [facility] Hx of cataract extraction Bilateral Hx of parathyroidectomy History of deviated nasal septum Hypertension Frequent PVCs pt denies/aware - pt does not have any symptoms CAD (coronary artery disease) 1 stent 2021 and 2 in 2020 Myocardial infarct 01/17/21 S/P coronary artery stent placement x2 (01/19/21) + 01/31/22 x1 stent in circumflex artery (per patient) done at [facility] in [place]. Follows with Dr Morgan Dyslipidemia Medical History Sepsis 06/2023, hospitalized @[facility], post-op infection; sent home on daily IV ertapenem Post op infection 06/2023, hospitalized @[facility], sent home on IV ertapenem daily History of COVID-19 Mar 2023 > not hospitalized Amputation toe rt hallux Hx of chest pain 2021, and pain in her jaw, had stress test then [facility] History of anesthesia reaction s/p knee arthroscopy took a "long time to wake up". DEEPIKA (obstructive sleep apnea) no device Back abscess hx- November 2019. no surgery - treated with antibiotics. Arthritis Type 2 diabetes mellitus IDDM Surgical History Hx of toe surgery partial distal symes amputation 06/2023 Hx of foot surgery Right Foot Ulcer Debridement, Bone Biopsy, Incision and Drainage History of cardiac cath 12/2020 at [facility] in [place] 2021, [facility] in [place]; [place] dr. morgan and dr[place] [facility] [place] post [place] of extremity Right leg at [facility] with Dr Loyd. no stents placed>procedure done twice-3 vessels first time, 1 vessel second time. H/O colonoscopy Last colonoscopy 01/24/2017 Joint replaced left foot plus a revision of a toe joint H/O sinus surgery H/O arthroscopy of right knee H/O dilation and curettage H/O cervical polypectomy H/O breast biopsy Hx of tubal ligation Hx of carpal tunnel repair bilateral Family History Mother Heart disease Myocardial infarction Hypertension Brother Hypertension Uncle Diabetes Father Emphysema lung black lung Denies family history of Ovarian cancer Prostate cancer Breast cancer Lung cancer Colorectal cancer Stroke Social History Smoking Status: Never smoker Second Hand Exposure: No; Do You Dip or Chew Tobacco: No; Hx Alcohol Use: Yes Alcohol type: wine and hard liquor Alcohol Intake Frequency: Monthly or Less Hx Substance Use: No Preferred Language: South African Communication Ability: Effective Visual Impairment: Limited Hearing Ability: Normal Fuel Injection Servicer Required: No Beliefs That Will Affect Care: None marital status: / Current Living Situation: Alone current occupational status: retired How many Children do You have: 4 Other Information That Helps Us Care for You: No Feels Safe at Home: Yes Safety Concerns: Feels Safe At This Time Childhood Exposure to Second-Hand Smoke: No Diet: diabetic and low salt Diet Comment: Educated to increase protein, vitamin c, d and zinc caffeine: Yes (1 cup a day) during the past year weight has: remained stable Dental Care, Regularly: Yes Physical Activity Frequency: 1-2 Times per Week Seatbelt Use: always Sunscreen Use: Yes Assistive Devices: Cane, Glasses and Special Shoe Review of Systems Review of Systems: as per HPI Physical Exam Physical Exam: General: Alert and oriented. No acute distress Cardiac: Regular rate and rhythm, no murmurs appreciated Respiratory: Lungs clear to auscultation bilaterally, No increased work of breathing Abdominal: Soft, non-tender, non-distended. Bowel sounds present. Extremities: Bilateral LE edema, left leg with clean dressing, right leg partially with venous stasis changes Results & Data Results & Data Vital Signs (Past 12 Hours) Vital Signs Temp Pulse Pulse Resp BP BP Pulse Ox 05/26/24 20:23 111 H 05/26/24 20:21 05/26/24 20:21 107 H 18 112/72 97 05/26/24 19:30 36.7 C 128 H 16 123/72 93 O2 Del Method 05/26/24 20:23 05/26/24 20:21 Room Air 05/26/24 20:21 Room Air 05/26/24 19:30 Room Air Laboratory Results Laboratory Results WBC 13.24 K/ul (4.8-10.8) H 05/26/24 19:58 RBC 3.18 M/uL (4.20-5.40) L 05/26/24 19:58 Hgb 8.1 g/dl (12.0-16.0) L 05/26/24 19:58 Hct 25.8 % (37.0-47.0) L 05/26/24 19:58 MCV 81.1 fL (80.0-100.0) 05/26/24 19:58 MCH 25.5 pg (25.0-34.0) 05/26/24 19:58 MCHC 31.4 g/dL (32.0-36.0) L 05/26/24 19:58 RDW Std Deviation 40.9 fL (36.4-46.3) 05/26/24 19:58 RDW Coeff of Renetta 13.7 % (11.5-14.5) 05/26/24 19:58 Plt Count 497 K/uL (130-400) H 05/26/24 19:58 MPV 9.0 fL (9.4-12.4) L 05/26/24 19:58 Immature Gran % (Auto) 0.4 % 05/26/24 19:58 Neut % (Auto) 81.7 % 05/26/24 19:58 Lymph % (Auto) 6.9 % 05/26/24 19:58 [place] % (Auto) 10.1 % 05/26/24 19:58 Eos % (Auto) 0.6 % 05/26/24 19:58 Baso % (Auto) 0.3 % 05/26/24 19:58 Neut # (Auto) 10.81 K/uL (1.40-6.50) H 05/26/24 19:58 Lymph # (Auto) 0.92 K/uL (1.20-3.40) L 05/26/24 19:58 [place] # (Auto) 1.34 K/uL (0.11-0.59) H 05/26/24 19:58 Eos # (Auto) 0.08 K/uL (0.00-0.50) 05/26/24 19:58 Baso # (Auto) 0.04 K/uL (0.00-0.20) 05/26/24 19:58 Immature Gran # (Auto) 0.05 K/uL (0.01-0.20) 05/26/24 19:58 Sodium 134 mmol/L (136-145) L 05/26/24 19:58 Potassium 4.8 mmol/L (3.5-5.1) 05/26/24 19:58 Chloride 97 mmol/L (98-107) L 05/26/24 19:58 Carbon Dioxide 24 mmol/L (21-32) 05/26/24 19:58 Anion Gap 13 (3-11) H 05/26/24 19:58 BUN 34 mg/dl (6-23) H 05/26/24 19:58 Creatinine 1.68 mg/dl (0.6-1.2) H 05/26/24 19:58 Est Cr Clr Drug Dosing 25.7 ml/min 05/26/24 19:58 eGFR 31.52 05/26/24 19:58 BUN/Creatinine Ratio 20.2 (10-20) H 05/26/24 19:58 Glucose 197 mg/dl (70-99(Fasting)) H 05/26/24 19:58 POC Glucose 123 mg/dl (70-99) H 05/27/24 02:05 Calcium 8.8 mg/dl (8.6-10.3) 05/26/24 19:58 Total Bilirubin 0.3 mg/dl (0.2-1.0) 05/26/24 19:58 AST 37 U/L (13-39) 05/26/24 19:58 ALT 19 U/L (7-52) 05/26/24 19:58 Alkaline Phosphatase 75 U/L (34-104) 05/26/24 19:58 Total Creatine Kinase 1171 U/L (26-192) H 05/26/24 19:58 Troponin I High Sens 19.6 pg/ml (0-14) H 05/26/24 19:58 Total Protein 6.9 gm/dl (6.0-8.3) 05/26/24 19:58 Albumin 3.6 gm/dl (3.4-5.0) 05/26/24 19:58 Globulin 3.3 gm/dl (2.5-4.0) 05/26/24 19:58 Albumin/Globulin Ratio 1.1 (0.9-2) 05/26/24 19:58 Lipase 148 U/L (11-82) H 05/26/24 19:58 Urine Color Yellow 05/26/24 Unknown Urine Appearance Clear (Clear) 05/26/24 Unknown Urine pH 5.5 (4.5-7.5) 05/26/24 Unknown Ur Specific [place] 1.019 (1.000-1.030) 05/26/24 Unknown Urine Protein 1+ (Negative) H 05/26/24 Unknown Urine Glucose (UA) Negative (Negative) 05/26/24 Unknown Urine Ketones Trace (Negative) H 05/26/24 Unknown Urine Blood Negative (Negative) 05/26/24 Unknown Urine Nitrite Negative (Negative) 05/26/24 Unknown Urine Bilirubin Negative (Negative) 05/26/24 Unknown Urine Urobilinogen Negative (Negative) 05/26/24 Unknown Ur Leukocyte Esterase Negative (Negative) 05/26/24 Unknown Urine WBC (Auto) 0-5 /hpf (0-5) 05/26/24 Unknown Urine RBC (Auto) 0-2 /hpf (0-2) 05/26/24 Unknown U Hyaline Cast (Auto) 3-5 /lpf (0-2) H 05/26/24 Unknown U Epithel Cells (Auto) 0-2 /hpf (0-2) 05/26/24 Unknown Urine Bacteria (Auto) None Seen (None Seen) 05/26/[address] 05/26/24 19:48 Exam(s): CT HEAD Without Contrast EXAM: CT Head Without Intravenous Contrast CLINICAL HISTORY: Reason for exam: fall. TECHNIQUE: Axial computed tomography images of the head/brain without intravenous contrast. CTDI is 35.65 mGy and DLP is 547.75 mGy-cm. Automated exposure control was utilized for the study. A dose lowering technique was utilized adhering to the principles of ALARA. COMPARISON: None. FINDINGS: Brain: No intracranial hemorrhage, mass-effect or midline shift. No abnormal extra-axial fluid collections. Moderate cerebral atrophy with widening of the extra-axial spaces and ventricular dilatation. Periventricular/subcortical areas of decreased attenuation within the white matter tracts, which are nonspecific but can be seen with chronic small vessel ischemic disease/age related white matter degeneration. Bones/joints: Unremarkable. No acute fracture. Soft tissues: Unremarkable. Sinuses: There is an air-fluid level in the left maxillary sinus Mastoid air cells: Unremarkable as visualized. No mastoid effusion.. IMPRESSION: No obvious acute intracranial abnormality. Chronic involutional and ischemic changes of the brain. Left maxillary sinus air-fluid level, from most likely an acute sinusitis. Recommend clinical correlation . Electronically signed by: Shin Matos MD, RENEER 05/26/24 20:35 PM Supervising Physician Co-Signing Physician Notes Patient seen and examined, chart reviewed, case discussed with Dr. Arthur and I agree with the assessment and plan as above. In brief, patient is a 73yo female with history of DM, HTN, HLP, CAD, LE wounds presenting with abnormal lab work. Patient fell in her home yesterday and was down on the ground for appx 1.5 hours. She was seen by her Wound Care team and her PCP today - outpatient blood work was ordered which revealed elevated WBC=15.7, elevated Cr=1.7 (baseline 1.4), YZ=6266 and Trop=19.6 She reports poor oral intake for the last several days as well as some chills On exam patient is resting comfortably in recliner chair, NAD LE wounds with bandages in place - no drainage or malodor HEENT - MMM, Neck supple Heart - +S1/S2, regular Lungs - CTA anteriorly Abd - +BS, soft, NT/ND Labs and images reviewed Assessment/Plan - 73yo female presenting from home following a fall, down time of appx 1.5 hours. Patient with leukocytosis, elevation of CK and mild TAVO Given IVF in the ER -Admit to medical -Encourage PO fluids -Repeat troponin in AM -Wound care -Continue Doxycycline -PT/OT evaluation appreciated -Remainder as above Resident Activity Tracking Resident Involvement: Resident Care Provided Care Provided: Adult Hospital Medicine (1) Fall Encounter type: initial encounter Qualified Code(s): W19.XXXA - Unspecified fall, initial encounter (2) Rhabdomyolysis Encounter type: initial encounter Rhabdomyolysis type: traumatic Qualified Code(s): T79.6XXA - Traumatic ischemia of muscle, initial encounter (5) CKD (chronic kidney disease) Chronic kidney disease stage: unspecified stage Qualified Code(s): N18.9 - Chronic kidney disease, unspecified (6) Leukocytosis Leukocytosis type: unspecified Qualified Code(s): D72.829 - Elevated white blood cell count, unspecified
[2024-05-26] MEDS: DOXYCYCLINE HYCLATE 100 MG CAP PO STA (22:38)
[2024-05-26 23:15] LABS: Appearance Urine Clear (Clear); Bacteria Urine Automated None Seen (None Seen); Bilirubin Urine Negative (Negative); Blood Urine Negative (Negative); Color Urine Yellow; Epithelial Cell Urine Auto 0-2 /hpf (0-2); Glucose Urine UA Negative (Negative); Ketones Urine Trace (Negative); Leukocyte Esterase Urine Negative (Negative); Nitrite Urine Negative (Negative); Protein Urine 1+ (Negative); RBC Urine Automated 0-2 /hpf (0-2); Specific Gravity Urine 1.019 (1.000-1.030); Urobilinogen Urine Negative (Negative); WBC Urine Automated 0-5 /hpf (0-5); pH Urine 5.5 (4.5-7.5)
[2024-05-27] MEDS ORDERED: ATORVASTATIN 40 MG TAB PO STA (00:28)
[2024-05-27] MEDS ORDERED: DEXTROSE 50% 50 ML SYRINGE IV PRN (02:14)
[2024-05-27] MEDS ORDERED: traMADol HCL 50 MG TABLET PO PRN (02:14)
[2024-05-27] MEDS ORDERED: CARBOHYDRATES FOR HYPOGLYCEMIA PO PRN (02:14)
[2024-05-27] MEDS ORDERED: POLYETHYLENE (MIRALAX) 17 GM PACK PO PRN (02:14)
[2024-05-27] MEDS ORDERED: MELATONIN 3 MG TAB PO PRN (02:14)
[2024-05-27] MEDS ORDERED: ACETAMINOPHEN 325 MG TAB PO PRN (02:14)
[2024-05-27] MEDS ORDERED: GLUCOSE 40% GEL 15 GM TUBE PO PRN (02:14)
[2024-05-27] MEDS ORDERED: ALUMINUM/MAGNESIUM SUSP 30 ML UDC PO PRN (02:14)
[2024-05-27] MEDS ORDERED: FUROSEMIDE 20 MG TAB PO PRN (02:14)
[2024-05-27] MEDS ORDERED: MAGNESIUM HYDROXIDE SUSP 30 ML UDC PO PRN (02:14)
[2024-05-27] MEDS ORDERED: GLUCOSE 10 TAB/TUBE PO PRN (02:14)
[2024-05-27] MEDS ORDERED: GLUCAGON FOR INJ 1 MG VIAL SQ PRN (02:14)
[2024-05-27] MEDS: traMADol HCL 50 MG TABLET PO STA (02:29)
[2024-05-27] MEDS: LANTUS PER UNIT CHARGE SQ STA (02:30)
[2024-05-27 02:49] VITALS: RESP 18
[2024-05-27] MEDS: METOPROLOL TARTRATE 25 MG TAB PO STA (03:45)
--- NOTE | 2024-05-27 03:51 | Billing Data ---
Date of Service May 26, 2024 Coding Level of Care Code 54115 INT INP/OBS CARE
[2024-05-27 07:11] VITALS: BP 136/68; TEMP 98.4; O2SAT 97
[2024-05-27 07:30] LABS: Basophils # (auto) 0.04 K/uL (0.00-0.20); Basophils % (auto) 0.4 %; Eosinophils # (auto) 0.17 K/uL (0.00-0.50); Eosinophils % (auto) 1.8 %; Hematocrit (blood only) 24.4 % (37.0-47.0); Hemoglobin 7.6 g/dl (12.0-16.0); Immature Granulocytes # (auto) 0.04 K/uL (0.01-0.20); Immature Granulocytes % (auto) 0.4 %; Lymphocytes # (auto) 1.13 K/uL (1.20-3.40); Lymphocytes % (auto) 12.2 %; Mean Corpuscular Hgb Conc 31.1 g/dL (32.0-36.0); Mean Corpuscular Volume 83.6 fL (80.0-100.0); Mean Platelet Volume 8.8 fL (9.4-12.4); Monocytes # (auto) 1.27 K/uL (0.11-0.59); Monocytes % (auto) 13.7 %; Neutrophils # (auto) 6.62 K/uL (1.40-6.50); Neutrophils % (auto) 71.5 %; Platelet Count 437 K/uL (130-400); RDW Coefficient of Variation 13.9 % (11.5-14.5); RDW Standard Deviation 42.3 fL (36.4-46.3); Red Blood Count 2.92 M/uL (4.20-5.40); White Blood Count 9.27 K/ul (4.8-10.8)
--- NOTE | 2024-05-27 07:44 | XRay Report ---
SINGLE VIEW CHEST CLINICAL HISTORY: Cough and dyspnea FINDINGS: An AP, portable, upright chest radiograph is compared to study dated 07/14/2023. The cardio mediastinal silhouette is top normal for projection. There is bibasilar scarring/atelectasis. No airs pace consolidation or large pleural effusion is identified. No pneumothorax is seen. The skeletal str uctures are osteopenic. The bony thorax is grossly intact. IMPRESSION: No active disease in the chest. ACT 112: Negative or not required by law. Electronically signed by: Jw Wright M.D. 05/27/2024 7:42 AM
[2024-05-27 07:51] LABS: Albumin Globulin Ratio 1.1 (0.9-2); Albumin Level 3.4 gm/dl (3.4-5.0); BUN Creatinine Ratio 19.6 (10-20); Bilirubin,Total 0.2 mg/dl (0.2-1.0); Calcium 8.4 mg/dl (8.6-10.3); Creatinine Clr Calc Pharmacy 31.4 ml/min; Globulin 3.2 gm/dl (2.5-4.0); Potassium 4.5 mmol/L (3.5-5.1); Total Protein 6.6 gm/dl (6.0-8.3)
[2024-05-27 07:56] LABS: Polychromasia 1+
[2024-05-27 07:59] LABS: Troponin I High Sensitivity 10.3 pg/ml (0-14)
[2024-05-27] MEDS ORDERED: lisinopril 2.5 MG TAB PO SCH (09:00)
[2024-05-27] MEDS: METOPROLOL TARTRATE 25 MG TAB PO SCH (09:24)
[2024-05-27] MEDS: CLOPIDOGREL BISULFATE 75 MG TAB PO SCH (09:25)
[2024-05-27] MEDS: DOXYCYCLINE HYCLATE 100 MG CAP PO SCH (09:25)
[2024-05-27] MEDS: EZETIMIBE 10 MG TAB PO SCH (09:25)
[2024-05-27] MEDS: CHOLECALCIFEROL 25 MCG (1000 UNITS) TAB PO SCH (09:25)
[2024-05-27] MEDS: cilostazoL 100 MG TAB PO SCH (09:25)
[2024-05-27] MEDS: ASPIRIN 81 MG ECTAB PO SCH (09:26)
[2024-05-27] MEDS: INSULIN ASPART PER UNIT CHARGE SC SCH (09:27)
[2024-05-27] MEDS: LANTUS PER UNIT CHARGE SQ SCH (09:33)
[2024-05-27] MEDS: HEPARIN SOD 5,000 UNIT/0.5 ML VIAL SQ SCH (09:34)
--- NOTE | 2024-05-27 11:36 | Discharge Summary ---
Discharge Summary Date of Service May 27, 2024 Principal Dx & Hospital Course #1 = Principal Diagnosis (1) Fall: Mechanical. Fortunately no fractures. The patient currently states she feels fine (2) Rhabdomyolysis: Mild on admission. CK is downtrending. (3) Sinusitis: Suspected acute sinusitis present on admission. Now on oral doxycycline (4) Elevated troponin: No chest pain, no acute EKG changes. No signs or symptoms of acute coronary syndrome (5) CKD (chronic kidney disease): Mild acute kidney injury on chronic kidney disease stage III. Maintain satisfactory fluid intake (6) PAD (peripheral artery disease): Stable. Continue current medical management (7) Diabetes mellitus: ADA diet. Sliding scale coverage. Basal insulin therapy (8) Anemia: Known chronic iron deficiency. Continue iron supplementation orally (9) Hypertension: Stable. Continue current medical management (10) CAD (coronary artery disease): Stable. Continue current medical management (11) Dyslipidemia: Stable. Continue current medical management Plan The patient states she feels fine now and is asking to go home. 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 Patient fell 05/25 afternoon- was leaning over and lost her balance, fell on her right shoulder, denies associated syncope/pre-syncope, CP/SOB/palpitations before or after fall. She was unable to get up from the ground and was on the floor for about 1.5 hours before her son was able to help her get up. Endorses poor PO food and fluid intake last 2 days. At present, endorses subjective chills but no overt fever, denies CP/SOB/Abdominal pain/N/V/D. Denies urinary sx. +sinus pressure, nasal congestion x2 weeks. She was seen at wound care center and PCP office earlier today, had outpatient labwork and was subsequently recommended to go to the ED for evaluation. Outpatient labs 05/26 significant for: WBC 15.7, Cr 1.7 (baseline ~1.4), CK 1284, negative procal. ED Course: Pt received 1L bolus of IV fluids. Labs in ED similar to above with addition of Troponin of 19.6, lipase 148. Discharge Exam General-alert and oriented x3, no fever, no chills HEENT-head atraumatic and normocephalic, pupils equal and reactive to light, extraocular muscles intact Neck-no lymphadenopathy or thyromegaly, trachea midline Chest-clear to auscultation. No rales, wheezing or rhonchi Cardiac-regular rate and rhythm, normal S1 and S2 Abdomen-normal bowel sounds, no hepatosplenomegaly Extremities-no cyanosis, clubbing, or edema Neuro-cranial nerves II through XII intact, motor and sensory function within normal limits, strength symmetrical, no focal deficits Psych-normal affect, normal mood Discharge Plan Discharge Items Patient Disposition: Home - Self-Care Reason For Visit: FALL Discharge Diagnosis: Mechanical fall, mild rhabdomyolysis, suspected acute sinusitis, acute on chronic kidney disease stage III Activity: Resume your previous activity Non-emergency contact: Primary Care Provider Call non-emergency contact if: your symptoms worsen Follow-up/Referrals: Kenny Martinez DO [Primary Care Provider] - Diet: Carb Consistent or DM2 and Heart Healthy Addtl Attending Provider Instructions: All medications remain the same. Doxycycline antibiotic prescription sent to [facility]. Take as directed. See primary care provider as scheduled Pending Studies at Discharge: No Stand-Alone Forms: My [facility] Shuame, Smoking Cessation Medications and DC Order Prescriptions: New doxycycline hyclate 100 mg Capsule 100 mg PO BID Qty: 20 0RF Continued furosemide 20 mg tablet 20 mg PO DAILY PRN (Reason: edema) gentamicin 0.1 % ointment 1 applic topical DAILY 14 Days Qty: 30 2RF metformin 1,000 mg tablet 1,000 mg PO BID Qty: 180 3RF ezetimibe [Zetia] 10 mg tablet 10 mg PO DAILY Qty: 90 3RF (DME) pen needle, diabetic [BD Ultra-Fine Mini Pen Needle] 31 gauge x 3/16" needle See Rx Instructions .ROUTE .COMPLEX Qty: 100 3RF Dose Instruction: DIRECTED Rx Instructions: DIRECTED (DME) True Metrix Glucose Test Strip Strip See Rx Instructions .ROUTE .COMPLEX Qty: 100 3RF Dose Instruction: DIRECTED Rx Instructions: test blood sugar twice daily E11.9 insulin glargine [Basaglar KwikPen U-100 Insulin] 100 unit/mL (3 mL) insulin pen 18 unit subcut QPM Qty: 15 1RF lisinopril 2.5 mg tablet 2.5 mg PO QAM Qty: 90 3RF Rx Instructions: TAKE 1 TABLET BY MOUTH DAILY ferrous gluconate 324 mg (38 mg iron) tablet 324 mg PO .COMPLEX Qty: 45 1RF Rx Instructions: 324 mg orally every other day; tramadol 50 mg tablet 50 mg PO Q6H PRN (Reason: pain) Qty: 30 0RF biotin 10 mg tablet 10 mg PO QAM cyanocobalamin (vitamin B-12) 1,000 mcg capsule 1,000 mcg PO 3XWK Rx Instructions: Takes Saturday, Saturday, Saturday only loratadine 10 mg tablet 10 mg PO HS PRN (Reason: seasonal allergies) magnesium oxide 400 mg magnesium tablet 400 mg PO BID acetaminophen [Tylenol Extra Strength] 500 mg tablet 1,000 mg PO BID cholecalciferol (vitamin D3) 25 mcg (1,000 unit) capsule 25 mcg PO QAM cilostazol 50 mg tablet 50 mg PO BID aspirin 81 mg Capsule 81 mg PO QAM atorvastatin 80 mg tablet 80 mg PO HS clopidogrel 75 mg tablet 75 mg PO DAILY glimepiride 4 mg tablet 4 mg PO BID metoprolol tartrate 25 mg tablet 25 mg PO BID Discharge Orders: Discharge Order (Routine); Ordered 05/27/24 Ordered By: Darrius Suh Admission Data Admit Date/Time: 05/26/24 23:32 Attending Provider: Darrius Suh Admit Provider: Ata Arthur Primary Care Provider: Kenny Martinez Other Providers: Brenda Corea Hospital Stay Data Consultations 05/26/24 21:20 ED Decision to Admit Stat Diagnostic Imagining Performed 05/26/24 19:48 CT head/brain wo con Stat Pending Results Patient Have Any Pending Studies at Discharge: No Discharge Instructions Given to Patient (Per Discharging Provider) All medications remain the same. Doxycycline antibiotic prescription sent to [facility]. Take as directed. See primary care provider as scheduled Total Time Total Time Spent Total Time Spent (In Minutes): 45 minutes Coding Level of Care Code 56792 INP/OBS DISCH >30 MIN Diagnoses Fall, initial encounter W19.XXXA Encounter type: initial encounter Rhabdomyolysis T79.6XXA Encounter type: initial encounter Rhabdomyolysis type: traumatic Sinusitis J32.9 Elevated troponin R79.89 CKD (chronic kidney disease) N18.9 Chronic kidney disease stage: unspecified stage PAD (peripheral artery disease) I73.9 Diabetes mellitus E11.9 Anemia D64.9 Hypertension I10 CAD (coronary artery disease) I25.10 Dyslipidemia E78.5
[2024-05-27 12:22] VITALS: PULSE 112
[2024-05-27] MEDS ORDERED: ATORVASTATIN 40 MG TAB PO SCH (21:00)
--- OUTSIDE RECORDS SUMMARY | 2024-06-04 19:59 | External Medical Summary | Continuity of Care Document ---
Author Name Unknown Organization [id number] Address [address] [place] [id number] Care Team Providers Care Taxicab Starter Name Role Phone Kenny Martinez Primary Care Physician [phone] [id number] Date(s): [facility] - [facility]/24 [facility] [address] [place] [id number] [facility] [address] [place] [id number] Encounter Diagnosis Diabetes(Discharge Diagnosis) - 06/01/24 Diabetic ulcer of right foot(Discharge Diagnosis) - 06/01/24 Peripheral vascular disease(Discharge Diagnosis) - 06/01/24 S/P foot surgery, right(Discharge Diagnosis) - 06/01/24 Discharge Disposition: Home or Self Care Attending Physician: NICKO Ramos Christina L Referring Physician: DO Martinez Thomas Allergies, Adverse Reactions, Alerts Substance Criticality Severity Reaction Reaction Severity Status amoxicillin rash Active neomycin rash Active acetaminophen-oxycod one Unable to assess criticality Mild Eruption Active cefTRIAXone Unable to assess criticality Severe Fever Active Bactrim DS Upset stomach Activ e Assessment and Plan Extracted from: Title:Follow Up Visit Author:NICKO Ramos, Felicitas Garner Date:06/01/24 1.Diabetes 2.Diabetic ulcer of right foot 3.Peripheral vascular disease 4.S/P foot surgery, right patient to continue decrease activity levelwith dressing changes daily to the right footconsisting of Aquacel silver/Betadine dressings removed and incisions cleanedwithBetadine dressings re appliedconsisting ofrollgauze,Aquacel silverandpatient will continue use of her Bucky bandage No debridement performed today patient to wear postop shoewith modification no calf pain noted and discussed signs of a DVT continue Tylenol/ibuprofen for pain Patient to follow-upon June 11 at 9:45 AM Medications albuterol CFC free 90 mcg/inh MDI Start: 11/03/19 1:40:00 PM EDT, 1 puff, inhaled, qid, PRN: as needed for wheezing Start Date: 11/03/19 Status: Ordered aspirin 81 mg oral delayed release tablet Start: 08/01/23 10:33:00 AM EST, 1 tab, PO, Daily Start Date: 08/01/23 Status: Ordered atorvastatin 80 mg oral tablet Start: 10/09/22 1:18:00 PM EDT, 1 tab, PO, Daily Start Date: 10/09/22 Status: Ordered Basaglar KwikPen 100 units/mL subcutaneous solution Start: 11/03/19 1:41:00 PM EDT, 18 unit =, subQ, qhs Start Date: 11/03/19 Status: Ordered benzonatate 100 mg oral capsule Start: 04/22/23 11:12:00 AM EDT, PT. TO TAKE NEEDED FOR COUGH Start Date: 04/22/23 Status: Ordered biotin 10 mg oral tablet Start: 11/03/19 1:40:00 PM EDT, 1 tab, PO, Daily Start Date: 11/03/19 Status: Ordered Caltrate 600 + D oral tablet Start: 11/03/19 1:39:00 PM EDT, 1 tab, PO, bid Start Date: 11/03/19 Status: Ordered cilostazol 50 mg oral tablet TAKE 1 TABLET BY MOUTH TWICE A DAY Start Date: 04/13/24 Status: Ordered clopidogrel 75 mg oral tablet Start: 10/09/22 1:20:00 PM EDT, 1 tab, PO, Daily Start Date: 10/09/22 Status: Ordered doxycycline hyclate 100 mg oral capsule Start: 05/07/24 1:39:00 PM EDT, 1 cap, PO, bid, Disp# 14 cap, Refills: 0, Pharmacy: [facility]/pharmacy #[id number] Start Date: 05/07/24 Stop Date: 05/14/24 Status: Ordered ezetimibe 10 mg oral tablet TAKE 1 TABLET BY MOUTH EVERY DAY Start Date: 01/22/24 Status: Ordered furosemide 20 mg oral tablet Start: 07/31/23 10:22:00 AM EST, 1 tab, PO, Daily, only a needed prn swelling Start Date: 07/31/23 Status: Ordered glimepiride 4 mg oral tablet Start: 11/03/19 1:37:00 PM EDT, 1 tab, PO, bid Start Date: 11/03/19 Status: Ordered iron Start: 10/09/22 1:30:00 PM EDT, iron Start Date: 10/09/22 Status: Ordered lisinopril 2.5 mg oral tablet TAKE 1 TABLET BY MOUTH EVERY DAY Start Date: 01/02/24 Status: Ordered loratadine 10 mg oral capsule Start: 11/03/19 1:39:00 PM EDT, 1 cap, PO, qhs Start Date: 11/03/19 Status: Ordered magnesium oxide 400 mg (241.3 mg elemental magnesium) oral tablet Start: 11/03/19 1:38:00 PM EDT, 1 tab, PO, bid Start Date: 11/03/19 Status: Ordered metFORMIN 1000 mg oral tablet Start: 11/03/19 1:37:00 PM EDT, 1 tab, PO, bid Start Date: 11/03/19 Status: Ordered metoprolol tartrate 25 mg oral tablet Start: 11/03/19 1:40:00 PM EDT, 1 tab, PO, bid Start Date: 11/03/19 Status: Ordered traMADol 50 mg oral tablet Start: 02/11/23 11:49:00 AM EDT, 1 tab, PO, q6h, Disp# 10 tab, Refills: 0, not to exceed 400 mg/day,PRN: as needed for pain, Pharmacy: [facility]/pharmacy #[id number] Start Date: 02/11/23 Stop Date: 02/18/23 Status: Ordered traMADol 50 mg oral tablet Start: 07/09/23 10:57:00 AM EST, 1 tab, PO, q4h, Disp# 20 tab, Refills: 0, not to exceed 400 mg/day, PRN: as needed for pain, Pharmacy: [facility]/pharmacy #[id number] Start Date: 07/09/23 Stop Date: 07/16/23 Status: Ordered Tylenol 500 mg oral tablet Start: 11/03/19 1:38:00 PM EDT, 1 tab, PO, Daily, PRN: as needed for pain Start Date: 11/03/19 Status: Ordered Ultram 50 mg oral tablet Start: 12/14/22 12:03:00 PM EDT, 1 tab, PO, q6h, Disp# 20 tab, Refills: 0, 400 mg max, PRN: as needed for pain, Pharmacy: [facility]/pharmacy #[id number] Start Date: 12/14/22 Stop Date: 12/19/22 Status: Ordered Vitamin B12 Start: 10/09/22 1:21:00 PM EDT, See Instructions, 1,000 mcg po q fri, sat, and sun Start Date: 10/09/22 Status: Ordered Vitamin D3 Start: 10/09/22 1:28:00 PM EDT Start Date: 10/09/22 Status: Ordered Mental Status 06/01/24 Barriers to Learning one year None evide nt Mandatory Health Literacy Documentation Yes Health Literacy Communication Barriers N ever Primary Language [place] Problem List Condition Confirmation Course Effective Dates [...] Active Pain management 5 Confirmed 12/23/19 Active PAD (peripheral artery disease) Confirmed Active Peripheral vascular disease Confirmed Active Sleep apnea Confirmed Active Lumbar stenosis with neurogenic claudication Confirmed Active Structure of carpal canal 6 Confirmed Active S/P vascular surgery, follow-up exam Confirmed Active Toxic metabolic encephalopathy Confirmed Active Diabetic ulcer of right foot Confirmed Active Diabetic ulcer of toe of right foot with fat layer exposed Confirmed Active Skin ulcer of third toe of right foot Confirmed Active Venous ulcer of left leg Confirmed Active 1Outside Source Comment: Problem added [...] Status Clinical Service Informant Diabetes Discharge Diagnosis 06/01/24 Non-Specified Peripheral vascular disease Discharge Diagnosis 06/01/24 Non-Specified S/P foot surgery, right Discharge Diagnosis 06/01/24 Non-Specified Diabetic ulcer of right foot Discharge Diagnosis 06/01/24 Non-Specified Procedures Procedure Date Related Diagnosis Body Site Status rle TP trunk endarterectomy w bovine patch 08/05/23 Completed Arthroscopic right knee C ompleted Bilateral CTR - Carpal tunnel release Completed Bone spur procedure Compl eted Breast biopsy sample Comp leted Cataract surgery bilateral Completed Hysteroscopy, D & C Compl eted Left Foot implant replacement Completed Parathyroidectomy Complet ed Sinus surgery Completed Tubal ligation Completed Social History Social History Type Response Smoking Status Never smoked cigaret marianna Sex Female Sex Representation Female (finding) Ortho Outpt Note * NICKO Ramos, Rosa Garner: PERFORM Event Display: Ortho Outpt Note Authored Date: [id number] Chief Complaint right foot follow-up Primary Care Provider DO Martinez Thomas Subjective Patient is a very pleasant 72-year-old female presenting today for postop evaluation status post rightsecond toe distal Symes amputation. Postop visit #36 Postop day #90+ Date of surgery July 10, 2023 With regards to the right foot patient is doing wellhowever she had a really hard week last week where she passed outshe had to be taken to the emergency room eventually and was admitted overnightthey really did not find any significant concernspatientis doing a bit better her blood sugars have been low she is having follow-upwith her primary care's office. Review of Systems Stentjoint swelling arthritis fractures cataracts sinus problems dry skin diabeteshistory of blood thinnersmedication Objective Physical Exam Problem focused bilateral feet: Dorsalis pedis and posterior tibial pulses remain difficult to palpate. Feet are warm and dry pedal hair noted to be absent capillary refill time less than 3 secondsto digits 4 and 5, dry gangrenous changes to second and third digitwithoutthe cap refill,continues to have bilateral leg swel lingstable today. Dressing in place on left lower extremityseeing wound clinic for swelling Gross sensation intactto distal extremities with history of diabetic neuropathy Status post right hallux amputationwell-healed Status post distal Symes amputation right second toe,dry gangrenous changes at distal portion of toetreatment performed today Right foot third toe with dry gangrenous changes only at the distal tipdry gangrenouschanges noted no debridement performed today Clinical photo in chart. Toenails of digits 3, 4, 5 left footcared for at April 01, 2024 visit [facility]en[facility]4 and [facility] 3 views right foot:Taken at February 25, 2023 visit Images 2024-06-01 11:19:57 2024-06-01 11:20:05 Assessment/Plan 1.Diabetes 2.Diabetic ulcer of right foot 3.Peripheral vascular disease 4.S/P foot surgery, right patient to continue decrease activity levelwith dressing changes daily to the right footconsisting of Aquacel silver/Betadine dressings removed and incisions cleanedwithBetadine dressings re appliedconsisting ofrollgauze,Aquacel silverandpatient will continue use of her Bucky bandage No debridement performed today patient to wear postop shoewith modification no calf pain noted and discussed signs of a DVT continue Tylenol/ibuprofen for pain Patient to follow-upon June 11 at 9:45 AM Electronic Signature on File Electronically Reviewed/Signed by: Rosa Ramos DPM Author Signature Dt/Tm:06/01/2024 11:26 AM Division of Sports Medicine CLR Patient Care team information Care Team Personnel Name: ROC Ingram Terra L Position: Nurse Pract - Vascular Surg Member Role: Lifetime Relationship Address: [address] [place] [address] [place] Name: EMILI Noe Lynn Position: Physician Lay Ups Assembler Exempt - Vasc Surg Member Role: Lifetime Relationship Address: [address] [facility] [address] [place] [address] [place] Name: DO Martinez Thomas Position: Referring Member Role: Primary Care Provider Address: [facility] [address] [place] [address] [place] Care Team Related Persons Name: UTE SPRINGER Name: UTE SPRINGER Name: CARLOS SPRINGER
== END 2024-05-27 14:26 | disposition home or self-care (01) | DRG 558 ==
LOC: ED 19:21 → SUATTDRO 23:32 → 3W 23:32 → OBSVTOIN 23:32 → INTOOBSV 23:32 → 3W 05-27 01:23